=== PATIENT | female | born 1940 | race Caucasian/White ===

== ENCOUNTER 2019-07-27 13:00 | Outpatient (RCR) | payer MEDICARE, SELFPAY ==
--- NOTE | 2019-07-27 14:24 | PTOPEVAL ---
Addendum entered by CORNELIUS LUBIN 07/27/19 15:55: An evaluation of Cesia's Left knee was done 07/17/2019. All testing was negative except for increased L knee pain and difficulty with walking due to the increase in left knee pain. Balance testing was not able to be done on 07/17/2019 due to the increased left knee pain. This evaluation was done today. I did not print out the knee evaluation on 07/17/2019 and am not able to do so at this time due to computer program issue of only able to print out 1 eval - which is the below evaluation. Original Note: BALANCE PHYSICAL THERAPY EVALUATION and UPDATED PLAN OF CARE Thank you for referring Cesia to [facility]. Please review, sign, date and return this plan of care DANIS. She will be seen 1-2x/wk x 4 wks. I agree with and certify that the following plan of care is medically necessary. Referring Physician Date Admitting Provider: Attending Provider: Gagan Begum, Referring Provider: *PT Outpatient Evaluation Start: 07/17/19 13:48 Freq: Status: Active Protocol: Document 07/27/19 13:00 JESSIE (Rec: 07/27/19 14:21 JESSIE [id number]) Therapy Assessment Status Assessment Status Assessment Status Evaluation Outpatient Past Medical History Neurological History Hx Neurological Disorders No Significant History Cardiovascular History Hx Hypertension Yes Respiratory History Hx Other Respiratory Disorders Yes: aspirated pill - 2 yrs ago,followed by [facility] Gastrointestinal History Hx Gastrointestinal Disorders No Significant History Genitourinary History Hx Genitourinary Disorders No Significant History Musculoskeletal History Hx Joint Replacement Yes: 8-10 years ago TKA,B TSA ~6 yrs Endocrine History Hx Endocrine Disorders No Significant History HEENT History Hx Ear Surgery Yes: L cochlear implant 2018 Evaluation Information Problem Diagnosis loss of balance Onset after knees were replaced Subjective Information She feels like she is just Query Text:As Reported By Patient/ weaving when she walks. When Family she goes up/down stairs without a banister - needs to slightly hold onto someone for some stability. L knee pain is going away. No dizziness getting up in the morning, but with sit to stand - needs to stay still for a little - then can start walking. 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
--- NOTE | 2019-08-24 15:30 | PCPTNOTE ---
PHYSICAL THERAPY DISCHARGE NOTE Admitting Provider: Attending Provider: Gagan Begum, Patient:Cesia Bernadr Date of :1940 Cesia has not returned for any further treatments since 07/27/2019, therefore she will be discharged from physical therapy at this time. She was initially seen for her knee evaluation and then a balance evaluation was done the following week. She was provided with a HEP. She did not return for any follow up treatments. Thank you for referring Cesia to [facility]. Please review, sign, date and return this discharge summary DANIS. I have been updated about Cesia's current status and I agree with discharge from the above service at this time. Referring Physician Date
== END 2019-09-30 14:55 | disposition home or self-care (01) ==
LOC: ANHHIPT 13:00
PROVIDERS: PCP Internal Medicine; Visit Provider Internal Medicine
DX: R26.9 Unspecified abnormalities of gait and mobility (principal)
CPT/HCPCS: 97162

== ENCOUNTER 2024-09-29 08:55 | Outpatient (CLI) | payer MEDICARE, SELFPAY ==
--- NOTE | 2024-09-29 09:15 | ECHO_ITS ---
Patient Info Name: Cesia Das Age: 83 years : 1940 Gender: Female Ht: 64 in Wt: 270 lbs BSA: 2.42 m2 HR: 99 bpm BP: 157 / 80 mmHg Exam Date: 09/29/2024 9:21 AM Exam Location: Echo Lab Patient Status: Outpatient Admit Date: 09/29/2024 Staff Ordering Physician: Elizabeth Davis PA-C Blood Bank Laboratory Technologist: Aundrea Bernard RDCS Attending Provider: Elizabeth Davis PA-C Referring Physician: Ryan CHIN; Exam Type: CA echo dop color flow w con Study Info Indications R06.00 - Dyspnea, unspecified Complete two-dimensional, color flow and Doppler transthoracic echocardiogram is performed with contrast to opacify the left ventricle and to improve the deliniation of the left ventricle endocardial borders. Contrast/Agitated Saline Contrast/Ag. Saline: Definity Amount: 3.00 ml IV Access Condition: patent with no signs of infiltration New IV Access: Left Site Condition: IV removed Summary 1. Definity contrast administered improved wall motion interpretation. 2. Left ventricular chamber dimension is normal. 3. Left ventricular systolic function is normal, estimated at 60-65%. 4. There is mild concentric increased left ventricular wall thickness. 5. The left ventricular diastolic function is indeterminate as tissue doppler E/e' was not performed.. 6. Atrial flutter. 7. Left atrial chamber dimension is mildly enlarged. 8. Right atrial chamber dimension is mildly enlarged. 9. There is mild aortic valve sclerosis. 10. There is trace aortic valve regurgitation. 11. The mitral valve has mildly calcified annulus. 12. There is trace mitral valve regurgitation. 13. Mild pulmonary hypertension, estimated pulmonary arterial systolic pressure is 40 mmHg. Left Ventricle Definity contrast administered improved wall motion interpretation. The left ventricular diastolic function is indeterminate as tissue doppler E/e' was not performed.. Atrial flutter. Left ventricular chamber dimension is normal. Left ventricular systolic function is normal, estimated at 60-65%. There is mild concentric increased left ventricular wall thickness. Right Ventricle Right ventricular chamber dimension is normal. Right ventricular systolic function is normal. Left Atria Left atrial chamber dimension is mildly enlarged. Right Atria Right atrial chamber dimension is mildly enlarged. Aortic Valve The aortic valve is trileaflet. There is mild aortic valve sclerosis. There is no aortic valve stenosis. There is trace aortic valve regurgitation. Pulmonic Valve There is no pulmonic regurgitation. Mitral Valve The mitral valve has mildly calcified annulus. There is no mitral valve stenosis. There is trace mitral valve regurgitation. Tricuspid Valve There is no tricuspid valve regurgitation. Mild pulmonary hypertension, estimated pulmonary arterial systolic pressure is 40 mmHg. Pericardium/Pleural There is no pericardial effusion. Inferior Vena Cava Normal inferior vena cava with >50% collapse upon inspiration consistent with normal right atrial pressure, 5 mmHg. Aorta The aortic root size at the sinus of Valsalva is normal. Left Ventricular Outflow Tract Name Value Normal LVOT 2D LVOT Diameter 2.07 cm LVOT Doppler LVOT Peak Gradient 4 mmHg LVOT Mean Gradient 2 mmHg LVOT VTI 18.58 cm LVOT VTI/AV VTI Ratio 0.93 LVOT Stroke Volume 62.62 ml LVOT CO 14.79 l/min LVOT CI 6.10 L/min/m2 Tricuspid Valve Name Value Normal TV Regurgitation Doppler TR Peak Velocity 295.61 cm/s TR Peak Gradient 35 mmHg Estimated PAP/RSVP RA Pressure 5 mmHg <=5 PA Systolic Pressure 40 mmHg <36 RV Systolic Pressure 40 mmHg <36 Aorta Name Value Normal Ascending Aorta Ao Root Diameter (MM) 4.05 cm Ao Root Diam Index (MM) 1.67 cm/m2 Aortic Valve Name Value Normal AV Doppler AV Peak Velocity 116.48 cm/s AV Peak Gradient 5 mmHg AV Mean Gradient 4 mmHg AV VTI 19.96 cm AV Area (Cont Eq VTI) 3.14 cm2 >=3.00 AV Area (Cont Eq Facundo) 2.90 cm2 AV Regurgitation 2D LVOT Area 3.37 cm2 Ventricles Name Value Normal LV Dimensions 2D/MM IVS Diastolic Thickness (2D) 1.19 cm 0.60-1.00 LVID Diastole (2D) 3.38 cm 3.80-5.20 LVIW Diastolic Thickness (2D) 1.12 cm 0.60-0.90 LVID Systole (2D) 2.48 cm 2.20-3.50 LVOT Diameter 2.07 cm LV Mass (2D Cubed) 121.77 g 67.00-162.00 LV Mass Index (2D Cubed) 0.01 g/cm2 0.00-0.01 Relative Wall Thickness (2D) 0.66 LV Fractional Shortening/Ejection Fraction 2D/MM LV Fractional Shortening (2D) 27 % 27-45 LV EF (2D Teicholz) 53 % 54-74 LV Diastolic Volume (4C MOD) 107.25 ml LV EF (4C MOD) 55 % LV Diastolic Volume (2C MOD) 42.58 ml LV EF (2C MOD) 73 % LV Diastolic Volume (BP MOD) 61.90 ml 46.00-106.00 LV Diastolic Volume Index (BP MOD) 0.03 l/m2 0.03-0.06 LV Systolic Volume (BP MOD) 26.37 ml 14.00-42.00 LV Systolic Volume Index (BP MOD) 0.01 l/m2 0.01-0.02 LV EF (BP MOD) 57 % 54-74 LV Diastolic Length (4C) 7.52 cm LV Systolic Length (4C) 6.48 cm LV Stroke Volume (4C MOD) 59.56 ml Atria Name Value Normal LA Dimensions LA Dimension (MM) 3.37 cm 2.70-3.80 LA Volume (4C A-L) 87.38 ml LA Volume (BP A-L) 80.76 ml RA Dimensions RA Area (4C) 22.83 cm2 <=18.00 Report Signatures
--- OUTSIDE RECORDS SUMMARY | 2024-09-29 09:22 | XMS_ITS | Encounter Summary ---
Author Organization [facility] Address [facility] [place] [address] Care Team Providers Care Manager Aerospace Name Role Phone Gagan Begum MD Primary Care Provider [phone] Luís Richmond MD Primary Care Provider [phone] Elizabeth Davis Primary Care Provider [phone] Encounter Details Date Type Department Care Team (Late st Contact Info) Description 10/02/[address] [facility] Conversion [address] [place], [place] [address] , Generic Conversion, Social History Tobacco Use Types Packs/Day Years Used Date Smoking Tobacco: Never Assessed Comments Unknown Sex and Gender Information Value Date Recorded Sex Assigned at Female 09/04/2024 3:44 PM CDT Legal Sex Female 8:29 PM CDT Gender Identity Not on file Sexual Orientation Not on file documented as of this encounter Plan of Treatment Upcoming Encounters Date Type Department Care Team (Late st Contact Info) Description 09/30/2024 7:15 AM CDT Home Care Visit [facility] [address] [place] [address] [place] [address] Lobito Macario, GUT CLEANER 10/06/2024 8:00 AM CDT Home Care Visit [facility] [address] [place] [address] [place] [address] Lobito Macario, GUT CLEANER 10/14/2024 2:30 PM CDT Appointment [address] [place] [address] [place] [address] Leanna Dominguez, PT [address] [place] [address] documented as of this encounter Visit Diagnoses Not on filedocumented in this encounter Additional Health Concerns Infection Onset Date Last Indicated Resolved Time COVID-19 Rule Out 12/04/2019 12/04/2019 12/05/2019 7:59 PM CDT COVID-19 Rule Out 09/06/2020 09/10/2020 09/11/2020 12:20 PM CDT COVID-19 Rule Out 09/04/2024 09/04/2024 09/04/2024 3:02 PM CDT Respiratory Rule-Out 09/04/2024 09/04/2024 025 3:09 PM CDT Respiratory Rule-Out 09/04/2024 09/04/2024 025 12:49 PM CDT documented as of this encounter Care Teams Manager Aerospace Relationship Specialty Start Date End Date Gagan Begum MD [address] [place] [phone] PCP - General INTERNAL MEDICINE 09/02/19 05/13/22 Luís Richmond MD [address] [place] [id number] PCP - General FAMILY PRACTICE 05/14/22 09/03/24 Elizabeth Davis PA [address] [place] [address] PCP - General PHYSICIAN CASH ROOM CLERK 09/04/24 documented as of this encounter
--- OUTSIDE RECORDS SUMMARY | 2024-09-29 09:22 | XMS_ITS | Encounter Summary ---
Author Organization [facility] Address [facility] [place] [address] Care Team Providers Care Substation Maintenance Technician Name Role Phone Gagan Begum MD Primary Care Provider [phone] Luís Richmond MD Primary Care Provider [phone] Elizabeth Davis Primary Care Provider [phone] Encounter Details Date Type Department Care Team (Late st Contact Info) Description 12/02/2019 Prep for Procedure [facility] [address] [place] [address] Sunny Knowles MD [address] [place] [address] Social History Tobacco Use Types Packs/Day Years Used Date Smoking Tobacco: Never Smokeless Tobacco: Never Alcohol Use Standard Drinks/Week Comments Not Asked 0 (1 standard drink = 0.6 oz pur e alcohol) Comments No Sex and Gender Information Value Date Recorded Sex Assigned at Female 09/04/2024 3:44 PM CDT Legal Sex Female 8:29 PM CDT Gender Identity Not on file Sexual Orientation Not on file COVID-19 Exposure Response Date Recorded In the last month, have you been in contact with someone who was confirmed or suspected to have Coronavirus / COVID-19? No / Unsure 12/04/2019 2:18 PM CDT documented as of this encounter Plan of Treatment Upcoming Encounters Date Type Department Care Team (Late st Contact Info) Description 09/30/2024 7:15 AM CDT Home Care Visit [facility] [address] [place] [address] [place] [address] Lobito Macario, HOCKEY PLAYER 10/06/2024 8:00 AM CDT Home Care Visit [address] [place] [address] [place] [address] Lobito Macario, HOCKEY PLAYER 10/14/2024 2:30 PM CDT Appointment [facility] [address] [place] [address] [place] [address] Leanna Dominguez, PT [address] [place], [place] [address] documented as of this encounter Results * PRE-SURGICAL/PRE-PROCEDURE CORONAVIRUS (COVID 19) (12/04/2019 2:28 PM CDT) CORONAVIRUS SARS COV 2 PCR (RESP) NOT DETECTED NOT DETECTED 12/05/2019 7:59 PM CDT [facility] Comment: A Not Detected (negative) test result for this test means that SARS- CoV-2 RNA was not present in the specimen above the limit of detection. A negative result does not rule out the possibility of COVID-19 and should not be used as the sole basis for treatment or patient management decisions. If COVID-19 is still suspected, based on exposure history together with other clinical findings, re-testing should be considered in consultation with public health authorities. Laboratory test results should always be considered in the context of clinical observations and epidemiological data in making a final diagnosis and patient management decisions. Please review the Fact Sheets and FDA authorized labeling available for health care providers and patients using the following websites: [email or web address]/home/Covid-19/HCP/NAAT/fact-sheet2 [email or web address]://www.[facility]/home/Covid-19/Patients/NAAT/ fact-sheet2 This test has been authorized by the FDA under an Emergency Use Authorization (EUA) for use by authorized laboratories. Due to the current public health emergency, [facility] is receiving a high volume of samples from a wide variety of swabs and media for COVID-19 testing. In order to serve patients during this public health crisis, samples from appropriate clinical sources are being tested. Negative test results derived from specimens received in non-commercially manufactured viral collection and transport media, or in media and sample collection kits not yet authorized by FDA for COVID-19 testing should be cautiously evaluated and the patient potentially subjected to extra precautions such as additional clinical monitoring, including collection of an additional specimen. Methodology: Nucleic Acid Amplification Test (NAAT) includes PCR or TMA Additional information about COVID-19 can be found at the [facility] website: [email or web address].[email or web address]. Test performed at [facility] [address] [place] [address] Director: SUZIE LOGAN DO,MPH NASOPHARYNGEAL SWAB / Unknown 12/04/2019 2:28 PM CDT us Sunny Knowles MD MICROBIOLOGY - GENERAL ORDERA BLES Final Result [facility] [id number] [place] [address] documented in this encounter Visit Diagnoses Diagnosis Pre-op testing- Primary Preoperative examination, unspecified documented in this encounter Additional Health Concerns Infection Onset Date Last Indicated Resolved Time COVID-19 Rule Out 12/04/2019 12/04/2019 12/05/2019 7:59 PM CDT COVID-19 Rule Out 09/06/2020 09/10/2020 09/11/2020 12:20 PM CDT COVID-19 Rule Out 09/04/2024 09/04/2024 09/04/2024 3:02 PM CDT Respiratory Rule-Out 09/04/2024 09/04/2024 025 3:09 PM CDT Respiratory Rule-Out 09/04/2024 09/04/2024 025 12:49 PM CDT documented as of this encounter Care Teams Substation Maintenance Technician Relationship Specialty Start Date End Date Gagan Begum MD [address] [place] [id number] PCP - General INTERNAL MEDICINE 09/02/19 05/13/22 Luís Richmond MD [address] [place] [address] PCP - General FAMILY PRACTICE 05/14/22 09/03/24 Elizabeth Davis PA [address] [place] [id number] PCP - General PHYSICIAN INSTRUCTIONAL MANAGER 09/04/24 documented as of this encounter
--- OUTSIDE RECORDS SUMMARY | 2024-09-29 09:22 | XMS_ITS | Clinical Summary ---
Author Organization [facility] Address [address] [place] [address] Care Team Providers Care System Programmer Name Role Phone Elizabeth Davis Primary Care Provider [phone] Lavelle Mao MD Unavailable [phone] Allergies No known active allergies Medications lisinopril-hydr oCHLOROthiazide (PRINZIDE,ZESTO RETIC) 10-12.5 mg per tablet take 1 tablet by oral route every day 0 0 5 Active Additional Information Patient taking differently: oral Nightly, Indications: hypertension, Informant: Self, Reported on 02/26/2023 oxybutynin (DITROPAN) 5 mg tablet 5 mg. 0 0 5 Active Additional Information Patient taking differently:5 mgoral Nightly, Indications: Urinary Urgency, Informant: Self, Reported on 02/26/2023 traZODone (DESYREL) 50 mg tabletIndicatio ns:sleep Take 1 tablet (50 mg total) by mouth nightly 7 Active HYDROcodone-arthur taminophen (NORCO) 5-325 mg per tabletIndicatio ns:Pain Take 1 tablet by mouth every 4 (four) hours as needed for pain 20 tablet 9 Active Additional Information Patient not taking.Reported on 02/26/2023 multivitamin capsule Take 1 capsule by mouth daily Active psyllium, aspartame, SF (psyllium) 3.4 gram packet Take 1 packet by mouth daily Active Active Problems Problem Noted Date Diagnosed Date Full incontinence of feces 02/26/2023 Sensory hearing loss, bilateral 03/03/2019 Overview (03/03/2019): Added automatically from request for surgery [id number] Sensorineural hearing loss, asymmetrical 019 Hypertension 09/29/2014 Overview (09/27/2016): HBP Hematochezia 01/08/2012 Encounters Date Type Department Care Team Description 09/16/2024 3:00 PM CDT Procedure visit [facility] Otolaryngology [address] [facility] [address] [place] [address] [place] [address] Ayleen Nur Au.D. Sensorineural hearing loss, bilateral (Primary Dx); Encounter for adjustment and management of cochlear device from Last 3 Months Immunizations Immunization Administration Dates Next Due Influenza, Quadrivalent, Split, Intramuscular Influenza, Trivalent, High D ose, Split, Preservative Free, Intramuscular 05/27/2018 Pneumococcal Conjugate PCV 13 04/02/2019 Pneumococcal Polysaccharide PPV23 03/06/2018 Surgical History Surgery Date Site/Laterality Comments HERNIA REPAIR Hernia repair REPLACEMENT TOTAL KNEE Right TOTAL KNEE ARTHROPLASTY Left TOTAL SHOULDER ARTHROPLASTY Bilateral CHOLECYSTECTOMY 06/24/2007 - 06/23/2008 Medical History Medical History Date Comments Hypertension Menopause ovarian failure HL (hearing loss) Medication management Per patien t Morphine doesn't work Family History Medical History Relation Name Comments Sudden Cardiac Father Colon cancer Mother Cancer, colon; Other Other 1 No family histo ry of Cancer, breast; Other Other 2 No family histo ry of Cancer, cervical; Other Other 3 No family histo ry of Cancer, ovarian; Anesthesia problems Neg Hx Relation Name Status Comments Father Mother Other 1 Other 2 Other 3 Social History Tobacco Use Types Packs/Day Years Used Date Smoking Tobacco: Never Smokeless Tobacco: Never Tobacco Cessation:Counseling Given: Not Answered Alcohol Use Standard Drinks/Week Comments Yes 0 (1 standard drink = 0.6 oz pur e alcohol) 3 drinks a month Comments No Sex and Gender Information Value Date Recorded Sex Assigned at Not on file Legal Sex Female 4:31 PM AUTOMOTIVE AIRCONDITIONING MECHANIC Gender Identity Not on file Sexual Orientation Not on file Obstetrics History Para Term AB IAB SAB Ectopic Multiple Livin g Live Births 3 3 Date Outcome GA Total Labor Labor/2nd/3rd Weight Sex Type Anes PTL Katelin A1 A5 Name Clin Para Para Para Last Filed Vital Signs Vital Sign Reading Time Taken Comments Blood Pressure 90/62 02/26/2023 2:27 PM CDT Pulse 83 02/26/2023 2:27 PM CDT Temperature 36 C (96.8 F) 04/08/2019 3:57 PM CDT Respiratory Rate 16 04/08/2019 4:10 PM CDT Oxygen Saturation 93% 02/26/2023 2:27 PM CDT Inhaled Oxygen Concentration - - Weight 112.5 kg (248 lb) 02/26/2023 2:27 PM CDT Height 157.5 cm (5' 2 ) 02/26/2023 2:27 PM CDT Body Mass Index 45.36 02/26/2023 2:27 PM CDT Plan of Treatment Health Maintenance Due Date Last Done Comments Depression Screening 1940 Fall Risk Assessment 1940 Osteoporosis Screening-Bone Density Scan 1940 DTaP/Tdap/Td Vaccine (1 - Tdap) 11/29/1950 Hepatitis B Screening 11/29/1957 Zoster Vaccine (1 of 2) 11/29/1989 Well Visit 65+ 04/29/2018 04/29/2017 Covid-19 Vaccine ( season) 02/23/202405/2021, 08/05/2020 Influenza Vaccine (#1) 2024 05/27/2018, 2016 Pneumococcal vaccine 65+ Completed 04/02/2019, 02/22 Medical Devices Implanted Type Area Car Dumper Device Identifier Shelf Expiration Date Model / Serial / Lot Cochlear [employer] [id number] Implant Cochlear Cochlear Nucleus Profile Plus Slim Modiolar Electrode [id number] - [id number] - [id number] Implanted:Qty : 1 on 04/08/2019 by Igor Cha MD at [facility] Medicine Other - see comments Left: Cochlea Cochlear [employer] 03/04/2021 [id number] / [id number] / [id number] Description:Cochlear Nucleus [id number] Cochlear Implant with Contour Procedures Procedure Name Priority Date/Time Associated Diagnosis Comments [facility] RESULTS 09/16/2024 2:15 PM CDT from Last 3 Months Results * [facility] Results (09/16/2024 2:15 PM CDT) Provider Scanning AUDIOLOGY SERVICES ORDERABLES Final Result from Last 3 Months Insurance UHC MEDICARE ADVANTAGE A[employer] MEDICARE GOLD Care Teams System Programmer Relationship Specialty Start Date End Date Elizabeth Davis PA [address] [place] [address] PCP - General Physician Life Science Research Assistant 02/26/23 Lavelle Mao MD [phone] [place] [address] Surgeon Colon and Rectal Surgery 02/26/23
--- OUTSIDE RECORDS SUMMARY | 2024-09-29 09:22 | XMS_ITS | Referral Summary ---
Author Organization [facility] Address [address] [place] [address] Care Team Providers Care Shale Processing Technician Name Role Phone Elizabeth Davis Primary Care Provider [phone] Lavelle Mao MD Unavailable [phone] Encounters Date Type Department Care Team Description 09/16/2024 3:00 PM CDT Procedure visit [facility] Ot[facility] [address] [facility] [address] [place] [address] [place] [address] Ayleen Nur Au.D. Sensorineural hearing loss, bilateral (Primary Dx); Encounter for adjustment and management of cochlear device from Last 3 Months Allergies No known active allergies Medications lisinopril-hydr [...] (03/03/2019): Added automatically from request for surgery [id number] Sensorineural hearing loss, asymmetrical 019 Hypertension 09/29/2014 Overview (09/27/2016): HBP Hematochezia 01/08/2012 Immunizations Immunization Administration Dates Next Due Influenza, Quadrivalent, Split, Intramuscular Influenza, Trivalent, High D ose, Split, Preservative Free, Intramuscular 05/27/2018 Pneumococcal Conjugate PCV 13 04/02/2019 Pneumococcal Polysaccharide PPV23 03/06/2018 Social History Tobacco Use Types Packs/Day Years Used Date Smoking Tobacco: Never Smokeless Tobacco: Never Tobacco Cessation:Counseling Given: Not Answered Alcohol Use Standard Drinks/Week Comments Yes 0 (1 standard drink = 0.6 oz pur e alcohol) 3 drinks a month Comments No Sex and Gender Information Value Date Recorded Sex Assigned at Not on file Legal Sex Female 4:31 PM LEARNING AND DEVELOPMENT SPECIALIST Gender Identity Not on file Sexual Orientation Not on file Last Filed Vital Signs Vital Sign Reading [...] 02/26/2023 2:27 PM CDT Plan of Treatment Not on file Medical Devices Implanted Type Area Film And Video Graphics Designer Device Identifier Shelf Expiration Date Model / Serial / Lot Cochlear [employer] [id number] Implant Cochlear Cochlear Nucleus Profile Plus Slim Modiolar Electrode [id number] - [id number] - [id number] Implanted:Qty : 1 on 04/08/2019 by Igor Cha MD at [facility] Other - see comments Left: Cochlea [employer]chle[employer] 03/04/2021 [id number] / [id number] / [id number] Description:Cochlear Nucleus [id number] Cochlear Implant with Contour Procedures Procedure Name Priority Date/Time Associated Diagnosis Comments AUDBASE RESULTS 09/16/2024 2:15 PM CDT from Last 3 Months Results * AudBase Results (09/16/2024 2:15 PM CDT) Provider Scanning AUDIOLOGY SERVICES ORDERABLES Final Result from Last 3 Months Insurance [facility] MEDICARE ADVANTAGE AET[employer] MEDICARE GOLD Care Teams Shale Processing Technician Relationship Specialty Start Date End Date Elizabeth Davis PA [address] [place] [id number] PCP - General Physician Wedding Decorator 02/26/23 Lavelle Mao MD [phone] [place] [address] Surgeon Colon and Rectal Surgery 02/26/23
--- OUTSIDE RECORDS SUMMARY | 2024-09-29 09:23 | XMS_ITS | Encounter Summary ---
Author Organization [facility] Address [facility] [place] [address] Care Team Providers Care Operation Manager Name Role Phone Gagan Begum MD Primary Care Provider [phone] Luís Richmond MD Primary Care Provider [phone] Elizabeth Davis Primary Care Provider [phone] Encounter Details Date Type Department Care Team (Late st Contact Info) Description 09/05/[address] [facility] [address] [place] [id number] Juanito Bautista MD [address] [place], [place] [id number] Social History Tobacco Use Types Packs/Day Years Used Date Smoking Tobacco: Never Smokeless Tobacco: Never Alcohol Use Standard Drinks/Week Comments Yes 0 (1 standard drink = 0.6 oz pur e alcohol) social PHQ-2 Answer Date Recorded PHQ-2 Score - If the patient scores above 3, please move on to questions 3-9 0 08/31/2020 Comments No Sex and Gender Information Value Date Recorded Sex Assigned at Female 09/04/2024 3:44 PM CDT Legal Sex Female 8:29 PM CDT Gender Identity Not on file Sexual Orientation Not on file COVID-19 Exposure Response Date Recorded In the last month, have you been in contact with someone who was confirmed or suspected to have Coronavirus / COVID-19? No / Unsure 09/06/2020 12:40 PM CDT documented as of this encounter Plan of Treatment Upcoming Encounters Date Type Department Care Team (Late st Contact Info) Description 09/30/2024 7:15 AM CDT Home Care Visit [address] [place] [address] [place] [address] Lobito Macario, NON CLINICAL ADVISOR 10/06/2024 8:00 AM CDT Home Care Visit [address] [place] [address] [place] [address] Lobito Macario, NON CLINICAL ADVISOR 10/14/2024 2:30 PM CDT Appointment [address] [place], [place] [id number] Leanna Dominguez, PT [address] [place], [place] [id number] documented as of this encounter Results * ECG 12-Lead (09/06/2020 12:49 PM CDT) 09/06/2020 12:4 9 PM CDT Narrative [facility] RAD - 09/06/2020 1:49 PM CDT [facility] Test Date: 2020-09-06 Pat Name: CESIA RICARDO Department: Room: Gender: Female Parish Visitor: : 1940 Requested By: JUANITO BAUTISTA Order Number: [id number] Reading MD: Lambert Reagan Measurements Intervals Chandler Rate: 67 P: 47 [place]: 185 QRS: -23 QRSD: 96 T: 56 QT: 331 QTc: 351 Interpretive Statements SINUS RHYTHM WITH MARKED SINUS ARRHYTHMIA BORDERLINE LEFT AXIS DEVIATION LOW QRS VOLTAGE IN PRECORDIAL LEADS Compared to ECG 12/17/2016 11:18:37 Low QRS voltage now present Myocardial infarct finding no longer present Procedure Note Lambert Reagan MD - 09/06/2020 [facility] Test Date: 2020-09-06 Pat Name: CESIA SILVA Department: Room: Gender: Female Parish Visitor: : 1940 Requested By: JUANITO BAUTISTA Order Number: [id number] Reading MD: Lambert Reagan Measurements Intervals Chandler Rate: 67 P: 47 [place]: 185 QRS: -23 QRSD: 96 T: 56 QT: 331 QTc: 351 Interpretive Statements SINUS RHYTHM WITH MARKED SINUS ARRHYTHMIA BORDERLINE LEFT AXIS DEVIATION LOW QRS VOLTAGE IN PRECORDIAL LEADS Compared to ECG 12/17/2016 11:18:37 Low QRS voltage now present Myocardial infarct finding no longer present us Juanito Bautista MD ECG ORDERABLES Final Result [facility] documented in this encounter Visit Diagnoses Diagnosis Preop testing- Primary Preoperative examination, unspecified Preop testing Preoperative examination, unspecified documented in this encounter Additional Health Concerns Infection Onset Date Last Indicated Resolved Time COVID-19 Rule Out 09/06/2020 09/10/2020 09/11/2020 12:20 PM CDT COVID-19 Rule Out 09/04/2024 09/04/2024 09/04/2024 3:02 PM CDT Respiratory Rule-Out 09/04/2024 09/04/2024 025 3:09 PM CDT Respiratory Rule-Out 09/04/2024 09/04/2024 025 12:49 PM CDT documented as of this encounter Care Teams Operation Manager Relationship Specialty Start Date End Date Gagan Begum MD [address] [place] [id number] PCP - General INTERNAL MEDICINE 09/02/19 05/13/22 Luís Richmond MD [address] [place] [id number] PCP - General FAMILY PRACTICE 05/14/22 09/03/24 Elizabeth Davis PA [address] [place] [phone] PCP - General PHYSICIAN ASSURANCE SENIOR MANAGER 09/04/24 documented as of this encounter
--- OUTSIDE RECORDS SUMMARY | 2024-09-29 09:23 | XMS_ITS | Clinical Summary ---
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 Indications: bladder spasms Active OXYGENIndicati ons:supplement oxygen 2 L/min by Nasal route nightly. Indications: supplement oxygen Active hydroCHLOROthi azide (MICROZIDE) 12.5 MG tabletIndicati ons:diuretics Take 1 tablet (12.5 mg total) by mouth daily. Indications: diuretics 5 Active lisinopril (PRINIVIL) 10 MG tabletIndicati ons:htn Take 1 tablet (10 mg total) by mouth daily. Indications: htn 5 Active psyllium 0.52 g capsuleIndicat ions:fiber Take 5 capsules (2,600 mg total) by mouth 5 (five) times daily. Indications: fiber Active loratadine (CLARITIN) 10 MG tabletIndicati ons:allergies Take 1 tablet by mouth daily. Indications: allergies Active multivitamin (THERA) tabletIndicati ons:mvi Take 1 tablet by mouth daily. Indications: mvi Active vitamin B-1 (THIAMINE) 50 MG tabletIndicati ons:vitamins Take 1 tablet by mouth daily. Indications: vitamins Active Vitamin D, Cholecalcifero l, 50 MCG (1999) CapIndications :supplement Take 1 tablet by mouth daily. Indications: supplement Active Multiple Vitamins-[place] als (MULTIVITAMIN & MINERAL OR)Indications :supplement Take 1 tablet by mouth daily. Indications: supplement Active Biotin 1000 MCG TabIndications :supplement Take 1 tablet by mouth daily. Indications: supplement Active Cyanocobalamin (VITAMIN B 12 OR)Indications :supplement Take 1 tablet by mouth daily. Indications: supplement Active trazodone 50 MG tablet Take 1 tablet (50 mg total) by mouth nightly at bedtime. 09/06/19 Discontinu ed(Error) lisinopril-hyd rochlorothiazi de 10-12.5 MG tablet Take 1 tablet by mouth nightly. 09/06/19 Discontinu ed(Error) HYDROcodone-ac etaminophen 5-325 MG tabletIndicati ons:Acute Pain < 7 Day Supply Take 1-2 tablets by mouth every 6 (six) hours as needed for Pain. Indications: Acute Pain < 7 Day Supply For Moderate Pain 20 tablet 1 09/06/19 Discontinu ed(Error) vitamin D3 (CHOLECALCIFER OL) 10 mcg tablet Take 1 tablet (10 mcg total) by mouth daily. 09/09/19 Discontinu ed(Stop Taking at Discharge) loratadine (CLARITIN) 10 MG tabletIndicati ons:allergies Take 10 mg by mouth daily. Indications: allergies 5 09/09/19 Discontinu ed(Stop Taking at Discharge) Active Problems Problem Noted Date Diagnosed Date Hypoxia 09/04/2024 Encounters Date Type Department Care Team Description 09/24/2024 12:30 PM CDT Home Care Visit [facility] Home Care [address] [place] [address] Lobito Macario PTA CUTTER OPERATOR HOME VISIT 09/22/2024 12:45 PM CDT Home Care Visit [facility] Care [address] [place] [address] [place] [address] Lobito Macario PTA CUTTER OPERATOR HOME VISIT 09/17/2024 12:45 PM CDT Home Care Visit [facility] Care [address] [place] [address] Lobito Macario, CUTTER OPERATOR CUTTER OPERATOR HOME VISIT 09/16/2024 10:15 AM CDT Home Care Visit [facility] Home Care [address] [address] Yadira Weston LPN SN HOME VISIT 09/16/2024 8:00 AM CDT Home Care Visit [address] [address] Maci Dacosta LPN HH/HSPC ORIENTATION VISIT 09/14/2024 12:00 PM CDT Home Care Visit [facility] Care [address] [address] Leanna Dominguez, PT PT INITIAL EVALUATION 09/14/2024 Home Care Visit [address] [address] Debra Jones, RN CASE COMMUNICATION 09/10/2024 Hospital Follow-up Call [facility] Care Management [address] [place] [address] Marsha Pressley LPN Follow Up Call ([facility] 09/04-09/08/24) 09/09/2024 12:00 PM CDT Home Care Visit [address] [address] Crystal Moraes, RN SN OASIS START OF CARE 09/09/2024 Plan of Care Documentation [address] [id number] 09/04/2024 2:08 PM CDT - 09/08/2024 1:45 PM CDT Hospital Encounter [facility] [id number] [place] [id number] Tesfaye Issa MD Verma, Seema, MD Suresh, MD Federico Seay Darcy L, MOVER HELPER Genesis Abraham, ALANNAH Decreased Oxygen Level With Symptoms Discharge Disposition: Home with Home Health Care 09/04/2024 12:30 PM CDT Home Care Visit [facility] Home Care [address] [place] [address] [place] [address] Crystal Moraes RN SN NON ADMIT SOC 09/04/2024 Travel 09/01/2024 Scan [facility] Care [address] [place] [address] [place] [address] Scanned, Doc Hospital from Last 3 Months Immunizations Name Administration Dates Next Due Influenza Adult (Generic) 05/27/2018,03/24/2017 MODERNA COVID-19 (12+) MRNA, LNP-S, PF, 100 MCG/ 0.5 ML DOSE 09/02/2020,08/05/2020 Pneumococcal (Pneumovax 23) 03/06/2018 Pneumococcal (Prevnar 13) 04/02/2019 Family History Medical History Relation Comments Heart Father Cancer Mother Diabetes Sister Relation Status Comments Father Maternal Grandfather Maternal Grandmother Mother Paternal Grandfather Paternal Grandmother Sister Social History Tobacco Use Types Packs/Day Years Used Date Smoking Tobacco: Never Smokeless Tobacco: Never Tobacco Cessation:Counseling Given: No Alcohol Use Standard Drinks/Week Comments Yes 0 (1 standard drink = 0.6 oz pur e alcohol) social OASIS D0700: Social Isolation Answer Da te Recorded Frequency of experiencing loneliness or isolatio n Never 09/09/2024 OASIS A1250: Transportation Answer Date Recorded Lack of Transportation (Medical) Yes 09/09/2024 Lack of Transportation (Non-Medical) No 09/09/2024 Patient Unable or Declines to Respond No 09/09/2024 OASIS B1300: Health Literacy Answer Pedro Luis e Recorded Frequency of needing help to read materials from doctor or pharmacy Never 09/09/2024 B1300 Health Literacy Answer Date Recor ded How often do you need to hav e someone help you when you read instructions, pamphlets, or other written material from your doctor or pharmacy? Never 09/04/2024 [facility] Utilities Answer Date Recorded In the past 12 months has th e electric, gas, oil, or water company threatened to shut off services in your home? No 09/04/2024 Humiliation, Afraid, Rape, and Kick questionnair e Answer Date Recorded Within the last year, have y ou been afraid of your partner or ex-partner? No 09/04/2024 Within the last year, have y ou been humiliated or emotionally abused in other ways by your partner or ex-partner? No Within the last year, have y ou been kicked, hit, slapped, or otherwise physically hurt by your partner or ex-partner? No 09/04/2024 Within the last year, have y ou been raped or forced to have any kind of sexual activity by your partner or ex-partner? No 09/04/2024 Social Connection and Isolat ion Panel [NHANES] Answer Date Recorded In a typical week, how many times do you talk on the phone with family, friends, or neighbors? More than three times a week 09/04/2024 How often do you get togethe r with friends or relatives? Three times a week 09/04/2024 How often do you attend [facility] or jew services? Never 09/04/2024 Do you belong to any clubs o r organizations such as baptism groups, unions, fraternal or athletic groups, or school groups? No 09/04/2024 How often do you attend meet ings of the clubs or organizations you belong to? Never 09/04/2024 Marital Status Not on file 09/04/2024 AUDIT-C Answer Date Recorded Q1: How often do you have a drink containing alc ohol? Monthly or less 09/04/2024 Q2: How many drinks containi ng alcohol do you have on a typical day when you are drinking? 1 or 2 09/04/2024 Q3: How often do you have si x or more drinks on one occasion? Never 09/04/2024 Overall Financial Resource Strain (CARDIA) Answe r Date Recorded How hard is it for you to pa y for the very basics like food, housing, medical care, and heating? Not hard at all 09/04/2024 PHQ-2 Answer Date Recorded Patient Health Questionnaire-2 Score 4 09/04/2024 [facility] - Occupational Stress Questionnaire Answer Date Recorded Do you feel stress - tense, restless, nervous, or anxious, or unable to sleep at night because your mind is troubled all the time - these days? To some extent 09/04/2024 Exercise Vital Sign Answer Date Recorde d On average, how many days pe r week do you engage in moderate to strenuous exercise (like a brisk walk)? 0 days 09/04/2024 On average, how many minutes do you engage in exercise at this level? 0 min 09/04/2024 Hunger Vital Sign Answer Date Recorded Within the past 12 months, y ou worried that your food would run out before you got the money to buy more. Never true 09/05/19 25 Within the past 12 months, t he food you bought just didn't last and you didn't have money to get more. Never true 09/04/2024 PRAPARE - Transportation Answer Date Re corded In the past 12 months, has l ack of transportation kept you from medical appointments or from getting medications? No 08/22 In the past 12 months, has l ack of transportation kept you from meetings, work, or from getting things needed for daily living? No 09/04/2024 Housing Stability Vital Sign Answer Pedro Luis e Recorded In the last 12 months, was t here a time when you were not able to pay the mortgage or rent on time? Yes 09/04/2024 In the past 12 months, how m any times have you moved where you were living? 0 09/04/2024 At any time in the past 12 m [facility], were you homeless or living in a custodial (including now)? No 09/04/2024 Comments No Sex and Gender Information Value Date Recorded Sex Assigned at Female 09/04/2024 3:44 PM CDT Legal Sex Female 8:29 PM CDT Gender Identity Not on file Sexual Orientation Not on file Last Filed Vital Signs Vital Sign Reading Time Taken Comments Blood Pressure 118/76 09/24/2024 12:58 PM CDT Pulse 76 09/24/2024 12:58 PM CDT Temperature 36.5 C (97.7 F) 09/24/2024 12:58 PM CDT Respiratory Rate 18 09/24/2024 12:5 8 PM CDT Oxygen Saturation 98% 09/24/2024 12: 58 PM CDT Inhaled Oxygen Concentration - - Weight 135.6 kg (298 lb 15.1 oz) 09/08/2024 5:00 AM CDT Height 162.6 cm (5' 4 ) 09/04/2024 2:14 PM CDT Body Mass Index 51.31 09/04/2024 2:14 PM CDT Plan of Treatment Upcoming Encounters Date Type Department Care Team (Late st Contact Info) Description 09/30/2024 7:15 AM CDT Home Care Visit [facility] Home Care [address] [place] [address] [place] [address] Lobito Macario, CUTTER OPERATOR 10/06/2024 8:00 AM CDT Home Care Visit [facility] Care [address] [place] [address] Lobito Macario, CUTTER OPERATOR 10/14/2024 2:30 PM CDT Appointment [facility] Care [address] [place], [place] [id number] Leanna Dominguez, PT [address] [place], [place] [id number] Health Maintenance Due Date Last Done Comments DTaP, Tdap and Td Vaccines ( 1 - Tdap) 11/29/1958 Zoster Vaccines (1 of 2) 11/29/1989 Annual Medicare Wellness Visit 11/29/2004 Dexa Scan (General) 11/29/2004 RSV Immunization or 60+ Years (1 - 1-dose 75+ series) 11/29/2014 COVID-19 Vaccine ( - 2023-2 5 season) 2024 09/02/2020, 08/05/2020 Pneumococcal Vaccine: 65+ Years Completed 04/02/2019, 03/06/2018 Meningococcal B Vaccine Aged Out No l onger eligible based on patient's age to complete this topic Meningococcal Vaccine Aged Out No elbert amber eligible based on patient's age to complete this topic RSV Immunizations Under 20 Months Aged Out No longer eligible b ased on patient's age to complete this topic Medical Devices Implanted Type Area Cutter Apprentice Hand Device Identifier Shelf Expiration Date Model / Serial / Lot Iol Edwin [id number] - [id number] Implanted:Qty: 1 on 09/07/2019 by Sunny Knowles MD at [facility] Lens Right: Eye EDWIN - SURGICAL DIV 07/24/2023 [id number] / [id number] / Edwin Acrysof Iq Iol Implanted:Qty: 1 on 12/07/2019 by Sunny Knowles MD at [facility] Left: Eye 08/22/2023 / [id number] / [id number] Explanted Type Area Cutter Apprentice Hand Device Identifier Shelf Expiration Date Model / Serial / Lot Bilateral Knee Replacement Bilateral Shoulder Replacement Procedures Procedure Name Priority Date/Time Associated Diagnosis Comments HOME O2 EVAL Routine 09/07/2024 11:23 AM CDT MAGNESIUM Routine 09/07/2024 5:30 AM CDT BASIC METABOLIC PANEL Routine 09/07/2024 5:30 AM CDT CBC W/DIFF AUTOMATED Routine 09/07/2024 5:30 AM CDT PROCALCITONIN (PCT) Routine 09/06/2024 6 :35 AM CDT COMPREHENSIVE METABOLIC PANEL Routine 09/06/2024 6:35 AM CDT CBC W/DIFF AUTOMATED Routine 09/06/2024 6:35 AM CDT MAGNESIUM Routine 09/06/2024 6:35 AM CDT PROCALCITONIN (PCT) Routine 09/05/2024 6 :55 AM CDT MAGNESIUM Routine 09/05/2024 6:55 AM CDT COMPREHENSIVE METABOLIC PANEL Routine 09/05/2024 6:55 AM CDT CBC W/DIFF AUTOMATED Routine 09/05/2024 6:55 AM CDT CULTURE, BACTERIA, BLOOD STAT 09/05/2024 6:54 AM CDT RESPIRATORY PCR PANEL 2 Routine 09/04/2024 9:44 PM CDT CULTURE, BACTERIA, BLOOD STAT 09/04/2024 6:55 PM CDT CRITICAL CARE Routine 09/04/2024 6:51 PM CDT CTA CHEST PE PROTOCOL STAT 09/04/2024 5:08 PM CDT URINALYSIS, AUTO, COMPLETE STAT 09/04/2024 3:20 PM CDT INFLUENZA A & B STAT 09/04/2024 2:35 PM CDT CORONAVIRUS (COVID 19) STAT 2:35 PM CDT TSH W/REFLEX STAT 09/04/2024 2:35 PM CDT PRO-BRAIN NATRIURETIC PEPTIDE STAT 09/04/2024 2:35 PM CDT LACTIC ACID W REFLEX (SEPSIS) STAT 09/04/2024 2:35 PM CDT D-DIMER, QUANTITATIVE STAT 09/04/2024 2:35 PM CDT TROPONIN, QUANT STAT 09/04/2024 2:35 PM CDT COMPREHENSIVE METABOLIC PANEL STAT 09/04/2024 2:35 PM CDT CBC W/DIFF AUTOMATED STAT 09/04/2024 2:35 PM CDT ECG 12-LEAD Routine 09/04/2024 2:30 PM CDT XR CHEST PORTABLE STAT 09/04/2024 2:2 9 PM CDT from Last 3 Months Results * (ABNORMAL) BASIC METABOLIC PANEL (09/07/2024 5:30 AM CDT) GLUCOSE 128(H) 70 - 99 MG/DL 09/07/2024 6:30 AM T [facility] BUN 17 7 - 18 MG/DL 09/07/2024 6:30 AM [facility] CREATININE S/P/B 1.29(H) 0.55 - 1.02 MG/DL 09/07/2024 6:30 AM [facility] SODIUM S/P/B 137 136 - 145 MMOL/L 09/07/2024 6:30 AM [facility] POTASSIUM S/P/B 4.3 3.5 - 5.1 MMOL/L 09/07/2024 6:30 AM [facility] CHLORIDE S/P/B 104 100 - 108 MMOL/L 09/07/2024 6:30 AM [facility] CO2 27.5 21 - 32 MMOL/L 09/07/2024 6:30 AM [facility] CALCIUM S/P/B 8.4(L) 8.5 - 10.1 MG/DL 09/07/2024 6:30 AM [facility] ANION GAP 5.5 5 - 15 MMOL/L 09/07/2024 6:30 AM [facility] BUN CREATININE RATIO 13.2 6 - 26 09/07/2024 6:30 AM [facility] GFR ESTIMATE 41(L) >90 ML/MIN/1.7 3 M2 09/07/2024 6:30 AM [facility] Comment: NOTE: eGFR is not calculated for patients <18 years of age. This is an estimated GFR calculation using the new CKD EPI creatinine equation without race and so does not require a correction factor for race. This estimated GFR should not be used for calculating drug doses. 09/07/2024 5:30 AM CDT Genesis Abraham PA-C LABORATORY Final Result [facility] [address] [place] [address], * (ABNORMAL) CBC W/DIFF AUTOMATED (09/07/2024 5:30 AM CDT) Only the most recent of4 resultswithin the time period is included. WBC 7.73 4.4 - 11.0 x10'3/uL 09/07/2024 6:18 AM CDT [facility] RBC 4.13(L) 4.50 - 5.10 x10'6/uL 09/07/2024 6:18 AM CDT [facility] HGB 12.0(L) 12.3 - 15.3 G/DL 09/07/2024 6:18 AM CDT [facility] HCT 38.7 35.9 - 44.6 % 09/07/2024 6:18 AM CDT [facility] MCV 93.7 80.0 - 96.0 FL 09/07/2024 6:18 AM CDT [facility] MCH 29.1 25.3 - 30.9 PG 09/07/2024 6:18 AM CDT [facility] MCHC 31.0 31.0 - 34.1 G/DL 09/07/2024 6:18 AM CDT [facility] RDW 14.8 12.4 - 15.1 % 09/07/2024 6:18 AM CDT [facility] PLT 259 151 - 353 x10'3/uL 09/07/2024 6:18 AM CDT [facility] MPV 9.7 9.6 - 12.0 FL 09/07/2024 6:18 AM CDT [facility] RBC MORPHOLOGY NORMAL 09/07/2024 6:18 AM CDT [facility] PLT MORPH. NORMAL 09/07/2024 6:18 AM CDT [facility] WBC MORPHOLOGY NORMAL 09/07/2024 6:18 AM CDT [facility] LYMPHOCYTES % 20.2 15.8 - 45.0 % 09/07/2024 6:18 AM CDT [facility] NEUTROPHILS % 65.7 42.1 - 71.9 % 09/07/2024 6:18 AM CDT [facility] MONOCYTES % 10.2 5.7 - 12.5 % 09/07/2024 6:18 AM CDT [facility] EOSINOPHILS 2.7 0.0 - 5.6 % 09/07/2024 6:18 AM CDT [facility] BASOPHILS 0.8 0.0 - 1.3 % 09/07/2024 6:18 AM CDT [facility] ABS. NEUTROPHILS 5.08 1.40 - 6.00 x10'3/uL 09/07/2024 6:18 AM CDT [facility] IMMATURE GRANS % 0.4 0.0 - 0.5 % 09/07/2024 6:18 AM CDT [facility] ABS. LYMPHOCYTES 1.56 0.80 - 4.70 x10'3/uL 09/07/2024 6:18 AM CDT [facility] 09/07/2024 5:30 AM CDT us Genesis Abraham PA-C LABORATORY Final Result [facility] [address] [place] [address], * MAGNESIUM (09/07/2024 5:30 AM CDT) Only the most recent of3 resultswithin the time period is included. MAGNESIUM 2.0 1.8 - 2.4 MG/DL 09/07/2024 6:30 AM CDT [facility] 09/07/2024 5:30 AM CDT Genesis Abraham PA-C LABORATORY Final Result [facility] [address] [place] [address], * PROCALCITONIN (PCT) (09/06/2024 6:35 AM CDT) Only the most recent of2 resultswithin the time period is included. Procalcitonin <0.05 0.00 - 0.25 NG/ML 09/06/2024 8:09 AM CDT [facility] Comment: PROCALCITONIN INTERPRETATION GUIDELINES LOWER RESPIRATORY TRACT INFECTIONS (LRTI): USE OF PCT IN INPATIENT OR EMERGENCY SITUATION INITIATION OF ANTIBIOTICS PCT VALUE INTERPRETATION <0.10 NG/ML ANTIBIOTIC THERAPY STRONGLY DISCOURAGED. 0.10-0.25 NG/ML ANTIBIOTIC THERAPY DISCOURAGED. 0.26-0.50 NG/ML ANTIBIOTIC THERAPY ENCOURAGED. >0.50 NG/ML ANTIBIOTIC THERAPY STRONGLY ENCOURAGED. DISCONTINUE ANTIBIOTICS PCT LESS THAN OR EQUAL TO 0.25 NG/ML OR DELTA PCT >80 PERCENT DELTA PCT= PCT(PEAK)-PCT(CURRENT)/PCT(PEAK)X100% STUDIES HAVE EVALUATED PCT PROTOCOLS IN THESE PATIENTS AND FOUND THAT FOR PATIENTS WHO ARE CLINICALLY STABLE AND ARE TREATED AT THE ED OR ARE HOSPITALIZED, THE INITIATION OF ANTIBIOTIC THERAPY SHOULD BE BASED ON CLINICAL GROUNDS AND A PCT VALUE OF GREATER THAN OR EQUAL TO 0.26 NG/ML. IF PCT REMAINS LOWER, ANTIBIOTICS CAN BE WITHHELD AND PATIENTS CAN BE REASSESSED CLINICALLY WITHOUT SAFETY CONCERNS. IF PATIENTS ARE CLINICALLY STABLE, AN ALTERNATIVE DIAGNOSIS SHOULD BE CONSIDERED. IF PATIENTS ARE UNSTABLE, THEN ANTIBIOTICS MAY BE CONSIDERED. IF PATIENTS DO NOT IMPROVE IN THE SHORT FOLLOW UP PERIOD OF 6 TO 12 HOURS, CLINICAL RE-EVALUATION AND RE-MEASUREMENT OF PCT IS RECOMMENDED. 09/06/2024 6:35 AM CDT us Dede Caballero NP LABORATORY Final Result [facility] [address] [place] [address], [place] [phone] * (ABNORMAL) COMPREHENSIVE METABOLIC PANEL (09/06/2024 6:35 AM CDT) Only the most recent of3 resultswithin the time period is included. [facility] GLUCOSE 135(H) 70 - 99 MG/DL 09/06/2024 7:09 AM CDT [facility] BUN 17 7 - 18 MG/DL 09/06/2024 7:09 AM CDT [facility] CREATININE S/P/B 1.14(H) 0.55 - 1.02 MG/DL 09/06/2024 7:09 AM T [facility] SODIUM S/P/B 137 136 - 145 MMOL/L 09/06/2024 7:09 AM T [facility] POTASSIUM S/P/B 4.7 3.5 - 5.1 MMOL/L 09/06/2024 7:09 AM CDT [facility] CHLORIDE S/P/B 104 100 - 108 MMOL/L 09/06/2024 7:09 AM T [facility] CO2 26.8 21 - 32 MMOL/L 09/06/2024 7:09 AM T [facility] CALCIUM S/P/B 8.2(L) 8.5 - 10.1 MG/DL 09/06/2024 7:09 AM T [facility] BILIRUBIN TOTAL S/P/B 0.7 0.2 - 1.2 MG/DL 09/06/2024 7:09 AM T [facility] TOTAL PROTEIN S/P/B 5.4(L) 6.4 - 8.2 G/DL 09/06/2024 7:09 AM T [facility] ALBUMIN S/P/B 2.6(L) 3.4 - 5.0 G/DL 09/06/2024 7:09 AM T [facility] AST 17 15 - 37 U/L 09/06/2024 7:09 AM T [facility] ALT 19 14 - 55 U/L 09/06/2024 7:09 AM T [facility] ALKALINE PHOSPHATASE S/P/B 63 50 - 136 U/L 09/06/2024 7:09 AM T [facility] ANION GAP 6.2 5 - 15 MMOL/L 09/06/2024 7:09 AM T [facility] BUN CREATININE RATIO 14.9 6 - 26 09/06/2024 7:09 AM [facility] A/G RATIO 0.9(L) 1.0 - 2.0 RATIO 09/06/2024 7:09 AM [facility] GFR ESTIMATE 47(L) >90 ML/MIN/1.7 3 M2 09/06/2024 7:09 AM T [facility] Comment: NOTE: eGFR is not calculated for patients <18 years of age. This is an estimated GFR calculation using the new CKD EPI creatinine equation without race and so does not require a correction factor for race. This estimated GFR should not be used for calculating drug doses. 09/06/2024 6:35 AM CDT Dede Caballero NP LABORATORY Final Result [facility] [address] [place] [address], [place] [phone] * CULTURE, BACTERIA, BLOOD (09/05/2024 6:54 AM CDT) Only the most recent of2 resultswithin the time period is included. [facility] SPEC DESCRIPTION BLOOD 09/04/2024 6:48 PM CDT [facility] SPECIAL REQUESTS NO SPECIAL REQUEST 09/04/2024 6:48 PM CDT [facility] CULTURE RESULT NO GROWTH 5 DAYS 09/10/2024 11:56 AM CDT [facility] BLOOD SPECIMEN OBTAINED FOR BLOOD CULTURE / Unknown 09/05/2024 6:54 AM CDT 09/05/2024 6:55 AM CDT Tesfaye Issa MD MICROBIOLOGY - GENERAL ORDERABLE S Final Result Performing Organization Address City/State/[facility] Co de Phone Number [facility] [address] [place] [address], [place] [phone] [facility] [address] [place] [address], [place] [phone] * RESPIRATORY PCR PANEL 2 (09/04/2024 9:44 PM CDT) [facility] ADENOVIRUS PCR (RESP) NOT DETECTED NOT DETECTED 09/05/2024 12:49 PM CDT [facility] CORONAVIRUS 229E PCR (RESP) NOT DETECTED NOT DETECTED 09/05/2024 12:49 PM CDT [facility] CORONAVIRUS HKU1 PCR (RESP) NOT DETECTED NOT DETECTED 09/05/2024 12:49 PM CDT [facility] CORONAVIRUS NL63 PCR (RESP) NOT DETECTED NOT DETECTED 09/05/2024 12:49 PM CDT [facility] CORONAVIRUS OC43 PCR (RESP) NOT DETECTED NOT DETECTED 09/05/2024 12:49 PM CDT [facility] METAPNEUMOVIRUS PCR (RESP) NOT DETECTED NOT DETECTED 09/05/2024 12:49 PM CDT [facility] RHINOVIRUS/ENTEROV IRUS PCR (RESP) NOT DETECTED NOT DETECTED 09/05/2024 12:49 PM CDT [facility] INFLUENZA A PCR (RESP) NOT DETECTED NOT DETECTED 09/05/2024 12:49 PM CDT [facility] INFLUENZA B PCR (RESP) NOT DETECTED NOT DETECTED 09/05/2024 12:49 PM CDT [facility] PARAINFLUENZA 1 PCR (RESP) NOT DETECTED NOT DETECTED 09/05/2024 12:49 PM CDT [facility] PARAINFLUENZA 2 PCR (RESP) NOT DETECTED NOT DETECTED 09/05/2024 12:49 PM CDT [facility] PARAINFLUENZA 3 PCR (RESP) NOT DETECTED NOT DETECTED 09/05/2024 12:49 PM CDT [facility] PARAINFLUENZA 4 PCR (RESP) NOT DETECTED NOT DETECTED 09/05/2024 12:49 PM CDT [facility] RSV PCR (RESP) NOT DETECTED NOT DETECTED 09/05/2024 12:49 PM CDT [facility] B PARAPERTUSIS PCR (RESP) NOT DETECTED NOT DETECTED 09/05/2024 12:49 PM CDT [facility] BORDETELLA PERTUSSIS PCR (RESP) NOT DETECTED NOT DETECTED 09/05/2024 12:49 PM CDT [facility] CHLAMYDOPHILA PNEUMONIAE PCR (RESP) NOT DETECTED NOT DETECTED 09/05/2024 12:49 PM CDT [facility] MYCOPLASMA PNEUMONIAE PCR (RESP) NOT DETECTED NOT DETECTED 09/05/2024 12:49 PM CDT [facility] CORONAVIRUS SARS COV 2 PCR (RESP) NOT DETECTED NOT DETECTED 09/05/2024 12:49 PM CDT [facility] NASOPHARYNGEAL SWAB / Unknown 09/04/2024 9:44 PM CDT us Mayuri Arias MD MICROBIOLOGY - GENERAL ORDERABLE S Final Result [facility] [address] [place] [address], [place] [phone] * Critical Care (09/04/2024 6:51 PM CDT) Tesfaye Whitfield MD - 09/04/2024 6:51 PM CDT Tesfaye Issa MD 09/04/2024 7:54 PM Critical Care Performed by: Tesfaye Issa MD Authorized by: Mayuri Arias MD Critical care provider statement: Critical care time (minutes): 35 Critical care time was exclusive of: Separately billable procedures and treating other patients and teaching time Critical care was necessary to treat or prevent imminent or life-threatening deterioration of the following conditions: Respiratory failure Critical care was time spent personally by me on the following activities: Development of treatment plan with patient or surrogate, evaluation of patient's response to treatment, examination of patient, obtaining history from patient or surrogate, ordering and performing treatments and interventions, ordering and review of laboratory studies, re-evaluation of patient's condition, ordering and review of radiographic studies, pulse oximetry and review of old charts I assumed direction of critical care for this patient from another provider in my specialty: no Care discussed with: admitting provider us Mayuri Arias MD PROCEDURE/MINOR SURGICAL ORDERAB LES Final Result * CTA CHEST PE PROTOCOL (09/04/2024 5:08 PM CDT) Anatomical Region Laterality Modality Chest Computed Tomogra phy 09/04/2024 5:32 PM CDT Impressions 09/04/2024 5:38 PM CDT IMPRESSION: 1. No discrete intraluminal filling defect is seen to suggest acute central, lobar, or segmental pulmonary from about disease. 2. Prominence of the main pulmonary artery suggesting elevated pulmonary arterial pressures. 3. Mild mosaic attenuation in the lower lobes and lingula that is nonspecific but could reflect small airway or small vessel disease. 4. Right thyroid nodule measuring up to 2.5 cm. Further characterization with thyroid ultrasound is recommended if this has not been performed previously. 5. Mild diffuse hepatic steatosis. 6. Coronary artery calcifications and other findings as above. Referred By: Interpreted By: Sergio Khan DO, 09/04/2024 5:32 PM Narrative 09/04/2024 5:[address] [facility] [address] [place] [address] EXAMINATION: CTA CHEST PE PROTOCOL EXAM DATE: 09/04/2024 4:43 PM CLINICAL HISTORY: Elevated d-dimer, low oxygen saturation, and weakness. COMPARISON: Chest radiograph 09/04/2024. TECHNIQUE: Axial CT angiography of the chest was performed following intravenous administration of 50 mL of Isovue 370. Coronal and sagittal reformatted images were obtained and reviewed. Coronal maximum intensity projection sequences (MIPS) sequences were obtained and reviewed. A radiation dose lowering technique was used for this procedure, which may include, but is not limited to, dose reduction technique, automated exposure control, the use of iterative reconstruction, ALARA (As Low As Reasonably Achievable) techniques, and Image Gently techniques. FINDINGS: PULMONARY ARTERIAL TREE: There is adequate opacification of the central, lobar, and segmental pulmonary arterial tree; however patient respiratory motion artifact degrades evaluation of the segmental and subsegmental pulmonary arterial tree. No discrete intraluminal filling defect is seen to suggest acute central, lobar, or segmental pulmonary thromboembolic disease. MEDIASTINUM: The heart is normal in size without pericardial effusion. There are coronary artery calcifications. There are atherosclerotic calcifications of the thoracic aorta without aneurysm formation. There is prominence of the main pulmonary artery measuring approximately 38 mm in diameter, suggesting elevated pulmonary arterial pressures. There is asymmetric enlargement of the right thyroid lobe with a nodule measuring approximately 2.5 cm; however this is suboptimally evaluated due to artifact from the patient's bilateral shoulder orthopedic hardware. No mediastinal, hilar, internal mammary chain, axillary, or supraclavicular adenopathy is seen. PLEURAL SPACES: There is no pleural effusion or pneumothorax. LUNGS: Patient respiratory motion artifact degrades evaluation of the lung parenchyma. There is mild dependent atelectasis. There is mild mosaic attenuation in the lower lobes and lingula that is nonspecific but could reflect small airway versus small vessel disease. ABDOMEN: There is mild diffuse hepatic steatosis. The gallbladder is surgically absent. There are foci of hypoattenuation in both kidneys most suggestive of renal cysts but suboptimally evaluated on this examination. There are atherosclerotic calcifications of the visualized abdominal aorta. MUSCULOSKELETAL: Degenerative arthritis affects the visualized lower cervical spine. Severe multilevel degenerative disc disease affects the thoracic spine and visualized lumbar spine. Multilevel facet joint osteoarthritis affects the mid to lower thoracic spine and visualized lumbar spine. 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 Osteoarthritis affects the left hand and wrist; however evaluation is suboptimal due to nonconventional imaging positioning on this examination. Procedure Note Sergio Khan, DO - 09/04/2024 [facility] [address] [place] [address] EXAMINATION: CTA CHEST PE PROTOCOL EXAM DATE: 09/04/2024 4:43 PM CLINICAL HISTORY: Elevated d-dimer, low oxygen saturation, and weakness. COMPARISON: Chest radiograph 09/04/2024. TECHNIQUE: Axial CT angiography of the chest was performed followingintravenous administration of 50 mL of Isovue 370. Coronal and sagittalreformatted images were obtained and reviewed. Coronal maximum intensityprojection sequences (MIPS) sequences were obtained and reviewed. Aradiation dose lowering technique was used for this procedure, which mayinclude, but is not limited to, dose reduction technique, automatedexposure control, the use of iterative reconstruction, ALARA (As Low AsReasonably Achievable) techniques, and Image Gently techniques. FINDINGS: PULMONARY ARTERIAL TREE: There is adequate opacification of the central, lobar, and segmentalpulmonary arterial tree; however patient respiratory motion artifactdegrades evaluation of the segmental and subsegmental pulmonary arterialtree. No discrete intraluminal filling defect is seen to suggest acutecentral, lobar, or segmental pulmonary thromboembolic disease. MEDIASTINUM: The heart is normal in size without pericardial effusion. There arecoronary artery calcifications. There are atherosclerotic calcificationsof the thoracic aorta without aneurysm formation. There is prominence ofthe main pulmonary artery measuring approximately 38 mm in diameter,suggesting elevated pulmonary arterial pressures. There is asymmetricenlargement of the right thyroid lobe with a nodule measuringapproximately 2.5 cm; however this is suboptimally evaluated due toartifact from the patient's bilateral shoulder orthopedic hardware. Nomediastinal, hilar, internal mammary chain, axillary, or supraclavicularadenopathy is seen. PLEURAL SPACES: There is no pleural effusion or pneumothorax. LUNGS: Patient respiratory motion artifact degrades evaluation of the lungparenchyma. There is mild dependent atelectasis. There is mild mosaicattenuation in the lower lobes and lingula that is nonspecific but couldreflect small airway versus small vessel disease. ABDOMEN: There is mild diffuse hepatic steatosis. The gallbladder is surgicallyabsent. There are foci of hypoattenuation in both kidneys most suggestiveof renal cysts but suboptimally evaluated on this examination. There areatherosclerotic calcifications of the visualized abdominal aorta. MUSCULOSKELETAL: Degenerative arthritis affects the visualized lower cervical spine.Severe multilevel degenerative disc disease affects the thoracic spine andvisualized lumbar spine. Multilevel facet joint osteoarthritis affectsthe mid to lower thoracic spine and visualized lumbar spine. Orthopediccomponents of bilateral total shoulder arthroplasties are incompletelyvisualized situated in gross anatomic alignment. Osteoarthritis affectsthe left hand and wrist; however evaluation is suboptimal due tononconventional imaging positioning on this examination. IMPRESSION: 1. No discrete intraluminal filling defect is seen to suggest acutecentral, lobar, or segmental pulmonary from about disease. 2. Prominence of the main pulmonary artery suggesting elevated pulmonaryarterial pressures. 3. Mild mosaic attenuation in the lower lobes and lingula that isnonspecific but could reflect small airway or small vessel disease. 4. Right thyroid nodule measuring up to 2.5 cm. Further characterizationwith thyroid ultrasound is recommended if this has not been performedpreviously. 5. Mild diffuse hepatic steatosis. 6. Coronary artery calcifications and other findings as above. Referred By: Interpreted By: Sergio Khan DO, 09/04/2024 5:32 PM Tesfaye Issa MD CT Final Result * (ABNORMAL) URINALYSIS, AUTO, COMPLETE (09/04/2024 3:20 PM CDT) COLOR (U) YELLOW 09/04/2024 3:54 PM CDT [facility] TRANSPARENCY CLEAR 09/04/2024 3:54 PM CDT [facility] SPECIFIC GRAVITY (U) 1.010 1.000 - 1.030 09/04/2024 3:54 PM CDT [facility] U PH 5.5 5.0 - 9.0 09/04/2024 3:54 PM CDT [facility] LEUKOCYTES (U) NEGATIVE NEGATIVE 09/04/2024 3:54 PM CDT [facility] NITRITES NEGATIVE NEGATIVE 09/04/2024 3:54 PM CDT [facility] PROTEIN RANDOM (U) NEGATIVE NEGATIVE 09/04/2024 3:54 PM CDT [facility] GLUCOSE (U) NEGATIVE NEGATIVE 09/04/2024 3:54 PM CDT [facility] KETONES MG/DL (U) NEGATIVE NEGATIVE 09/04/2024 3:54 PM CDT [facility] BILIRUBIN (U) NEGATIVE NEGATIVE 09/04/2024 3:54 PM CDT [facility] BLOOD (U) TRACE(A) NEGATIVE 09/04/2024 3:54 PM CDT [facility] WBC/HPF NONE SEEN 0 - 5 /HPF 09/04/2024 3:54 PM CDT [facility] RBC/HPF NONE SEEN 0 - 5 /HPF 09/04/2024 3:54 PM CDT [facility] EPI/HPF NONE SEEN /HPF 09/04/2024 3:54 PM CDT [facility] URINE SPECIMEN OBTAINED BY CLEAN CATCH PROCEDURE / Unknown 09/04/2024 3:20 PM CDT us Tesfaye Issa MD URINE ORDERABLES Final Result [facility] [address] [place] [address], [place] [phone] * LACTIC ACID W REFLEX (SEPSIS) (09/04/2024 2:35 PM CDT) LACTIC ACID VENOUS 1.9 0.4 - 2.0 MMOL/L 09/04/2024 3:09 PM CDT [facility] 09/04/2024 2:35 PM CDT us Tesfaye Issa MD LABORATORY Final Result Performing Organization Address [facility]/ZIP Co de Phone Number [facility] [address] [place] [address], * CORONAVIRUS (COVID-19) MOLECULAR (09/04/2024 2:35 PM CDT) Pathologist [facility] CORONAVIRUS SARS COV 2 RNA NEGATIVE NEGATIVE 09/04/2024 3:02 PM CDT [facility] Comment: NEGATIVE RESULTS DO NOT RULE OUT COVID 19 AND SHOULD NOT BE USED THE SOLE BASIS FOR TREATMENT OR PATIENT MANAGEMENT DECISIONS, INCLUDING INFECTION CONTROL DECISIONS. NEGATIVE RESULTS SHOULD BE CONSIDERED IN THE CONTEXT OF A PATIENT'S RECENT EXPOSURES, HISTORY AND THE PRESENCE OF CLINICAL SIGNS AND SYMPTOMS CONSISTENT WITH COVID 19. THE ID NOW COVID-19 2.0 TEST HAS BEEN AUTHORIZED BY THE FDA UNDER EAU FOR USE BY AUTHORIZED LABORATORIES. PERFORMED BY NUCLEIC ACID AMPLIFICATION FOR MOLECULAR QUALITATIVE DETECTION OF SARS-COV-2. SPECIMEN TYPE NASAL 09/04/2024 2:40 PM CDT [facility] NASOPHARYNGEAL SWAB / Unknown 09/04/2024 2:35 PM CDT us Tesfaye Issa MD MICROBIOLOGY - GENERAL ORDERABLE S Final Result Performing Organization Address City/[facility]/ZIP Co de Phone Number [facility] [address] [place] [address], [place] [phone] * TSH W/REFLEX (09/04/2024 2:35 PM CDT) TSH 0.821 0.358 - 3.74 uIU/ML 09/04/2024 3:12 PM CDT [facility] Comment: HIGH DOSES OF BIOTIN MAY INTERFERE WITH THIS TEST RESULT. CORRELATION TO CLINICAL HISTORY AND PRESENTATION RECOMMENDED. FREE T4 NOT INDICATED 09/04/2024 2:35 PM CDT us Tesfaye Issa MD LABORATORY Final Result [facility] [address] [place] [address], [place] [phone] * PRO-BRAIN NATRIURETIC PEPTIDE (09/04/2024 2:35 PM CDT) PRO-B TYPE NATRIURETIC PEPTIDE 280 <450 PG/ML 09/04/2024 3:12 PM CDT [facility] Comment: CUT POINTS ESTABLISHED BY [employer] ON NT PROBNP (ICON) STUDY (2006). AGE INDEPENDENT: <300 PG/ML HAS A 99% NEGATIVE PREDICTIVE VALUE FOR EXCLUDING ACUTE CHF <50 YEARS: >450 PG/ML IS CONSISTENT WITH ACUTE CHF 50-75 YEARS: >900 PG/ML IS CONSISTENT WITH ACUTE CHF >75 YEARS: >1800 PG/ML IS CONSISTENT WITH ACUTE CHF IN PATIENTS WITH RENAL INSUFFICIENCY (GFR <60), >1200 PG/ML YIELDS A DIAGNOSTIC SENSITIVITY AND SPECIFICITY OF 89% AND 72% FOR ACUTE CHF. 09/04/2024 2:35 PM CDT us Tesfaye Issa MD LABORATORY Final Result [facility] [address] [place] [address], [place] [phone] * INFLUENZA A & B (09/04/2024 2:35 PM CDT) SPECIMEN TYPE NASOPHARYNX 09/04/2024 2:48 PM CDT [facility] INFLUENZA A NEGATIVE NEGATIVE 09/04/2024 3:08 PM CDT [facility] INFLUENZA B NEGATIVE NEGATIVE 09/04/2024 3:08 PM CDT [facility] NASAL STRUCTURE / Unknown 09/04/2024 2:35 PM CDT Tesfaye Issa MD MICROBIOLOGY - GENERAL ORDERABLE S Final Result Performing Organization Address [facility] Co de Phone Number [facility] [address] [place] [address], [place] [phone] * (ABNORMAL) D-DIMER, QUANTITATIVE (09/04/2024 2:35 PM CDT) [facility] D-DIMER 1,026(H) 0 - 500 ng{FEU}/mL 09/04/2024 3:01 PM CDT [facility] Comment: D-Dimer values less than or equal to 500 ng/mL FEU have a negative predictive value of >95% for exclusion of deep vein thrombosis and pulmonary embolism. In patients over 50 (who tend to have higher normal baseline D-Dimer values), recent studies suggest age-adjusted D-Dimer cutoff values (calculated as: age [years] x 10 ng/mL) result in equivalent outcomes and no additional false negative findings. 09/04/2024 2:35 PM CDT us Tesfaye Issa MD LABORATORY Final Result Performing Organization Address [facility] Co de Phone Number [facility] [address] [place] [address], [place] [phone] * TROPONIN, QUANT (09/04/2024 2:35 PM CDT) [facility] TROPONIN I HIGH SENSITIVITY 23 0 - 50 ng/L 09/04/2024 3:06 PM CDT [facility] Comment: HIGH DOSES OF BIOTIN, TROPONIN-SPECIFIC AUTOANTIBODIES, AND ANTIBODY THERAPY CONTAINING HAMA MAY INTERFERE WITH THIS TEST RESULT. CORRELATION TO CLINICAL HISTORY AND PRESENTATION RECOMMENDED. 09/04/2024 2:35 PM CDT Tesfaye Issa MD LABORATORY Final Result [facility] [address] [place] [address], * ECG 12 lead (09/04/2024 2:30 PM CDT) 09/04/2024 2:[address] 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1940 Requested By: TESFAYE ISSA Order Number: [id number] Reading MD: Yuriy Rollins Measurements Intervals Halma Rate: 83 P: -42 AK: 160 QRS: -36 QRSD: 103 T: 30 QT: 349 QTc: 411 Interpretive Statements SINUS RHYTHM WITH OCCASIONAL SUPRAVENTRICULAR PREMATURE COMPLEXES LEFT AXIS DEVIATION [QRS AXIS < -30] LOW QRS VOLTAGE IN PRECORDIAL LEADS [QRS DEFLECTION < 1.0 mV IN CHEST LEADS] Poor R Wave Progression Procedure Note Yuriy Rollins MD - 09/05/2024 [facility] Test Date: 2024-09-04 Pat Name: CESIA NANCY Department: 85 Room: 118 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: Female 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1940 Requested By: TESFAYE ISSA Order Number: [id number] Reading : Yuriy Rollins Measurements Intervals Halma Rate: 83 P: -42 AK: 160 QRS: -36 QRSD: 103 T: 30 QT: 349 QTc: 411 Interpretive Statements SINUS RHYTHM WITH OCCASIONAL SUPRAVENTRICULAR PREMATURE COMPLEXES LEFT AXIS DEVIATION [QRS AXIS < -30] LOW QRS VOLTAGE IN PRECORDIAL LEADS [QRS DEFLECTION < 1.0 mV IN CHESTLEADS] Poor R Wave Progression us Tesfaye Issa MD ECG ORDERABLES Final Result [facility] ([facility] * XR CHEST PORTABLE (09/04/2024 2:29 PM CDT) Anatomical Region Laterality Modality Chest Radiographic Sofia ging 09/04/2024 2:37 PM CDT Impressions 09/04/2024 2:40 PM CDT IMPRESSION: Abnormal right lung findings. Referred By: Interpreted By: Aric Thompson MD, 09/04/2024 2:37 PM Narrative 09/04/2024 2:[address] [facility] [address] [place] [address] EXAM: XR CHEST PORTABLE DATE: 09/04/2024 1429 hours No comparison INDICATION: Increased shortness of breath TECHNIQUE: One view FINDINGS: Normal heart and pulmonary vessel size. The left lung is clear. Elevated right hemidiaphragm. Mild ill-defined densities around the right hilum and right lung base could be atelectasis or infection. Bilateral shoulder arthroplasties. Procedure Note Aric Thompson MD - 09/04/2024 [facility] [address] [place] [address] EXAM: XR CHEST PORTABLE DATE: 09/04/2024 1429 hours No comparison INDICATION: Increased shortness of breath TECHNIQUE: One view FINDINGS: Normal heart and pulmonary vessel size. The left lung is clear.Elevated right hemidiaphragm. Mild ill-defined densities around theright hilum and right lung base could be atelectasis or infection.Bilateral shoulder arthroplasties. IMPRESSION: Abnormal right lung findings. 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 Advance Directives and Living Will 11/16/2010 12:00 AM 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 Advance Directives and Living Will 11/16/2010 12:00 AM 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 Advance Directives and Living Will 08/03/2009 12:00 AM 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 Advance Directives and Living Will 08/03/2009 12:00 AM 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
[2024-09-29] MEDS: PERFLUTREN LIPID MICROSPHERES 1.5 ML VIAL DILUTED TO 10 ML TOTAL VOLUME IV PUSH (09:45)
--- NOTE | 2024-09-29 11:01 | IVDEFINITY ---
Prior to administration of IV Definity the patient was educated on the risks and benefits of the imaging enhancing agent including potential adverse side effects. The patient verbalized understanding. Allergies were verified. No exclusion criteria were identified and at least one of the following inclusion criteria were met: 1) physician request, 2) patient technically difficult to image (per the [place] [employer] of Echocardiography guidelines of two or more segments not discernable within the apical view), or 3) questionable left ventricular function. ?
--- NOTE | 2024-09-29 16:22 | WPDSIXMINUTE ---
Six Minute Walk Procedure Procedure Performed Pulmonary Stress Test (6 min walk) Six Minute Walk Six Minute Walk: This is a 6 minute walk test. The test was performed and interpreted in accordance with the 2014 ERS/ATS task force guidelines. of note, the testing was stopped after 3 minutes due to fluctuating heart rate from the low 100s up to 150s. Findings: The patient's resting room air oxygen saturation measured by pulse oximetry was 94%, the heart rate was 98 bpm, and the modified Tatiana dyspnea score was 0. Patient ambulated for 61 meters and oxygen saturation remained 92 to 94%. At the end of the study the heart rate was 151 bpm and the modified Tatiana dyspnea score was not obtained. After rest for 1 minute saturations 93% and heart rate 88 bpm. On this walk test that lasted 3 minutes, the patient did not qualify for supplemental oxygen at rest or with ambulation. There are no prior studies for comparison.
--- NOTE | 2024-09-29 16:25 | WPDPFTINT ---
PFT Procedure Performed PFT Procedure Performed Spirometry with Pre/Post Bronchodilator Plethysmography (Lung Vol) Diffusing Cap (DLCO) Flow Vol Loop PFT Interpretation This is a pulmonary function test with pre and post-bronchodilator spirometry, plethysmography and diffusing capacity. The test was performed and results interpreted in accordance with the 2019 and 2005 ATS/ERS Task Force guidelines respectively using the Global Lung Function Initiative-2012 reference equations. Patient demonstrated good effort and cooperation. Reproducibility criteria were met. The quality of the pre bronchodilator spirometry maneuver was Grade B and post bronchodilator spirometry maneuver was Grade B. Findings: Spirometry: The contour the inspiratory and expiratory flow tracing are normal. The pre bronchodilator FVC is 2.46 L, 101% predicted. The pre bronchodilator FEV1 is 1.83 L, 99% predicted. The pre bronchodilator FEV1: FVC ratio 74%. The post bronchodilator FVC is 2.30 L, representing a 7% decrease. The post bronchodilator FEV1 is 1.78 L, representing a 3% decrease. The post bronchodilator FEV1: FVC ratio 77%. Plethysmography: The total lung capacity is 4.62 L, 91% predicted. The functional residual capacity is 2.58 L, 88% predicted. The residual volume is 1.71 L, 69% predicted. Diffusing capacity: The diffusing capacity unadjusted for hemoglobin and carboxyhemoglobin is 13.6, 72% predicted. The diffusing capacity adjusted for alveolar volume is 4.11, 101% predicted. Impression: The spirometry is normal without evidence of an obstructive abnormality. There is no significant improvement after inhaling a single dose of albuterol. The lung volumes are normal. The diffusing capacity is normal. There are no prior studies for comparison
== END 2024-09-29 08:56 | disposition home or self-care (01) ==
PROVIDERS: PCP Physician Assistant Medical; Visit Provider Physician Assistant Medical
DX: R06.00 Dyspnea, unspecified (principal); R06.89 Other abnormalities of breathing; R09.02 Hypoxemia; I08.3 Combined rheumatic disorders of mitral, aortic and tricuspid valves
CPT/HCPCS: 94060; 94618; 94726; 94729; C8929; Q9957

== ENCOUNTER 2024-10-26 15:21 | Outpatient (CLI) | payer MEDICARE, SELFPAY ==
--- NOTE | ~2024-10-26 | US_ITS ---
Thyroid ultrasound. Clinical History: Nontoxic nodule Findings: Real-time sonography of the thyroid gland was performed. The right lobe measures 6.1 x 3.0 x 2.8 cm. The left lobe measures 5.3 x 2.2 x 1.3 cm. The isthmus is 10 mm in AP diameter. There is a 3.2 x 2.8 x 2.6 cm heterogeneous solid nodule at the right midpole. Impression: 3.2 cm heterogeneous solid right thyroid nodule. FNA recommended to establish a histologic diagnosis. . Reviewed, dictated and finalized at location . Impression: 3.2 cm heterogeneous solid right thyroid nodule. FNA recommended to establish a histologic diagnosis..
== END 2024-10-26 15:22 | disposition home or self-care (01) ==
LOC: MICIMG 15:22
PROVIDERS: PCP Physician Assistant Medical; Visit Provider Physician Assistant Medical
DX: E04.1 Nontoxic single thyroid nodule (principal)
CPT/HCPCS: 76536

== ENCOUNTER 2024-11-12 14:50 | Outpatient (RCR) | payer MEDICARE, SELFPAY ==
[2024-11-12 14:50] VITALS: BMI 51.6
== END 2025-02-08 10:22 | disposition home or self-care (01) ==
LOC: ANHDMC 14:50
PROVIDERS: PCP Physician Assistant Medical; Visit Provider Internal Medicine
DX: R73.03 Prediabetes (principal); I12.9 Hypertensive chronic kidney disease with stage 1 through stage 4 chronic kidney disease, or unspecified chronic kidney disease; N18.32 Chronic kidney disease, stage 3b; K52.9 Noninfective gastroenteritis and colitis, unspecified; Z71.3 Dietary counseling and surveillance
CPT/HCPCS: 97802

== ENCOUNTER 2024-12-08 12:13 | Outpatient (CLI) | payer MEDICARE, SELFPAY ==
--- NOTE | ~2024-12-08 | US_ITS ---
EXAMINATION: US FNA w image guidance DATE: 12/08/2024 13:16 INDICATION: Nontoxic single thyroid nodule TECHNIQUE: A time-out was performed to verify the patient's name, date of , and procedure to be performed . The procedure and its benefits and risks were discussed with the patient. Risks specifically discus sed included bleeding and infection. The patient understood the risks and agreed to proceed. The neck was prepped and draped in the usual sterile manner. 2 mL 1% lidocaine was used for local anesthesia . 6 passes were made with a 25G needle into the lesion. Appropriate needle location was documented with continuous sonographic guidance. A sterile bandage was applied. There were no immediate compli cations. FINDINGS: Grayscale ultrasound images demonstrate biopsy needles advanced into a 2.8 cm predominantly solid rig ht thyroid nodule. IMPRESSION: 1. Successful ultrasound-guided fine needle aspiration of a 2.8 cm solid right thyroid nodule of con cern.. Reviewed, dictated and finalized at location A. IMPRESSION: 1. Successful ultrasound-guided fine needle aspiration of a 2.8 cm solid right thyroid nodule of concern..
--- OUTSIDE RECORDS SUMMARY | 2024-12-08 12:50 | XMS_ITS | Clinical Summary ---
Author Organization [facility] Address [address] [place] [address] Care Team Providers Care Theater Projectionist Name Role Phone Elizabeth Davis Primary Care Provider [phone] Allergies No known active allergies Medications oxybutynin [...] 5 (five) times daily. Indications: fiber Active multivitamin (THERA) tabletIndicati ons:mvi Take 1 tablet by mouth daily. Indications: mvi Active vitamin B-1 (THIAMINE) 50 MG tabletIndicati ons:vitamins Take 1 tablet by mouth daily. Indications: vitamins Active Vitamin D, Cholecalcifero l, 50 MCG (1999 UT) CapIndications :supplement Take 1 tablet by mouth daily. Indications: supplement 5 Active Multiple Vitamins-Twiggs als (MULTIVITAMIN & MINERAL OR)Indications :supplement Take 1 tablet by mouth daily. Indications: supplement Active Biotin 1000 MCG TabIndications :supplement Take 1 tablet by mouth daily. Indications: supplement Active Cyanocobalamin (VITAMIN B 12 OR)Indications :supplement Take 1 tablet by mouth daily. Indications: supplement Active furosemide (LASIX) 20 MG tabletIndicati ons:Diuretic Therapy Take 20 mg by mouth daily. take 1-2 tablets once daily in the morning. Indications: Treatment with Diuretic Therapy Active cetirizine (ZYRTEC) 10 MG tablet Take 1 tablet (10 mg total) by mouth daily. Active ELIQUIS 5 MG tablet Take 1 tablet (5 mg total) by mouth 2 (two) times daily. Active metoprolol succinate ER (TOPROL-XL) 25 MG 24 hr tablet Take 1 tablet (25 mg total) by mouth daily. Active spironolactone (ALDACTONE) 25 MG tablet Take 0.5 tablets (12.5 mg total) by mouth daily. 45 tablet 1 Active loratadine (CLARITIN) 10 MG tabletIndicati ons:allergies Take 1 tablet by mouth daily. Indications: allergies 11/24/19 Discontinu ed(Alterna te therapy) Active Problems Problem Noted Date Diagnosed Date Hypoxia 09/04/2024 Encounters Date Type Department Care Team Description 11/24/2024 Travel 11/23/2024 12:00 PM CDT Office Visit [facility] [address] [place] [address] Mirza Grajeda MD Consult; Palpitations 11/20/2024 Results Follow-Up [facility], [facility] [address] [place] [address] Genesis Hernandez RN CLINIC - [address] [facility] - Today 11/19/2024 Abstract [facility], [facility] [address] [place] [address] Mary Jo Finley MA 11/04/2024 1:00 PM CDT Home Care Visit [address] [address] Leanna Dominguez, PT PT OASIS DISCHARGE 11/02/2024 12:30 PM CDT Home Care Visit [address] [address] Libia Rider, OT OT DISCIPLINE DISCHARGE 10/28/2024 9:00 AM CDT Home Care Visit [address] [address] Lobito Macario, CORRECTIONS IDENTIFICATION TECHNICIAN CORRECTIONS IDENTIFICATION TECHNICIAN HOME VISIT 10/26/2024 10:30 AM CDT Home Care Visit [address] [address] Anastasia Rose, DEPUTY [employer]INA HOME VISIT 10/21/2024 11:45 AM CDT Home Care Visit [address] [address] Lobito Macario, CORRECTIONS IDENTIFICATION TECHNICIAN CORRECTIONS IDENTIFICATION TECHNICIAN HOME VISIT 10/19/2024 10:00 AM CDT Home Care Visit [address] [address] Anastasia Rose, ALEXIS MEDINA HOME VISIT 10/15/2024 11:00 AM CDT Home Care Visit [address] [address] Libia Rider, JIA OT REASSESSMENT 10/14/2024 1:45 PM CDT Home Care Visit [address] [address] Leanna Dominguez, PT PT REASSESSMENT 10/14/2024 1:00 PM CDT Telephone [facility], [address] [address] Elizabeth Davis PA Holter Monitor 10/07/2024 12:30 PM CDT Home Care Visit [address] [address] Melissa Gunn, ALEXIS MEDINA HOME VISIT 10/06/2024 8:00 AM CDT Home Care Visit [address] [address] Lobito Macario, CORRECTIONS IDENTIFICATION TECHNICIAN CORRECTIONS IDENTIFICATION TECHNICIAN HOME VISIT 10/05/2024 2:45 PM CDT Home Care Visit [address] [address] Melissa Gunn, ALEXIS MEDINA HOME VISIT 10/02/2024 12:30 PM CDT Home Care Visit [address] [address] Melinda Felix, OT OT INITIAL EVALUATION 10/02/2024 Telephone [facility], [address] [address] Yuriy Rollins MD Appointment Request; Schedule Test 10/02/2024 Orders Only [facility], [place] [address] [place] [address] Elizabeth Davis PA 09/30/2024 7:30 AM CDT Home Care Visit [address] [address] Lobito Macario, CORRECTIONS IDENTIFICATION TECHNICIAN CORRECTIONS IDENTIFICATION TECHNICIAN HOME VISIT 09/30/2024 Home Care Visit [address] [address] Leanna Dominguez, PT CASE COMMUNICATION 09/29/2024 Telephone [facility] [address] [place], [place] [phone] Maggie Kramer, RN Follow Up Call 09/24/2024 12:30 PM CDT Home Care Visit [address] [phone] Lobito Macario, CORRECTIONS IDENTIFICATION TECHNICIAN CORRECTIONS IDENTIFICATION TECHNICIAN HOME VISIT 09/23/2024 10:00 AM CDT Home Care Visit [address] [address] Crystal Moraes, RN SN DISCIPLINE DISCHARGE 09/22/2024 12:45 PM CDT Home Care Visit [address] [address] Lobito Macario, CORRECTIONS IDENTIFICATION TECHNICIAN CORRECTIONS IDENTIFICATION TECHNICIAN HOME VISIT 09/17/2024 12:45 PM CDT Home Care Visit [facility] Home [address] [address] Lobito Macario, CORRECTIONS IDENTIFICATION TECHNICIAN CORRECTIONS IDENTIFICATION TECHNICIAN HOME VISIT 09/16/2024 10:15 AM CDT Home Care Visit [address] [address] Yadira Weston LPN SN HOME VISIT 09/16/2024 8:00 AM CDT Home Care Visit [address] [address] Maci Dacosta LPN HH/HSPC ORIENTATION VISIT 09/14/2024 12:00 PM CDT Home Care Visit [address] [phone] Leanna Dominguez, PT PT INITIAL EVALUATION 09/14/2024 Home Care Visit [address] [phone] Debra Jones, RN CASE COMMUNICATION 09/10/2024 Hospital Follow-up Call [facility] Management [address] [place], [place] [phone] Marsha Pressley LPN Follow Up Call ([facility] 09/04-09/08/24) 09/09/2024 12:00 PM CDT Home Care Visit [address] [phone] Crystal Moraes, RN SN OASIS START OF CARE 09/09/2024 Plan of Care Documentation [facility] Home Care [address] [place] [address] [place] [address] 09/04/2024 2:08 PM CDT - 09/08/2024 1:45 PM CDT Hospital Encounter [facility] Med[facility]Surg [address] [place] [address] Tesfaye Issa MD Verma, Seema, MD Suresh, MD Federico Seay Darcy L, CHURCH MUSICIAN Genesis Abraham PA-C Decreased Oxygen Level With Symptoms Discharge Disposition: Home with Home Health Care from Last 3 Months Immunizations Immunization Administration Dates Next Due Influenza Adult (Generic) 05/27/2018,03/24/2017 MODERNA COVID-19 (12+) MRNA, LNP-S, PF, 100 MCG/ 0.5 ML DOSE 09/02/2020,08/05/2020 Pneumococcal (Pneumovax 23) 03/06/2018 Pneumococcal (Prevnar 13) 04/02/2019 Family History Medical History Relation Comments Heart Attack Father Cancer Mother Diabetes Sister Relation Status Comments Brother 1 Alive Brother 2 Alive Father Maternal Grandfather Maternal Grandmother Mother Paternal Grandfather Paternal Grandmother Sister Social History Tobacco Use Types Packs/Day Years Used Date Smoking Tobacco: Never Smokeless Tobacco: Never Tobacco Cessation:Counseling Given: No Alcohol Use Standard Drinks/Week Comments Yes 0 (1 standard drink = 0.6 oz pur e alcohol) RARE OASIS D0700: Social Isolation Answer Da te Recorded Frequency of experiencing loneliness or isolatio n Never 11/04/2024 OASIS A1250: Transportation Answer Date Recorded Lack of Transportation (Medical) No 11/04/2024 Lack of Transportation (Non-Medical) No 11/04/2024 Patient Unable or Declines to Respond No 11/04/2024 OASIS B1300: Health Literacy Answer Pedro Luis e Recorded Frequency of needing help to read materials from doctor or pharmacy Never 11/04/2024 B1300 Health Literacy Answer Date Recor ded How often do you need to hav e someone help you when you read instructions, pamphlets, or other written material from your doctor or pharmacy? Never 09/04/2024 [facility] Utilities Answer Date Recorded In the past 12 months has e electric, gas, oil, or water company [...] week 09/04/2024 How often do you attend chur ch or druze services? Never 09/04/2024 Do you belong to any clubs o r organizations such as pentecostalism groups, unions, fraternal or athletic groups, or [...] Recorded Patient Health Questionnaire-2 Score 4 09/04/2024 [place] [facility] Occupat ional Health - Occupational Stress [...] any time in the past 12 m [facility], were you homeless or living in a nursing home (including now)? No 09/04/2024 Comments No Sex and Gender Information Value Date Recorded Sex Assigned at Female 09/04/2024 3:44 PM CDT Legal Sex Female 8:29 PM CDT Gender Identity Not on file Sexual Orientation Not on file Last Filed Vital Signs Vital Sign Reading Time Taken Comments Blood Pressure 136/86 11/23/2024 12:06 PM CDT Pulse 94 11/23/2024 12:06 PM CDT Temperature 36.6 C (97.9 F) 11/04/2024 1:13 PM CDT Respiratory Rate 18 11/04/2024 1:13 PM CDT Oxygen Saturation 95% 11/23/2024 12:06 PM CDT Inhaled Oxygen Concentration - - Weight 131.1 kg (289 lb) 11/23/2024 12:06 PM CDT Height 165.1 cm (5' 5) 11/23/2024 12:06 PM CDT Body Mass Index 48.09 11/23/2024 12:06 PM CDT Plan of Treatment Upcoming Encounters Date Type Department Care Team (Late st Contact Info) Description 12/18/2024 10:00 AM CDT Appointment [facility] Compressed Air Pile [place] [address] Mirza Grajeda MD Three [facility]. [facility] [address] [place], [place] [address] 01/14/2025 11:15 AM CDT [facility] [address] [place] [phone] Reta Waters FNP 3 [facility] [address] [place], [place] [phone] Health Maintenance Due Date Last Done Comments DTaP, Tdap and Td Vaccines ( 1 - Tdap) 11/29/1958 Zoster Vaccines (1 of 2) 11/29/1989 Annual Medicare Wellness Visit 11/29/2004 Dexa Scan (General) 11/29/2004 RSV Immunization or 60+ Years (1 - 1-dose 75+ series) 11/29/2014 COVID-19 Vaccine (3 - 2023-2 5 season) 2024 09/02/2020, 08/05/2020 Pneumococcal Vaccine: 50+ Years Completed 04/02/2019, 03/06/2018 Meningococcal B Vaccine Aged Out No l onger eligible based on patient's age to complete this topic Meningococcal Vaccine Aged Out No elbert amber eligible based on patient's age to complete this topic RSV Immunizations Under 20 Months Aged Out No longer eligible b ased on patient's age to complete this topic Medical Devices Implanted Type Area Search Advertising Strategist Device Identifier Shelf Expiration Date Model / Serial / Lot Iol Edwin [id number] - [id number] Implanted:Qty: 1 on 09/07/2019 by Sunny Knowles MD at [facility] Lens Right: Eye EDWIN - SURGICAL DIV 07/24/2023 [id number] / [id number] / Edwin Acrysof Iq Iol Implanted:Qty: 1 on 12/07/2019 by Sunny Knowles MD at [facility] Left: Eye 08/22/2023 / [id number] / [id number] Explanted Type Area Search Advertising Strategist Device Identifier Shelf Expiration Date Model / Serial / Lot 2009+2018 Bilateral Knee Replacement 2011+2012 Bilateral Shoulder Replacement Procedures Procedure Name Priority Date/Time Associated Diagnosis Comments MOBILE CONTINUOUS TELEMETRY Routine 11/05/2024 2:40 PM CDT Palpitations Dyspnea HOME O2 EVAL Routine 09/07/2024 11:23 AM CDT MAGNESIUM Routine 09/07/2024 5:30 AM CDT BASIC METABOLIC PANEL Routine 09/07/2024 5:30 AM CDT CBC W/DIFF AUTOMATED Routine 09/07/2024 5:30 AM CDT from Last 3 Months Results * CLINIC - [address] MCT - Today (11/05/2024 2:40 PM CDT) [facility] - 11/05/2024 2:40 PM CDT [address] [place], [place] [address] UNDERWRITING INTERNSHIP REPORT PATIENT NAME: Cesia Das : 1940 PCP: MARYAM COY INTERPRETING HR BUSINESS PARTNER: Seymour Cevallos MD INDICATION: Palpitations Baseline Rhythm * The baseline rhythm was Atrial Fibrillation/Flutter CVR with heart rates ranged between 65 and 150 beats per minute, with average rate of 83 beats per minute. A-V Conduction * No Second Degree AV Block Type II. * No Third Degree AV Block. * No Pauses. Supraventricular Arrhythmia * There were 33,986 Supraventricular Ectopic beats with a burden of 2%. * No Supraventricular Tachycardia. Ventricular Arrhythmia * There were 15,920 Ventricular Ectopic beats with a burden of 1%. * No Ventricular Tachycardia. Atrial Fibrillation * Atrial Fibrillation - the longest episode was 5h 17m 24.0s on 10/19 20:12, the fastest episode was 131 BPM on 10/26 14:57, and the slowest episode was 78 BPM on 10/30 01:42. Patient Triggered Events * 1 patient triggered events, 1 had symptoms specified. SUMMARY: 100% AF burden. Rate controlled 85%. Rare tachycardia. No symptoms. us Elizabeth FRANCISCO CV VASCULAR ORDERABLES Final Result [facility] * (ABNORMAL) BASIC METABOLIC PANEL (09/07/2024 5:30 AM CDT) GLUCOSE 128(H) 70 - 99 MG/DL 09/07/2024 6:30 AM CDT [facility] BUN 17 7 - 18 MG/DL 09/07/2024 6:30 AM CDT [facility] CREATININE S/P/B 1.29(H) 0.55 - 1.02 MG/DL 09/07/2024 6:30 AM CDT [facility] SODIUM S/P/B 137 136 - 145 MMOL/L 09/07/2024 6:30 AM T [facility] POTASSIUM S/P/B 4.3 3.5 - 5.1 MMOL/L 09/07/2024 6:30 AM CDT [facility] CHLORIDE S/P/B 104 100 - 108 MMOL/L 09/07/2024 6:30 AM CDT [facility] CO2 27.5 21 - 32 MMOL/L 09/07/2024 6:30 AM CDT [facility] CALCIUM S/P/B 8.4(L) 8.5 - 10.1 MG/DL 09/07/2024 6:30 AM CDT [facility] ANION GAP 5.5 5 - 15 MMOL/L 09/07/2024 6:30 AM CDT [facility] BUN CREATININE RATIO 13.2 6 - 26 09/07/2024 6:30 AM CDT [facility] GFR ESTIMATE 41(L) >90 ML/MIN/1.7 3 M2 09/07/2024 6:30 AM T [facility] Comment: NOTE: eGFR is not calculated for patients <18 years of age. This is an estimated GFR calculation using the new CKD EPI creatinine equation without race and so does not require a correction factor for race. This estimated GFR should not be used for calculating drug doses. 09/07/2024 5:30 AM CDT Genesis Abraham PA-C LABORATORY Final Result [facility] [address] [place] [address], * (ABNORMAL) CBC W/DIFF AUTOMATED (09/07/2024 5:30 AM CDT) WBC 7.73 4.4 - 11.0 x10'3/uL 09/07/2024 6:18 AM T [facility] RBC 4.13(L) 4.50 - 5.10 x10'6/uL 09/07/2024 6:18 AM T [facility] HGB 12.0(L) 12.3 - 15.3 G/DL 09/07/2024 6:18 AM T [facility] HCT 38.7 35.9 - 44.6 % 09/07/2024 6:18 AM CDT [facility] MCV 93.7 80.0 - 96.0 FL 09/07/2024 6:18 AM CDT [facility] MCH 29.1 25.3 - 30.9 PG 09/07/2024 6:18 AM CDT [facility] MCHC 31.0 31.0 - 34.1 G/DL 09/07/2024 6:18 AM CDT [facility] RDW 14.8 12.4 - 15.1 % 09/07/2024 6:18 AM CDT [facility] PLT 259 151 - 353 x10'3/uL 09/07/2024 6:18 AM T [facility] MPV 9.7 9.6 - 12.0 FL 09/07/2024 6:18 AM T [facility] RBC MORPHOLOGY NORMAL 09/07/2024 6:18 AM T [facility] PLT MORPH. NORMAL 09/07/2024 6:18 AM T [facility] WBC MORPHOLOGY NORMAL 09/07/2024 6:18 AM T [facility] LYMPHOCYTES % 20.2 15.8 - 45.0 % 09/07/2024 6:18 AM T [facility] NEUTROPHILS % 65.7 42.1 - 71.9 % 09/07/2024 6:18 AM T [facility] MONOCYTES % 10.2 5.7 - 12.5 % 09/07/2024 6:18 AM T [facility] EOSINOPHILS 2.7 0.0 - 5.6 % 09/07/2024 6:18 AM T [facility] BASOPHILS 0.8 0.0 - 1.3 % 09/07/2024 6:18 AM CDT [facility] ABS. NEUTROPHILS 5.08 1.40 - 6.00 x10'3/uL 09/07/2024 6:18 AM CDT [facility] IMMATURE GRANS % 0.4 0.0 - 0.5 % 09/07/2024 6:18 AM CDT [facility] ABS. 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 Advance Directives and Living Will 09/13/2020 10:38 AM POA Advance Directives and Living Will 09/08/2019 11:59 AM 11/16/2010 POA FOR HEALTHCARE Advance Directives and Living Will 04/16/2013 12:00 AM POWER OF COMPOSITION TILE LAYER FO 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 Advance Directives and Living Will 04/16/2013 12:00 AM POWER OF COMPOSITION TILE LAYER FO 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 Advance Directives and Living Will 11/16/2010 12:00 AM POWER OF COMPOSITION TILE LAYER FO 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 Advance Directives and Living Will 11/16/2010 12:00 AM POWER OF COMPOSITION TILE LAYER FO 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 Advance Directives and Living Will 08/03/2009 12:00 AM POWER OF COMPOSITION TILE LAYER FO 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 Advance Directives and Living Will 08/03/2009 12:00 AM POWER OF COMPOSITION TILE LAYER FO 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 Advance Directives and Living Will 01/03/2009 12:00 AM POWER OF COMPOSITION TILE LAYER FO 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 Advance Directives and Living Will 01/03/2009 12:00 AM POWER OF COMPOSITION TILE LAYER FO 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 * Full Code (Latest Code Status on File) Date Activated Date Inactivated Comments 10/19/2024 1:23 PM * Full Code Date Activated Date Inactivated Comments 09/05/2024 9:51 AM 09/08/2024 3:48 PM Care Teams Theater Projectionist Relationship Specialty Start Date End Date Elizabeth Davis PA [address] [place] [id number] PCP - General PHYSICIAN MOLECULAR BIOLOGY SCIENTIST 09/04/24
--- OUTSIDE RECORDS SUMMARY | 2024-12-08 12:50 | XMS_ITS | Encounter Summary ---
Author Organization [facility] Address [facility] [place] [address] Care Team Providers Care Supervisor Electronics Inspection Name Role Phone Gagan Begum MD Primary Care Provider [phone] Luís Richmond MD Primary Care Provider [phone] Elizabeth Davis Primary Care Provider [phone] Encounter Details Date Type Department Care Team (Late st Contact Info) Description 09/05/2020 Prep for Procedure [facility] [address] [place] [address] Juanito Bautista MD [address] [place] [address] Social History Tobacco Use Types Packs/Day Years [...] Info) Description 12/18/2024 10:00 AM CDT Appointment [facility] [address] [place] [address] Mirza Grajeda MD [address] [place], [place] [address] 01/14/2025 11:15 AM CDT [facility] [address] [place] [phone] Reta Waters FNP [facility] [address] [place], [place] [phone] documented as of this encounter Results * ECG 12-Lead (09/06/2020 12:49 PM CDT) 09/06/2020 12:4 9 PM CDT Narrative 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 documented in this encounter Visit Diagnoses Diagnosis Preop testing- Primary Preoperative examination, unspecified Preop testing Preoperative examination, unspecified documented in this encounter Additional Health Concerns Infection Onset Date Last Indicated Resolved Time COVID-19 Rule Out 09/06/2020 09/10/2020 09/11/2020 12:20 PM CDT COVID-19 Rule Out 09/04/2024 09/04/2024 09/04/2024 3:02 PM CDT Respiratory Rule Out 09/04/2024 09/04/2024 025 3:09 PM CDT Respiratory Rule Out 09/04/2024 09/04/2024 025 12:49 PM CDT documented as of this encounter Care Teams Supervisor Electronics Inspection Relationship Specialty Start Date End Date Gagan Begum MD [address] [place] [address] PCP - General INTERNAL MEDICINE 09/02/19 05/13/22 Luís Richmond MD [address] [place] [address] PCP - General FAMILY PRACTICE 05/14/22 09/03/24 Elizabeth Davis PA [facility] [place] [address] PCP - General PHYSICIAN GEOMAGNETICIAN 09/04/24 documented as of this encounter
--- OUTSIDE RECORDS SUMMARY | 2024-12-08 12:50 | XMS_ITS | Referral Summary ---
Author Organization [facility] Address [address] [place] [address] Care Team Providers Care High School Music Director Name Role Phone Elizabeth Davis Primary Care Provider [phone] Lavelle Mao MD Unavailable [phone] Encounters Date Type Department Care Team Description 09/16/2024 3:00 PM CDT Procedure visit [facility] Otolaryngology [address] [facility] Medicine 11th [place] [address] [place] [address] Ayleen Nur Au.D. 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 Gender Identity Not on file Sexual Orientation [...] 2:27 PM CDT Height 157.5 cm (5' 2) 02/26/2023 2:27 PM CDT Body Mass Index 45.36 02/26/2023 2:27 PM CDT Plan of Treatment Not on file Medical Devices Implanted Type Area Apartment Rental Clerk Device Identifier Shelf Expiration Date Model / Serial / Lot Cochlear Americas [id number] Implant Cochlear Cochlear Nucleus Profile Plus Slim Modiolar Electrode [id number] - [id number] - [id number] Implanted:Qty : 1 on 04/08/2019 by Igor Cha MD at [facility] Other - see comments Left: Cochlea Cochlear [employer] 03/04/2021 [id number] / [id number] / [id number] Description:Cochlear Nucleus [id number] Cochlear Implant with Contour Procedures Procedure Name Priority Date/Time Associated Diagnosis Comments AUDBASE RESULTS 09/16/2024 2:15 PM CDT from Last 3 Months Results * AudBase Results (09/16/2024 2:15 PM CDT) Provider Scanning AUDIOLOGY SERVICES ORDERABLES Final Result from Last 3 Months Insurance [facility] MEDICARE ADVANTAGE AETNA MEDICARE GOLD Care Teams High School Music Director Relationship Specialty Start Date End Date Elizabeth Davis PA [address] [place] [id number] PCP - General Physician General Office Clerk 02/26/23 Lavelle Mao MD [phone] [place] [address] Surgeon Colon and Rectal Surgery 02/26/23
--- OUTSIDE RECORDS SUMMARY | 2024-12-08 12:50 | XMS_ITS | Encounter Summary ---
Author Organization [facility] Address [facility] [place] [address] Care Team Providers Care Fish Roe Processor Name Role Phone Elizabeth Davis Primary Care Provider Encounter Details Date Type Department Care Team (Late st Contact Info) Description 11/19/2024 Abstract [facility], [address] [address] Mary Jo Finley MA Social History Tobacco Use Types Packs/Day Years [...] from your doctor or pharmacy? Never 09/04/2024 C Utilities Answer Date Recorded In the past [...] week 09/04/2024 How often do you attend [facility] or sikh services? Never 09/04/2024 Do you belong to any clubs o r organizations such as yazidism groups, unions, fraternal or athletic groups, or [...] Recorded Patient Health Questionnaire-2 Score 4 09/04/2024 [facility] - Occupational [...] any time in the past 12 m [facility], were you homeless or living in a retirement (including now)? No 09/04/2024 Comments No Sex and Gender Information Value Date Recorded Sex Assigned at Female 09/04/2024 3:44 PM CDT Legal Sex Female 8:29 PM CDT Gender Identity Not on file Sexual Orientation Not on file documented as of this encounter Functional Status * Are you deaf or do you have serious difficulty hearing Answer Date of Assessment Author Status Yes 09/04/2024 10:35 PM CDT Kassidy Greenwood RN Active * Are you blind or do you have serious difficulty seeing, even when wearing glasses? Answer Date of Assessment Author Status Yes 09/04/2024 10:35 PM CDT Kassidy Greenwood RN Active * Do you have serious difficulty walking or climbing stairs? Answer Date of Assessment Author Status Yes 09/04/2024 10:35 PM CDT Kassidy Greenwood RN Active * Do you have difficulty dressing or bathing? Answer Date of Assessment Author Status Yes 09/04/2024 10:35 PM CDT Kassidy Greenwood RN Active * Because of a physical, mental, or emotional condition, do you have difficulty doing errands alone such as visiting a doctor's office or shopping? Answer Date of Assessment Author Status Yes 09/04/2024 10:35 PM CDT Kassidy Greenwood RN Active documented as of this encounter Mental Status * Because of a physical, mental, or emotional condition, do you have serious difficulty concentrating, remembering, or making decisions? Answer Entry Date Author Status No 09/04/2024 10:35 PM CDT Kassidy Greenwood RN Active documented in this encounter Plan of Treatment Upcoming Encounters Date Type Department Care Team (Late st Contact Info) Description 12/18/2024 10:00 AM CDT Appointment [facility] [place] [address] Mirza Grajeda MD [facility] [address] [place] [address] 01/14/2025 11:15 AM CDT Office Visit [facility] [address] [id number] Reta Waters FNP 3 [facility] [address] [place] [address] documented as of this encounter Procedures Procedure Name Priority Date/Time Associated Diagnosis Comments HEMOGLOBIN, GLYCOSYLATED Routine 08/03/2024 COMPREHENSIVE METABOLIC PANEL Routine 08/03/2024 LIPID PANEL Routine 08/03/2024 CBC, MANUAL DIFF Routine 08/03/2024 THYROID STIM HORMONE TSH Routine 08/03/2024 VITAMIN D, 25 OH Routine 08/03/2024 documented in this encounter Results * VITAMIN D, 25 OH (08/03/2024) Pathologist [facility] VITAMIN D 25 HYDROXY S/P/B 40 08/03/2024 us Default History Genericprovider LABORATORY Final Result * (ABNORMAL) COMPREHENSIVE METABOLIC PANEL (08/03/2024) Pathologist [facility] SODIUM S/P/B 137 GLUCOSE 123 mg/dL AST 12 BUN 26 CREATININE S/P/B 1.30(A) 0.5 - 1.0 CALCIUM S/P/B 8.7 POTASSIUM S/P/B 5.0 CHLORIDE S/P/B 100 ALT 11 GFR ESTIMATE 41 us Default History Genericprovider LABORATORY Final Result * LIPID PANEL (08/03/2024) Pathologist [facility] CHOLESTEROL 155 TRIGLYCERIDES 146 HDL 50 LDL (CALCULATED) 80 NON HDL CHOLESTEROL 105 Default History Genericprovider LABORATORY Final Result * CBC, MANUAL DIFF (08/03/2024) Pathologist [facility] WBC 9.3 HGB 13.7 HCT 43.2 PLT 330 us Default History Genericprovider LABORATORY Final Result * HEMOGLOBIN, GLYCOSYLATED (08/03/2024) Pathologist [facility] HGB A1C 6.4 % us Default History Genericprovider LABORATORY Final Result * THYROID STIM HORMONE TSH (08/03/2024) Pathologist [facility] TSH 1.58 Default History Genericprovider LABORATORY Final Result documented in this encounter Visit Diagnoses Not on filedocumented in this encounter Care Teams Fish Roe Processor Relationship Specialty Start Date End Date Elizabeth Davis PA [address] [place] [id number] PCP - General PHYSICIAN CHIP PERSON 09/04/24 documented as of this encounter
--- OUTSIDE RECORDS SUMMARY | 2024-12-08 12:50 | XMS_ITS | Clinical Summary ---
Author Organization [facility] Address [address] [place] [address] Care Team Providers Care Registered Dental Assistant Rda Name Role Phone Elizabeth Davis Primary Care Provider [phone] Lavelle Mao MD Unavailable [phone] Allergies No known active allergies Medications lisinopril-hydr [...] (03/03/2019): Added automatically from request for surgery [id number] Sensorineural hearing loss, asymmetrical 019 Hypertension 09/29/2014 Overview (09/27/2016): HBP Hematochezia 01/08/2012 Encounters Date Type Department Care Team Description 09/16/2024 3:00 PM CDT Procedure visit [facility] Otolaryngology [address] [facility] 11th [place] [address] Ayleen Nur Au.D. Sensorineural hearing loss, bilateral [...] on file Legal Sex Female 4:31 PM CLINIC MANAGER Gender Identity Not on file Sexual Orientation [...] Vaccine ( season) 02/23/202405/2021, 08/05/2020 Influenza Vaccine (Season Ended) 2025 05/27/20 18, 03/24/2017 Pneumococcal vaccine 65+ Completed 04/02/2019, 02/22 Medical Devices Implanted Type Area Road Mixer Operator Device Identifier Shelf Expiration Date Model / Serial / Lot Cochlear Americas [id number] Implant Cochlear Cochlear Nucleus Profile Plus Slim Modiolar Electrode [id number] - [id number] - [id number] Implanted:Qty : 1 on 04/08/2019 by Igor Cha MD at [facility] Medicine Other - see comments Left: Cochlea Cochlear [employer] 03/04/2021 [id number] / [id number] / [id number] Description:Cochlear Nucleus [id number] Cochlear Implant with Contour Procedures Procedure Name Priority Date/Time Associated Diagnosis Comments AUDBASE RESULTS 09/16/2024 2:15 PM CDT from Last 3 Months Results * AudBase Results (09/16/2024 2:15 PM CDT) Provider Scanning AUDIOLOGY SERVICES ORDERABLES Final Result from Last 3 Months Insurance UHC MEDICARE ADVANTAGE AETNA MEDICARE GOLD Care Teams Registered Dental Assistant Rda Relationship Specialty Start Date End Date Elizabeth Davis PA [address] [place] [address] PCP - General Physician Animal Anatomist 02/26/23 Lavelle Mao MD [phone] [place] [address] Surgeon Colon and Rectal Surgery 02/26/23
--- OUTSIDE RECORDS SUMMARY | 2024-12-08 12:50 | XMS_ITS | Encounter Summary ---
Author Organization [facility] Address [facility] [place] [address] Care Team Providers Care Informatics Educator Name Role Phone Gagan Begum MD Primary Care Provider [phone] Luís Richmond MD Primary Care Provider [phone] Elizabeth Davis Primary Care Provider [phone] Encounter Details Date Type Department Care Team (Late st Contact Info) Description 12/02/2019 Prep for Procedure [facility] [address] [place] [address] Sunny Knowles MD [address] [place] [address] Social History Tobacco Use Types [...] Info) Description 12/18/2024 10:00 AM CDT Appointment [employer] Spreader Helper [address] [facility] [address] Mirza Grajeda MD [facility]. [address] [place] [address] 01/14/2025 11:15 AM CDT Office Visit [facility] [address] [place] [phone] Reta Waters FNP 3 [facility] [address] [place] [address] documented as of this encounter Results * PRE-SURGICAL/PRE-PROCEDURE CORONAVIRUS (COVID 19) (12/04/2019 2:28 PM CDT) CORONAVIRUS SARS COV 2 PCR (RESP) NOT DETECTED NOT DETECTED 12/05/2019 7:59 PM CDT [facility] Comment: A Not Detected (negative) test result [...] providers and patients using the following websites: https://www.TalkPlus.[employer]/home/Covid-19/HCP/NAAT/fact-sheet2 https://www.TalkPlus.[employer]/home/Covid-19/Patients/NAAT/ fact-sheet2 This test has been authorized by the FDA under an Emergency Use Authorization (EUA) for use by authorized laboratories. Due to the current public health emergency, [facility] is receiving a high volume of samples [...] about COVID-19 can be found at the [facility] website: www.[employer]/Covid19. Test performed at [facility] [address] [place] [address] Director: SUZIE LOGAN DO,MPH NASOPHARYNGEAL SWAB / Unknown 12/04/2019 2:28 PM CDT us Sunny Knowles MD MICROBIOLOGY - GENERAL ORDERA [facility] Final Result [facility] [id number] [place] [id number] documented in this encounter Visit Diagnoses Diagnosis [...] documented as of this encounter Care Teams Informatics Educator Relationship Specialty Start Date End Date Gagan Begum MD [address] [place] [id number] PCP - General INTERNAL MEDICINE 09/02/19 05/13/22 Luís Richmond MD [address] [place] [id number] PCP - General FAMILY PRACTICE 05/14/22 09/03/24 Elizabeth Davis PA [address] [place] [id number] PCP - General PHYSICIAN TOOTH GRINDER 09/04/24 documented as of this encounter
--- NOTE | 2024-12-08 13:19 | CY_PTH ---
PATIENT: Cesia Das LOC: [facility]G U#:[id number] AGE/SX: 84/F ROOM: RE12/08/[address]: Elizabeth Davis PA-C : 1940 BED: DIS: 12/08/2024 SPEC #: [id number] RECD: 12/08/24 13:23 STATUS: SANTIAGO REQ #: [id number] LIBBY: 12/08/24 13:[address]: Elizabeth Davis I. DEPT: [facility] Cytology RECD BY: Hannah Martines Tissues: A - FNA Thyroid Procedures: Hematoxylin and Eosin Stain Cell Block Fine Needle Aspiration Evaluation Fine Needle Aspiration Pathologist
== END 2024-12-08 12:14 | disposition home or self-care (01) ==
PROVIDERS: PCP Physician Assistant Medical; Visit Provider Physician Assistant Medical
DX: E04.1 Nontoxic single thyroid nodule (principal)
CPT/HCPCS: 10005; 88172; 88173; 88305

== ENCOUNTER 2025-01-05 09:08 | Emergency (ER) | payer MEDICARE, SELFPAY ==
[2025-01-05] VITALS (9 sets, daily range): BP systolic 102–148; BP diastolic 60–97; PULSE 62–90; RESP 16–20; TEMP 36.5–36.6; O2SAT 92–97
--- NOTE | ~2025-01-05 | XR_ITS ---
XR wrist LT min 3V Ordering provider: Jessi Gaona PA-C History: . fall, pain, swelling . Comparison: None. FINDINGS: BONES: Fracture in the distal metaphysis of the left radius is noted with extension to the joint spac e and minimal posterior displacement. Minimal posterior subluxation seen of the radiocarpal joint. JOINT SPACES: Narrowing of the radiocarpal joint and first carpometacarpal joint. SOFT TISSUES: Ossification seen posterior to the wrist joint which may indicate early myositis ossifi cans. Follow-up and clinical correlation advised. IMPRESSION: Fracture distal metaphysis of the left radius with minimal posterior displacement in the radiocarpal joint. Reviewed, dictated and finalized at location A. IMPRESSION: Fracture distal metaphysis of the left radius with minimal posterior displaceme nt in the radiocarpal joint.
--- NOTE | ~2025-01-05 | XR_ITS ---
XR hip RT 2V w AP pelvis Ordering provider: Jessi Gaona PA-C History: . fall, pain . Comparison: None. FINDINGS: BONES: No acute fracture or dislocation. HIP JOINT SPACES: Right hip moderate to severe osteoarthritic changes. PUBIC SYMPHYSIS: Pubic symphysitis. SOFT TISSUES: Normal. IMPRESSION: No acute osseous abnormality pelvis and right hip. Severe right hip osteoarthritic changes. Reviewed, dictated and finalized at location A.
--- NOTE | ~2025-01-05 | XR_ITS ---
XR femur RT min 2V Ordering provider: Jessi Gaona PA-C History: . fall, pain . Comparison: None. FINDINGS: BONES: No acute fracture or dislocation. JOINT SPACES: Total knee arthroplasty. Moderate to severe osteoarthritic changes of the right hip. SOFT TISSUES: Normal. IMPRESSION: No acute osseous abnormality of the right femur. Total knee arthroplasty. Reviewed, dictated and finalized at location A.
--- NOTE | 2025-01-05 09:32 | ED.GENADULT ---
HPI - General Adult General Chief complaint: Extremity Injury, Upper Stated complaint: GLF Time Seen by Provider: 01/05/25 09:11 Source: patient and old records reviewed Mode of arrival: EMS Limitations: no limitations History of Present Illness HPI narrative: Patient is an 84 y/o female, with PMH of AFIB on Eliquis, CHF, HTN, who presents to the ED via EMS with report of a fall. Patient is a resident of [facility]. Patient ambulates with a walker. Reports she lost her balance and fell this morning. She fell backwards, attempted to catch herself with her left wrist. Did not hit her head or lose consciousness. Denies dizziness, syncope. She complains of pain to her left wrist, right hip/thigh. Denies any neck or back pain, headache, dizziness, numbness. Related Data Home Medications ?Medication ?Instructions ?Recorded ?Confirmed ?Last Taken ?Type Oxygen 4 LPM via NC q.h.s. .Route 12/09/24 12/09/24 Unknown History spironolactone 25 mg tablet 12.5 mg PO DAILY 12/10/24 12/10/24 Unknown History Allergies Allergy/AdvReac Type Severity Reaction Status Date / Time No Known Allergies Allergy Unverified 12/10/24 08:13 Review of Systems Review of Systems: All systems reviewed & are unremarkable except as noted in HPI. All systems reviewed & are unremarkable except as noted in HPI and below PMFSH Past Medical History Medical History (HFpEF) heart failure with preserved ejection fraction Atrial fibrillation/flutter Chronic kidney disease Thyroid nodule Fecal incontinence Thyroid nodule greater than or equal to 1 cm in diameter incidentally noted on imaging study 2.5 cm right lobe, noted on CTA chest August 2024 Nocturnal hypoxia Hypoxia on nocturnal O2 2 LPM Lower extremity weakness Ambulates with cane Insomnia Screening for breast cancer Hearing loss Pre-diabetes Depressive disorder Vitamin D deficiency Hypertension Surgical History Surgical History Hx of cholecystectomy H/O shoulder surgery H/O knee surgery Family History Family History Father Heart disease Mother Cancer Social History Social History Smoking status: Never smoker Alcohol intake: current Substance use: never Living arrangements: alone Occupation/Education: retired Spiritual care concerns: No Agree to blood products: Yes Exam Narrative: GENERAL: Elderly, morbidly obese with BMI of 47.9, non-toxic, in no acute distress. HEAD: Normocephalic, atraumatic. RESPIRATORY: Airway patent, respirations nonlabored. Clear to auscultation bilaterally, no rales, rhonchi, wheezing. CARDIOVASCULAR: Regular rate and rhythm. Radial and pedal pulses intact and easily palpable. MUSCULOSKELETAL: Moves all extremities. Mild swelling throughout left dorsal wrist with diffuse tenderness throughout distal radius region. Sensation intact throughout fingers. Capillary refill intact. Mild tenderness throughout right lateral hip/proximal thigh. Sensation intact throughout right lower extremity. No C/T/L midline spinal tenderness. SKIN: Warm, dry, normal color. NEURO: A&O X3. Speech clear. Steady gait. No ataxic movements. PSYCHIATRIC: Appropriate mood and affect. Normal interaction. Course Vital Signs Vital signs: Vital Signs Pulse Rate 80 01/05/25 09:14 Respiratory Rate 16 01/05/25 09:14 Blood Pressure 135/97 H 01/05/25 09:14 Pulse Oximetry 93 01/05/25 09:14 Temperature 97.8 F 01/05/25 11:48 Pulse Rate 62 01/05/25 13:45 Respiratory Rate 16 01/05/25 13:45 Blood Pressure 105/60 01/05/25 13:45 Pulse Oximetry 94 01/05/25 13:45 Oxygen Delivery Room Air 01/05/25 09:15 Medical Decision Making [facility] Narrative Medical decision making narrative: Patient presented to ED status post ground level mechanical fall at half-way, pain to left wrist and right hip/thigh. Denies any head injury or LOC. Is adamant that she did not hit her head. No prodromal symptoms, evidence of syncope. Vital signs are stable. Patient neurologically intact. Exam concerning for possible left wrist fracture. Swelling and focal tenderness. X-ray of left wrist with distal radius fracture. Minimal angulation. X-ray of right hip/femur negative, no obvious pelvic fracture. Discussed imaging findings with patient. Is neurovascularly intact. No evidence of compartment syndrome. Patient placed in short arm volar splint. Advised she will need follow-up with orthopedics for further evaluation of fracture. Patient typically ambulates with a walker. I did discuss case with care coordination, who confirmed with [facility] that patient can return to [facility] as long as she is able to transfer on her own. Can otherwise be wheeled with assistance by staff to and from meals, to the bathroom. We tested this in the ED and patient was able to successfully transfer on her own with out assistance. Will be discharged back to [facility]. Patient does feel comfortable going back to the facility. Family in agreement with plan. Given return precautions. Pain medication sent to pharmacy. Patient given Ortho information. Discharged in stable condition. Medical Records Medical records reviewed: Yes I reviewed the external patient's medical records. Vital Signs Vital Signs: Vital Signs Pulse Rate 80 01/05/25 09:14 Respiratory Rate 16 01/05/25 09:14 Blood Pressure 135/97 H 01/05/25 09:14 Pulse Oximetry 93 01/05/25 09:14 Temperature 97.8 F 01/05/25 11:48 Pulse Rate 62 01/05/25 13:45 Respiratory Rate 16 01/05/25 13:45 Blood Pressure 105/60 01/05/25 13:45 Pulse Oximetry 94 01/05/25 13:45 Oxygen Delivery Room Air 01/05/25 09:15 Imaging Data Attestation: I personally reviewed and interpreted this imaging study as follows: Radiologist's impression: ITS Impressions Femur X-Ray 01/05/25 10:32 IMPRESSION: No acute osseous abnormality of the right femur. Total knee arthroplasty. Hip/Pelvis X-Ray 01/05/25 10:35 IMPRESSION: No acute osseous abnormality pelvis and right hip. Severe right hip osteoarthritic changes. Wrist X-Ray 01/05/25 10:39 IMPRESSION: Fracture distal metaphysis of the left radius with minimal posterior displacement in the radiocarpal joint. Discharge Plan Discharge Clinical Impression: Fall from ground level Fracture of distal end of radius Qualifiers: Encounter type: initial encounter Fracture type: closed Fracture morphology: Colles' Laterality: left Qualified Code(s): S52.532A - Colles' fracture of left radius, initial encounter for closed fracture Strain of right hip and thigh Qualifiers: Encounter type: initial encounter Qualified Code(s): S76.011A - Strain of muscle, fascia and tendon of right hip, initial encounter Patient Disposition: NH Senior Living/Asst Living Condition: Stable Instructions: Antibiotic Form, Wrist Fracture in Adults (ED), Splint Care (ED) Additional Instructions: You will need to follow-up with orthopedics for further evaluation of your wrist fracture. Call office to make appointment. Wear splint until seen by orthopedics. Continue Tylenol as needed for pain. Tramadol as needed for more severe pain. Recommend elevation of left arm whenever possible, frequent icing to left wrist. Return to the ED if you experience worsening or severe pain, recurrent fall or injury, numbness, or any other symptoms of concern. Patient Language: Croatian Prescriptions: New tramadol 50 mg tablet 50 mg PO Q6H PRN (Reason: pain) Qty: 15 0RF No Action psyllium husk [Fiber (psyllium husk)] 0.4 gram capsule 2 g PO .5xd Qty: 750 5RF loratadine [Claritin] 10 mg tablet 10 mg PO DAILY Qty: 90 3RF cholecalciferol (vitamin D3) 50 mcg (2,000 unit) capsule 50 mcg PO DAILY Qty: 90 3RF Oxygen 4 LPM via NC q.h.s. .Route Patient Comments: increased 12/03/24 Rx Instructions: Oxygen 4 liters/minute via nasal cannula q.h.s. spironolactone 25 mg tablet 12.5 mg PO DAILY Patient Comments: Started November 2024 Rx Instructions: [place]ON furosemide 40 mg tablet 40 mg PO QAM Qty: 1 0RF Rx Instructions: Changed from 20 mg tablets to 40 mg tablets 12/10/2024 (patient was taking 220 mg tablets daily) trazodone 50 mg tablet 50 mg PO QHS PRN (Reason: insomnia) Qty: 90 0RF mupirocin [Centany] 2 % ointment 1 applic topical BID Qty: 15 0RF lisinopril 10 mg tablet 10 mg PO DAILY Qty: 90 0RF dicyclomine 10 mg capsule 10 mg PO BID PRN (Reason: abdominal pain) Qty: 180 0RF Eliquis 5 mg tablet 5 mg PO BID Qty: 60 0RF metoprolol succinate 25 mg tablet extended release 24 hr 25 mg PO DAILY Qty: 30 0RF oxybutynin chloride 5 mg tablet 5 mg PO DAILY Qty: 90 0RF guaifenesin 600 mg tablet extended release 12hr 600 mg PO Q12H PRN (Reason: congestion) Qty: 60 5RF Follow-up/Referrals: Elizabeth Davis PA-C [Primary Care Provider] - Rony Schaeffer MD [Physician] - (ORTHOPEDICS) Time of Disposition: 13:12
--- OUTSIDE RECORDS SUMMARY | 2025-01-05 09:55 | XMS_ITS | Clinical Summary ---
Author Organization [facility] Address [address] [place] [address] Care Team Providers Care Security Operations Center Analyst Name Role Phone Elizabeth Davis Primary Care Provider [phone] Lavelle Mao MD Unavailable [phone] Allergies No known active allergies Medications lisinopril-hydr [...] (03/03/2019): Added automatically from request for surgery [id number] Sensorineural hearing loss, asymmetrical 019 Hypertension 09/29/2014 [...] on file Legal Sex Female 4:31 PM NIB ADJUSTER Gender Identity Not on file Sexual Orientation [...] Well Visit 65+ 04/29/2018 04/29/2017 Covid-19 Vaccine (3 - season) 02/23/202405/2021, 08/05/2020 Influenza Vaccine (#1) 2025 05/27/2018, 2016 Pneumococcal vaccine 65+ Completed 04/02/2019, 02/22 Medical Devices Implanted Type Area Family Practice Nurse Practitioner Device Identifier Shelf Expiration Date Model / Serial / Lot Cochlear [employer] [id number] Implant Cochlear Cochlear Nucleus Profile Plus Slim Modiolar Electrode Ci632 - [id number] - [id number] Implanted:Qty : 1 on 04/08/2019 by Igor Cha MD at [facility] Other - see comments Left: Cochlea Cochlear [employer] 03/04/2021 [id number] / [id number] / [id number] Description:Cochlear Nucleus CI612 Cochlear Implant with [place] [address] [address] UHC MEDICARE ADVANTAGE AET[employer] MEDICARE GOLD Care Teams Security Operations Center Analyst Relationship Specialty Start Date End Date Elizabeth Davis PA [facility] [place] [address] PCP - General Physician Warehouse Shipping Receiving Clerk 02/26/23 Lavelle Mao MD [phone] [place] [address] Surgeon Colon and Rectal Surgery 02/26/23
--- OUTSIDE RECORDS SUMMARY | 2025-01-05 09:55 | XMS_ITS | Referral Summary ---
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 Other - see comments Left: Cochlea [employer]chle[employer] 03/04/2021 [id number] / [id number] / [id number] Description:Cochlear Nucleus CI612 Cochlear Implant with Contour Insurance UHC MEDICARE ADVANTAGE [facility] Address: [address] [address] [place] [address] AETNA MEDICARE GOLD [facility] Address: [address] [place] [address] Care Teams Jackscrew Man Relationship Specialty Start Date End Date Elizabeth Davis PA [address] [place] [address] PCP - General Physician Inspector Weights And Measures 02/26/23 Lavelle Mao MD [phone] [place] [address] Surgeon Colon and Rectal Surgery 02/26/23
[2025-01-05] MEDS: traMADol HCL (*CRX) 25 MG TABLET PO ×2 (10:28→13:15)
[2025-01-05] MEDS: ACETAMINOPHEN 500 MG TABLET 1000 MG PO (10:28)
--- NOTE | 2025-01-05 12:16 | PC.NURSE ---
patient to bathroom via wheelchair with little assistance getting out of bed. patient able to stand and turn to toilet and back to wheelchair. Anders BARNES aware.
--- NOTE | 2025-01-05 13:36 | PC.NURSE ---
Report given to MOLLY Bradford at [facility]. All questions answered at this time. Pt. to take ER WC with them. Approval through [facility] with care coordination and Tania. Daughter to transport pt. back to [facility].
== END 2025-01-05 13:47 ==
PROVIDERS: Emergency Provider Physician Assistant; PCP Physician Assistant Medical
DX: S59.292A Other physeal fracture of lower end of radius, left arm, initial encounter for closed fracture (principal); S76.011A Strain of muscle, fascia and tendon of right hip, initial encounter; S76.911A Strain of unspecified muscles, fascia and tendons at thigh level, right thigh, initial encounter; I48.91 Unspecified atrial fibrillation; I50.30 Unspecified diastolic (congestive) heart failure; I13.0 Hypertensive heart and chronic kidney disease with heart failure and stage 1 through stage 4 chronic kidney disease, or unspecified chronic kidney disease; N18.9 Chronic kidney disease, unspecified; E55.9 Vitamin D deficiency, unspecified; R73.03 Prediabetes; F32.A Depression, unspecified; Z96.651 Presence of right artificial knee joint; Z90.49 Acquired absence of other specified parts of digestive tract; Z79.01 Long term (current) use of anticoagulants; W18.39XA Other fall on same level, initial encounter; Z79.899 Other long term (current) drug therapy
CPT/HCPCS: 29125; 73110; 73502; 73552; 99284; A9270

== ENCOUNTER 2025-02-01 09:46 | Emergency (ER) | payer MEDICARE, SELFPAY ==
--- NOTE | ~2025-02-01 | XR_ITS ---
XR wrist RT min 3V 02/01/2025 11:54 Indication: Right wrist pain Procedure: 4 views right wrist Comparison: No prior studies for comparison. 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 Osteopenia. No acute fractures identified. No focal soft tissue abnormal ity. No foreign bodies. Impression: 1: No acute fracture. Reviewed, dictated and finalized at location A. Impression: 1: No acute fracture.
[2025-02-01 09:53] VITALS: BP 110/60; PULSE 94; RESP 18; TEMP 36.9; O2SAT 92
--- OUTSIDE RECORDS SUMMARY | 2025-02-01 09:55 | XMS_ITS | Clinical Summary ---
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 Gender Identity Not on file Sexual Orientation [...] 04/02/2019, 02/22 Medical Devices Implanted Type Area Bulk Plant Operator Device Identifier Shelf Expiration Date Model / Serial / Lot Cochlear [employer] [id number] Implant Cochlear Cochlear Nucleus Profile Plus Slim Modiolar Electrode Ci632 - [id number] - [id number] Implanted:Qty : 1 on 04/08/2019 by Igor Cha MD at [facility] Other - see comments Left: Cochlea [employer]chlear [employer] 03/04/2021 [id number] / [id number] / [id number] Description:Cochlear Nucleus CI612 Cochlear Implant [place] [address] [address] UHC MEDICARE ADVANTAGE AETNA MEDICARE GOLD Care Teams Networks Software Consultant Relationship Specialty Start Date End Date Elizabeth Davis PA [facility] [place] [address] PCP - General Physician Nickel Plater 02/26/23 Lavelle Mao MD [phone] [place] [address] Surgeon Colon and Rectal Surgery 02/26/23
--- OUTSIDE RECORDS SUMMARY | 2025-02-01 12:22 | XMS_ITS | Encounter Summary ---
Author Organization [facility] Address [facility] [place] [address] Care Team Providers Care Space Scheduler Name Role Phone Elizabeth Davis Primary Care Provider [phone] Encounter Details Date Type Department Care Team (Late st Contact Info) Description 11/19/2024 Abstract [facility], [address] [address] Mary Jo Finley MA Social History Tobacco [...] week 09/04/2024 How often do you attend caro center or restorationism services? Never 09/04/2024 Do you belong to any clubs o r organizations such as jainism groups, unions, fraternal or athletic groups, or [...] Recorded Patient Health Questionnaire-2 Score 4 09/04/2024 [facility] - Occupational Stress [...] any time in the past 12 m [facility], were you homeless or living in a [...] Care Team (Late st Contact Info) Description 03/26/2025 11:00 AM CDT Office Visit [facility], [facility] [address] [place] [address] Sunny Bailey MD [facility]. [facility] [address] [place] [address] 04/19/2025 9:15 AM CDT Office Visit [facility] [id number] [place] [phone] Mirza Grajeda MD [facility]. [facility] [address] [place] [address] documented as of this encounter Procedures Procedure Name Priority Date/Time Associated Diagnosis Comments HEMOGLOBIN, GLYCOSYLATED Routine 12/10/2024 COMPREHENSIVE METABOLIC PANEL Routine 12/10/2024 THYROXINE, FREE (FT4) Routine 12/10/2024 THYROID STIM HORMONE TSH Routine 12/10/2024 MAGNESIUM Routine 12/10/2024 HEMOGLOBIN, GLYCOSYLATED Routine 08/03/2024 COMPREHENSIVE METABOLIC PANEL Routine 08/03/2024 LIPID PANEL Routine 08/03/2024 CBC, MANUAL DIFF Routine 08/03/2024 THYROID STIM HORMONE TSH Routine 08/03/2024 VITAMIN D, 25 OH Routine 08/03/2024 documented in this encounter Results * (ABNORMAL) COMPREHENSIVE METABOLIC PANEL (12/10/2024) SODIUM S/P/B 139 GLUCOSE 114 mg/dL BUN 36 CREATININE S/P/B 1.43(A) 0.5 - 1.0 CALCIUM S/P/B 9.0 POTASSIUM S/P/B 5.0 CHLORIDE S/P/B 100- GFR ESTIMATE 36 us Default History Genericprovider LABORATORY Final Result * THYROXINE, FREE (FT4) (12/10/2024) FREE T4 2.9 us Default History Genericprovider LABORATORY Final Result * HEMOGLOBIN, GLYCOSYLATED (12/10/2024) HGB A1C 6.7 % us Default History Genericprovider LABORATORY Final Result * THYROID STIM HORMONE TSH (12/10/2024) TSH 0.48 us Default History Genericprovider LABORATORY Final Result * MAGNESIUM (12/10/2024) MAGNESIUM 2.0 us Default History Genericprovider LABORATORY Final Result * VITAMIN D, 25 OH (08/03/2024) VITAMIN D 25 HYDROXY S/P/B 40 08/03/2024 [...] LDL (CALCULATED) 80 NON HDL CHOLESTEROL 105 us Default History Genericprovider LABORATORY Final Result * CBC, MANUAL DIFF (08/03/2024) Pathologist [facility] WBC 9.3 HGB 13.7 HCT 43.2 PLT 330 us Default History Genericprovider LABORATORY Final Result * HEMOGLOBIN, GLYCOSYLATED (08/03/2024) Pathologist [facility] HGB A1C 6.4 % us Default History Genericprovider LABORATORY Final Result * THYROID STIM HORMONE TSH (08/03/2024) Pathologist [facility] TSH 1.58 us Default History Genericprovider LABORATORY Final Result documented in this encounter Visit Diagnoses Not on filedocumented in this encounter Care Teams Space Scheduler Relationship Specialty Start Date End Date Elizabeth Davis PA [address] [place] [address] PCP - General PHYSICIAN SEAT COVER CUTTER 09/04/24 documented as of this encounter
--- OUTSIDE RECORDS SUMMARY | 2025-02-01 12:22 | XMS_ITS | Encounter Summary ---
Author Organization [facility] Address [facility] [place] [address] Care Team Providers Care Lead Instructor/Flight Attendant Name Role Phone Gagan Begum MD Primary Care Provider [phone] Luís Richmond MD Primary Care Provider [phone] Elizabeth Davis Primary Care Provider [phone] Encounter Details Date Type Department Care Team (Late st Contact Info) Description 09/05/2020 Prep for Procedure [facility] [address] [place] [address] Juanito Bautista MD [address] [place] [address] Social History Tobacco Use Types [...] Description 03/26/2025 11:00 AM CDT Office Visit [facility] [address] [place] [address] Sunny [facility] [address] [place], [place] [id number] 04/19/2025 9:15 AM CDT Office Visit [facility] [address] [place] [phone] Mirza Grajeda MD Three [facility]. 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: : 1940 Requested By: JUANITO BAUITSTA Order Number: [id number] Reading MD: Lambert Reagan Measurements Intervals Sparkman Rate: 67 P: 47 ID: [id number] QRS: -23 QRSD: 96 T: 56 QT: 331 QTc: 351 Interpretive Statements SINUS RHYTHM WITH MARKED SINUS ARRHYTHMIA BORDERLINE LEFT AXIS DEVIATION LOW QRS VOLTAGE IN PRECORDIAL LEADS Compared to ECG 12/17/2016 11:18:37 Low QRS voltage now present Myocardial infarct finding no longer present us Juanito Bautista MD ECG ORDERABLES Final Result Performing Organization Address City/State/[facility] Co de Phone Number [facility] documented in this encounter Visit Diagnoses Diagnosis [...] documented as of this encounter Care Teams Lead Instructor/Flight Attendant Relationship Specialty Start Date End Date Gagan Begum MD [address] [place] [address] PCP - General INTERNAL MEDICINE 09/02/19 05/13/22 Luís Richmond MD [address] [place] [address] PCP - General FAMILY PRACTICE 05/14/22 09/03/24 Elizabeth Davis PA [facility] [place] [address] PCP - General PHYSICIAN PROPERTY SPECIALIST 09/04/24 documented as of this encounter
--- OUTSIDE RECORDS SUMMARY | 2025-02-01 12:22 | XMS_ITS | Clinical Summary ---
Author Organization [facility] Address [address] [place] [address] Care Team Providers Care Senior Capital Markets Specialist Name Role Phone Elizabeth Davis Primary Care Provider [phone] Allergies No known active allergies Medications oxybutynin 5 MG tabletIndicati ons:bladder spasms Take 1 tablet (5 mg total) by mouth nightly. Indications: bladder spasms Active OXYGENIndicati ons:supplement oxygen 2 L/min by Nasal route nightly. Indications: supplement oxygen Active hydroCHLOROthi azide (MICROZIDE) 12.5 MG tabletIndicati ons:diuretics Take 1 tablet (12.5 mg total) by mouth daily. Indications: diuretics 5 Active lisinopril (PRINIVIL) 10 MG tabletIndicati ons:htn Take 1 tablet (10 mg total) by mouth daily. Indications: htn 5 Active multivitamin (THERA) tabletIndicati ons:mvi Take 1 tablet by mouth daily. Indications: mvi Active vitamin B-1 (THIAMINE) 50 MG tabletIndicati ons:vitamins Take 1 tablet (50 mg total) by mouth daily. Indications: vitamins Active Vitamin D, Cholecalcifero l, 50 MCG (1999 UT) CapIndications :supplement Take 1 tablet by mouth daily. Indications: supplement 5 Active Multiple Vitamins-Plate Maker Zinc als (MULTIVITAMIN & MINERAL OR)Indications :supplement Take 1 tablet by mouth daily. Indications: supplement 5 Active Biotin 1000 MCG TabIndications :supplement Take 1 tablet by mouth daily. Indications: supplement Active Cyanocobalamin (VITAMIN B 12 OR)Indications :supplement Take 1 tablet by mouth daily. Indications: supplement Active furosemide (LASIX) 20 MG tabletIndicati ons:Diuretic Therapy Take 1 tablet (20 mg total) by mouth daily. Indications: Treatment with Diuretic Therapy take 1-2 tablets once daily in the morning. Active ELIQUIS 5 MG tablet Take 1 tablet (5 mg total) by mouth 2 (two) times daily. Active metoprolol succinate ER (TOPROL-XL) 25 MG 24 hr tablet Take 1 tablet (25 mg total) by mouth daily. Active spironolactone (ALDACTONE) 25 MG tablet Take 0.5 tablets (12.5 mg total) by mouth daily. 45 tablet 1 Active dicyclomine (BENTYL) 10 MG capsule Take 1 capsule (10 mg total) by mouth 2 (two) times daily as needed. Active MUCUS RELIEF 600 MG 12 hr tablet Take 1 tablet (600 mg total) by mouth 2 (two) times daily as needed. Active loratadine (CLARITIN) 10 MG tablet Take 1 tablet (10 mg total) by mouth daily. Active Probiotic Product (ABA English) Cap Take 1 capsule by mouth daily. Active Psyllium (REGULOID OR) Take 5 capsules by mouth 5 (five) times daily. Active psyllium 0.52 g capsuleIndicat ions:fiber Take 5 capsules (2,600 mg total) by mouth 5 (five) times daily. Indications: fiber 01/15/20 Discontinu ed(Alterna te therapy) cetirizine (ZYRTEC) 10 MG tablet Take 1 tablet (10 mg total) by mouth daily. 01/15/20 Discontinu ed(Alterna te therapy) Active Problems Problem Noted Date Diagnosed Date Hypoxia 09/04/2024 Encounters Date Type Department Care Team Description 01/14/2025 11:15 AM CDT Office Visit [facility] [address] [place] [address] Reta Waters, AIRCRAFT INSTRUMENT REPAIRER Atrial Fibrillation (S/p cardioversion/) 01/14/2025 Orders Only [facility] [address] [address] Quinn Thompson MD 01/14/2025 Travel 01/14/2025 Orders Only [facility] [address] [phone] Quinn Thompson MD 12/18/2024 10:04 AM CDT Anesthesia Event [facility] Gravity Prospecting [place] [address] Niraj Amador MD 12/18/2024 7:39 AM CDT - 12/18/2024 11:45 AM CDT Hospital Encounter [facility] [place] [address] Quinn Thompson MD Siddiqui, Ata U., MD Discharge Disposition: Home or Self Care (Routine Discharge) 12/18/2024 7:38 AM CDT Hospital Encounter [facility] [place] [address] Quinn Thompson MD Discharge Disposition: Home or Self Care (Routine Discharge) 12/18/2024 Results Follow-Up [facility] [address] [phone] Haylee Martin RN CBC, AUTO, NO DIFF, PROTHROMBIN TIME, VENOUS, BASIC METABOLIC PANEL, XA CARDIOVERSION DCC 12/18/2024 Travel 11/24/2024 Travel 11/23/2024 12:00 PM CDT Office Visit [facility] [address] [phone] Quinn Thompson MD Consult; Palpitations 11/20/2024 Results Follow-Up [facility], [address] [place] [address] Genesis Hernandez, [facility] - [address] [facility] 11/19/2024 [facility] [address] [place] [address] Mary Jo Finley, EDGARDO 11/04/2024 1:00 PM CDT Home Care Visit [facility] Home Care [address] [place] [address] [place] [address] Leanna Dominguez, PT PT OASIS DISCHARGE 11/02/2024 12:30 PM CDT Home Care Visit [facility] Care [address] [place] [address] [place] [address] Libia Rider, OT OT DISCIPLINE DISCHARGE from Last 3 Months Immunizations Immunization Administration [...] from your doctor or pharmacy? Never 09/04/2024 [facility] Utilities Answer Date Recorded In the past [...] 09/04/2024 How often do you attend chur or alevism services? Never 09/04/2024 Do you belong to any clubs o r organizations such as christianity groups, unions, fraternal or athletic groups, or [...] Recorded Patient Health Questionnaire-2 Score 4 09/04/2024 [facility] of Occupat ional Health - Occupational Stress [...] any time in the past 12 m [facility], were you homeless or living in a long-term (including now)? No 09/04/2024 Comments No Sex and Gender Information Value Date Recorded Sex Assigned at Female 09/04/2024 3:44 PM CDT Legal Sex Female 8:29 PM CDT Gender Identity Not on file Sexual Orientation Not on file Last Filed Vital Signs Vital Sign Reading Time Taken Comments Blood Pressure 110/60 01/14/2025 11:24 AM CDT Pulse 97 01/14/2025 11:24 AM CDT Temperature 36.1 C (97 F) 12/18/2024 8:55 AM CDT Respiratory Rate 27 12/18/2024 11:30 AM CDT Oxygen Saturation 92% 12/18/2024 11:30 AM CDT Inhaled Oxygen Concentration - - Weight 127 kg (280 lb) 01/14/2025 11:24 AM CDT Height 162.6 cm (5' 4) 01/14/2025 11:24 AM CDT Body Mass Index 48.06 01/14/2025 11:24 AM CDT Plan of Treatment Upcoming Encounters Date Type Department Care Team (Late st Contact Info) Description 03/26/2025 11:00 AM CDT [facility], [facility] [address] [place] [address] Sunny Bailey MD [facility]. [address] [place], [place] [address] 04/19/2025 9:15 AM CDT Office Visit [facility] [address] [place] [address] Quinn Thompson MD [facility]. [facility] [address] [place] [address] Health Maintenance Due Date Last Done Comments DTaP, Tdap and Td Vaccines ( 1 - Tdap) 11/29/1958 Zoster Vaccines (1 of 2) 11/29/1989 Annual Medicare Wellness Visit 11/29/2004 RSV Immunization or 60+ Years (1 - 1-dose 75+ series) 11/29/2014 COVID-19 Vaccine (2023-2 5 season) 2024 09/02/2020, 08/05/2020 Pneumococcal Vaccine: [...] this topic Medical Devices Implanted Type Area Fabrication Inspector Device Identifier Shelf Expiration Date Model / Serial / Lot Iol Edwin [id number] - [id number] Implanted:Qty: 1 on 09/07/2019 by Sunny Knowles MD at [facility] Lens Right: Eye EDWIN - SURGICAL DIV 07/24/2023 [id number] / [id number] / Edwin Acrysof Iq Iol Implanted:Qty: 1 on 12/07/2019 by Sunny Knowles MD at [facility] Left: Eye 08/22/2023 / [id number] / [id number] Explanted Type Area Fabrication Inspector Device Identifier Shelf Expiration Date Model / Serial / Lot 2009+2018 Bilateral Knee Replacement 2011+2012 Bilateral Shoulder Replacement Procedures Procedure Name Priority Date/Time Associated Diagnosis Comments ELECTROCARDIOGRAM (NON MIDMARK ACQUIRED) Routine 01/14/2025 11:38 AM CDT Atrial fibrillation status post cardioversion (CMS/HCC HHS/HCC) XA CARDIOVERSION DCC Routine 12/18/2024 10:30 AM CDT Persistent atrial fibrillation (CMS/HCC HHS/HCC) PROTHROMBIN TIME, VENOUS STAT 025 7:45 AM CDT Persistent atrial fibrillation (CMS/HCC HHS/HCC) CBC, AUTO, NO DIFF STAT 12/18/2024 7: 45 AM CDT Persistent atrial fibrillation (CMS/HCC HHS/HCC) BASIC METABOLIC PANEL STAT 12/18/2024 7:45 AM CDT Persistent atrial fibrillation (CMS/HCC HHS/HCC) COMPREHENSIVE METABOLIC PANEL Routine 12/10/2024 THYROXINE, FREE (FT4) Routine 12/10/2024 HEMOGLOBIN, GLYCOSYLATED Routine 12/10/2024 THYROID STIM HORMONE TSH Routine 12/10/2024 MAGNESIUM Routine 12/10/2024 MOBILE CONTINUOUS TELEMETRY Routine 11/05/2024 2:40 PM CDT Palpitations Dyspnea from Last 3 Months Results * ELECTROCARDIOGRAM (01/14/2025 11:38 AM CDT) 01/14/2025 11:3 8 AM CDT Narrative [facility] - 01/18/2025 10:08 AM CDT [facility] Test Date: 2025-01-14 Pat Name: CESIA DAS Department: [facility] Room: Gender: Female 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 : 1940 Requested By: QUINN THOMPSON Order Number: [id number] Reading : Quinn Thompson Measurements Intervals [place] Rate: 97 P: 0 CT: 0 QRS: -54 QRSD: 97 T: 19 QT: 335 QTc: 426 Interpretive Statements ATRIAL FIBRILLATION PATTERN CONSISTENT WITH PULMONARY DISEASE INFERIOR MYOCARDIAL INFARCTION, PROBABLY OLD COMPARED TO PREVIOUS TRACING Now in Afib Procedure Note Quinn Thompson MD - 01/18/2025 [facility] Test Date: 2025-01-14 Pat Name: CESIA DAS Department: 107 Room: Gender: Female 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 : 1940 Requested By: QUINN THOMPSON Order Number: [id number] Reading : Quinn Thompson Measurements Intervals [place] Rate: 97 P: 0 CT: 0 QRS: -54 QRSD: 97 T: 19 QT: 335 QTc: 426 Interpretive Statements ATRIAL FIBRILLATION PATTERN CONSISTENT WITH PULMONARY DISEASE INFERIOR MYOCARDIAL INFARCTION, PROBABLY OLD COMPARED TO PREVIOUS TRACING Now in Afib us Quinn Thompson MD PROCEDURES-ORDERABLE NO LISA RGE Final Result [facility] * XA CARDIOVERSION DCC (12/18/2024 10:30 AM CDT) Anatomical Region Laterality Modality Cardiac Gravity Prospecting Observer Helper Narrative 12/21/2024 9:32 AM CDT CARDIAC CATHETERIZATION/EP LAB [phone] CARDIOVERSION REPORT Patient Name: Cesia Das Date of : 1940 Medical Record: #[id number] Account: #[id number] Physician: Quinn Thompson MD Date: 12/18/2024 Procedure: #[id number] DIAGNOSIS: Atrial Fibrillation OPERATIVE NOTE: Under general anesthesia, in the presence of Dr. Quinn Thompson, the patient underwent synchronized cardioversion at 300 joules, biphasic, with successful cardioversion to normal sinus rhythm. Patient tolerated the procedure well. Estimated Blood Loss: None Complications: None Specimens Removed: None CONCLUSION: Successful cardioversion with 300 joules into normal sinus rhythm. Quinn Thompson MD PG/vs Interpreted: 12/18/24 Transcribed: 12/21/24 Quinn Thompson MD ARBORIST Final Resul t * (ABNORMAL) PROTHROMBIN TIME, VENOUS (12/18/2024 7:45 AM CDT) PROTIME 14.3(H) 10.2 - 12.9 SEC 12/18/2024 7:59 AM CDT [facility] INR 1.3 12/18/2024 7:59 AM CDT [facility] Comment: Recommended INR Therapeutic Goals: 2.0-3.0 Routine Therapy 2.5-3.5 Mechanical Prosthetic Valves (High Risk) 12/18/2024 7:45 AM CDT Quinn Thompson MD LABORATORY Final Resul t [facility] [address] [place] [address], [place] [phone] * (ABNORMAL) BASIC METABOLIC PANEL (12/18/2024 7:45 AM CDT) [facility] GLUCOSE 119(H) 70 - 99 MG/DL 12/18/2024 8:07 AM T [facility] BUN 30(H) 7 - 18 MG/DL 12/18/2024 8:07 AM T [facility] CREATININE S/P/B 1.36(H) 0.55 - 1.02 MG/DL 12/18/2024 8:07 AM T [facility] SODIUM S/P/B 136 136 - 145 MMOL/L 12/18/2024 8:07 AM T [facility] POTASSIUM S/P/B 4.7 3.5 - 5.1 MMOL/L 12/18/2024 8:07 AM T [facility] CHLORIDE S/P/B 105 97 - 115 MMOL/L 12/18/2024 8:07 AM T [facility] CO2 27.2 21 - 32 MMOL/L 12/18/2024 8:07 AM T [facility] CALCIUM S/P/B 8.9 8.5 - 10.1 MG/DL 12/18/2024 8:07 AM T [facility] ANION GAP 3.8 2 - 10 MMOL/L 12/18/2024 8:07 AM T [facility] BUN CREATININE RATIO 22.1 6 - 26 12/18/2024 8:07 AM T [facility] GFR ESTIMATE 38(L) >90 ML/MIN/1.7 3 M2 12/18/2024 8:07 AM T [facility] Comment: NOTE: eGFR is not calculated for patients <18 years of age or gender unknown. This is an estimated GFR calculation using the new CKD EPI creatinine equation without race and so does not require a correction factor for race. This estimated GFR should not be used for calculating drug doses. 12/18/2024 7:45 AM CDT Quinn Thompson MD LABORATORY Final Resul t [facility] [address] [place] [address], [place] [phone] * (ABNORMAL) CBC, AUTO, NO DIFF (12/18/2024 7:45 AM CDT) WBC 9.01 4.5 - 11.0 x10'3/uL 12/18/2024 7:55 AM CDT [facility] RBC 4.35 4.20 - 5.40 x10'6/uL 12/18/2024 7:55 AM CDT [facility] HGB 12.7 12.0 - 16.0 G/DL 12/18/2024 7:55 AM CDT [facility] HCT 40.6 38.0 - 48.0 % 12/18/2024 7:55 AM CDT [facility] MCV 93.3 81.0 - 99.0 FL 12/18/2024 7:55 AM CDT [facility] MCH 29.2 27.0 - 31.0 PG 12/18/2024 7:55 AM CDT [facility] MCHC 31.3(L) 32.0 - 36.0 G/DL 12/18/2024 7:55 AM CDT [facility] RDW 14.6(H) 11.5 - 14.5 % 12/18/2024 7:55 AM CDT [facility] PLT 306 130 - 400 x10'3/uL 12/18/2024 7:55 AM CDT [facility] MPV 9.6 9.3 - 12.2 FL 12/18/2024 7:55 AM CDT [facility] 12/18/2024 7:45 AM CDT Quinn Thompson MD LABORATORY Final Resul t [facility] [address] [place] [address], * HEMOGLOBIN, GLYCOSYLATED (12/10/2024) HGB A1C 6.7 % Default History Genericprovider LABORATORY Final Result * (ABNORMAL) COMPREHENSIVE METABOLIC PANEL (12/10/2024) SODIUM S/P/B 139 GLUCOSE 114 mg/dL BUN 36 CREATININE S/P/B 1.43(A) 0.5 - 1.0 CALCIUM S/P/B 9.0 POTASSIUM S/P/B 5.0 CHLORIDE S/P/B 100- GFR ESTIMATE 36 Default History Genericprovider LABORATORY Final Result * THYROXINE, FREE (FT4) (12/10/2024) FREE T4 2.9 Default History Genericprovider LABORATORY Final Result * THYROID STIM HORMONE TSH (12/10/2024) TSH 0.48 Default History Genericprovider LABORATORY Final Result * MAGNESIUM (12/10/2024) MAGNESIUM 2.0 Default History Genericprovider LABORATORY Final Result * CLINIC - 17680 MCT - Today (11/05/2024 2:40 PM CDT) [facility] - 11/05/2024 2:40 PM CDT [place], [place] [address] TARGET DEVELOPER REPORT PATIENT NAME: Cesia Das : 1940 PCP: MARYAM COY INTERPRETING CLINICAL NUTRITION MANAGER: Seymour Cevallos MD INDICATION: Palpitations Baseline Rhythm [...] Elizabeth FRANCISCO CV VASCULAR ORDERABLES Final Result Performing Organization Address City/State/[facility] Co de Phone Number [facility] from Last 3 Months Insurance AET[employer] Advance Directives Documents on File Type Date Recorded Patient Senior Managing Director Expl anation Advance Directives and Living Will 09/13/2020 10:38 AM POA Advance Directives and Living Will 09/08/2019 11:59 AM 11/16/2010 POA FOR HEALTHCARE Advance Directives and Living Will 04/16/2013 12:00 AM POWER OF ELECTRIC POWER LINE REPAIRER FO 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 Advance Directives and Living Will 04/16/2013 12:00 AM POWER OF ELECTRIC POWER LINE REPAIRER FO 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 Advance Directives and Living Will 11/16/2010 12:00 AM POWER OF ELECTRIC POWER LINE REPAIRER FO 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 Advance Directives and Living Will 11/16/2010 12:00 AM POWER OF ELECTRIC POWER LINE REPAIRER FO 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 Advance Directives and Living Will 08/03/2009 12:00 AM POWER OF ELECTRIC POWER LINE REPAIRER FO 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 Advance Directives and Living Will 08/03/2009 12:00 AM POWER OF ELECTRIC POWER LINE REPAIRER FO 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 Advance Directives and Living Will 01/03/2009 12:00 AM POWER OF ELECTRIC POWER LINE REPAIRER FO 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 Advance Directives and Living Will 01/03/2009 12:00 AM POWER OF ELECTRIC POWER LINE REPAIRER FO 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 * Full Code (Latest Code Status on File) Date Activated Date Inactivated Comments 10/19/2024 1:23 PM 12/18/2024 7:39 AM * Full Code Date Activated Date Inactivated Comments 09/05/2024 9:51 AM 09/08/2024 3:48 PM Care Teams Senior Capital Markets Specialist Relationship Specialty Start Date End Date Elizabeth Davis PA [address] [place] [id number] PCP - General PHYSICIAN PROPERTY FIELD INSPECTOR 09/04/24
--- OUTSIDE RECORDS SUMMARY | 2025-02-01 12:22 | XMS_ITS | Encounter Summary ---
Author Organization [facility] Address [facility] [place] [address] Care Team Providers Care Floor Surfacer Name Role Phone Gagan Begum MD Primary Care Provider [phone] Luís Richmond MD Primary Care Provider [phone] Elizabeth Davis Primary Care Provider [phone] Encounter Details Date Type Department Care Team (Late st Contact Info) Description 10/02/[address] [facility] Con[facility] [address] [place], [place] [address] , Generic Conversion, Social History Tobacco Use [...] Description 03/26/2025 11:00 AM CDT Office Visit [facility] [address] [place], [place] [phone] Sunny Bailey MD [facility]. [facility] [address] [place] [address] 04/19/2025 9:15 AM CDT Office Visit [facility] [address] [place] [address] Mirza Grajeda MD [address] [address] documented as of this encounter Visit Diagnoses [...] documented as of this encounter Care Teams Floor Surfacer Relationship Specialty Start Date End Date Gagan Begum MD [address] [place] [address] PCP - General INTERNAL MEDICINE 09/02/19 05/13/22 Luís Richmond MD [address] [place] [address] PCP - General FAMILY PRACTICE 05/14/22 09/03/24 Elizabeth Davis PA [address] [place] [address] PCP - General PHYSICIAN BENEFIT AUTHORIZER 09/04/24 documented as of this encounter
--- OUTSIDE RECORDS SUMMARY | 2025-02-01 12:22 | XMS_ITS | Encounter Summary ---
Author Organization [facility] Address [facility] [place] [address] Care Team Providers Care Sider Name Role Phone Elizabeth Davis Primary Care Provider [phone] Encounter Details Date Type Department Care Team (Latest Contact Info) Description 12/18/2024 Results [facility] [place] [phone] Haylee Martin RN CBC, AUTO, NO DIFF, PROTHROMBIN TIME, VENOUS, BASIC METABOLIC PANEL, XA CARDIOVERSION DCC Social History Tobacco Use Types Packs/Day Years [...] th e electric, gas, oil, or water [employer] threatened to shut off services in your [...] often do you attend chur ch or jain services? Never 09/04/2024 Do you belong to any clubs o r organizations such as islam groups, unions, fraternal or athletic groups, or [...] Recorded Patient Health Questionnaire-2 Score 4 09/04/2024 [facility] of Occupat ional Health - Occupational Stress [...] any time in the past 12 m [facility], were you homeless or living in a half-way (including now)? No 09/04/2024 Comments No Sex [...] PM CDT Kassidy Greenwood RN Active * Calculated C-SSRS Risk Score (Lifetime/Recent) Answer Date of Assessment Author Status No Risk Indicated 12/18/2024 9:14 AM CDT María Ma RN Active * [place] Suicide Severity Rating Scale (Screener/Recent Self-Report) Question Answer Date of Assessment Author Status 1. Wish to be (Past 1 Month) No 12/18/2024 9:14 AM CDT María Ma RN Active 2. Non-Specific Active Suicidal Thoughts (Past 1 Month) No 12/18/2024 9:14 AM CDT María Ma RN Active 6. Suicidal Behavior (Lifetime) No 12/18/2024 9:14 AM CDT María Ma RN Active documented as of this encounter [...] Description 03/26/2025 11:00 AM CDT [facility] [address] [place] [address] Sunny Bailey MD [facility]. [facility] [address] [place] [address] 04/19/2025 9:15 AM CDT Office Visit [facility] [id number] [place] [address] Mirza Grajeda MD [address] [address] documented as of this encounter Visit Diagnoses Not on filedocumented in this encounter Care Teams Sider Relationship Specialty Start Date End Date Elizabeth Davis PA [facility] [place] [address] PCP - General PHYSICIAN E COMMERCE RETAILER 09/04/24 documented as of this encounter
--- OUTSIDE RECORDS SUMMARY | 2025-02-01 12:22 | XMS_ITS | Clinical Summary ---
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 Gender Identity Not on file Sexual Orientation [...] 04/02/2019, 02/22 Medical Devices Implanted Type Area Meteorological Equipment Repairer Device Identifier Shelf Expiration Date Model / Serial / Lot Cochlear Americas [id number] Implant Cochlear Cochlear Nucleus Profile Plus Slim Modiolar Electrode [id number] - [id number] - [id number] Implanted:Qty : 1 on 04/08/2019 by Igor Cha MD at [facility] Other - see comments Left: Cochlea Cochlear [employer] 03/04/2021 [id number] / [id number] / [id number] Description:Cochlear Nucleus [id number] Cochlear Implant [place] [address] UHC MEDICARE ADVANTAGE AETNA MEDICARE GOLD Care Teams Wine And Spirits Clerk Relationship Specialty Start Date End Date Elizabeth Davis PA [facility] [place] [address] PCP - General Physician Assistant Unit Forester 02/26/23 Lavelle Mao MD [address] [facility] [phone] [place] [address] Surgeon Colon and Rectal Surgery 02/26/23
--- OUTSIDE RECORDS SUMMARY | 2025-02-01 12:22 | XMS_ITS | Encounter Summary ---
Author Organization [facility] Address [facility] [place] [address] Care Team Providers Care Energy Derivatives Trader Name Role Phone Gagan Begum MD Primary Care Provider Luís Richmond MD Primary Care Provider [phone] Elizabeth Davis Primary Care Provider [phone] Encounter Details Date Type Department Care Team (Late st Contact Info) Description 12/02/2019 Prep for Procedure [facility] [address] [place] [address] Sunny Knowles MD [address] [place] [address] Social History Tobacco Use Types [...] Description 03/26/2025 11:00 AM CDT Office Visit [facility], [address] [place] [address] Sunny Bailey MD Three [facility]. [address] [place] [address] 04/19/2025 9:15 AM CDT [facility] [address] [place] [id number] Mirza Grajeda MD Three [facility]. [address] [place] [address] documented as of this encounter Results * PRE-SURGICAL/PRE-PROCEDURE CORONAVIRUS (COVID 19) (12/04/2019 2:28 PM CDT) CORONAVIRUS SARS COV 2 PCR (RESP) NOT DETECTED NOT DETECTED 12/05/2019 7:59 PM CDT [facility] Comment: A Not Detected (negative) test result [...] providers and patients using the following websites: https://www.[employer]/home/Covid-19/HCP/NAAT/fact-sheet2 https://www.[employer]/home/Covid-19/Patients/NAAT/ fact-sheet2 This test has been authorized by the FDA under an Emergency Use Authorization (EUA) for use by authorized laboratories. Due to the current public health emergency, [employer] [facility] [facility] is receiving a high volume of samples [...] about COVID-19 can be found at the [employer] website: www.[employer]/Covid19. Test performed at [facility] [address] [place] [address] Director: SUZIE LOGAN DO,MPH NASOPHARYNGEAL SWAB / Unknown 12/04/2019 2:28 PM CDT us Sunny Knowles MD MICROBIOLOGY - GENERAL ORDERA [facility] Final Result [facility] [id number] [place] [id number] documented in this encounter Visit Diagnoses [...] documented as of this encounter Care Teams Energy Derivatives Trader Relationship Specialty Start Date End Date Gagan Begum MD [address] [place] [id number] PCP - General INTERNAL MEDICINE 09/02/19 05/13/22 Luís Richmond MD [address] [place] [address] PCP - General FAMILY PRACTICE 05/14/22 09/03/24 Elizabeth Davis PA [address] [place] [address] PCP - General PHYSICIAN YOKER 09/04/24 documented as of this encounter
--- NOTE | 2025-02-01 12:57 | ED_ITS ---
HPI - Extremity Injury (Upper) General Chief Complaint: Extremity Injury, Upper Stated Complaint: RUE pain, no inury Time Seen by Provider: 02/01/25 11:53 History of Present Illness HPI narrative: Patient is an 84-year-old female who presents to the ER with right forearm pain. She reports she fell approximately 1 month ago and fractured her left wrist. Patient reports yesterday around 8:00 p.m. she started experiencing right forearm pain. She denies any injury to the area, but endorses increased pain when she tries to twist her arm to left or right. Patient endorses full range of motion in her wrist, hand, and elbow. She denies any recent fevers, joint swelling, or increased redness to the area. His daughter endorses patient has a history of atrial fibrillation, congestive heart failure, urinary incontinence. Related Data Home Medications ?Medication ?Instructions ?Recorded ?Confirmed ?Last Taken ?Type Oxygen 4 LPM via NC q.h.s. .Route 12/09/24 01/20/25 Unknown History spironolactone 25 mg tablet 12.5 mg PO DAILY 12/10/24 01/20/25 Unknown History Allergies Allergy/AdvReac Type Severity Reaction Status Date / Time No Known Allergies Allergy Verified 01/20/25 11:29 Review of Systems Review of Systems: All systems reviewed & are unremarkable except as noted in HPI and below PMFSH Past Medical History Medical History (HFpEF) heart failure with preserved ejection fraction Atrial fibrillation/flutter Chronic kidney disease Thyroid nodule Fecal incontinence Thyroid nodule greater than or equal to 1 cm in diameter incidentally noted on imaging study 2.5 cm right lobe, noted on CTA chest August 2024 Nocturnal hypoxia Hypoxia on nocturnal O2 2 LPM Lower extremity weakness Ambulates with cane Insomnia Screening for breast cancer Hearing loss Pre-diabetes Depressive disorder Vitamin D deficiency Hypertension Surgical History Surgical History Hx of cholecystectomy H/O shoulder surgery H/O knee surgery Family History Family History Father Heart disease Mother Cancer Social History Social History Smoking status: Never smoker Alcohol intake: current Substance use: never Living arrangements: alone Occupation/Education: retired Spiritual care concerns: No Agree to blood products: Yes Exam Narrative: GENERAL: Well appearing, obese, non-toxic, in no acute distress. HEAD: Normocephalic, atraumatic. NECK: Supple. No adenopathy, no masses. RESPIRATORY: Airway patent, respirations nonlabored. Clear to auscultation bilaterally, no rales, rhonchi, wheezing. CARDIOVASCULAR: Regular rate and rhythm without murmurs, rubs, or gallops. Peripheral pulses 2+ and equal bilaterally. ABDOMINAL: Soft, nontender, nondistended, no hepatosplenomegaly. Normoactive BS. MUSCULOSKELETAL: Moves all extremities. Strength/ROM intact without gross deformities. Increased right forearm pain with twisting. SKIN: Warm, dry, normal color. No rashes. NEURO: A&O X3. Speech clear. Cranial nerves II-XII intact. PSYCHIATRIC: Appropriate mood and affect. Normal interaction. Course Vital Signs Vital signs: Vital Signs Temperature 36.9 C 02/01/25 09:53 Pulse Rate 94 02/01/25 09:53 Respiratory Rate 18 02/01/25 09:53 Blood Pressure 110/60 02/01/25 09:53 Pulse Oximetry 92 02/01/25 09:53 Oxygen Delivery Room Air 02/01/25 09:53 Temperature 36.9 C 02/01/25 09:53 Pulse Rate 94 02/01/25 09:53 Respiratory Rate 18 02/01/25 09:53 Blood Pressure 110/60 02/01/25 09:53 Pulse Oximetry 92 02/01/25 09:53 Oxygen Delivery Room Air 02/01/25 09:53 MDM - Extremity Injury (Upper) MDM Narrative Medical decision making narrative: Patient is an 84-year-old female who presents to the ER with right forearm pain. She reports she fell approximately 1 month ago and fractured her left wrist. Patient reports yesterday around 8:00 p.m. she started experiencing right forearm pain. She denies any injury to the area, but endorses increased pain when she tries to twist her arm to left or right. Patient endorses full range of motion in her wrist, hand, and elbow. She denies any recent fevers, joint swelling, or increased redness to the area. His daughter endorses patient has a history of atrial fibrillation, congestive heart failure, urinary incontinence. Labs Ordered: None necessary Imaging Ordered: Right wrist/forearm x-ray Medications Ordered: [place] p.o. 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 Osteopenia. No acute fractures identified. No focal soft tissue abnormality. No foreign bodies. Diagnosis: R forearm muscle strain Patient Education/Shared MDM: Results of imaging shared with patient. She endorses improvement of symptoms following medication administration. Patient strongly advised to follow-up with their PCP as soon as possible. She will not be discharged home with any new prescriptions besides lidocaine patches. Strict return precautions provided. Patient verbalized understanding and is in agreement with plan. Vital signs stable at time of discharge. All questions answered. Differential Diagnosis Differential diagnosis: Likely sprain and strain of wrist, fracture of wrist and other (Muscle strain) Imaging Data Attestation: I personally reviewed and interpreted this imaging study as follows: Radiologist's impression: Impressions Wrist X-Ray 02/01/25 12:00 Impression: 1: No acute fracture. Discharge Plan Discharge Clinical Impression: Muscle strain of right forearm, Pain in right forearm Patient Disposition: Home Condition: Stable Instructions: Antibiotic Form, Musculoskeletal Pain (ED) Additional Instructions: Please return to the ER with any worsening symptoms. Follow-up with primary care provider as soon as possible. Take all medications as prescribed, including regularly scheduled medications. You may take Tylenol and lidocaine patches as needed for pain control. Feel free to keep the Kal wrap on your forearm if it helps decrease your pain. Patient Language: Wolof Prescriptions: No Action psyllium husk [Fiber (psyllium husk)] 0.4 gram capsule 2 g PO .5xd Qty: 750 5RF loratadine [Claritin] 10 mg tablet 10 mg PO DAILY Qty: 90 3RF cholecalciferol (vitamin D3) 50 mcg (2,000 unit) capsule 50 mcg PO DAILY Qty: 90 3RF Oxygen 4 LPM via NC q.h.s. .Route Patient Comments: increased 12/03/24 Rx Instructions: Oxygen 4 liters/minute via nasal cannula q.h.s. spironolactone 25 mg tablet 12.5 mg PO DAILY Patient Comments: Started November 2024 Rx Instructions: THOMPSON furosemide 40 mg tablet 40 mg PO QAM Qty: 1 0RF Rx Instructions: Changed from 20 mg tablets to 40 mg tablets 12/10/2024 (patient was taking 220 mg tablets daily) tramadol 50 mg tablet 50 mg PO Q6H PRN (Reason: pain) Qty: 15 0RF trazodone 50 mg tablet 50 mg PO QHS PRN (Reason: insomnia) Qty: 90 0RF mupirocin [Centany] 2 % ointment 1 applic topical BID Qty: 15 0RF lisinopril 10 mg tablet 10 mg PO DAILY Qty: 90 0RF dicyclomine 10 mg capsule 10 mg PO BID PRN (Reason: abdominal pain) Qty: 180 0RF Eliquis 5 mg tablet 5 mg PO BID Qty: 60 0RF metoprolol succinate 25 mg tablet extended release 24 hr 25 mg PO DAILY Qty: 30 0RF oxybutynin chloride 5 mg tablet 5 mg PO DAILY Qty: 90 0RF guaifenesin 600 mg tablet extended release 12hr 600 mg PO Q12H PRN (Reason: congestion) Qty: 60 5RF Follow-up/Referrals: Elizabeth Davis I., PABrett [Primary Care Provider] - Time of Disposition: 14:12
[2025-02-01] MEDS: HYDROcodone/acetaminophen (*CRX) 5-325 MG TABLET 1 TAB PO (13:02)
[2025-02-01] MEDS: LIDOCAINE 5% PATCH 1 PATCH TRANSDERM (14:36)
== END 2025-02-01 14:46 | disposition home or self-care (01) ==
PROVIDERS: Emergency Provider Registered Nurse; PCP Physician Assistant Medical
DX: S56.911A Strain of unspecified muscles, fascia and tendons at forearm level, right arm, initial encounter (principal); I48.91 Unspecified atrial fibrillation; I50.30 Unspecified diastolic (congestive) heart failure; I13.0 Hypertensive heart and chronic kidney disease with heart failure and stage 1 through stage 4 chronic kidney disease, or unspecified chronic kidney disease; N18.9 Chronic kidney disease, unspecified; R09.02 Hypoxemia; R32 Unspecified urinary incontinence; R73.03 Prediabetes; E55.9 Vitamin D deficiency, unspecified; F32.A Depression, unspecified; Z99.81 Dependence on supplemental oxygen; Z79.01 Long term (current) use of anticoagulants; Z79.899 Other long term (current) drug therapy; Z90.49 Acquired absence of other specified parts of digestive tract; X58.XXXA Exposure to other specified factors, initial encounter
CPT/HCPCS: 73110; 99283; A9270

== ENCOUNTER 2025-04-23 13:22 | Outpatient (CLI) | payer MEDICARE, SELFPAY ==
--- OUTSIDE RECORDS SUMMARY | 2025-04-23 13:27 | XMS_ITS | Clinical Summary ---
Author Organization [facility] Address [address] [place] [address] Care Team Providers Care Feed House Supervisor Name Role Phone Elizabeth Davis Primary Care Provider [phone] Allergies No known active allergies Medications oxybutynin 5 MG tabletIndicatio ns:bladder spasms Take 1 tablet (5 mg total) by mouth nightly. Indications: bladder spasms Active OXYGENIndicatio ns:supplement oxygen 2 L/min by Nasal route nightly. Indications: supplement oxygen Active lisinopril (PRINIVIL) 10 MG tabletIndicatio ns:htn Take 1 tablet (10 mg total) by mouth daily. Indications: htn 5 Active multivitamin (THERA) tabletIndicatio ns:mvi Take 1 tablet by mouth daily. Indications: mvi Active Vitamin D, Cholecalciferol , 50 MCG (1999 UT) CapIndications: supplement Take 1 tablet by mouth daily. Indications: supplement 5 Active Cyanocobalamin (VITAMIN B 12 OR)Indications: supplement Take 1 tablet by mouth daily. Indications: supplement 5 Active ELIQUIS 5 MG tablet Take 1 tablet (5 mg total) by mouth 2 (two) times daily. 5 Active metoprolol succinate ER (TOPROL-XL) 25 MG 24 hr tablet Take 1 tablet (25 mg total) by mouth daily. 5 Active spironolactone (ALDACTONE) 25 MG tablet Take 0.5 tablets (12.5 mg total) by mouth daily. 45 tablet 1 5 Active dicyclomine (BENTYL) 10 MG capsule Take 1 capsule (10 mg total) by mouth 2 (two) times daily as needed. Active MUCUS RELIEF 600 MG 12 hr tablet Take 1 tablet (600 mg total) by mouth 2 (two) times daily as needed. 5 Active loratadine (CLARITIN) 10 MG tablet Take 1 tablet (10 mg total) by mouth daily. Active Probiotic Product ([employer]) Cap Take 1 capsule by mouth daily. Active Psyllium (REGULOID OR) Take 5 capsules by mouth 5 (five) times daily. Active doxycycline monohydrate 100 MG capsule Take 1 capsule (100 mg total) by mouth 2 (two) times daily. Active furosemide (LASIX) 40 MG tablet Take 1 tablet (40 mg total) by mouth daily. Active ketoconazole (NIZORAL) 2 % cream Apply topically daily. Active traZODone (DESYREL) 50 MG tablet Take 1 tablet (50 mg total) by mouth nightly as needed for Sleep. Active hydroCHLOROthia zide (MICROZIDE) 12.5 MG tabletIndicatio ns:diuretics Take 1 tablet (12.5 mg total) by mouth daily. Indications: diuretics 5 04/19/20 25 Discontin ued(Alter lindy therapy) vitamin B-1 (THIAMINE) 50 MG tabletIndicatio ns:vitamins Take 1 tablet (50 mg total) by mouth daily. Indications: vitamins 04/19/20 25 Discontin ued(Thera py completed ) Multiple Vitamins-Minera ls (MULTIVITAMIN & MINERAL OR)Indications: supplement Take 1 tablet by mouth daily. Indications: supplement 5 04/19/20 25 Discontin ued(Dupli harleen Med) Biotin 1000 MCG TabIndications: supplement Take 1 tablet by mouth daily. Indications: supplement 5 04/19/20 25 Discontin ued(Thera py completed ) furosemide (LASIX) 20 MG tabletIndicatio ns:Diuretic Therapy Take 1 tablet (20 mg total) by mouth daily. Indications: Treatment with Diuretic Therapy take 1-2 tablets once daily in the morning. 04/19/20 25 Discontin ued(Dose adjustmen t) Active Problems Problem Noted Date Diagnosed Date Hypoxia 09/04/2024 Hypertension 09/29/2014 Overview (03/17/2025): HBP Encounters Date Type Department Care Team Description 04/19/2025 9:15 AM CDT Office Visit [facility] [address] [place] [address] Mirza Grajeda MD Atrial Fibrillation; Edema; Hypertension 04/19/2025 Travel 04/15/2025 Hospital Orders Only [employer] [place] [address] Sunny Bailey MD 04/07/2025 Telephone [facility], [address] [address] Sunny Bailey MD Schedule Procedure 04/02/2025 3:00 PM CDT [facility], [address] [address] Sunny Bailey MD Atrial Fibrillation (Consult ) 04/02/2025 Travel from Last 3 Months Immunizations Immunization Administration [...] 11/04/2024 OASIS B1300: Health Literacy Answer Pedro Ulis e Recorded Frequency of needing help to read materials from doctor or pharmacy Never 11/04/2024 B1300 Health Literacy Answer Date Recor ded How often do you need to hav e someone help you when you read instructions, pamphlets, or other written material from your doctor or pharmacy? Never 09/04/2024 [facility] Utilities Answer Date Recorded In the past 12 months has [facility] [employer] gas, oil, or water [employer] threatened to shut off services in your [...] or ex-partner? No 09/04/2024 Social Connection and Isolation Panel Answer Date Recorded In a typical week, how many times do you talk on the phone with family, friends, or neighbors? More than three times a week 09/04/2024 How often do you get togethe r with friends or relatives? Three times a week 09/04/2024 How often do you attend chur ch or zoroastrianism services? Never 09/04/2024 Do you belong to any clubs o r organizations such as bahai groups, unions, fraternal or athletic groups, or [...] Recorded Patient Health Questionnaire-2 Score 4 09/04/2024 [facility] - Occupational [...] were you homeless or living in a correction (including now)? No 09/04/2024 Comments No Sex and Gender Information Value Date Recorded Sex Assigned at Female 09/04/2024 3:44 PM CDT Legal Sex Female 8:29 PM CDT Gender Identity Not on file Sexual Orientation Not on file Last Filed Vital Signs Vital Sign Reading Time Taken Comments Blood Pressure 110/74 04/19/2025 9:09 AM CDT Pulse 100 04/19/2025 9:09 AM CDT Temperature 36.1 C (97 F) 12/18/2024 8:55 AM CDT Respiratory Rate 27 12/18/2024 11:30 AM CDT Oxygen Saturation 93% 04/19/2025 9:09 AM CDT Inhaled Oxygen Concentration - - Weight 130.6 kg (288 lb) 04/19/2025 9:09 AM CDT Height 162.6 cm (5' 4) 04/19/2025 9:09 AM CDT Body Mass Index 49.44 04/19/2025 9:09 AM CDT Plan of Treatment Upcoming Encounters Date Type Department Care Team (Late st Contact Info) Description 05/04/2025 1:00 PM SLACK LINE YARDER Appointment [facility] Computer [place] [address] Sunny Bailey MD Three [facility]. [address] [address] 10/11/2025 9:30 AM CDT [facility] [address] [place] [id number] Reta Waters FNP [address] [address] Health Maintenance Due Date Last Done Comments DTaP, Tdap and Td Vaccines ( 1 - Tdap) 11/29/1958 Zoster Vaccines (1 of 2) 11/29/1989 Annual Medicare Wellness Visit 11/29/2004 RSV Immunization or 60+ Years (1 - 1-dose 75+ series) 11/29/2014 COVID-19 Vaccine (2024-2 6 season) 2025 05/31/2021, 09/02/2020, 08/05/2020 Influenza Adult (#1) 2025 07/13/2024, 05/27/2018, 03/24/2017 Pneumococcal Vaccine: 50+ Years Completed 04/02/2019, 03/06/2018 Hepatitis A Vaccines Aged Out No long er eligible based on patient's age to complete this topic Meningococcal B Vaccine Aged Out No l onger eligible based on patient's age to complete this topic Meningococcal Vaccine Aged Out No elbert amber eligible based on patient's age to complete this topic RSV Immunizations Under 20 Months Aged Out No longer eligible b ased on patient's age to complete this topic Medical Devices Implanted Type Area Inbound Customer Service Agent Device Identifier Shelf Expiration Date Model / Serial / Lot Iol Edwin [id number] - [id number] Implanted:Qty: 1 on 09/07/2019 by Sunny Knowles MD at [facility] Lens Right: Eye [employer]WIN - [employer] 07/24/2023 [id number] / [id number] / Edwin Acrysof Iq Iol Implanted:Qty: 1 on 12/07/2019 by Sunny Knowles MD at [facility] Left: Eye 08/22/2023 / [id number] / [id number] Explanted Type Area Inbound Customer Service Agent Device Identifier Shelf Expiration Date Model / Serial / Lot Bilateral Knee Replacement 2011+2012 Bilateral Shoulder Replacement Insurance [employer] MEDICARE Advance Directives Documents on File Type Date Recorded Patient Quality Engineer Medical Device Expl anation Advance Directives and Living Will 09/13/2020 10:38 AM POA Advance Directives and Living Will 09/08/2019 11:59 AM 11/16/2010 POA FOR HEALTHCARE Advance Directives and Living Will 04/16/2013 12:00 AM POWER OF HAND TUFTER FO 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 Advance Directives and Living Will 04/16/2013 12:00 AM POWER OF HAND TUFTER FO 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 Advance Directives and Living Will 11/16/2010 12:00 AM POWER OF HAND TUFTER FO 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 Advance Directives and Living Will 11/16/2010 12:00 AM POWER OF HAND TUFTER FO 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 Advance Directives and Living Will 08/03/2009 12:00 AM POWER OF HAND TUFTER FO 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 Advance Directives and Living Will 08/03/2009 12:00 AM POWER OF HAND TUFTER FO 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 Advance Directives and Living Will 01/03/2009 12:00 AM POWER OF HAND TUFTER FO 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 Advance Directives and Living Will 01/03/2009 12:00 AM POWER OF HAND TUFTER FO 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 * Full Code (Latest Code Status on File) Date Activated Date Inactivated Comments 10/19/2024 1:23 PM 12/18/2024 7:39 AM * Full Code Date Activated Date Inactivated Comments 09/05/2024 9:51 AM 09/08/2024 3:48 PM Care Teams Feed House Supervisor Relationship Specialty Start Date End Date Elizabeth Davis PA [address] [place] [address] PCP - General PHYSICIAN METERS SUPERINTENDENT 09/04/24
--- OUTSIDE RECORDS SUMMARY | 2025-04-23 13:27 | XMS_ITS | Encounter Summary ---
Author Organization [facility] Address [facility] [place] [address] Care Team Providers Care Woodyard Crane Operator Name Role Phone Elizabeth Davis Primary Care Provider [phone] Encounter Details Date Type Department Care Team (Late st Contact Info) Description 11/19/2024 Abstract [facility], [address] [address] Mary Jo Finley MA Social History Tobacco [...] week 09/04/2024 How often do you attend [facility] or tenriism services? Never 09/04/2024 Do you belong to any clubs o r organizations such as methodist groups, unions, fraternal or athletic groups, or [...] Recorded Patient Health Questionnaire-2 Score 4 09/04/2024 [facility] - Occupational Stress Questionnaire Answer [...] any time in the past 12 m [facility], were you homeless or living in a fci (including now)? No 09/04/2024 Comments No Sex [...] Assessment Author Status Yes 09/04/2024 10:35 PM MIT Kassidy Greenwood RN Active * Because of a physical, mental, or emotional condition, do you have difficulty doing errands alone such as visiting a doctor's office or shopping? Answer Date of Assessment Author Status Yes 09/04/2024 10:35 PM MIT Kassidy Greenwood RN Active documented as of this encounter Mental Status * Because of a physical, mental, or emotional condition, do you have serious difficulty concentrating, remembering, or making decisions? Answer Entry Date Author Status No 09/04/2024 10:35 PM MIT Kassidy Greenwood RN Active documented in this encounter Plan of Treatment Upcoming Encounters Date Type Department Care Team (Late st Contact Info) Description 05/04/2025 1:00 PM MAGICIAN HELPER Appointment [facility] [place] [address] Sunny Bailey MD Three [facility]. [address] [address] 10/11/2025 9:30 AM CDT Office Visit [facility] [id number] [place] [id number] Reta Waters FNP [address] [address] documented as of this encounter Procedures Procedure [...] * (ABNORMAL) COMPREHENSIVE METABOLIC PANEL (08/03/2024) Pathologist [facility] SODIUM S/P/B 137 GLUCOSE 123 mg/dL AST 12 BUN 26 CREATININE S/P/B 1.30(A) 0.5 - 1.0 CALCIUM S/P/B 8.7 POTASSIUM S/P/B 5.0 CHLORIDE S/P/B 100 ALT 11 GFR ESTIMATE 41 us Default History Genericprovider LABORATORY Final Result * LIPID PANEL (08/03/2024) Pathologist [facility] CHOLESTEROL 155 TRIGLYCERIDES 146 HDL 50 LDL (CALCULATED) 80 NON HDL CHOLESTEROL 105 us Default History Genericprovider LABORATORY Final Result * CBC, MANUAL DIFF (08/03/2024) [facility] WBC 9.3 HGB 13.7 HCT 43.2 PLT 330 us Default History Genericprovider LABORATORY Final Result * HEMOGLOBIN, GLYCOSYLATED (08/03/2024) Pathologist [facility] HGB A1C 6.4 % us Default History Genericprovider LABORATORY Final Result * THYROID STIM HORMONE TSH (08/03/2024) Pathologist [facility] TSH 1.58 us Default History Genericprovider LABORATORY Final Result documented in this encounter Visit Diagnoses Not on filedocumented in this encounter Care Teams Woodyard Crane Operator Relationship Specialty Start Date End Date Elizabeth Davis PA [address] [place] [id number] PCP - General PHYSICIAN DECATING MACHINE OPERATOR 09/04/24 documented as of this encounter
--- OUTSIDE RECORDS SUMMARY | 2025-04-23 13:27 | XMS_ITS | Encounter Summary ---
Author Organization [facility] Address [facility] [place] [address] Care Team Providers Care Ham Facer Name Role Phone Gagan Begum MD Primary Care Provider [phone] Luís Richmond MD Primary Care Provider [phone] Elizabeth Davis Primary Care Provider [phone] Encounter Details Date Type Department Care Team (Late st Contact Info) Description 10/02/[address] Conversion [address] [place] [address] , Generic Conversion, Social History Tobacco Use [...] st Contact Info) Description 05/04/2025 1:00 PM NIGHT SUPERVISOR Appointment [employer] [address] [place], [place] [id number] Sunny Bailey MD Three [facility]. [address] [place] [address] 10/11/2025 9:30 AM CDT Office Visit [place] [facility] [address] [place] [address] Reta Waters, APPRENTICE COSMETOLOGIST 3 [facility] [address] [place] [address] documented as of this encounter Visit Diagnoses [...] documented as of this encounter Care Teams Ham Facer Relationship Specialty Start Date End Date Gagan Begum MD [address] [place] [address] PCP - General INTERNAL MEDICINE 09/02/19 05/13/22 Luís Richmond MD [address] [place] [address] PCP - General FAMILY PRACTICE 05/14/22 09/03/24 Elizabeth Davis PA [address] [place] [address] PCP - General PHYSICIAN SENIOR WEB ANALYST 09/04/24 documented as of this encounter
--- OUTSIDE RECORDS SUMMARY | 2025-04-23 13:27 | XMS_ITS | Encounter Summary ---
Author Organization [facility] Address [facility] [place] [address] Care Team Providers Care Billing Auditor Name Role Phone Gagan Begum MD Primary Care Provider [phone] Luís Richmond MD Primary Care Provider [phone] Elizabeth Davis Primary Care Provider [phone] Encounter Details Date Type Department Care Team (Late st Contact Info) Description 12/02/2019 Prep for Procedure [facility] [address] [place] [address] Sunny Knowles MD [address] [place] [address] Social History Tobacco Use Types [...] st Contact Info) Description 05/04/2025 1:00 PM ENVIRONMENTAL PROTECTION FORESTER Appointment [facility] [employer] [facility] [place] [address] Sunny Bailey MD Three [facility]. [address] [place] [address] 10/11/2025 9:30 AM CDT Office Visit [place] [facility] [address] [place] [address] Reta Waters FNP 3 [facility] [address] [place] [address] documented as of this encounter Results * PRE-SURGICAL/PRE-PROCEDURE CORONAVIRUS (COVID 19) (12/04/2019 2:28 PM CDT) CORONAVIRUS SARS COV 2 PCR (RESP) NOT DETECTED NOT DETECTED 12/05/2019 7:59 PM CDT [facility] Comment: A Not Detected (negative) test result [...] providers and patients using the following websites: https://www.[employer].com/home/Covid-19/HCP/NAAT/fact-sheet2 https://www.[employer].C[employer]/home/Covid-19/Patients/NAAT/ fact-sheet2 This test has been authorized by the FDA under an Emergency Use Authorization (EUA) for use by authorized laboratories. Due to the current public health emergency, [facility] is receiving a high volume of samples [...] about COVID-19 can be found at the [facility] website: www.[employer]/Covid19. Test performed at [facility] [place] [address] [place] [address] Director: SUZIE LOGAN DO,MPH NASOPHARYNGEAL SWAB / Unknown 12/04/2019 2:28 PM CDT us Sunny Knowles MD MICROBIOLOGY - [facility]AL [facility] Final Result [facility] [id number] [place] [address] documented in this encounter [...] documented as of this encounter Care Teams Billing Auditor Relationship Specialty Start Date End Date Gagan Begum MD [address] [place] [address] PCP - General INTERNAL MEDICINE 09/02/19 05/13/22 Luís Richmond MD [address] [place] [address] PCP - General FAMILY PRACTICE 05/14/22 09/03/24 Elizabeth Davis PA [address] [place] [address] PCP - General PHYSICIAN ENVIRONMENTAL HEALTH MANAGER 09/04/24 documented as of this encounter
--- OUTSIDE RECORDS SUMMARY | 2025-04-23 13:27 | XMS_ITS | Encounter Summary ---
Author Organization [facility] Address [facility] [place] [address] Care Team Providers Care Saw Filer Name Role Phone Gagan Begum MD Primary Care Provider [phone] Luís Richmond MD Primary Care Provider [phone] Elizabeth Davis Primary Care Provider [phone] Encounter Details Date Type Department Care Team (Late st Contact Info) Description 09/05/2020 Prep for Procedure [facility] Day Services [address] [place] [address] Juanito Bautista MD [address] [place] [address] Social History Tobacco Use Types [...] st Contact Info) Description 05/04/2025 1:00 PM CAREER CENTER DIRECTOR Appointment [facility] [employer] [address] [place] [address] [address] Sunny Bailey MD [address] [id number] 10/11/2025 9:30 AM CDT [facility] [place] [facility] [address] [place] [address] Reta Waters FNP [address] [id number] documented as of this encounter Results * ECG 12-Lead (09/06/2020 12:49 PM CDT) 09/06/2020 12:4 9 PM CDT Narrative [facility] ([facility]) RAD - 09/06/2020 1:49 PM CDT [facility] Test Date: 2020-09-06 Pat Name: CESIA RICARDO Department: Room: Gender: Female Stave Inspector: : 1940 Requested By: JUANITO BAUTISTA Order Number: [id number] Reading MD: Lambert Reagan Measurements Intervals Barnhart Rate: 67 P: 47 WI: 185 QRS: -23 QRSD: 96 T: 56 QT: 331 QTc: 351 Interpretive Statements SINUS RHYTHM WITH MARKED SINUS ARRHYTHMIA BORDERLINE LEFT AXIS DEVIATION LOW QRS VOLTAGE IN PRECORDIAL LEADS Compared to ECG 12/17/2016 11:18:37 Low QRS voltage now present Myocardial infarct finding no longer present Procedure Note Lambert Reagan MD - 09/06/2020 [facility] Test Date: 2020-09-06 Pat Name: CESIA SILVA Department: Room: Gender: Female Stave Inspector: : 1940 Requested By: JUANITO BAUTISTA Order Number: [id number] Reading MD: Lambert Reagan Measurements Intervals Barnhart Rate: 67 P: 47 WI: 185 QRS: -23 QRSD: 96 T: 56 QT: 331 QTc: 351 Interpretive Statements SINUS RHYTHM WITH MARKED SINUS ARRHYTHMIA BORDERLINE LEFT AXIS DEVIATION LOW QRS VOLTAGE IN PRECORDIAL LEADS Compared to ECG 12/17/2016 11:18:37 Low QRS voltage now present Myocardial infarct finding no longer present us Juanito Bautista MD ECG ORDERABLES Final Result Performing Organization Address City/State/[facility] Co de Phone Number [facility]) [facility] documented in this encounter Visit [...] documented as of this encounter Care Teams Saw Filer Relationship Specialty Start Date End Date Gagan Begum MD [address] [place] [address] PCP - General INTERNAL MEDICINE 09/02/19 05/13/22 Luís Richmond MD [address] [place] [address] PCP - General FAMILY PRACTICE 05/14/22 09/03/24 Elizabeth Davis PA [address] [place] [address] PCP - General PHYSICIAN NET SOFTWARE ARCHITECT 09/04/24 documented as of this encounter
--- OUTSIDE RECORDS SUMMARY | 2025-04-23 13:27 | XMS_ITS | Clinical Summary ---
Author Organization [facility] Address [address] [place] [address] Care Team Providers Care Drip Molder Name Role Phone Elizabeth Davis Primary Care Provider [phone] Lavelle Mao MD Unavailable [phone] Allergies No known active allergies Medications lisinopril-hydr [...] (03/03/2019): Added automatically from request for surgery [id number] Sensorineural hearing loss, asymmetrical 019 Hypertension 09/29/2014 [...] on file Legal Sex Female 4:31 PM SAFETY INVESTIGATOR Gender Identity Not on file Sexual Orientation [...] 04/29/2018 04/29/2017 Covid-19 Vaccine (3 - season) 02/22/202505/2021, 08/05/2020 Influenza Vaccine (#1) 2025 05/27/2018, 2016 Pneumococcal vaccine 65+ Completed 04/02/2019, 02/22 Medical Devices Implanted Type Area Recovery Analyst Device Identifier Shelf Expiration Date Model / Serial / Lot Cochlear [employer] [id number] Implant Cochlear Cochlear Nucleus Profile Plus Slim Modiolar Electrode [id number] - [id number] - [id number] Implanted:Qty : 1 on 04/08/2019 by Igor Cha MD at [facility] Other - see comments Left: Cochlea Cochle[employer] 03/04/2021 [id number] / [id number] / [id number] Description:Cochlear Nucleus [id number] Cochlear Implant [place] [address] UHC MEDICARE ADVANTAGE AETNA MEDICARE GOLD Care Teams Drip Molder Relationship Specialty Start Date End Date Elizabeth Davis PA [facility] [place] [address] PCP - General Physician Accountant Systems 02/26/23 Lavelle Mao MD [phone] [place] [address] Surgeon Colon and Rectal Surgery 02/26/23
--- OUTSIDE RECORDS SUMMARY | 2025-04-23 13:27 | XMS_ITS | Encounter Summary ---
Author Organization [facility] Address [facility] [place] [address] Care Team Providers Care Industrial Maintenance Technician Name Role Phone Elizabeth Davis Primary Care Provider [phone] Encounter Details Date Type Department Care Team (Late st Contact Info) Description 04/15/2025 Hospital Orders Only [facility] [place] [address] Sunny Bailey MD Three [facility]. [facility] [address] [place] [address] Social History Tobacco Use Types Packs/Day Years [...] from your doctor or pharmacy? Never 09/04/2024 [facility] Utilities Answer Date Recorded In [...] often do you attend chur ch or shinto services? Never 09/04/2024 Do you belong to any clubs o r organizations such as muslim groups, unions, fraternal or athletic groups, or [...] Recorded Patient Health Questionnaire-2 Score 4 09/04/2024 [facility] of Occupat ional Health - Occupational Stress [...] any time in the past 12 m [facility], were you homeless or living [...] st Contact Info) Description 05/04/2025 1:00 PM FREIGHT BRAKE OPERATOR Appointment [facility] [place] [address] Sunny Bailey MD Three [facility]. [address] [address] 10/11/2025 9:30 AM CDT Office Visit [facility] [address] [place] [address] Reta Waters FNP [address] [address] documented as of this encounter Visit Diagnoses Diagnosis Atrial fibrillation (CMS/HCC [facility]/HCC)- Primary Atrial fibrillation documented in this encounter Care Teams Industrial Maintenance Technician Relationship Specialty Start Date End Date Elizabeth Davis PA [address] [place] [address] PCP - General PHYSICIAN CONTROL OPERATOR FLOW COAT 09/04/24 documented as of this encounter
[2025-04-23 14:05] LABS: Hematocrit 37.0 % (37.0-47.0); Hemoglobin 11.3 g/dL (12.0-15.0); Immature Granulocyte Percent A 0.7 % (0-0.5); Lymphocytes Absolute Auto 1.60 K/mm3 (0.9-3.2); Mean Corpuscular HGB Conc 30.5 g/dl (32-36); Mean Corpuscular Hemoglobin 28.6 pg (26-34); Mean Corpuscular Volume 93.7 fl (80-100); Nucleated Red Blood Cells Absolute Auto 0.000 K/mm3 (0.0-0.012); Nucleated Red Blood Cells Perc 0.0 % (0.0-0.2); Platelet Count Result 316 k/mm3 (150-375); Red Blood Count 3.95 M/mm3 (4.2-5.4); White Blood Count 9.5 K/mm3 (4.5-10.0)
[2025-04-23 14:11] LABS: Anion Gap 7 mmol/L (4-12); Blood Urea Nitrogen 35 mg/dL (7-17); Calcium 8.5 mg/dL (8.4-10.2); Carbon Dioxide 27 mmol/L (22-30); Chloride 101 mmol/L (98-107); Estimated Glomerular Filt Rate 37; Glucose 137 mg/dL (65-110); Potassium 4.5 mmol/L (3.4-5.0); Sodium 135 mmol/L (137-145)
[2025-04-23 14:16] LABS: INR 1.3; Prothrombin Time 15.8 Seconds (11.1-14.7)
[2025-04-23 14:19] LABS: Hemoglobin A1C 6.1 % (<5.7)
[2025-04-23 14:36] LABS: Add Urine Microscopic? NO; Appearance Urine Clear (Clear); Glucose Urine UA Negative (Negative); Leukocyte Esterase Ur Negative LEU/UL (Negative); Nitrate Urine Negative (Negative); Specific Grav Ur 1.008 (1.001-1.035)
[2025-04-23 14:47] LABS: Thyroid Stimulating Hormone 1.130 uIU/mL (0.465-4.680)
[2025-04-23 14:48] LABS: Free T4 Free Thyroxine 1.28 ng/dL (0.78-2.19)
== END 2025-04-23 13:23 | disposition home or self-care (01) ==
PROVIDERS: PCP Physician Assistant Medical; Visit Provider Physician Assistant Medical
DX: E11.9 Type 2 diabetes mellitus without complications (principal); R53.1 Weakness; R00.2 Palpitations; I48.91 Unspecified atrial fibrillation; I48.92 Unspecified atrial flutter; E04.1 Nontoxic single thyroid nodule; E55.9 Vitamin D deficiency, unspecified; E53.8 Deficiency of other specified B group vitamins; Z00.00 Encounter for general adult medical examination without abnormal findings; I48.19 Other persistent atrial fibrillation; I12.9 Hypertensive chronic kidney disease with stage 1 through stage 4 chronic kidney disease, or unspecified chronic kidney disease; N18.32 Chronic kidney disease, stage 3b
CPT/HCPCS: 36415; 80048; 81003; 83036; 84439; 84443; 85025; 85610; 87081

== ENCOUNTER 2025-05-18 08:06 | Outpatient (CLI) | payer MEDICARE, SELFPAY ==
--- NOTE | ~2025-05-18 | XR_ITS ---
EXAMINATION: XR chest 2V, 05/18/2025 8:15 ENTRY LEVEL SOFTWARE ENGINEER HISTORY: URI, Cough R/O Pneumonia COMPARISON: No comparisons available. Technique: 2 views obtained. Findings: Mild pulmonary venous congestion. Small basilar infiltrates. No pneumothorax. Moderate cardiomegaly. Mediastinal and hilar contours are within normal limits. Bony thorax no acute abnormality. Impression: Early bilateral pneumonia Reviewed, dictated and finalized at location P. Y LEVEL SOFTWARE ENGINEER Impression: Early bilateral pneumonia
--- OUTSIDE RECORDS SUMMARY | 2025-05-18 08:13 | XMS_ITS | Encounter Summary ---
Author Organization [facility] Address On license of [facility] [place] [address] Care Team Providers Care Budget Clerk Name Role Phone Davis, Elizabeth MARYAM Primary Care Provider [phone] Encounter Details Date Type Department Care Team (Late st Contact Info) Description 04/28/2025 Pre-Procedure Call [facility]' Pre-Admission Testing [address] [place], [place] [address] Sunny Bailey MD Three [facility]. [facility] [address] [place], [place] [phone] Anesthesia Record Procedure Summary Procedure Name Responsible Anesthesiologist Anesthesia Start Time Anesthesia Stop Time XA LEFT ATRIAL APPENDAGE CLOSURE Мария Phipps MD 05/04/25 1338 05/04/25 1515 Events Date Time Event Comment 05/04/2025 1338 An Start Patient ID and consent checked and patient reassessed. 1338 An Start Data 1338 Face Mask Applied 1340 1346 An Induction The patient was reevaluated immediately before moderate or deep sedation use and before anesthesia induction. 1351 Anesthesia Ready 1353 Preoxygenation 1355 An LMA 1355 Quick Note Pt not ventilat ing after propofol bolus. LMA placed to improve oxygenation. But although seated well, pt was not getting the volumes needed without a leak. Decision to tube was made with Dr. Gracia at bedside. ETT placed without difficulty. 1406 An Intubation 1439 Quick Note 308 ACT 1512 An Emergence 1512 An Extubation 1514 an stop data 1515 Post Anesthetic Care Handoff I completed my handoff to the receiving nurse during which we: 1. Identified the patient 2. Identified the responsible provider 3. Reviewed the pertinent medical history 4. Discussed the surgical course 5. Reviewed intra-op anesthesia management and issues during anesthesia 6. Set expectations for post-procedure period 7. Allowed opportunity for questions and acknowledgement of understanding. 1515 An Stop Meds * Agents No agents on file. * Blood No blood administrations on file. Lines, Drains, and Airways Type Details Placement Removal Peripheral IV Placement Date: 04/24 07/18; Placement Time: 1251; Placed Outside of This Facility?: No; Size: 18 G; Orientation: Left; Location: Antecubital; Site Prep: Chlorhexidine; Local Anesthetic: None; Inserted By: Whitney Shay R.N.; Insertion attempts: 1; Patient Tolerance: Tolerated well; Removal Date: 05/05/25; Removal Time: 1109; Removal Reason: Patient Discharged 05/04/25 1251 by Jessica Rod RN 05/05/25 1109 by Ale Ribera RN Supraglottic Airway Placement Date: 04/24 07/18; Placement Time: 1405; Mask Ventilate: Prior to intubation; Airway Device: LMA; LMA Size: 4; Placed Outside of This Facility?: No; Placed By: ASHA; Style: i-gel; Insertion Attempts:1; Breath Sounds:Clear bilaterally, Equal bilaterally; Breath Sound:Clear Bilaterally; Placement Verified By: Capnography, Auscultation, Chest Rise; Extubation Assessment: Suctioned, Deep; Removal Date: 05/04/25; Removal Time: 1512; Removal Person: EMPLOYEE DEVELOPMENT SPECIALIST; Removal Reason: Other (not getting enough volumes, switching to tube) 05/04/25 1405 by Alia Patten CRNA 05/04/25 1512 by Alia Patten CRNA ETT Placement Date: 04/24 07/18; Placement Time: 1406; Mask Ventilate: Prior to intubation; Size (mm) : 7.5; Endotracheal: Oral; Blade Type: MAC 3; Placement Method: Direct Laryngoscopy (blade type in comment); View Grade: 1; Viewable Anatomy: Epiglottis, Arytenoid, Vocal cords; Insertion Attempts: 1; Placement Verified By: Capnography, Auscultation, Chest Rise; Placed By: ASHA; Extubation Assessment: Suctioned, Tolerated well, Patient spontaneously breathing, Able to follow simple commands, Strong hand grasp; Removal Date: 05/04/25; Removal Time: 1511; Removal Person: EMPLOYEE DEVELOPMENT SPECIALIST; Removal Reason: End of Case 05/04/25 1406 by Alia Patten CRNA 05/04/25 1512 by Alia Patten CRNA Venous Sheath 05/04/25; 1429; Maxi mum Sterile Technique used, Hand hygiene, Chlorhexidine skin prep; Injectable; 12; Right; Femoral; 1; Fluoroscopy, X-ray, Blood Return; Tolerated well; Intact 05/04/25 1429 by Jaxon Don RN 05/04/25 1457 by Jaxon Don RN Venous Sheath 05/04/25; 1430; Maxi mum Sterile Technique used, Hand hygiene, Chlorhexidine skin prep; Injectable; 9; Left; Femoral; 1; Fluoroscopy, X-ray, Blood Return; Tolerated well; Intact 05/04/25 1430 by Jaxon Don RN 05/04/25 1458 by Jaxon Don RN documented in this encounter Social History Tobacco Use Types Packs/Day Years [...] from your doctor or pharmacy? Never 09/04/2024 [facility] Utilities Answer Date Recorded In the past 12 months has [facility] [employer], gas, oil, or water [employer] threatened to shut off services in your [...] week 09/04/2024 How often do you attend [facility] or alevism services? Never 09/04/2024 Do you belong to any clubs o r organizations such as worship groups, unions, fraternal or athletic groups, or [...] Recorded Patient Health Questionnaire-2 Score 4 09/04/2024 [facility] of Occupat ional Health - Occupational Stress [...] any time in the past 12 m [facility], were you homeless or living in a custodial (including now)? No 09/04/2024 Comments No Sex and Gender Information Value Date Recorded Sex Assigned at Female 09/04/2024 3:44 PM CDT Legal Sex Female 8:29 PM CDT Gender Identity Not on file Sexual Orientation Not on file documented as of this encounter Last Filed Vital Signs Vital Sign Reading Time Taken Comments Blood Pressure - - Pulse - - Temperature - - Respiratory Rate - - Oxygen Saturation - - Inhaled Oxygen Concentration - - Weight 129.3 kg (285 lb) 04/28/2025 11:07 AM AIR BOX TESTER Height 162.6 cm (5' 4) 04/28/2025 11:07 AM AIR BOX TESTER Body Mass Index 48.92 04/28/2025 11:07 AM AIR BOX TESTER documented in this encounter Functional Status * Are you deaf or do you have serious difficulty hearing Answer Date of Assessment Author Status Yes 09/04/2024 10:35 PM Kassidy Wick RN Active * Are you blind or do you have serious difficulty seeing, even when wearing glasses? Answer Date of Assessment Author Status Yes 09/04/2024 10:35 PM Kassidy Wick RN Active * Do you have serious difficulty walking or climbing stairs? Answer Date of Assessment Author Status Yes 09/04/2024 10:35 PM Kassidy Wick RN Active * Do you have difficulty dressing or bathing? Answer Date of Assessment Author Status Yes 09/04/2024 10:35 PM Kassidy Wick RN Active * Because of a physical, mental, or emotional condition, do you have difficulty doing errands alone such as visiting a doctor's office or shopping? Answer Date of Assessment Author Status Yes 09/04/2024 10:35 PM Kassidy Wick RN Active documented as of this encounter Mental Status * Because of a physical, mental, or emotional condition, do you have serious difficulty concentrating, remembering, or making decisions? Answer Entry Date Author Status No 09/04/2024 10:35 PM Kassidy Wick RN Active documented in this encounter Progress Notes * Zenaida Chaparro RN - 04/28/2025 11:03 AM CST Images from the original note were not included. Can you climb 2 flights of stairs without CP or extreme SOB? Uses a walker and has SOB with exertion. Denies CP Are you physically able to do the same things today that you could 6 months ago? Same, but may takea little longer What is your average blood pressure? Any recent heart testing? (EKG, stress test, Echo?) 2024 Do you see a pharmacy buyer? Who is it? Nicci Ever had trouble having an IV started prior to a procedure? No Arrival of 11. Daughter will drive the patient home and [facility] will round on her that night. NPO after midnight discussed with the patient. The nurse provides all medications to the patient and she asked me to call her to discuss what to take and what to hold. I called [facility] to get fax number and discuss pre-surgery information. I left a message for Suzette. Faxed pre-surgical information to agustin at [phone] The following information faxed to Suzette at [facility] per patient's request. They can only do open transport weekly on Tuesdays so they cannot get her here prior to the Watchman for Type and Screen . BOX TESTER BOX TESTER documented in this encounter OR Notes * OR PreOp - AIRAM Adler - 04/28/2025 12:40 PM CST Chart reviewed and medical hx updated. Per phone interview, patient states she has but denies any CP. Ambulates with a walker. Denies recent changes in activity tolerance in past 6 months. Patient sees pharmacy buyer Dr. Grajeda and previous cardiac testing copied. Preop orders in per surgeon. High risk GRACE MCT (09/2024) - 14 days- 100% AF, mostly rate controlled Rayshawn echo (2024) - EF normal, trace MR, mild pulmonary HTN DCCV (12/18/24) EKG 01/14/25 ATRIAL FIBRILLATION PATTERN CONSISTENT WITH PULMONARY DISEASE INFERIOR MYOCARDIAL INFARCTION, PROBABLY OLD COMPARED TO PREVIOUS TRACING Now in Afib Rate 97 EKG 09/04/24 SINUS RHYTHM WITH OCCASIONAL SUPRAVENTRICULAR PREMATURE COMPLEXES LEFT AXIS DEVIATION [QRS AXIS < -30] LOW QRS VOLTAGE IN PRECORDIAL LEADS [QRS DEFLECTION < 1.0 mV IN CHEST LEADS] Poor R Wave Progression Rate 83 BOX TESTER documented in this encounter Plan of Treatment Upcoming Encounters Date Type Department Care Team (Late st Contact Info) Description 06/07/2025 2:45 PM AIR BOX TESTER [facility] [place] [facility] [address] [place] [address] Reta Waters FNP 3 [facility] [address] [place] [address] 06/11/2025 2:00 PM AIR BOX TESTER Appointment [facility] [address] [facility] [place] [address] Sunny Bailey MD Three [facility]. [address] [place] [address] 11/11/2025 11:15 AM CDT Office Visit [facility] THREE [facility] [address] [place] [address] Nohelia Perez PA 3 [facility] [address] [place] [address] documented as of this encounter Visit Diagnoses Not on filedocumented in this encounter Care Teams Budget Clerk Relationship Specialty Start Date End Date Elizabeth Davis PA [address] [place] [address] PCP - General PHYSICIAN SOCIAL WORKER MASTERS 09/04/24 documented as of this encounter
--- OUTSIDE RECORDS SUMMARY | 2025-05-18 08:13 | XMS_ITS | Encounter Summary ---
Author Organization [facility] Address [facility] [place] [address] Care Team Providers Care Fbi Field Agent Name Role Phone Elizabeth Davis Primary Care Provider [phone] Encounter Details Date Type Department Care Team (Late st Contact Info) Description 05/04/2025 Results Follow-Up [facility], [place] [address] Haylee Martin RN BASIC METABOLIC PANEL, CBC W/DIFF, PROTIME/INR, VENOUS Social History Tobacco Use Types Packs/Day Years [...] from your doctor or pharmacy? Never 09/04/2024 [facility] Utilities Answer Date Recorded In the past 12 months has th e electric, gas, oil, or water Experiment threatened to shut off services in your [...] How often do you attend chur or yazidism services? Never 09/04/2024 Do you belong to any clubs o r organizations such as advent groups, unions, fraternal or athletic groups, or [...] Recorded Patient Health Questionnaire-2 Score 4 09/04/2024 [facility] of Occupat ional Health - Occupational [...] any time in the past 12 m [facility], were you homeless or living in a snf (including now)? No 09/04/2024 Humiliation, Afraid, Rape, and Kick questionnair e Answer Date Recorded Within the last year, have y ou been afraid of your partner or ex-partner? No 05/04/2025 Within the last year, have y ou been humiliated or emotionally abused in other ways by your partner or ex-partner? No Within the last year, have y ou been kicked, hit, slapped, or otherwise physically hurt by your partner or ex-partner? No 05/04/2025 Within the last year, have y ou been raped or forced to have any kind of sexual activity by your partner or ex-partner? No 05/04/2025 Overall Financial Resource Strain (CARDIA) Answe r Date Recorded How hard is it for you to pa y for the very basics like food, housing, medical care, and heating? Not hard at all 05/04/2025 Hunger Vital Sign Answer Date Recorded Within the past 12 months, y ou worried that your food would run out before you got the money to buy more. Never true 05/04/20 25 Within the past 12 months, t he food you bought just didn't last and you didn't have money to get more. Never true 05/04/2025 PRAPARE - Transportation Answer Date Re corded In the past 12 months, has l ack of transportation kept you from medical appointments or from getting medications? No 04/24 In the past 12 months, has l ack of transportation kept you from meetings, work, or from getting things needed for daily living? No 05/04/2025 Housing Stability Vital Sign Answer Pedro Luis e Recorded In the last 12 months, was t here a time when you were not able to pay the mortgage or rent on time? No 05/04/2025 In the past 12 months, how m any times have you moved where you were living? 2 05/04/2025 At any time in the past 12 m [facility], were you homeless or living in a snf (including now)? No 05/04/2025 [facility] Utilities Answer Date Recorded In the past 12 months has th e electric, gas, oil, or water company threatened to shut off services in your home? No 05/04/2025 Comments No Sex and Gender Information Value Date Recorded Sex Assigned at Female 09/04/2024 3:44 PM CDT Legal Sex Female 8:29 PM CDT Gender Identity Not on file Sexual Orientation Not on file documented as of this encounter Functional Status * Question Answer Date of Assessment Author Status Do you have serious difficulty walking or climbing stairs? Yes 05/04/2025 8:06 PM Sivan Mendoza, RN Ac tive * Question Answer Date of Assessment Author Status Do you have difficulty dressing or bathing? Yes 05/04/2025 8:06 PM Sivan Mendoza R N Active Because of a physical, mental, or emotional condition, do you have difficulty doing errands alone such as visiting a doctor's office or shopping? No 05/04/2025 8:06 PM Sivan Mendoza RN Act romeo * Are you deaf or do you have serious difficulty hearing Answer Date of Assessment Author Status Yes 09/04/2024 10:35 PM MIT Kassidy Greenwood RN Active * Are you blind or do you have serious difficulty seeing, even when wearing glasses? Answer Date of Assessment Author Status Yes 09/04/2024 10:35 PM CDT Kassidy Greenwood RN Active * Do you have serious difficulty walking or climbing stairs? Answer Date of Assessment Author Status Yes 09/04/2024 10:35 PM MIT Kassidy Greenwood RN Active * Do you [...] PM CDT Kassidy Greenwood RN Active * Question Answer Date of Assessment Author Status Are you deaf or do you have serious difficulty hearing Yes 05/04/2025 8:06 PM Sivan Mendoza RN Act romeo Are you blind or do you have serious difficulty seeing, even when wearing glasses? No 05/04/2025 8:06 PM Sivan Mendoza RN Act romeo * Calculated C-SSRS Risk Score (Lifetime/Recent) Answer Date of Assessment Author Status No Risk Indicated 05/04/2025 8:08 PM Yuniel Mendoza RN Active * Carroll Suicide Severity Rating Scale (Screener/Recent Self-Report) Question Answer Date of Assessment Author Status 1. Wish to be (Past 1 Month) No 05/04/2025 8:08 PM Sivna Mendoza RN Act romeo 2. Non-Specific Active Suicidal Thoughts (Past 1 Month) No 05/04/2025 8:08 PM Sivan Mendoza RN Act romeo 6. Suicidal Behavior (Lifetime) No 05/04/2025 8:08 PM Sivan Mendoza RN Act romeo documented as of this encounter Mental Status * Question Answer Entry Date Author Status Because of a physical, mental, or emotional condition, do you have serious difficulty concentrating, remembering, or making decisions? No 05/04/2025 8:06 PM TOOL ANALYST Sivan Case R N Active * Because of a physical, mental, or emotional condition, do you have serious difficulty concentrating, remembering, or making decisions? Answer Entry Date Author Status No 09/04/2024 10:35 PM CDT Kassidy Greenwood RN Active documented in this encounter Plan of Treatment Upcoming Encounters Date Type Department Care Team (Late st Contact Info) Description 06/07/2025 2:45 PM TOOL ANALYST Office Visit [facility] [address] [place] [address] Reta Waters FNP 3 [facility] [address] [place], [place] [address] 06/11/2025 2:00 PM TOOL ANALYST Appointment [facility] [address] [facility] [address] Sunny Bailey MD Three [facility]. [facility] [address] [place] [address] 11/11/2025 11:15 AM CDT Office Visit [place] [place] [facility] [address] [facility] [place] [address] Nohelia Perez PA 3 [facility] [address] [place], [place] [address] documented as of this encounter Visit Diagnoses Not on filedocumented in this encounter Care Teams Fbi Field Agent Relationship Specialty Start Date End Date Elizabeth Davis PA [address] [place] [phone] PCP - General PHYSICIAN MOTOR DRIVER 09/04/24 documented as of this encounter
--- OUTSIDE RECORDS SUMMARY | 2025-05-18 08:13 | XMS_ITS | Encounter Summary ---
Author Organization [facility] Address [facility] [place] [address] Care Team Providers Care Licensed Bondsman Name Role Phone Gagan Begum MD Primary Care Provider [phone] Luís Richmond MD Primary Care Provider [phone] Elizabeth Davis Primary Care Provider [phone] Encounter Details Date Type Department Care Team (Late st Contact Info) Description 12/02/2019 Prep for Procedure [facility] [address] [place] [address] Sunny Knowles MD [address] [place] [address] Social History Tobacco Use Types [...] st Contact Info) Description 06/07/2025 2:45 PM ASSOCIATE ACCOUNT MANAGER Office Visit [place] [facility] [address] [place] [address] Reta Waters FNP 3 [facility] [address] [place] [address] 06/11/2025 2:00 PM ASSOCIATE ACCOUNT MANAGER Appointment [facility] [place] [address] Sunny Bailey MD Three [facility]. [address] [place], [place] [address] 11/11/2025 11:15 AM CDT Office Visit [facility] THREE [facility], [address] [place], [place] [address] Nohelia Perez PA 3 [facility] [address] [place], [place] [address] documented as of this encounter Results * PRE-SURGICAL/PRE-PROCEDURE CORONAVIRUS (COVID 19) (12/04/2019 2:28 PM CDT) CORONAVIRUS SARS COV 2 PCR (RESP) NOT DETECTED NOT DETECTED 12/05/2019 7:59 PM CDT [facility] Comment: A Not Detected (negative) test result [...] providers and patients using the following websites: https://www.[employer]/home/Covid-19/HCP/NAAT/fact-sheet2 https://www.[employer]/home/Covid-19/Patients/NAAT/ fact-sheet2 This test has been authorized by the FDA under an Emergency Use Authorization (EUA) for use by authorized laboratories. Due to the current public health emergency, [facility] is receiving a high volume of samples [...] about COVID-19 can be found at the [facility] website: www.[facility]/Covid19. Test performed at [facility] [place] [address] [place] [address] Director: SUZIE LOGAN DO,MPH NASOPHARYNGEAL SWAB / Unknown 12/04/2019 2:28 PM CDT Sunny Knowles MD MICROBIOLOGY - GENERAL ORDERA [facility] Final Result [facility] [id number] [place] [id number] [place] [address] documented in this encounter Visit Diagnoses Diagnosis [...] documented as of this encounter Care Teams Licensed Bondsman Relationship Specialty Start Date End Date Gagan Begum MD [address] [place] [phone] PCP - General INTERNAL MEDICINE 09/02/19 05/13/22 Luís Richmond MD [address] [place] [address] PCP - General FAMILY PRACTICE 05/14/22 09/03/24 Elizabeth Davis PA [address] [place] [address] PCP - General PHYSICIAN COOKY PACKER 09/04/24 documented as of this encounter
--- OUTSIDE RECORDS SUMMARY | 2025-05-18 08:13 | XMS_ITS | Encounter Summary ---
Author Organization [facility] Address [facility] [place] [address] Care Team Providers Care Fuel Technician Name Role Phone Elizabeth Davis Primary Care Provider [phone] Encounter Details Date Type Department Care Team (Late st Contact Info) Description 11/19/2024 [facility] [facility], [address] [address] Mary Jo Finley MA Social History Tobacco [...] week 09/04/2024 How often do you attend [facility] or uatsdin services? Never 09/04/2024 Do you belong to any clubs o r organizations such as taoist groups, unions, fraternal or athletic groups, or [...] Recorded Patient Health Questionnaire-2 Score 4 09/04/2024 [facility] - Occupational Stress Questionnaire [...] time in the past 12 m [facility], were you homeless or living in a fpc (including now)? No 09/04/2024 Comments No Sex [...] st Contact Info) Description 06/07/2025 2:45 PM PALLIATIVE CARE NURSE Office Visit [place] [facility] [address] [place] [address] Reta Waters FNP 3 [facility] [address] [place] [address] 06/11/2025 2:00 PM PALLIATIVE CARE NURSE Appointment [facility] [place] [address] Sunny Bailey MD Three [facility]. [facility] [address] [place] [address] 11/11/2025 11:15 AM CDT Office Visit [place] [facility] THREE [facility], [address] [place], [place] [address] Nohelia Perez PA 3 [facility] [address] [place] [address] documented as of this encounter Procedures Procedure Name Priority Date/Time Associated Diagnosis Comments MRSA SCREENING Routine 04/23/2025 PROTIME (OUTSIDE LAB) Routine 04/23/2025 HEMOGLOBIN, GLYCOSYLATED Routine 04/23/2025 COMPREHENSIVE METABOLIC PANEL Routine 04/23/2025 CBC, MANUAL DIFF Routine 04/23/2025 THYROXINE, FREE (FT4) Routine 04/23/2025 THYROID STIM HORMONE TSH Routine 04/23/2025 HEMOGLOBIN, GLYCOSYLATED Routine 12/10/2024 COMPREHENSIVE METABOLIC PANEL Routine 12/10/2024 THYROXINE, FREE (FT4) Routine 12/10/2024 THYROID STIM HORMONE TSH Routine 12/10/2024 MAGNESIUM Routine 12/10/2024 HEMOGLOBIN, GLYCOSYLATED Routine 08/03/2024 COMPREHENSIVE METABOLIC PANEL Routine 08/03/2024 LIPID PANEL Routine 08/03/2024 CBC, MANUAL DIFF Routine 08/03/2024 THYROID STIM HORMONE TSH Routine 08/03/2024 VITAMIN D, 25 OH Routine 08/03/2024 documented in this encounter Results * (ABNORMAL) COMPREHENSIVE METABOLIC PANEL (04/23/2025) SODIUM S/P/B 135 GLUCOSE 137 mg/dL BUN 35 CREATININE S/P/B 1.35(A) 0.5 - 1.0 CALCIUM S/P/B 8.5 POTASSIUM S/P/B 4.5 CHLORIDE S/P/B 101 GFR ESTIMATE 37 Default History Genericprovider LABORATORY Final Result * THYROXINE, FREE (FT4) (04/23/2025) Pathologist [facility] FREE T4 1.28 Default History Genericprovider LABORATORY Final Result * HEMOGLOBIN, GLYCOSYLATED (04/23/2025) [facility] HGB A1C 6.1 % Default History Genericprovider LABORATORY Final Result * THYROID STIM HORMONE TSH (04/23/2025) [facility] TSH 1.130 Result [facility] Default History Genericprovider LABORATORY Final Result * MRSA SCREENING (04/23/2025) [facility] MRSA SCREEN Negative NASAL STRUCTURE / Unknown 04/23/2025 Result [facility] - G ENERAL ORDERABLES Final Result * PROTIME (OUTSIDE LAB) (04/23/2025) [facility] PROTIME 15.8 INR 1.3 04/23/2025 Result [facility] Genericprovider LAB-OUTSIDE/ABST RACTED Final Result * CBC, MANUAL DIFF (04/23/2025) [facility] WBC 9.5 HGB 11.3 HCT 37 PLT 316 Result [facility] Genericprovider LABORATORY Edited Result - Final * (ABNORMAL) COMPREHENSIVE METABOLIC PANEL (12/10/2024) [facility] SODIUM S/P/B 139 GLUCOSE 114 mg/dL BUN 36 CREATININE S/P/B 1.43(A) 0.5 - 1.0 CALCIUM S/P/B 9.0 POTASSIUM S/P/B 5.0 CHLORIDE S/P/B 100- GFR ESTIMATE 36 Result [facility] Default History Genericprovider LABORATORY Final Result * THYROXINE, FREE (FT4) (12/10/2024) Pathologist [facility] FREE T4 2.9 [facility] Final Result * HEMOGLOBIN, GLYCOSYLATED (12/10/2024) [facility] HGB A1C 6.7 % Result [facility] Default History Genericprovider LABORATORY Final Result * THYROID STIM HORMONE TSH (12/10/2024) [facility] TSH 0.48 [facility] Final Result * MAGNESIUM (12/10/2024) [facility] MAGNESIUM 2.0 [facility] Final Result * VITAMIN D, 25 OH (08/03/2024) [facility] VITAMIN D 25 HYDROXY S/P/B 40 08/03/2024 [facility] Final Result * (ABNORMAL) COMPREHENSIVE METABOLIC PANEL (08/03/2024) [facility] SODIUM S/P/B 137 GLUCOSE 123 mg/dL AST 12 BUN 26 CREATININE S/P/B 1.30(A) 0.5 - 1.0 CALCIUM S/P/B 8.7 POTASSIUM S/P/B 5.0 CHLORIDE S/P/B 100 ALT 11 GFR ESTIMATE 41 Result [facility] Final Result * LIPID PANEL (08/03/2024) [facility] CHOLESTEROL 155 TRIGLYCERIDES 146 HDL 50 LDL (CALCULATED) 80 NON HDL CHOLESTEROL 105 Result [facility] Final Result * CBC, MANUAL DIFF (08/03/2024) [facility] WBC 9.3 HGB 13.7 HCT 43.2 PLT 330 Result [facility] Final Result * HEMOGLOBIN, GLYCOSYLATED (08/03/2024) HGB A1C 6.4 % us Default History Genericprovider LABORATORY Final Result * THYROID STIM HORMONE TSH (08/03/2024) TSH 1.58 us Default History Genericprovider LABORATORY Final Result documented in this encounter Visit Diagnoses Not on filedocumented in this encounter Care Teams Fuel Technician Relationship Specialty Start Date End Date Elizabeth Davis PA [address] [place] [address] PCP - General PHYSICIAN BICYCLE ASSEMBLER 09/04/24 documented as of this encounter
--- OUTSIDE RECORDS SUMMARY | 2025-05-18 08:13 | XMS_ITS | Encounter Summary ---
Author Organization [facility] Address [facility] [place] [address] Care Team Providers Care Air Traffic Controller Name Role Phone Elizabeth Davis Primary Care Provider [phone] Encounter Details Date Type Department Care Team (Late st Contact Info) Description 04/15/2025 Hospital Orders Only [facility] [place] [address] Sunny Bailey MD Three [facility]. [facility] [address] [place] [address] Social History Tobacco Use Types Packs/Day Years [...] from your doctor or pharmacy? Never 09/04/2024 [facility] Utilities Answer Date Recorded In the [...] often do you attend chur ch or rastafarian services? Never 09/04/2024 Do you belong to any clubs o r organizations such as druze groups, unions, fraternal or athletic groups, or [...] Recorded Patient Health Questionnaire-2 Score 4 09/04/2024 [facility] [place] of Occupat ional Health - Occupational Stress [...] any time in the past 12 m [facility], were you homeless or living in a senior living (including now)? No 09/04/2024 Comments No Sex [...] st Contact Info) Description 06/07/2025 2:45 PM CAREER ORIENTATION TEACHER Office Visit [place] [facility] [address] [place] [address] Reta Waters FNP 3 [facility] [address] [place] [address] 06/11/2025 2:00 PM CAREER ORIENTATION TEACHER Appointment [facility] [place] [address] Sunny Bailey MD Three [facility]. [address] [place] [address] 11/11/2025 11:15 AM CDT Office Visit [place] [facility] THREE [facility], [address] [place], [place] [address] Nohelia Perez PA 3 [facility] [address] [place] [address] documented as of this encounter Visit Diagnoses Diagnosis Atrial fibrillation (CMS/HCC HHS/HCC)- Primary Atrial fibrillation documented in this encounter Care Teams Air Traffic Controller Relationship Specialty Start Date End Date Elizabeth Davis PA [address] [place] [phone] PCP - General PHYSICIAN CHAIRMAN & CO FOUNDER 09/04/24 documented as of this encounter
--- OUTSIDE RECORDS SUMMARY | 2025-05-18 08:13 | XMS_ITS | Encounter Summary ---
Author Organization [facility] Address [facility] [place] [address] Care Team Providers Care Paper Rewinder Operator Name Role Phone Gagan Begum MD Primary Care Provider [phone] Luís Richmond MD Primary Care Provider [phone] Elizabeth Davis Primary Care Provider [phone] Encounter Details Date Type Department Care Team (Late st Contact Info) Description 09/05/2020 Prep for Procedure [facility] Day [facility] [address] [place] [address] Juanito Bautista MD [address] [place] [address] Social History Tobacco Use Types [...] st Contact Info) Description 06/07/2025 2:45 PM TANKER SERVICEMAN Office Visit [place] [facility] [address] [place] [address] Reta Waters FNP 3 [facility] [address] [place], [place] [address] 06/11/2025 2:00 PM TANKER SERVICEMAN Appointment [place] [place] [address] [facility] [address] [address] [place], [place] [address] Sunny Bailey MD Three [facility] [address] [place], [place] [address] 11/11/2025 11:15 AM CDT Office Visit [facility] [address], [address] [place], [place] [phone] Nohelia Perez PA 3 [facility] [address] [place], [place] [address] documented as of this encounter Results * ECG 12-Lead (09/06/2020 12:49 PM CDT) 09/06/2020 12:4 9 PM CDT Narrative [facility] RAD - 09/06/2020 1:49 PM CDT [facility] Test Date: 2020-09-06 Pat Name: CESIA SILVA Department: Room: Gender: Female Caustic Preparer: : 1940 Requested By: JUANITO BAUTISTA Order Number: [id number] Javi MD: Lambert Reagan Measurements Intervals Page Rate: 67 P: 47 MA: 185 QRS: -23 QRSD: 96 T: 56 QT: 331 QTc: 351 Interpretive Statements SINUS RHYTHM WITH MARKED SINUS ARRHYTHMIA BORDERLINE LEFT AXIS DEVIATION LOW QRS VOLTAGE IN PRECORDIAL LEADS Compared to ECG 12/17/2016 11:18:37 Low QRS voltage now present Myocardial infarct finding no longer present Procedure Note Lambert Reagan MD - 09/06/2020 [facility] Test Date: 2020-09-06 Pat Name: CESIA SILVA Department: Room: Gender: Female Caustic Preparer: : 1940 Requested By: JUANITO BAUTISTA Order Number: [id number] Reading MD: Lambert Reagan Measurements Intervals Page Rate: 67 P: 47 MA: 185 QRS: -23 QRSD: 96 T: 56 QT: 331 QTc: 351 Interpretive Statements SINUS RHYTHM WITH MARKED SINUS ARRHYTHMIA BORDERLINE LEFT AXIS DEVIATION LOW QRS VOLTAGE IN PRECORDIAL LEADS Compared to ECG 12/17/2016 11:18:37 Low QRS voltage now present Myocardial infarct finding no longer present us Juanito Bautista MD ECG ORDERABLES Final Result Performing Organization Address City/State/[facility] Co de Phone Number [facility] documented in this encounter Visit [...] documented as of this encounter Care Teams Paper Rewinder Operator Relationship Specialty Start Date End Date Gagan Begum MD [address] [place] [address] PCP - General INTERNAL MEDICINE 09/02/19 05/13/22 Luís Richmond MD [address] [place] [address] PCP - General FAMILY PRACTICE 05/14/22 09/03/24 Elizabeth Davis PA [address] [place] [address] PCP - General PHYSICIAN RUBBER BLOCK LAYER 09/04/24 documented as of this encounter
--- OUTSIDE RECORDS SUMMARY | 2025-05-18 08:13 | XMS_ITS | Clinical Summary ---
Author Organization [facility] / [facility] Address [address] [place] [address] Care Team Providers Care Certified Alcohol And Drug Counselor Name Role Phone Davis, Elizabeth FRANCISCO Primary Care Provider [phone] Allergies No known active allergies Medications oxybutynin 5 MG tabletIndicati ons:bladder spasms Take 1 tablet (5 mg total) by mouth nightly. Indications: bladder spasms Active OXYGENIndicati ons:supplement oxygen 5 L/min by Nasal route nightly. Indications: supplement oxygen Active lisinopril (PRINIVIL) 10 MG tabletIndicati ons:htn Take 1 tablet (10 mg total) by mouth daily. Indications: htn 07/29/19 25 Active multivitamin (THERA) tabletIndicati ons:mvi Take 1 tablet by mouth daily. Indications: mvi Active Vitamin D, Cholecalcifero l, 50 MCG (1999) CapIndications :supplement Take 1 tablet by mouth daily. Indications: supplement 09/05/19 25 Active Cyanocobalamin (VITAMIN B 12 OR)Indications :supplement Take 1 tablet by mouth daily. Indications: supplement 09/05/19 25 Active metoprolol succinate ER (TOPROL-XL) 25 MG 24 hr tablet Take 1 tablet (25 mg total) by mouth daily. 11/12/19 25 Active spironolactone (ALDACTONE) 25 MG tablet Take 0.5 tablets (12.5 mg total) by mouth daily. 45 tablet 1 11/24/19 25 Active dicyclomine (BENTYL) 10 MG capsule Take 1 capsule (10 mg total) by mouth 2 (two) times daily as needed. 12/17/19 Active MUCUS RELIEF 600 MG 12 hr tablet Take 1 tablet (600 mg total) by mouth 2 (two) times daily as needed. 12/29/19 Active loratadine (CLARITIN) 10 MG tablet Take 1 tablet (10 mg total) by mouth daily. 01/06/20 Active Probiotic Product (OCP [employer]ive) Cap Take 1 capsule by mouth daily. 01/06/20 Active Psyllium (REGULOID OR) Take 5 capsules by mouth 5 (five) times daily. Active doxycycline monohydrate 100 MG capsule Take 1 capsule (100 mg total) by mouth 2 (two) times daily. 04/16/20 Active furosemide (LASIX) 40 MG tablet Take 1 tablet (40 mg total) by mouth daily. 04/05/20 Active ketoconazole (NIZORAL) 2 % cream Apply topically daily. 04/16/20 Active traZODone (DESYREL) 50 MG tablet Take 1 tablet (50 mg total) by mouth nightly as needed for Sleep. Active ELIQUIS 5 MG tablet Take 1 tablet (5 mg total) by mouth 2 (two) times daily. 60 tablet 3 05/05/20 Active hydroCHLOROthi azide (MICROZIDE) 12.5 MG tabletIndicati ons:diuretics Take 1 tablet (12.5 mg total) by mouth daily. Indications: diuretics 07/22/19 Discontinued(Al ternate therapy) vitamin B-1 (THIAMINE) 50 MG tabletIndicati ons:vitamins Take 1 tablet (50 mg total) by mouth daily. Indications: vitamins Discontinued( erapy completed) Multiple Vitamins-[place] als (MULTIVITAMIN & MINERAL OR)Indications :supplement Take 1 tablet by mouth daily. Indications: supplement 09/05/19 Discontinued(Du plicate Med) Biotin 1000 MCG TabIndications :supplement Take 1 tablet by mouth daily. Indications: supplement 09/05/19 Discontinued( erapy completed) furosemide (LASIX) 20 MG tabletIndicati ons:Diuretic Therapy Take 1 tablet (20 mg total) by mouth daily. Indications: Treatment with Diuretic Therapy take 1-2 tablets once daily in the morning. 10/17/1927/2 025 Discontinued(Do se adjustment) ELIQUIS 5 MG tablet Take 1 tablet (5 mg total) by mouth 2 (two) times daily. 11/12/19 025 Discontinued ELIQUIS 5 MG tablet Take 0.5 tablets (2.5 mg total) by mouth 2 (two) times daily. 30 tablet 3 05/05/20 25 025 Discontinued aspirin EC (ECOTRIN) 81 MG tablet Take 1 tablet (81 mg total) by mouth daily for 30 days. 30 tablet 05/05/20 025 Discontinued(St op Taking at Discharge) Active Problems Problem Noted Date Diagnosed Date Atrial fibrillation 05/04/2025 Hypoxia 09/04/2024 Hypertension 09/29/2014 Overview (03/17/2025): HBP Encounters Date Type Department Care Team Description 05/12/2025 Telephone [facility], [address] [address] Nohelia Perez PA Medication 05/10/2025 Telephone [facility], [address] [address] Terri Mcgregor MD Schedule Test 05/07/2025 Hospital Follow-up Call [facility] [place] [address] Marsha Pressley LPN Follow Up Call (JULIAN 05/04-05/05/25) 05/04/2025 1:38 PM CLIENT SERVICE CONSULTANT Anesthesia Event [facility] [place] [address] Мария Christian MD Jackson, Debbie Sung, TRACK AND FIELD COACH 05/04/2025 10:20 AM CLIENT SERVICE CONSULTANT - 05/05/2025 11:58 AM CLIENT SERVICE CONSULTANT Hospital Encounter [facility] [place] [address] Terri Mcgregor MD Portera Mankins, Sally B, MD Quinn, Danielle S, CRNA Discharge Disposition: Home or Self Care (Routine Discharge) 05/04/2025 10:18 AM CLIENT SERVICE CONSULTANT - 05/04/2025 10:19 AM CLIENT SERVICE CONSULTANT Hospital Encounter [facility] [place] [address] Terri Mcgregor MD Discharge Disposition: Home or Self Care (Routine Discharge) 05/04/2025 Results Follow-Up [facility], [address] [address] Haylee Martin RN BASIC METABOLIC PANEL, CBC W/DIFF, PROTIME/INR, VENOUS 05/04/2025 Orders [place] [address] Terri Mcgregor MD 05/04/2025 Travel 04/28/2025 Travel 04/28/2025 Pre-Procedure Call [facility] [place] [address] Terri Mcgregor MD 04/26/2025 Telephone [facility] [address] [address] Terri Mcgregor MD Information 04/19/2025 9:15 AM CDT [facility] [address] [place] [phone] Mirza Grajeda MD Atrial Fibrillation; Edema; Hypertension 04/19/2025 Travel 04/15/2025 Hospital Orders [facility] [place] [address] Terri Mcgregor MD 04/07/2025 Telephone [facility] THREE [address] [address] Terri Mcgregor MD Schedule Procedure 04/02/2025 3:00 PM CDT Office Visit [facility], [facility] [address] [place] [address] Terri Mcgregor MD Atrial Fibrillation (Consult ) 04/02/2025 Travel [...] from your doctor or pharmacy? Never 09/04/2024 [facility] Utilities Answer Date Recorded In the past 12 months has th e [employer], gas, oil, or water [employer] threatened to shut off services in your [...] week 09/04/2024 How often do you attend [facility] or mormonism services? Never 09/04/2024 Do you belong to any clubs o r organizations such as anglican groups, unions, fraternal or athletic groups, or [...] Recorded Patient Health Questionnaire-2 Score 4 09/04/2024 [facility] of Occupat ional Health - Occupational Stress [...] any time in the past 12 m [facility], were you homeless or living in a fci (including now)? No 09/04/2024 Humiliation, Afraid, Rape, [...] any time in the past 12 m [facility], were you homeless or living in a fci (including now)? No 05/04/2025 [facility] Utilities Answer Date Recorded In the past [...] Sign Reading Time Taken Comments Blood Pressure 99/63 05/05/2025 10:46 AM CLIENT SERVICE CONSULTANT Pulse 83 05/05/2025 11:10 AM CLIENT SERVICE CONSULTANT Temperature 35.7 C (96.3 F) 05/05/2025 7:46 AM CLIENT SERVICE CONSULTANT Respiratory Rate 19 05/05/2025 11:1 0 AM CLIENT SERVICE CONSULTANT Oxygen Saturation 90% 05/05/2025 11: 40 AM CLIENT SERVICE CONSULTANT Inhaled Oxygen Concentration - - Weight 129.1 kg (284 lb 9.8 oz) 025 12:12 PM CLIENT SERVICE CONSULTANT Height 162.6 cm (5' 4) 05/04/2025 12:1 2 PM CLIENT SERVICE CONSULTANT Body Mass Index 48.85 05/04/2025 12:12 PM CLIENT SERVICE CONSULTANT Plan of Treatment Upcoming Encounters Date Type Department Care Team (Late st Contact Info) Description 06/07/2025 2:45 PM CLIENT SERVICE CONSULTANT Office Visit [facility] [address] [place] [address] Reta Waters FNP [address] [facility] [address] [place], [place] [address] 06/11/2025 2:00 PM CLIENT SERVICE CONSULTANT [facility]ointment [facility] [address] [place], [place] [id number] Terri Mcgregor MD Three [facility]. [address] [place], [place] [id number] 11/11/2025 11:15 AM CDT Office Visit [facility] [address], [address] [place], [place] [address] Nohelia Perez PA 3 [facility] [address] [place], [place] [address] Health Maintenance Due Date Last Done Comments [...] on patient's age to complete this topic Interventions Community Resource Recommendations Community Resource Services Recommended Domains Addressed Status Status Reason/Outcome Date/Time [facility] Mental Health Services Depression, Stress Recommended 05/05/2025 9:56 AM CLIENT SERVICE CONSULTANT from Last 12 Months Medical Devices Implanted Type Area Commissioned Police Officer Device Identifier Shelf Expiration Date Model / Serial / Lot Roselyn Closure Device-2024 Implanted:Qty : 1 on 05/04/2025 by Terri Mcgregor MD Closure Device GoHome DEE 08/03/2027 / / [id number] Iol Edwin [id number] - [id number] Implanted:Qty : 1 on 09/07/2019 by Terri Knowles MD at [facility] Lens Right: Eye EDWIN - SURGICAL DIV 07/24/2023 SN60WF / [id number] / Edwin Acrysof Iq Iol Implanted:Qty : 1 on 12/07/2019 by Terri Knowles MD at [facility] Left: Eye 08/22/2023 / [id number] / SN60WF.23 5 Explanted Type Area Commissioned Police Officer Device Identifier Shelf Expiration Date Model / Serial / Lot 2009+2018 Bilateral Knee Replacement 2011+2012 Bilateral Shoulder Replacement Procedures Procedure Name Priority Date/Time Associated Diagnosis Comments USE ECHO 2D FU LTD Today 05/04/2025 5: 21 PM CLIENT SERVICE CONSULTANT ECG 12-LEAD Routine 05/04/2025 4:58 PM CLIENT SERVICE CONSULTANT XR CHEST PORTABLE Routine 05/04/2025 3:3 6 PM CLIENT SERVICE CONSULTANT POCT ACTIVATED CLOTTING TIME - ISTAT DOCKED DEVICE Routine 05/04/2025 2:38 PM CLIENT SERVICE CONSULTANT ECG 12-LEAD STAT 05/04/2025 12:39 PM CLIENT SERVICE CONSULTANT Atrial fibrillation (CMS/HCC HHS/HCC) HC AB SCREEN STAT 05/04/2025 10:23 AM CLIENT SERVICE CONSULTANT Other persistent atrial fibrillation (CMS/HCC HHS/HCC) PROTHROMBIN TIME, VENOUS Routine 05/04/2025 10:23 AM CLIENT SERVICE CONSULTANT Other persistent atrial fibrillation (CMS/HCC HHS/HCC) HC CBC AUTO W/AUTO DIFF Routine 05/04/2025 10:23 AM CLIENT SERVICE CONSULTANT Other persistent atrial fibrillation (CMS/HCC HHS/HCC) BASIC METABOLIC PANEL Routine 05/04/2025 10:23 AM CLIENT SERVICE CONSULTANT Other persistent atrial fibrillation (CMS/HCC HHS/HCC) MRSA PCR Routine 05/04/2025 10:22 AM CLIENT SERVICE CONSULTANT Other persistent atrial fibrillation (CMS/HCC HHS/HCC) MRSA SCREENING Routine 04/23/2025 COMPREHENSIVE METABOLIC PANEL Routine 04/23/2025 THYROXINE, FREE (FT4) Routine 04/23/2025 HEMOGLOBIN, GLYCOSYLATED Routine 04/23/2025 THYROID STIM HORMONE TSH Routine 04/23/2025 PROTIME (OUTSIDE LAB) Routine 04/23/2025 CBC, MANUAL DIFF Routine 04/23/2025 from Last 3 Months Results * USE ECHO 2D [facility] (05/04/2025 5:21 PM CLIENT SERVICE CONSULTANT) Anatomical Region Laterality Modality Cardiac Echocardiogram 05/04/2025 6:09 PM CLIENT SERVICE CONSULTANT Narrative 05/05/2025 2:13 PM CLIENT SERVICE CONSULTANT Echocardiography Report Pat.Name: CESIA DAS Pat.ID: [id number] St.Date: 05/04/2025 Refer.: [id number], Lynn ornelas ewdprov ewdprov Exam Time: 6:09:00 PM Study Type:ECHO WITH CARDIAC DOPPLER COMP Height: 66 in Weight: 274 lb BSA: 2.29 m2 Age: 6 1940,84Y Sex: F BP: 115/77 HR: 102 bpm Sonogrphr: Mishel Quezada RDCS, [facility] Pat. Stat.:Outpatient Room: ODS 23 Reason for Study:Post LAAO Procedures: 2D, M-mode, Portable, The study quality is technically adequate. Limited Race: W ++++++++++++++++++++++++++++++++++++ SUMMARY: ++++++++++++++++++++++++++++++++++++ No evidence of pericardial effusion. NARAYAN: No evidence of pericardial effusion. <Electronic Signature> 05/05/2025 02:13 PM Yuriy Rollins M.D. Procedure Note Yuriy Rollins MD - 05/05/2025 Echocardiography Report Pat.Name: CESIA DAS Vicenta Pat.ID: [id number] .Date: 05/04/2025 Refer.: [id number], [facility] ewdprov ewdprov Exam Time: 6:09:00 PM Study Type:ECHO WITH CARDIAC DOPPLER COMP Height: 66 in Weight: 274 lb BSA: 2.29 m2 Age: 6 1940,84Y Sex: F BP: 115/77 HR: 102 bpm Sonogrphr: Mishel Quezada RDCS, [facility] Pat. Stat.:Outpatient Room: ODS 23 Reason for Study:Post LAAO Procedures: 2D, M-mode, Portable, The study quality is technically adequate. Limited Race: W ++++++++++++++++++++++++++++++++++++ SUMMARY: ++++++++++++++++++++++++++++++++++++ No evidence of pericardial effusion. NARAYAN: No evidence of pericardial effusion. <Electronic Signature> 05/05/2025 02:13 PM Yuriy Rollins M.D. us Terri Mcgregor MD ECHO Final Resul t * ECG 12 lead (05/04/2025 4:58 PM CLIENT SERVICE CONSULTANT) Only the most recent of2 resultswithin the time period is included. ECG QT 378 [facility] RAD ECG QTC [facility] (JULIAN) RAD 05/04/2025 4:58 PM CLIENT SERVICE CONSULTANT [facility]ative [facility] - 05/04/2025 9:57 PM CLIENT SERVICE CONSULTANT [facility] [address] Test Date: 2025-05-04 Pat Name: CESIA FOWLERN Department: 40 Room: C02 Gender: Female Agate Setter: : 1940 Requested By: TERRI MCGREGOR Order Number: [id number] Reading : Terri Mcgregor Measurements Intervals [place] Rate: 81 P: 0 UT: 0 QRS: -14 QRSD: 90 T: 19 QT: 378 QTc: 441 Interpretive Statements ATRIAL FIBRILLATION LOW QRS VOLTAGE IN EXTREMITY LEADS [QRS DEFLECTION < 0.5 mV IN LIMB LEADS] ABNORMAL RHYTHM ECG Compared to ECG 05/04/2025 12:39:20 Low QRS voltage now present Myocardial infarct finding no longer present NT SERVICE CONSULTANT Procedure Note Terri Mcgregor MD - 05/04/[address] [facility] [address] Test Date: 2025-05-04 Pat Name: CESIA DAS Department: 40 Room: C02 Gender: Female Agate Setter: : 1940 Requested By: TERRI MCGREGOR Order Number: [id number] Reading DYLLAN Mcgregor Measurements Intervals [place] Rate: 81 P: 0 UT: 0 QRS: -14 QRSD: 90 T: 19 QT: 378 QTc: 441 Interpretive Statements ATRIAL FIBRILLATION LOW QRS VOLTAGE IN EXTREMITY LEADS [QRS DEFLECTION < 0.5 mV IN LIMBLEADS] ABNORMAL RHYTHM ECG Compared to ECG 05/04/2025 12:39:20 Low QRS voltage now present Myocardial infarct finding no longer present NT SERVICE CONSULTANT us Terri Mcgregor MD ECG ORDERABLES Final Resul t [facility] (JULIAN) RAD * XR CHEST PORTABLE (05/04/2025 3:36 PM CLIENT SERVICE CONSULTANT) Anatomical Region Laterality Modality Chest Radiographic Sofia ging 05/04/2025 3:43 PM CLIENT SERVICE CONSULTANT Impressions 05/04/2025 3:44 PM CLIENT SERVICE CONSULTANT IMPRESSION: Left atrial appendage occlusion device. Stable cardiomegaly. No acute findings. Referred By: TERRI MCGREGOR Interpreted By: Santhosh Irvin MD, 05/04/2025 3:43 PM Narrative 05/04/2025 3:44 PM CLIENT SERVICE CONSULTANT [place] [address] XR CHEST PORTABLE INDICATION: Post left atrial appendage closure device implant procedure TECHNIQUE: Portable AP view of the chest COMPARISON: Prior chest radiograph 09/04/2024 FINDINGS: Similar cardiomegaly. Left atrial appendage occlusion device. No pulmonary vascular congestion. Similar bandlike scarring or atelectasis at the right lung base. No acute pulmonary consolidation. No pleural effusion or pneumothorax is identified. Postsurgical changes of bilateral shoulder replacements. Procedure Note Santhosh Irvin MD - 05/04/[address] [address] XR CHEST PORTABLE INDICATION: Post left atrial appendage closure device implant procedure TECHNIQUE: Portable AP view of the chest COMPARISON: Prior chest radiograph 09/04/2024 FINDINGS: Similar cardiomegaly. Left atrial appendage occlusion device. Nopulmonary vascular congestion. Similar bandlike scarring or atelectasisat the right lung base. No acute pulmonary consolidation. No pleuraleffusion or pneumothorax is identified. Postsurgical changes of bilateralshoulder replacements. IMPRESSION: Left atrial appendage occlusion device. Stable cardiomegaly. No acutefindings. Referred By: TERRI MCGREGOR Interpreted By: Santhosh Irvin MD, 05/04/2025 3:43 PM Terri Mcgregor MD GENERAL IMAGING Final Resul t * (ABNORMAL) POCT ACTIVATED CLOTTING TIME - ISTAT DOCKED DEVICE (05/04/2025 2:38 PM CLIENT SERVICE CONSULTANT) ACTIVATED CLOTTING TIME (ACT) 308(H) 74 - 125 SEC 05/04/2025 4:51 PM CLIENT SERVICE CONSULTANT [facility] SPARK PLUG TESTER CODE [phone] 05/04/2025 4:51 PM CLIENT SERVICE CONSULTANT [facility] 05/04/2025 2:38 PM CLIENT SERVICE CONSULTANT Terri Mcgregor MD POCT ORDERABLES - DEVICE Fi nal Result [facility] [address] [place] [address], [place] [phone] * (ABNORMAL) PROTIME/INR, VENOUS (05/04/2025 10:23 AM CLIENT SERVICE CONSULTANT) PROTIME 13.0(H) 10.2 - 12.9 SEC 05/04/2025 11:21 AM CLIENT SERVICE CONSULTANT [facility] INR 1.1 05/04/2025 11:21 AM CLIENT SERVICE CONSULTANT [facility] Comment: Recommended INR Therapeutic Goals: 2.0-3.0 Routine Therapy 2.5-3.5 Mechanical Prosthetic Valves (High Risk) 05/04/2025 10:2 3 AM CLIENT SERVICE CONSULTANT us Terri Mcgregor MD LABORATORY Final Resul t [facility] [address] [place] [address], * (ABNORMAL) CBC W/DIFF (05/04/2025 10:23 AM CLIENT SERVICE CONSULTANT) WBC 9.53 4.5 - 11.0 x10'3/uL 05/04/2025 11:[address] [facility] RBC 4.19(L) 4.20 - 5.40 x10'6/uL 05/04/2025 11:[address] [facility] HGB 11.8(L) 12.0 - 16.0 G/DL 05/04/2025 11:[address] [facility] HCT 38.6 38.0 - 48.0 % 05/04/2025 11:[address] [facility] MCV 92.1 81.0 - 99.0 FL 05/04/2025 11:[address] [facility] MCH 28.2 27.0 - 31.0 PG 05/04/2025 11:[address] [facility] MCHC 30.6(L) 32.0 - 36.0 G/DL 05/04/2025 11:[address] [facility] RDW 14.8(H) 11.5 - 14.5 % 05/04/2025 11:[address] [facility] PLT 334 130 - 400 x10'3/uL 05/04/2025 11:[address] [facility] MPV 9.9 9.3 - 12.2 FL 05/04/2025 11:[address] [facility] DIFFERENTIAL TYPE AUTOMATED DIFFERENTIAL 05/04/2025 11:02 AM CLIENT SERVICE CONSULTANT [facility] NEUTROPHILS % 73.8 % 05/04/2025 11:02 AM CLIENT SERVICE CONSULTANT [facility] LYMPHOCYTES % 16.5 % 05/04/2025 11:02 AM CLIENT SERVICE CONSULTANT [facility] MONOCYTES % 7.7 % 05/04/2025 11:02 AM CLIENT SERVICE CONSULTANT [facility] EOSINOPHILS 1.0 % 05/04/2025 11:02 AM CLIENT SERVICE CONSULTANT [facility] BASOPHILS 0.7 % 05/04/2025 11:02 AM CLIENT SERVICE CONSULTANT [facility] IMMATURE GRANS % 0.3 % 05/04/20 11:02 AM CLIENT SERVICE CONSULTANT [facility] ABS. NEUTROPHILS 7.03 1.80 - 7.70 x10'3/uL 05/04/2025 11:02 AM CLIENT SERVICE CONSULTANT [facility] ABS. LYMPHOCYTES 1.57 1.00 - 4.80 x10'3/uL 05/04/2025 11:02 AM CLIENT SERVICE CONSULTANT [facility] ABS. MONOCYTES 0.73 0.24 - 0.86 x10'3/uL 05/04/2025 11:02 AM CLIENT SERVICE CONSULTANT [facility] ABS. EOSINOPHILS 0.10 0.04 - 0.36 x10'3/uL 05/04/2025 11:02 AM CLIENT SERVICE CONSULTANT [facility] ABS. BASOPHILS 0.07 0.01 - 0.08 x10'3/uL 05/04/2025 11:02 AM CLIENT SERVICE CONSULTANT [facility] ABS. IMMATURE GRANULOCYTES 0.03 0.00 - 0.49 x10'3/uL 05/04/2025 11:[address] [facility] 05/04/2025 10:2 3 AM CLIENT SERVICE CONSULTANT us Terri Mcgregor MD LABORATORY Final Resul t [facility] [address] [place] [address], [place] [phone] * (ABNORMAL) BASIC METABOLIC PANEL (05/04/2025 10:23 AM [facility]) [facility] GLUCOSE 112(H) 70 - 99 MG/DL 05/04/2025 11:[address] [facility] BUN 32(H) 7 - 18 MG/DL 05/04/2025 11:[address] [facility] CREATININE S/P/B 1.25(H) 0.55 - 1.02 MG/DL 05/04/2025 11:[address] [facility] SODIUM S/P/B 139 136 - 145 MMOL/L 05/04/2025 11:[address] [facility] POTASSIUM S/P/B 5.4(H) 3.5 - 5.1 MMOL/L 05/04/2025 11:[address] [facility] CHLORIDE S/P/B 104 97 - 115 MMOL/L 05/04/2025 11:[address] [facility] CO2 31.2 21 - 32 MMOL/L 05/04/2025 11:[address] [facility] CALCIUM S/P/B 8.9 8.5 - 10.1 MG/DL 05/04/2025 11:[address] [facility] ANION GAP 3.8 2 - 10 MMOL/L 05/04/2025 11:[address] [facility] BUN CREATININE RATIO 25.6 6 - 26 05/04/2025 11:[address] [facility] GFR ESTIMATE 42(L) >90 ML/MIN/1.7 3 M2 05/04/2025 11:[address] [facility] Comment: NOTE: eGFR is not calculated for patients <18 years of age or gender unknown. This is an estimated GFR calculation using the new CKD EPI creatinine equation without race and so does not require a correction factor for race. This estimated GFR should not be used for calculating drug doses. 05/04/2025 10:2 3 AM CLIENT SERVICE CONSULTANT us Terri Mcgregor MD LABORATORY Final Resul t Performing Organization Address City/[facility] [address]/ZIP Co de Phone Number [facility] [address] [place] [id number], * TYPE & SCREEN (05/04/2025 10:23 AM CLIENT SERVICE CONSULTANT) ABO/RH AB POSITIVE 05/04/2025 11:46 AM CLIENT SERVICE CONSULTANT [facility] ANTIBODY SCREEN NEGATIVE 05/04/2025 11:46 AM CLIENT SERVICE CONSULTANT [facility] SAMPLE EXPIRATION 05/07/2025,2 359 05/04/2025 11:46 AM CLIENT SERVICE CONSULTANT [facility] 05/04/2025 10:2 3 AM CLIENT SERVICE CONSULTANT us Terri Mcgregor MD BLOOD BANK TEST ORDERABLES Final Result Performing Organization Address [facility] [address]/[facility] Co de Phone Number [facility] [address] [place] [address], * MRSA PCR (05/04/2025 10:22 AM CLIENT SERVICE CONSULTANT) MRSA BY PCR NASAL NOT DETECTED NOT DETECTED 05/04/2025 12:18 PM CLIENT SERVICE CONSULTANT [facility] SWAB NASOPHARYNGEAL STRUCTURE / Unknown 05/04/2025 10:22 AM CLIENT SERVICE CONSULTANT us Terri Mcgregor MD MICROBIOLOGY - GENERAL ORDE [facility] Final Result Performing Organization Address City/[facility] [address]/ZIP Co de Phone Number [facility] [address] [place] [address], [place] [phone] * MRSA SCREENING (04/23/2025) [facility] MRSA SCREEN Negative NASAL STRUCTURE / Unknown 04/23/2025 Default History Genericprovider MICROBIOLOGY - G ENERAL ORDERABLES Final Result * PROTIME (OUTSIDE LAB) (04/23/2025) [facility] PROTIME 15.8 INR 1.3 04/23/2025 Result [facility] Genericprovider LAB-OUTSIDE/ABST RACTED Final Result * HEMOGLOBIN, GLYCOSYLATED (04/23/2025) [facility] HGB A1C 6.1 % Result [facility] Default History Genericprovider LABORATORY Final Result * (ABNORMAL) COMPREHENSIVE METABOLIC PANEL (04/23/2025) [facility] SODIUM S/P/B 135 GLUCOSE 137 mg/dL BUN 35 CREATININE S/P/B 1.35(A) 0.5 - 1.0 CALCIUM S/P/B 8.5 POTASSIUM S/P/B 4.5 CHLORIDE S/P/B 101 GFR ESTIMATE 37 Result [facility] Default History Genericprovider LABORATORY Final Result * CBC, MANUAL DIFF (04/23/2025) [facility] WBC 9.5 HGB 11.3 HCT 37 PLT 316 Result [facility] Default History Genericprovider LABORATORY Edited Result - Final * THYROXINE, FREE (FT4) (04/23/2025) [facility] FREE T4 1.28 Result [facility] Default History Genericprovider LABORATORY Final Result * THYROID STIM HORMONE TSH (04/23/2025) [facility] TSH 1.130 Default History Genericprovider LABORATORY Final Result from Last 3 Months Insurance AET[employer] MEDICARE Advance Directives Documents on File Type Date Recorded Patient Supervisor Front Expl anation Advance Directives and Living Will 09/13/2020 10:38 AM POA Advance Directives and Living Will 09/08/2019 11:59 AM 11/16/2010 POA FOR HEALTHCARE Advance Directives and Living Will 04/16/2013 12:00 AM 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 Advance Directives and Living Will 04/16/2013 12:00 AM 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 Advance Directives and Living Will 11/16/2010 12:00 AM 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 Advance Directives and Living Will 11/16/2010 12:00 AM 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 Advance Directives and Living Will 08/03/2009 12:00 AM 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 Advance Directives and Living Will 08/03/2009 12:00 AM 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 Advance Directives and Living Will 01/03/2009 12:00 AM 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 Advance Directives and Living Will 01/03/2009 12:00 AM 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
--- OUTSIDE RECORDS SUMMARY | 2025-05-18 08:13 | XMS_ITS | Encounter Summary ---
Author Organization [facility] Address [facility] [place] [address] Care Team Providers Care Boiler Maker Name Role Phone Gagan Begum MD Primary Care Provider [phone] Luís Richmond MD Primary Care Provider [phone] Elizabeth Davis Primary Care Provider [phone] Encounter Details Date Type Department Care Team (Late st Contact Info) Description 10/02/[address] [facility] [address] [place], [place] [id number] , Generic Conversion, Social History Tobacco Use [...] st Contact Info) Description 06/07/2025 2:45 PM BAGGAGE SMASHER [facility] [address] [place] [id number] Reta Waters, AIRAM [id number] [place] [address] 06/11/2025 2:00 PM BAGGAGE SMASHER [facility]ointment [facility] [address] [place] [address] Sunny Bailey MD [facility] [place] [address] 11/11/2025 11:15 AM CDT Office Visit [facility] [address] [facility] [address] [place] [address] Nohelia Perez PA [address] [place] [address] documented as of this encounter Visit Diagnoses [...] documented as of this encounter Care Teams Boiler Maker Relationship Specialty Start Date End Date Gagan Begum MD [address] [place] [address] PCP - General INTERNAL MEDICINE 09/02/19 05/13/22 Luís Richmond MD [address] [place] [id number] PCP - General FAMILY PRACTICE 05/14/22 09/03/24 Elizabeth Davis PA [address] [place] [id number] PCP - General PHYSICIAN LIFTER/DRIVER 09/04/24 documented as of this encounter
--- OUTSIDE RECORDS SUMMARY | 2025-05-18 08:13 | XMS_ITS | Clinical Summary ---
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 Gender Identity Not on file Sexual Orientation [...] 04/02/2019, 02/22 Medical Devices Implanted Type Area Commercial Photographer Device Identifier Shelf Expiration Date Model / Serial / Lot Cochlear [employer] [id number] Implant Cochlear Cochlear Nucleus Profile Plus Slim Modiolar Electrode [id number] - [id number] - [id number] Implanted:Qty : 1 on 04/08/2019 by Igor Cha MD at [facility] Other - see comments Left: Cochlea [employer]chle[employer] 03/04/2021 [id number] / [id number] / [id number] Description:Cochlear Nucleus [id number] Cochlear Implant with [place] [address] [place] [address] UHC MEDICARE ADVANTAGE AETNA MEDICARE GOLD Care Teams Summer Analyst Relationship Specialty Start Date End Date Elizabeth Davis PA [facility] [place] [address] PCP - General Physician Sewer System Supervisor 02/26/23 Lavelle Mao MD [phone] [place] [address] Surgeon Colon and Rectal Surgery 02/26/23
== END 2025-05-18 08:07 | disposition home or self-care (01) ==
LOC: ANHIMG 08:10
PROVIDERS: PCP Physician Assistant Medical; Visit Provider Physician Assistant Medical
DX: R05.9 Cough, unspecified (principal); J06.9 Acute upper respiratory infection, unspecified
CPT/HCPCS: 71046

== ENCOUNTER 2025-06-01 10:06 | Outpatient (CLI) | payer MEDICARE, SELFPAY ==
--- NOTE | ~2025-06-01 | XR_ITS ---
EXAMINATION: XR chest 2V, 06/01/2025 10:25 HEALTHCARE MANAGER HISTORY: J18.9 - Pneumonia, unspecified organism COMPARISON: No comparisons available. Technique: 2 views obtained. Findings: Mild pulmonary venous congestion. Small right basilar infiltrate and effusion. No pneumothorax. Mild cardiomegaly. Mediastinal and hilar contours are within normal limits. Bony thorax no acute abnormality. Impression: CHF. Superimposed probable right lower lobe pneumonia. Reviewed, dictated and finalized at location P. THCARE MANAGER Impression: CHF. Superimposed probable right lower lobe pneumonia.
== END 2025-06-01 10:07 | disposition home or self-care (01) ==
LOC: ANHIMG 10:08
PROVIDERS: PCP Physician Assistant Medical; Visit Provider Physician Assistant Medical
DX: J18.9 Pneumonia, unspecified organism (principal); I50.9 Heart failure, unspecified
CPT/HCPCS: 71046

== ENCOUNTER 2025-06-01 12:50 | Inpatient (IN) | payer MEDICARE, MEDICAID, SELFPAY ==
[2025-06-01] VITALS (12 sets, daily range): BP systolic 104–135; BP diastolic 52–85; PULSE 91–104; RESP 15–23; TEMP 36.6–36.8; O2SAT 90–95; BMI 50.8
--- NOTE | ~2025-06-01 | XR_ITS ---
Examination: XR chest 2V Clinical History: pneumonia? Comparison: Earlier same day Technique: PA and Lateral Findings: Cardiomegaly. Mild bibasilar opacities. No acute bony abnormality. IMPRESSION: 1. Mild bibasilar atelectasis and/or residual airspace disease from 2 weeks prior. Reviewed, dictated and finalized at location R. EQUIN DECORATOR IMPRESSION: 1. Mild bibasilar atelectasis and/or residual airspace disease from 2 weeks pr ior.
--- NOTE | ~2025-06-01 | CT_ITS ---
EXAMINATION:CT diagnostic chest wo con DATE: 06/04/2025 13:26 INDICATION: Cough TECHNIQUE: Computed tomography (CT) of the chest was performed without intravenous contrast. The dose-length product (DLP) was 815.18 mGy-cm. COMPARISON: Chest x-ray from June 01 FINDINGS: Mild subsegmental atelectatic changes in the right lung base with air bronchograms and trace right-sided pleural effusion. Small infiltrate and/or aspiration could have a similar appearance. Mid and upper lung cali are clear. Central large airways are patent. Heart size slightly enlarged. Ascending thoracic aorta measures 4.1 cm Main pulmonary artery measures 3.8 cm. Distal aortic arch and descending aorta normal size. No significant pericardial effusion or bulky lymphadenopathy. Diffuse degenerative changes in the bones. Para no acute process seen in the visualized portions of the upper abdomen or extrathoracic soft tissues. Cholecystectomy clips. The thyroid is enlarged with portions of the inferior margin extending down behind the sternum. IMPRESSION: 1. Right basilar subsegmental atelectatic changes with mild consolidative appearance which could represent small area of aspiration or pneumonia. 2. Other chronic appearing findings as above including mild aneurysmal dilatation of the ascending thoracic aorta and prominence main pulmonary artery which may represent pulmonary arterial hypertension. 3. Enlarged thyroid. Correlate with follow-up routine thyroid ultrasound. Reviewed, dictated and finalized at location A. ETO SPECIALIST IMPRESSION: 1. Right basilar subsegmental atelectatic changes with mild consolidative appea jesse which could represent small area of aspiration or pneumonia. 2. Other chronic appearing findings as above including mild aneurysmal dilatati on of the ascending thoracic aorta and prominence main pulmonary artery which m ay represent pulmonary arterial hypertension. 3. Enlarged thyroid. Correlate with follow-up routine thyroid ultrasound.
--- NOTE | ~2025-06-01 | XR_ITS ---
EXAM/PROCEDURE: XR barium swallow modified HISTORY: possible aspiration PNA COMPARISON: None available. TECHNIQUE: Modified barium swallow Fluoroscopy time: 0.9 minutes DAP: 1.198 Shafer per square centimeter IMPRESSION: No aspiration observed. See speech therapist's note for complete evaluation. Reviewed, dictated and finalized at location A. ER WOOD FLOUR
--- NOTE | ~2025-06-01 | XR_ITS ---
EXAMINATION: XR chest 1V, 06/08/2025 9:30 FILM ARCHIVIST HISTORY: shortness of breath COMPARISON: No comparisons available. Technique: Single view. Findings: Moderate pulmonary venous congestion. Small basilar infiltrates. No pneumothorax. Moderate cardiomegaly. Mediastinal and hilar contours are within normal limits. Bony thorax no acute abnormality. Impression: CHF Reviewed, dictated and finalized at location P. ARCHIVIST Impression: CHF
--- NOTE | 2025-06-01 14:39 | ED.URI ---
HPI - URI/Sore Throat General Chief Complaint: Upper Respiratory Infection <Jessi Gaona PA-C - Last Filed: 06/01/25 14:57> Stated Complaint: I have pneumonia <Jessi Gaona PA-C - Last Filed: 06/01/25 14:57> Time Seen by Provider: 06/01/25 14:39 <ALANNAH Herrera Last Filed: 06/01/25 14:57> Focused HPI: Patient is an 84 y/o female who presents to the ED with c/o cough. Patient reports she has had a cough for the past 1 month. Reports production of sputum. Reports SOB. Reports some swelling in lower extremities, but states this is chronic. Denies fevers, CP. States she had an outpatient CXR performed today and was told by her PCP that she had PNA and to come to the ED for further evaluation. Reports hx of AFIB, on eliquis, s/p watchman placement 2 weeks ago. GENERAL: Elderly, morbidly obese with BMI of 49.2, and in no acute distress. HEAD: Normocephalic, atraumatic. CHEST: No respiratory distress. Diffuse rhonchi and exp wheezing in all lung cali. No tachypnea HEART: Regular rate and rhythm.?Trace peripheral edema NEURO: ?Alert and oriented x3. HO-CHUNK Patient screened in triage and initial orders placed.? ?Additional care and disposition to be based upon?diagnostic testing and treatment. <Jessi Gaona PA-C - Last Filed: 06/01/25 14:57> Source: patient <Jessi Gaona PA-C - Last Filed: 06/01/25 14:57> Mode of arrival: ambulatory <ALANNAH Herrera Last Filed: 06/01/25 14:57> Limitations: no limitations <ALANNAH Herrera Last Filed: 06/01/25 14:57> History of Present Illness HPI Narrative: agree with HPI <Jessica Garcia MD - Last Filed: 06/01/25 18:32> Related Data Home Medications: Home Medications ?Medication ?Instructions ?Recorded ?Confirmed ?Last Taken ?Type Oxygen 4 LPM via NC q.h.s. .Route 12/09/24 04/16/25 Unknown History spironolactone 25 mg tablet 12.5 mg PO DAILY 12/10/24 04/16/25 Unknown History Lactobacillus rhamnosus-Bifidobac. cap PO 04/08/25 04/16/25 Unknown History animalis 3 billion cell capsule (911 Pets) <Jessi Gaona PA-C - Last Filed: 06/01/25 14:57> Allergies/Adverse Reactions: Allergies Allergy/AdvReac Type Severity Reaction Status Date / Time No Known Allergies Allergy Verified 06/01/25 13:10 <Jessi Gaona PA-C - Last Filed: 06/01/25 14:57> Review of Systems Review of Systems: All systems reviewed & are unremarkable except as noted in HPI and below <Jessica Garcia MD - Last Filed: 06/01/25 18:32> [facility] Past Medical History Medical History: Medical History (Updated 06/01/25 @ 18:32 by Jessica Garcia MD) Rosacea (HFpEF) heart failure with preserved ejection fraction Atrial fibrillation/flutter Chronic kidney disease Thyroid nodule Fecal incontinence Thyroid nodule greater than or equal to 1 cm in diameter incidentally noted on imaging study 2.5 cm right lobe, noted on CTA chest August 2024 Nocturnal hypoxia Hypoxia on nocturnal O2 2 LPM Lower extremity weakness Ambulates with cane Insomnia Screening for breast cancer Hearing loss Pre-diabetes Depressive disorder Vitamin D deficiency Hypertension <Jessi Gaona PA-C - Last Filed: 06/01/25 14:57> Surgical History Surgical History: Surgical History Hx of cholecystectomy H/O shoulder surgery H/O knee surgery <Jessi Gaona PA-C - Last Filed: 06/01/25 14:57> Family History Family History: Family History Father Heart disease Mother Cancer <Jessi Gaona PA-C - Last Filed: 06/01/25 14:57> Social History Social History: Social History (Reviewed 02/01/25 @ 13:03 by FARZANA Negron Smoking status: Never smoker Alcohol intake: current Substance use: never Living arrangements: alone Occupation/Education: retired Spiritual care concerns: No Agree to blood products: Yes <Jessi Gaona PA-C - Last Filed: 06/01/25 14:57> Exam Narrative: EXAMINATION OF ORGAN SYSTEMS/BODY AREAS: Constitutional: Vital signs per nursing GENERAL:[No acute distress, non-toxic appearing.] HEAD: Normal with no signs of head trauma. EYES: EOMI, conjunctiva normal ENT: Hearing grossly intact LUNGS: Coughing, wheezing all lung cali HEART: [Regular rate and rhythm] ABD: [Soft], [nontender to palpation] EXT: Normal range of motion SKIN: [No rashes or lesions.] NEURO: [Alert. No gross focal sensory or strength deficits.] PSYCH: Normal affect <Jessica Garcia MD - Last Filed: 06/01/25 18:32> Course Vital Signs Vital signs: Vital Signs Temperature 98.3 F 06/01/25 13:07 Pulse Rate 95 06/01/25 13:07 Respiratory Rate 20 06/01/25 13:07 Blood Pressure 104/52 L 06/01/25 13:07 Pulse Oximetry 90 06/01/25 13:07 Oxygen Delivery Room Air 06/01/25 13:07 Temperature 98.3 F 06/01/25 13:07 Pulse Rate 91 06/01/25 16:13 Respiratory Rate 23 H 06/01/25 16:13 Blood Pressure 121/66 06/01/25 16:13 Pulse Oximetry 94 06/01/25 16:35 Oxygen Delivery Nasal Cannula 06/01/25 16:35 Oxygen Flow Rate 2 06/01/25 16:35 <Jessi Gaona PA-C - Last Filed: 06/01/25 14:57> Vital Signs Temperature 98.3 F 06/01/25 13:07 Pulse Rate 95 06/01/25 13:07 Respiratory Rate 20 06/01/25 13:07 Blood Pressure 104/52 L 06/01/25 13:07 Pulse Oximetry 90 06/01/25 13:07 Oxygen Delivery Room Air 06/01/25 13:07 Temperature 98.3 F 06/01/25 13:07 Pulse Rate 91 06/01/25 16:13 Respiratory Rate 23 H 06/01/25 16:13 Blood Pressure 121/66 06/01/25 16:13 Pulse Oximetry 94 06/01/25 16:35 Oxygen Delivery Nasal Cannula 06/01/25 16:35 Oxygen Flow Rate 2 06/01/25 16:35 <Jessica Garcia MD - Last Filed: 06/01/25 18:32> MDM MDM Narrative Medical decision making narrative: MSE by FADIA in triage <Jessi Gaona PA-C - Last Filed: 06/01/25 14:57> MSE by FADIA in triage 84F with worsening cough; having some wheezing and coughing here, consistent with likely bronchitis, I will start her on antibiotics, given her chest x-ray is showing bilateral pneumonia, breathing treatments, steroids. Patient has been hypoxic here, requiring oxygen. At this point I do feel she will need to be admitted. She is agreeable to plan. Discussed with hospitalist for admission. <Jessica Garcia MD - Last Filed: 06/01/25 18:32> Differential Diagnosis Differential Diagnosis: Pneumonia, bronchitis, CHF exacerbation, etc. <Jessica Garcia MD - Last Filed: 06/01/25 18:32> Lab Data Result diagrams: 06/01/25 16:05 06/01/25 16:05 <Jessi Gaona PA-C - Last Filed: 06/01/25 14:57> Labs: Lab Results 06/01/25 06/01/25 Range/Units 16:05 17:03 WBC 9.2 (4.5-10.0) K/mm3 RBC 3.63 L (4.2-5.4) M/mm3 Hgb 10.1 L (12.0-15.0) g/dL Hct 33.7 L (37.0-47.0) % MCV 92.8 (80-100) fl MCH 27.8 (26-34) pg MCHC 30.0 L (32-36) g/dl RDW 14.7 H (11.5-14.5) % Plt Count 317 (150-375) k/mm3 MPV 9.2 (7.4-10.4) fl Immature Gran % (Auto) 0.4 (0-0.5) % Neut % (Auto) 67.6 (45.5-73.1) % Lymph % (Auto) 19.3 (18.3-44.2) % [place] % (Auto) 8.8 H (2.6-8.5) % Eos % (Auto) 3.0 (0-4.4) % Baso % (Auto) 0.9 (0.2-1.2) % Lymph # (Auto) 1.77 (0.9-3.2) K/mm3 [place] # (Auto) 0.8 H (0.1-0.6) K/mm3 Eos # (Auto) 0.3 (0-0.3) K/mm3 Baso # (Auto) 0.1 (0.0-0.1) K/mm3 Abs Immat Gran (auto) 0.04 H (0.00-0.031) K/mm3 Absolute Neuts (auto) 6.2 (1.3-6.7) K/mm3 Absolute Nucleated RBC 0.000 (0.0-0.012) K/mm3 Nucleated RBC % 0.0 (0.0-0.2) % PT 16.7 H (11.1-14.7) Seconds INR 1.4 APTT 28.7 (22.3-36.8) Seconds Sodium 135 L (137-145) mmol/L Potassium 4.7 (3.4-5.0) mmol/L Chloride 103 (98-107) mmol/L Carbon Dioxide 26 (22-30) mmol/L Anion Gap 6 (4-12) mmol/L BUN 32 H (7-17) mg/dL Creatinine 1.44 H (0.7-1.0) mg/dL Estim Creat Clear Calc 34 ml/min Estimated GFR 35 L (59 - ) Glucose 116 H (65-110) mg/dL Lactic Acid 1.4 (0.7-2.0) mmol/L Calcium 8.6 (8.4-10.2) mg/dL Magnesium 1.8 (1.6-2.3) mg/dL Total Bilirubin 0.6 (0.2-1.3) mg/dL AST 26 (14-36) U/L ALT 23 (6-35) U/L Alkaline Phosphatase 86 (38-126) U/L Troponin I 0.035 H* (0.000-0.034) ng/mL NT-Pro-B Natriuret Pep 2720 H (19.9-100) pg/mL Total Protein 6.5 (6.3-8.2) g/dL Albumin 3.4 L (3.5-5.1) g/dL Nasal MRSA (PCR) Not detected (NOT DETECTE) Influenza A (RT-PCR) Negative (Negative) Influenza B (RT-PCR) Negative (Negative) RSV (RT-PCR) Negative (Negative) SARS-CoV-2 RNA (RT-PCR) Negative (Negative) <Jessi Gaona PA-C - Last Filed: 06/01/25 14:57> Lab Results 06/01/25 06/01/25 Range/Units 16:05 17:03 WBC 9.2 (4.5-10.0) K/mm3 RBC 3.63 L (4.2-5.4) M/mm3 Hgb 10.1 L (12.0-15.0) g/dL Hct 33.7 L (37.0-47.0) % MCV 92.8 (80-100) fl MCH 27.8 (26-34) pg MCHC 30.0 L (32-36) g/dl RDW 14.7 H (11.5-14.5) % Plt Count 317 (150-375) k/mm3 MPV 9.2 (7.4-10.4) fl Immature Gran % (Auto) 0.4 (0-0.5) % Neut % (Auto) 67.6 (45.5-73.1) % Lymph % (Auto) 19.3 (18.3-44.2) % [place] % (Auto) 8.8 H (2.6-8.5) % Eos % (Auto) 3.0 (0-4.4) % Baso % (Auto) 0.9 (0.2-1.2) % Lymph # (Auto) 1.77 (0.9-3.2) K/mm3 [place] # (Auto) 0.8 H (0.1-0.6) K/mm3 Eos # (Auto) 0.3 (0-0.3) K/mm3 Baso # (Auto) 0.1 (0.0-0.1) K/mm3 Abs Immat Gran (auto) 0.04 H (0.00-0.031) K/mm3 Absolute Neuts (auto) 6.2 (1.3-6.7) K/mm3 Absolute Nucleated RBC 0.000 (0.0-0.012) K/mm3 Nucleated RBC % 0.0 (0.0-0.2) % PT 16.7 H (11.1-14.7) Seconds INR 1.4 APTT 28.7 (22.3-36.8) Seconds Sodium 135 L (137-145) mmol/L Potassium 4.7 (3.4-5.0) mmol/L Chloride 103 (98-107) mmol/L Carbon Dioxide 26 (22-30) mmol/L Anion Gap 6 (4-12) mmol/L BUN 32 H (7-17) mg/dL Creatinine 1.44 H (0.7-1.0) mg/dL Estim Creat Clear Calc 34 ml/min Estimated GFR 35 L (59 - ) Glucose 116 H (65-110) mg/dL Lactic Acid 1.4 (0.7-2.0) mmol/L Calcium 8.6 (8.4-10.2) mg/dL Magnesium 1.8 (1.6-2.3) mg/dL Total Bilirubin 0.6 (0.2-1.3) mg/dL AST 26 (14-36) U/L ALT 23 (6-35) U/L Alkaline Phosphatase 86 (38-126) U/L Troponin I 0.035 H* (0.000-0.034) ng/mL NT-Pro-B Natriuret Pep 2720 H (19.9-100) pg/mL Total Protein 6.5 (6.3-8.2) g/dL Albumin 3.4 L (3.5-5.1) g/dL Nasal MRSA (PCR) Not detected (NOT DETECTE) Influenza A (RT-PCR) Negative (Negative) Influenza B (RT-PCR) Negative (Negative) RSV (RT-PCR) Negative (Negative) SARS-CoV-2 RNA (RT-PCR) Negative (Negative) <Jessica Garcia MD - Last Filed: 06/01/25 18:32> Imaging Data Radiologist's impression: ITS Impressions Chest X-Ray 06/01/25 13:57 IMPRESSION: 1. Mild bibasilar atelectasis and/or residual airspace disease from 2 weeks prior. <Jessi Gaona PA-C - Last Filed: 06/01/25 14:57> ITS Impressions Chest X-Ray 06/01/25 13:57 IMPRESSION: 1. Mild bibasilar atelectasis and/or residual airspace disease from 2 weeks prior. <Jessica Garcia MD - Last Filed: 06/01/25 18:32> Critical Care Time Critical Care Time Critical Care Time: Yes <Jessica Garcia MD - Last Filed: 06/01/25 18:32> Indication: acute hypoxic respiratory failure <Jessica Garcia MD - Last Filed: 06/01/25 18:32> Initial evaluation, discuss w/ involved parties, attempting to gather old records: 10 minutes <Jessica Garcia MD - Last Filed: 06/01/25 18:32> Documenting medical record: 5 minutes <Jessica Garcia MD - Last Filed: 06/01/25 18:32> Review of results (EKG's, labs, imaging): 5 minutes <Jessica Garcia MD - Last Filed: 06/01/25 18:32> Serial repeat bedside evaluation: 10 minutes <Jessica Garcia MD - Last Filed: 06/01/25 18:32> Discussing case with multiple memebers of the care team and consultants: 5 minutes <Jessica Garcia MD - Last Filed: 06/01/25 18:32> Total Critical Care Time: 35 <Jessica Garcia MD - Last Filed: 06/01/25 18:32> Discharge Plan Discharge Clinical Impression: Pneumonia, Acute hypoxic respiratory failure, Acute bronchitis <Jessi Gaona PA-C - Last Filed: 06/01/25 14:57> Patient Disposition: Still a Patient <Jessi Gaona PA-C - Last Filed: 06/01/25 14:57> Condition: Stable <Jessi Gaona PA-C - Last Filed: 06/01/25 14:57> Patient Language: Omani <Jessi Gaona PA-C - Last Filed: 06/01/25 14:57> Prescriptions: No Action psyllium husk [Fiber (psyllium husk)] 0.4 gram capsule 2 g PO .5xd Qty: 750 5RF loratadine [Claritin] 10 mg tablet 10 mg PO DAILY Qty: 90 3RF cholecalciferol (vitamin D3) 50 mcg (2,000 unit) capsule 50 mcg PO DAILY Qty: 90 3RF Oxygen 4 LPM via NC q.h.s. .Route Patient Comments: increased 12/03/24 Rx Instructions: Oxygen 4 liters/minute via nasal cannula q.h.s. spironolactone 25 mg tablet 12.5 mg PO DAILY Patient Comments: Started November 2024 Rx Instructions: THOMPSON 911 Pets 3 billion cell capsule PO ketoconazole 2 % cream 1 applic topical BID Qty: 60 1RF Rx Instructions: apply to the scaly skin of the face / eyebrows diclofenac sodium [Arthritis Pain (diclofenac)] 1 % gel 2 g topical QID Qty: 50 0RF Rx Instructions: apply to the right elbow and forearm tramadol 50 mg tablet 50 mg PO Q6H PRN (Reason: pain) Qty: 15 0RF acetaminophen 500 mg capsule 1,000 mg PO .q8 PRN (Reason: fever or pain) Qty: 30 0RF trazodone 50 mg tablet 50 mg PO QHS PRN (Reason: insomnia) Qty: 90 0RF mupirocin [Centany] 2 % ointment 1 applic topical BID Qty: 15 0RF lisinopril 10 mg tablet 10 mg PO DAILY Qty: 90 0RF dicyclomine 10 mg capsule 10 mg PO BID PRN (Reason: abdominal pain) Qty: 180 0RF Eliquis 5 mg tablet 5 mg PO BID Qty: 60 0RF metoprolol succinate 25 mg tablet extended release 24 hr 25 mg PO DAILY Qty: 30 0RF oxybutynin chloride 5 mg tablet 5 mg PO DAILY Qty: 90 0RF guaifenesin 600 mg tablet extended release 12hr 600 mg PO Q12H PRN (Reason: congestion) Qty: 60 5RF mecobalamin (vitamin B12) 500 mcg tablet,chewable 1,000 mcg PO DAILY Qty: 180 1RF multivit with min-folic acid [One-A-Day Women's 50 Plus] 0.4 mg tablet 1 tablet PO DAILY Qty: 90 1RF furosemide 40 mg tablet 40 mg PO QAM Qty: 90 1RF Rx Instructions: Changed from 20 mg tablets to 40 mg tablets 12/10/2024 (patient was taking 2 20 mg tablets daily) pantoprazole 40 mg tablet,delayed release (DR/EC) 40 mg PO QAM Qty: 90 1RF Rx Instructions: separate from other medication, 30 mins before eating breakfast cefdinir 300 mg capsule 300 mg PO BID Qty: 20 0RF azithromycin 250 mg tablet See Rx Instructions PO .COMPLEX Qty: 6 0RF Rx Instructions: For 250 mg dose pack: take 500 mg today (day 1), then 250 mg for 4 days (days 2-5) PO Tussin DM 5-50 mg/5 mL liquid 10 ml PO Q4H PRN (Reason: cough) Qty: 236 0RF <Jessi Gaona PA-C - Last Filed: 06/01/25 14:57> Follow-up/Referrals: Elizabeth Davis PA-C [Primary Care Provider, Family Practice] <Jessi Gaona PA-C - Last Filed: 06/01/25 14:57>
--- NOTE | 2025-06-01 14:43 | ECG_ITS ---
Test Date: 2025-06-01 15:54:57 Measurements Intervals [place] Rate: 87 P: 0 ID: 0 QRS: -12 QRSD: 89 T: 16 QT: 334 QTc: 402 Interpretive Statements ATRIAL FIBRILLATION LOW QRS VOLTAGE IN PRECORDIAL LEADS BASELINE ARTIFACT- I, II, III, AVR, AVL, AVF, V3 ABNORMAL ECG No previous ECG available for comparison Electronically Signed On 06-01-2025 16:07:34 EXERCISER by Adi Jeff D.O.
[2025-06-01 16:12] LABS: Hematocrit 33.7 % (37.0-47.0); Hemoglobin 10.1 g/dL (12.0-15.0); Immature Granulocyte Percent A 0.4 % (0-0.5); Lymphocytes Absolute Auto 1.77 K/mm3 (0.9-3.2); Mean Corpuscular HGB Conc 30.0 g/dl (32-36); Mean Corpuscular Hemoglobin 27.8 pg (26-34); Mean Corpuscular Volume 92.8 fl (80-100); Nucleated Red Blood Cells Absolute Auto 0.000 K/mm3 (0.0-0.012); Nucleated Red Blood Cells Perc 0.0 % (0.0-0.2); Platelet Count Result 317 k/mm3 (150-375); Red Blood Count 3.63 M/mm3 (4.2-5.4); White Blood Count 9.2 K/mm3 (4.5-10.0)
[2025-06-01 16:22] LABS: Alanine Aminotransferase 23 U/L (6-35); Albumin Level 3.4 g/dL (3.5-5.1); Alkaline Phosphatase 86 U/L (38-126); Anion Gap 6 mmol/L (4-12); Aspartate Amino Transferase 26 U/L (14-36); Bilirubin,Total 0.6 mg/dL (0.2-1.3); Blood Urea Nitrogen 32 mg/dL (7-17); Calcium 8.6 mg/dL (8.4-10.2); Carbon Dioxide 26 mmol/L (22-30); Chloride 103 mmol/L (98-107); Estimated CRCL calculation 34 ml/min; Estimated Glomerular Filt Rate 35; Glucose 116 mg/dL (65-110); Magnesium 1.8 mg/dL (1.6-2.3); Potassium 4.7 mmol/L (3.4-5.0); Sodium 135 mmol/L (137-145); Total Protein 6.5 g/dL (6.3-8.2)
[2025-06-01] MEDS: ALBUTEROL SULFATE NEB 2.5 MG/3 ML INH 10 MG INHALATION (16:25)
[2025-06-01] MEDS: IPRATROPIUM BR 0.02% INH SOLN 0.5 MG/2.5 ML VIAL 1 MG INHALATION (16:25)
[2025-06-01 16:26] LABS: INR 1.4; Prothrombin Time 16.7 Seconds (11.1-14.7)
[2025-06-01 16:27] LABS: Partial Thromboplastin Time 28.7 Seconds (22.3-36.8)
[2025-06-01 16:37] LABS: NT Pro B Type Natriuretic Pept 2720 pg/mL (19.9-100); Troponin I 0.035 ng/mL (0.000-0.034)
[2025-06-01] MEDS: PSYLLIUM POWDER PACKET 1 PACKET PO (17:06)
[2025-06-01] MEDS: CEFEPIME 2 GM in SODIUM CHLORIDE 0.9% IV 50 ML 100 ML IVPB (17:15)
[2025-06-01 17:48] LABS: Influenza A QL RT-PCR Negative (Negative); Influenza B QL RT-PCR Negative (Negative); RSV RNA, RT-PCR Negative (Negative); SARS-CoV-2 RNA PCR Negative (Negative)
[2025-06-01] MEDS: AZITHROMYCIN IV 500 MG in SODIUM CHLORIDE 0.9% IV 250 ML IVPB (17:48)
[2025-06-01 18:20] LABS: MRSA (PCR) NOT DETECTED (NOT DETECTE)
[2025-06-01] MEDS: VANCOMYCIN 2,000 MG/NS 500 ML 2,000 MG/500 ML BAG 250 MG IVPB (19:13)
--- NOTE | 2025-06-01 19:40 | WPCEDHO ---
ED Hand Off Checklist All vitals saved: Y IV Site documented: Y All med administrations documented: Y Triage Note Triage Note patient had CXR done this 06/01/25 16:10 morning after c/o cough for month , STAFFING BRANCH MANAGER called patient and had her come to ED. RN agrees with this assessment. Pt has persistent cough. Allergies No Known Allergies Allergy (Verified 06/01/25 13:10) Family History (Last Reviewed 02/01/25 @ 13:03 by Daiana Moon, MARY ANN) Father Heart disease Mother Cancer Active Medications including assessments/comments Acetaminophen (Acetaminophen 500 Mg Tablet) 1,000 mg PO Q6H BAILEE Last Admin: 06/01/25 19:35 Dose: Not Given Documented By: DARREL Non-Admin Reason: Patient Refuses Vancomycin HCl (Vancomycin 2,000 Mg/Ns 500 Ml) 2,000 mg in 500 mls @ 250 mls/hr IVPB ONCE ONE Stop: 06/01/25 20:59 Last Admin: 06/01/25 19:13 Dose: 250 mls/hr Documented By: CHRISTA Infusion/Titration Document 06/01/25 19:13 CHRISTA (Rec: 06/01/25 19:14 Christine [id number]) Intake IV Site Peripheral Access Left Antecubital Container Volume 500 Waste Amount 0 Dosing Infusion Rate 250 Increase/Decrease Started Elapsed Time Elapsed Time ( 0m minutes) Administered/Completed Medications Discontinued Medications Albuterol (Albuterol Sulfate Neb 2.5 Mg/3 Ml Inh) 10 mg INHALATION ONCE STA Stop: 06/01/25 16:15 Last Admin: 06/01/25 16:25 Dose: 10 mg Documented By: RAN Cefepime HCl 2 gm/ Sodium (Chloride) 50 mls @ 100 mls/hr IVPB ONCE ONE Stop: 06/01/25 17:24 Last Infusion: 06/01/25 17:47 Dose: Infused Documented By: Admin: 06/01/25 17:15 Dose: 100 mls/hr Documented By: JUSTO Azithromycin 500 mg/ Sodium (Chloride) 250 mls @ 250 mls/hr IVPB ONCE ONE Stop: 06/01/25 18:59 Last Infusion: 06/01/25 18:38 Dose: Infused Documented By: Admin: 06/01/25 17:48 Dose: 250 mls/hr Documented By: CHRISTA Ipratropium [place] (Ipratropium Br 0.02% Inh Soln 0.5 Mg/2.5 Ml Vial) 1 mg INHALATION ONCE ONE Stop: 06/01/25 16:15 Last Admin: 06/01/25 16:25 Dose: 1 mg Documented By: RAN Methylprednisolone Sodium Succinate (Methylprednisolone Sod Succ 125 Mg Vial) 80 mg IV PUSH ONCE STA Stop: 06/01/25 16:15 Last Admin: 06/01/25 16:19 Dose: 80 mg Documented By: JUSTO Psyllium Hydrophilic Mucilloid (Psyllium Powder Packet) 1 packet PO ONCE STA Stop: 06/01/25 16:22 Last Admin: 06/01/25 17:06 Dose: 1 packet Documented By: CHRISTA Tramadol HCl (Tramadol Hcl (*Crx) 50 Mg Tablet) 50 mg PO ONCE ONE Stop: 06/01/25 18:56 Last Admin: 06/01/25 19:38 Dose: Not Given Documented By: DARREL Non-Admin Reason: Patient Refuses Interventions/Assessments IV / Saline Lock, Insert Start: 06/01/25 13:07 Freq: Status: Active Protocol: Document 06/01/25 17:15 LEV (Rec: 06/01/25 17:16 LEV [id number]) IV Assessment Peripheral Access Left Antecubital IV Catheter Access Initiated IV Insertion Date 06/01/25 IV Insertion Time 17:16 Catheter Gauge 20 IV Insertion 1 Attempts Ultrasound Used for No Placement IV Site Assessment WNL IV Care and WNL Maintenance PA: Respiratory Assessment Start: 06/01/25 13:07 Freq: Status: Active Protocol: Document 06/01/25 16:10 BHARATO (Rec: 06/01/25 16:11 MCO [id number]) Respiratory Assessment Symptoms Congestion,Cough,Difficulty Clearing Secretions, Shortness of Breath at Rest Effort Normal Bilateral Throughout Phase Inspiratory & Expiratory Lung Sounds Wheezes Cough Description Chronic,Hacking,Productive Cough Frequency Continuous,Persistent Sputum Amount Moderate Sputum Consistency Thick Oxygen Delivery Oxygen Delivery Room Air Pulse Oximetry (90- 90 100 %) Last Vital Signs Temperature 98.3 F 06/01/25 13:07 Pulse Rate 100 06/01/25 19:17 Respiratory Rate 20 06/01/25 19:17 Pulse Oximetry 95 06/01/25 19:17 Blood Pressure 135/85 06/01/25 19:17 Blood Pressure Mean 100 06/01/25 19:17 Blood Pressure Position Sitting 06/01/25 16:13 Oxygen Delivery Nasal Cannula 06/01/25 16:35 Oxygen Flow Rate 2 06/01/25 16:35 Weight 130 kg 06/01/25 16:10 Last Result - Abnormals Only RBC 3.63 M/mm3 (4.2-5.4) L 06/01/25 16:05 Hgb 10.1 g/dL (12.0-15.0) L 06/01/25 16:05 Hct 33.7 % (37.0-47.0) L 06/01/25 16:05 MCHC 30.0 g/dl (32-36) L 06/01/25 16:05 RDW 14.7 % (11.5-14.5) H 06/01/25 16:05 [place] % (Auto) 8.8 % (2.6-8.5) H 06/01/25 16:05 [place] # (Auto) 0.8 K/mm3 (0.1-0.6) H 06/01/25 16:05 Abs Immat Gran (auto) 0.04 K/mm3 (0.00-0.031) H 06/01/25 16:05 PT 16.7 Seconds (11.1-14.7) H 06/01/25 16:05 Sodium 135 mmol/L (137-145) L 06/01/25 16:05 BUN 32 mg/dL (7-17) H 06/01/25 16:05 Creatinine 1.44 mg/dL (0.7-1.0) H 06/01/25 16:05 Estimated GFR 35 (59-) L 06/01/25 16:05 Glucose 116 mg/dL (65-110) H 06/01/25 16:05 Troponin I 0.035 ng/mL (0.000-0.034) H* 06/01/25 16:05 NT-Pro-B Natriuret Pep 2720 pg/mL (19.9-100) H 06/01/25 16:05 Albumin 3.4 g/dL (3.5-5.1) L 06/01/25 16:05 Most Recent Suicide Severity Rating Suicide Severity Rating NO RISK INDICATED 06/01/25 16:10
[2025-06-01 20:17] LABS: Troponin I 0.033 ng/mL (0.000-0.034)
[2025-06-01] MEDS: DICYCLOMINE HCL 10 MG CAPSULE PO (20:47)
[2025-06-01] MEDS: guaiFENesin 12 HR 600 MG TABCR PO (20:47)
[2025-06-01] MEDS: IPRATROPIUM 0.5 MG/ALBUTEROL SULFATE 2.5 MG (BASE) AMPUL.NEB 3 ML INHALATION (20:50)
[2025-06-01 22:25] LABS: Troponin I 0.034 ng/mL (0.000-0.034)
[2025-06-02] VITALS (21 sets, daily range): BP systolic 98–127; BP diastolic 49–86; PULSE 81–106; RESP 15–22; TEMP 36.5–37.2; O2SAT 91–98
--- NOTE | 2025-06-02 00:20 | ADMGEN ---
This patient, Cesia Das, was admitted to IMU Room 214-01 on 06/01/2025 at 2009. Patient/family oriented to hospital policies and general routines including ID bracelet, bed and alarms, visiting hours, pain management, procedures, bathroom and other care routines, personal items, smoking policy, room service/diet, and visiting hours. Information on how to activate the Rapid Response Team has been discussed. Patient/Family are encouraged to report perceived risks to care and to ask questions if they do not understand what they are told or what they should do.
[2025-06-02] MEDS: IPRATROPIUM 0.5 MG/ALBUTEROL SULFATE 2.5 MG (BASE) AMPUL.NEB 3 ML INHALATION ×4 (01:50→21:13)
[2025-06-02 04:52] LABS: Estimated CRCL calculation 36 ml/min; Estimated Glomerular Filt Rate 36
[2025-06-02] MEDS: CEFEPIME 2 GM in SODIUM CHLORIDE 0.9% IV 50 ML 100 ML IVPB ×2 (05:28→18:14)
--- NOTE | 2025-06-02 06:09 | PM.IMHP2 ---
H&P: HPI History of Present Illness Date/Time: 06/02/25 06:09 Chief Complaint: Cough for 1 month Narrative: 84-year-old female with a past medical history of chronic nocturnal hypoxia on 5 L O2 with sleep, chronic bronchitis, diastolic heart failure, atrial fibrillation status post Watchman procedure 05/04/2025, irritable bowel syndrome with diarrhea, GERD, urge urinary incontinence, chronic kidney disease stage 3 among other comorbidities who presented to the ER via EMS from [facility] due to persistent cough for 1 month. The patient was treated for bronchitis with green to brown sputum production demonstrated with 10 days of doxycycline 04/16/2025. Her symptoms improved after that visit. She then followed up for repeat symptoms 05/18/2025 and received antibiotics with cefdinir and azithromycin. She reported that initially her symptoms had improved but over the last couple weeks she has continued to have a intractable cough. She reports that the cough is just miserable despite taking often isn't She denies any known history of asthma or chronic bronchitis but according to her primary care provider's documentation patient does have chronic bronchitis.. The patient states that her sputum production is usually clear but she will occasionally have some brown sputum production. She was having some blood streak a sputum a few weeks ago but this is resolved since she took the antibiotics. She denies any chest pain. She reports that she has become progressively weaker and has had absolutely no energy as time has progressed. She denies any increased lower extremity swelling and denies any chest pain. Nursing staff reports that the patient has not urinated all high an on bladder scan this morning patient's bladder had approximately 340 mL of urine. Patient states that she is not ready to use the restroom yet. She denies any recent dysuria or symptoms of incomplete bladder emptying. Review of Systems Review of Systems: 12 systems were reviewed with pertinent positives and negatives per HPI. Except as documented in the HPI, all other systems were reviewed and are negative. 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 [facility] Past Medical History Medical History (Updated 06/02/25 @ 08:54 by Tresa Trejo DO) Mild pulmonary hypertension Vitamin B12 deficiency Obstructive sleep apnea 5 L nasal cannula oxygen Rosacea (HFpEF) heart failure with preserved ejection fraction Atrial fibrillation/flutter Chronic kidney disease Thyroid nodule Fecal incontinence Thyroid nodule greater than or equal to 1 cm in diameter incidentally noted on imaging study 2.5 cm right lobe, noted on CTA chest August 2024 Nocturnal hypoxia Lower extremity weakness Ambulates with cane Insomnia Screening for breast cancer Hearing loss Pre-diabetes Depressive disorder Vitamin D deficiency Hypertension Surgical History Surgical History (Updated 06/02/25 @ 08:40 by Tresa Trejo DO) History of cochlear implant (2019) History of replacement of both shoulder joints History of total right knee replacement Hx of cholecystectomy Family History Family History Father Heart disease Diabetes mellitus Mother Cancer Diabetes mellitus Social History Social History (Updated 06/02/25 @ 08:42 by Tresa Trejo DO) Social History: The patient lives at [facility]. Code status: DNR/DNI Surrogate decision maker: Gucci Reynoso (son) Smoking status: Never smoker Second hand tobacco smoke exposure: No Alcohol intake: never Substance use: never Lack of Transportation: No Lack of Food: Never True Current Housing: I Have Housing Concerned About Future Housing: No Difficulty Paying Gas/Electric Bills: No Difficulty Paying for Meds: No Currently Unemployed: No Education: Decline to Answer Difficulty w/ Childcare or Family Care: No Living arrangements: alone Occupation/Education: retired Spiritual care concerns: No Agree to blood products: Yes Meds Home Medications and Allergies Home Medications ?Medication ?Instructions ?Recorded ?Confirmed ?Type trazodone 50 mg tablet 50 mg PO QHS PRN insomnia #90 tabs 07/07/24 06/01/25 Rx cholecalciferol (vitamin D3) 50 50 mcg PO DAILY #90 caps 10/14/24 06/01/25 Rx mcg (2,000 unit) capsule loratadine 10 mg tablet (Claritin) 10 mg PO DAILY #90 tabs 10/14/24 06/01/25 Rx apixaban 5 mg tablet (Eliquis) 5 mg PO BID #60 tabs 11/17/24 06/01/25 Rx dicyclomine 10 mg capsule 10 mg PO BID PRN abdominal pain 11/17/24 06/01/25 Rx #180 caps lisinopril 10 mg tablet 10 mg PO DAILY #90 tabs 11/17/24 06/01/25 Rx metoprolol succinate 25 mg 25 mg PO DAILY #30 tabs 11/17/24 06/01/25 Rx tablet,extended release 24 hr mupirocin 2 % topical ointment 1 applic topical BID #15 grams 11/17/24 06/01/25 Rx (Centany) oxybutynin chloride 5 mg tablet 5 mg PO DAILY #90 tabs 11/17/24 06/01/25 Rx spironolactone 25 mg tablet 12.5 mg PO DAILY 12/10/24 06/01/25 History guaifenesin 600 mg tablet, 600 mg PO Q12H PRN congestion #60 12/28/24 06/01/25 Rx extended release 12 hr tabs mecobalamin (vitamin B12) 500 mcg 1,000 mcg (2 x 500 mcg) PO DAILY 02/05/25 06/01/25 Rx chewable tablet #180 tabs multivitamin with minerals-folic 1 tablet PO DAILY #90 tabs 02/05/25 06/01/25 Rx acid 0.4 mg tablet (One-A-Day Women's 50 Plus) Lactobacillus rhamnosus-Bifidobac. 1 cap PO DAILY 04/08/25 06/01/25 History animalis 3 billion cell capsule ([employer]) diclofenac sodium 1 % topical gel 2 g topical QID #50 grams 04/16/25 06/01/25 Rx (Arthritis Pain (diclofenac)) ketoconazole 2 % topical cream 1 applic topical BID #60 grams 04/16/25 06/01/25 Rx pantoprazole 40 mg tablet,delayed 40 mg PO QAM #90 tabs 05/13/25 06/01/25 Rx release acetaminophen 500 mg capsule 1,000 mg PO .Q8 PRN fever or pain 06/01/25 06/01/25 History furosemide 40 mg tablet 40 mg PO QAM 06/01/25 06/01/25 History psyllium husk 0.4 gram capsule 0.4 g PO .5xd 06/01/25 06/01/25 History (Reguloid (psyllium husk)) Allergies Allergy/AdvReac Type Severity Reaction Status Date / Time No Known Allergies Allergy Verified 06/01/25 20:21 Vital Signs Vital Signs - 24 hr 06/01/25 13:07 06/01/25 16:10 06/01/25 16:13 Temperature 98.3 F Pulse Rate 95 91 Respiratory Rate 20 23 H Blood Pressure 104/52 L 121/66 Pulse Oximetry 90 90 95 Oxygen Delivery Room Air Room Air Oxygen Flow Rate 06/01/25 16:35 06/01/25 18:45 06/01/25 19:01 Temperature Pulse Rate 99 97 Respiratory Rate 15 18 Blood Pressure 107/78 113/75 Pulse Oximetry 94 90 90 Oxygen Delivery Nasal Cannula Oxygen Flow Rate 2 06/01/25 19:17 06/01/25 20:29 06/01/25 20:51 Temperature 97.8 F Pulse Rate 100 100 96 Respiratory Rate 20 20 20 Blood Pressure 135/85 128/81 Pulse Oximetry 95 92 Oxygen Delivery Oxygen Flow Rate 06/01/25 20:56 06/01/25 21:01 06/01/25 22:00 Temperature Pulse Rate 100 104 H Respiratory Rate 20 Blood Pressure Pulse Oximetry 94 Oxygen Delivery Nasal Cannula Oxygen Flow Rate 3 06/02/25 00:00 06/02/25 00:00 06/02/25 01:50 Temperature 98.0 F Pulse Rate 97 102 H 96 Respiratory Rate 22 H 20 Blood Pressure 99/60 L Pulse Oximetry 92 Oxygen Delivery Oxygen Flow Rate 06/02/25 02:00 06/02/25 02:02 06/02/25 04:00 Temperature Pulse Rate 101 H 92 96 Respiratory Rate 20 Blood Pressure Pulse Oximetry Oxygen Delivery Oxygen Flow Rate 06/02/25 04:07 Temperature 97.7 F Pulse Rate 94 Respiratory Rate 15 Blood Pressure 104/57 L Pulse Oximetry 92 Oxygen Delivery Oxygen Flow Rate Exam Narrative: Weight 134.2 kg BMI 50.8 Const: Other: Mildly ill-appearing, obese HENMT: Other: Mucous membranes are tacky, crowded posterior oropharynx head is normocephalic atraumatic Eyes: Other: Positive conjunctival pallor, no scleral icterus, pupils are equal and reactive, bilateral lens implants noted Neck: Other: No JVD, large neck circumference Resp: Other: Mild tachypnea, end-expiratory wheezing anterior lung cali, no accessory muscle use Cardio: Other: Irregularly irregular, 2+ bilateral radial pedal pulses, no JVD, no murmur GI: Other: Obese, soft, nontender, normoactive bowel sounds Skin: Other: Generalized pallor, non jaundice Neuro: Other: Alert oriented, speech is clear, no facial asymmetry, hard of hearing Extrem: Other: Trace edema bilateral lower extremities, generalized weakness all extremities Psych: Other: Mildly anxious, otherwise pleasant and cooperative Results Labs Labs: Laboratory Tests 06/01/25 16:05 06/02/25 04:31 06/01/25 06/01/25 06/01/25 16:05 17:03 19:49 WBC 9.2 RBC 3.63 L Hgb 10.1 L Hct 33.7 L MCV 92.8 MCH 27.8 MCHC 30.0 L RDW 14.7 H Plt Count 317 MPV 9.2 Immature Gran % (Auto) 0.4 Neut % (Auto) 67.6 Lymph % (Auto) 19.3 [place] % (Auto) 8.8 H Eos % (Auto) 3.0 Baso % (Auto) 0.9 Lymph # (Auto) 1.77 [place] # (Auto) 0.8 H Eos # (Auto) 0.3 Baso # (Auto) 0.1 Abs Immat Gran (auto) 0.04 H Absolute Neuts (auto) 6.2 Absolute Nucleated RBC 0.000 Nucleated RBC % 0.0 PT 16.7 H INR 1.4 APTT 28.7 Sodium 135 L Potassium 4.7 Chloride 103 Carbon Dioxide 26 Anion Gap 6 BUN 32 H Creatinine 1.44 H Estim Creat Clear Calc 34 Estimated GFR 35 L Glucose 116 H Lactic Acid 1.4 Calcium 8.6 Magnesium 1.8 Total Bilirubin 0.6 AST 26 ALT 23 Alkaline Phosphatase 86 Troponin I 0.035 H* 0.033 NT-Pro-B Natriuret Pep 2720 H Total Protein 6.5 Albumin 3.4 L Nasal MRSA (PCR) Not detected Influenza A (RT-PCR) Negative Influenza B (RT-PCR) Negative RSV (RT-PCR) Negative SARS-CoV-2 RNA (RT-PCR) Negative 06/01/25 06/02/25 21:55 04:31 WBC RBC Hgb Hct MCV MCH MCHC RDW Plt Count MPV Immature Gran % (Auto) Neut % (Auto) Lymph % (Auto) [place] % (Auto) Eos % (Auto) Baso % (Auto) Lymph # (Auto) [place] # (Auto) Eos # (Auto) Baso # (Auto) Abs Immat Gran (auto) Absolute Neuts (auto) Absolute Nucleated RBC Nucleated RBC % PT INR APTT Sodium Potassium Chloride Carbon Dioxide Anion Gap BUN Creatinine 1.40 H Estim Creat Clear Calc 36 Estimated GFR 36 L Glucose Lactic Acid Calcium Magnesium Total Bilirubin AST ALT Alkaline Phosphatase Troponin I 0.034 NT-Pro-B Natriuret Pep Total Protein Albumin Nasal MRSA (PCR) Influenza A (RT-PCR) Influenza B (RT-PCR) RSV (RT-PCR) SARS-CoV-2 RNA (RT-PCR) Impressions Chest X-Ray 06/01/25 13:57 IMPRESSION: 1. Mild bibasilar atelectasis and/or residual airspace disease from 2 weeks prior. Test Date: 2025-06-01 17:36:14 Measurements Intervals [place] Rate: 75 P: 12 OK: 226 QRS: -51 QRSD: 188 T: 87 QT: 474 QTc: 531 Interpretive Statements ATRIAL SENSE- ELECTRONIC VENTRICULAR PACEMAKER BASELINE ARTIFACT- I, II, III, AVR, AVL, AVF NO FURTHER INTERPRETATION IS POSSIBLE ATYPICAL ECG Compared to ECG 08/15/2024 23:33:39 HEAR RATE HAS DECREASED Quality VTE Prophylaxis VTE prophylaxis: pharmacologic ordered (Continue home Eliquis) Assessment and Plan Assessment and plan (1) Acute bronchitis: Qualifiers: Bronchitis organism: unspecified organism Qualified Code(s): J20.9 - Acute bronchitis, unspecified Code(s): J20.9 - Acute bronchitis, unspecified Status: Acute (2) Acute hypoxic respiratory failure: Code(s): J96.01 - Acute respiratory failure with hypoxia Status: Acute (3) CKD stage 3b, GFR 30-44 ml/min: Code(s): N18.32 - Chronic kidney disease, stage 3b Status: Acute (4) Chronic diarrhea: Code(s): K52.9 - Noninfective gastroenteritis and colitis, unspecified Status: Acute Plan Given the patient does not have a white count and x-ray appears similar to prior x-ray from 2 weeks ago x-ray findings could be simply due to delayed appearance of resolution of pneumonia. Given the patient's normal white count and the fact that she is wheezing I lean more towards the fact that the patient likely has an acute on chronic exacerbation of bronchitis. The patient coughing has improved since admission the hospital and being started on Solu-Medrol in the ER and subsequently transition to prednisone this a.m.. Although she does not report much improvement in symptoms of shortness of breath her with nebulizer treatments her cough has certainly improved with nebulizer treatments. Repeat I suspected recurrence of pneumonia is less likely although patient has been started on cefepime and azithromycin in the ER. Will discontinue vancomycin since the patient's MRSA swab was negative. Will send urine for Legionella and pneumococcal antigen. Viral PCR was negative for COVID flu and RSV. Will continue supplemental oxygen will wean oxygen during daytime hours as needed and continue oxygen at night per patient's home regimen the patient is adamant that she remain on the same bowel regimen that she is on at home but we do not have the Metamucil tablets that she takes at home. I subsequently ordered FiberCon and Metamucil powder. Will continue home dicyclomine. Patient does have chronic kidney disease stage 3 but creatinine is stable. Will repeat electrolyte panel in a.m.. Repeat electrolyte panel was performed and returned prior to me finishing documentation and demonstrated acute mild hyperkalemia. Will stop the patient's home spironolactone but continue home Lasix. Will also continue Eliquis. Patient has had a Watchman procedure but she is still in the time frame where she needs to continue Eliquis until follow-up with Cardiovascular surgery. A patient's initial troponin was minimally elevated and troponin profile is been completely flat no evidence of acute cardiac injury or ischemia. Will transfer patient to medical floor without telemetry. . Patient has been admitted as observation status. Hospitalist MIPS Advance Care Plan I have confirmed that the patient's Advanced Care Plan is present, code status is documented, or surrogate decision maker is listed in patient medical record.: Yes Medication Reconciliation I have utilized all available resources to obtain, update and review the patients current medications (includes all prescriptions, OTC, herbals, cannabis, and nutritional supplements).: Yes
[2025-06-02 06:37] LABS: Hematocrit 33.1 % (37.0-47.0); Hemoglobin 9.8 g/dL (12.0-15.0); Immature Granulocyte Percent A 0.7 % (0-0.5); Lymphocytes Absolute Auto 0.69 K/mm3 (0.9-3.2); Mean Corpuscular HGB Conc 29.6 g/dl (32-36); Mean Corpuscular Hemoglobin 27.8 pg (26-34); Mean Corpuscular Volume 93.8 fl (80-100); Nucleated Red Blood Cells Absolute Auto 0.000 K/mm3 (0.0-0.012); Nucleated Red Blood Cells Perc 0.0 % (0.0-0.2); Platelet Count Result 306 k/mm3 (150-375); Red Blood Count 3.53 M/mm3 (4.2-5.4); White Blood Count 8.4 K/mm3 (4.5-10.0)
--- NOTE | 2025-06-02 06:51 | PC.NURSE ---
Pt bladder scanned after voiding 50ml over night, bladder scan of 336ml in the bladder, provider bedside at the time of bladder scan and did not want any interventions at this time.
[2025-06-02 06:56] LABS: Anion Gap 6 mmol/L (4-12); Blood Urea Nitrogen 33 mg/dL (7-17); Calcium 8.7 mg/dL (8.4-10.2); Carbon Dioxide 25 mmol/L (22-30); Chloride 104 mmol/L (98-107); Estimated CRCL calculation 37 ml/min; Estimated Glomerular Filt Rate 37; Glucose 217 mg/dL (65-110); Magnesium 1.8 mg/dL (1.6-2.3); Potassium 5.6 mmol/L (3.4-5.0); Sodium 135 mmol/L (137-145)
[2025-06-02 07:01] LABS: Hypochromasia 1+; Schistocytes None Seen
[2025-06-02] MEDS: CHOLECALCIFEROL (VITAMIN D3) 25 MCG (1,000 UNITS) TABLET 50 MCG PO (08:58)
[2025-06-02] MEDS: PSYLLIUM POWDER PACKET 1 PACKET BY MOUTH (08:58)
[2025-06-02] MEDS: METOPROLOL SUCCINATE EXT REL 25 MG TABCR PO (08:59)
[2025-06-02] MEDS: THERAPEUTIC MULTIVITAMINS/MINERALS TAB (*BKC) 1 TABLET PO (09:00)
[2025-06-02] MEDS: guaiFENesin 12 HR 600 MG TABCR PO ×2 (09:00→21:45)
[2025-06-02] MEDS: LORATADINE 10 MG TABLET PO (09:00)
[2025-06-02] MEDS: CYANOCOBALAMIN 1,000 MCG TABLET 1000 MCG PO (09:00)
[2025-06-02] MEDS: FUROSEMIDE 40 MG TABLET PO (09:01)
[2025-06-02] MEDS: PANTOPRAZOLE 40 MG TABLET PO (09:01)
[2025-06-02] MEDS: APIXABAN 5 MG TABLET PO ×2 (09:01→21:45)
[2025-06-02] MEDS: DICLOFENAC SODIUM 1% 100 GM GEL (*BKC) 1 APPLIC TOPICAL (09:02)
--- NOTE | 2025-06-02 17:40 | PC.NURSE ---
Received from [facility] 214/ via bed.
--- NOTE | 2025-06-02 17:49 | PC.NURSE ---
Patient transferred to room 255 via bed. Alert and oriented. Personal belongings sent at bedside. Denies questions or concerns at this time. Remains on 2L/NC and purewick intact. No acute distress noted at this time. RN denies further questions regarding reports.
[2025-06-02] MEDS: AZITHROMYCIN IV 500 MG in SODIUM CHLORIDE 0.9% IV 250 ML IVPB (18:27)
--- NOTE | 2025-06-02 18:42 | P.PNIM_ITS ---
Assessment and Plan Assessment and Plan (1) Acute bronchitis: Qualifiers: Bronchitis organism: unspecified organism Qualified Code(s): J20.9 - Acute bronchitis, unspecified Code(s): J20.9 - Acute bronchitis, unspecified Status: Acute (2) Acute hypoxic respiratory failure: Code(s): J96.01 - Acute respiratory failure with hypoxia Status: Acute (3) CKD stage 3b, GFR 30-44 ml/min: Code(s): N18.32 - Chronic kidney disease, stage 3b Status: Acute (4) Chronic diarrhea: Code(s): K52.9 - Noninfective gastroenteritis and colitis, unspecified Status: Acute Plan patient presented with cough, and chest x-ray showing most likely has residual airspace disease from 2 weeks prior and patient was treated with cefdinir and Zithromax which did improve her symptoms, but the cough is persisting patient is being treated with Cefepime and Zithromax, will monitor and plan. will PT/OT evaluate the patient. Given the patient does not have a white count and x-ray appears similar to prior x-ray from 2 weeks ago x-ray findings could be simply due to delayed appearance of resolution of pneumonia. Given the patient's normal white count and the fact that she is wheezing I lean more towards the fact that the patient likely has an acute on chronic exacerbation of bronchitis. The patient coughing has improved since admission the hospital and being started on Solu-Medrol in the ER and subsequently transition to prednisone this a.m.. Although she does not report much improvement in symptoms of shortness of breath her with nebulizer treatments her cough has certainly improved with nebulizer treatments. Repeat I suspected recurrence of pneumonia is less likely although patient has been started on cefepime and azithromycin in the ER. Will discontinue vancomycin since the patient's MRSA swab was negative. Will send urine for Legionella and pneumococcal antigen. Viral PCR was negative for COVID flu and RSV. Will continue supplemental oxygen will wean oxygen during daytime hours as needed and continue oxygen at night per patient's home regimen the patient is adamant that she remain on the same bowel regimen that she is on at home but we do not have the Metamucil tablets that she takes at home. I subsequently ordered FiberCon and Metamucil powder. Will continue home dicyclomine. Patient does have chronic kidney disease stage 3 but creatinine is stable. Will repeat electrolyte panel in a.m.. Repeat electrolyte panel was performed and returned prior to me finishing documentation and demonstrated acute mild hyperkalemia. Will stop the patient's home spironolactone but continue home Lasix. Will also continue Eliquis. Patient has had a Watchman procedure but she is still in the time frame where she needs to continue Eliquis until follow-up with Cardiovascular surgery. A patient's initial troponin was minimally elevated and troponin profile is been completely flat no evidence of acute cardiac injury or ischemia. Will transfer patient to medical floor without telemetry. . Patient has been admitted as observation status. Subjective Date/time seen: 06/02/25 18:42 Interval history: Cough for 1 month H&P-Narrative: 84-year-old female with a past medical history of chronic nocturnal hypoxia on 5 L O2 with sleep, chronic bronchitis, diastolic heart failure, atrial fibrillation status post Watchman procedure 05/04/2025, irritable bowel syndrome with diarrhea, GERD, urge urinary incontinence, chronic kidney disease stage 3 among other comorbidities who presented to the ER via EMS from [facility] due to persistent cough for 1 month. The patient was treated for bronchitis with green to brown sputum production demonstrated with 10 days of doxycycline 04/16/2025. Her symptoms improved after that visit. She then followed up for repeat symptoms 05/18/2025 and received antibiotics with cefdinir and azithromycin. She reported that initially her symptoms had im proved but over the last couple weeks she has continued to have a intractable cough. She reports that the cough is just miserable despite taking often isn't She denies any known history of asthma or chronic bronchitis but according to her primary care provider's documentation patient does have chronic bronchitis.. The patient states that her sputum production is usually clear but she will occasionally have some brown sputum production. She was having some blood streak a sputum a few weeks ago but this is resolved since she took the antibiotics. She denies any chest pain. She reports that she has become progressively weaker and has had absolutely no energy as time has progressed. She denies any increased lower extremity swelling and denies any chest pain. Nursing staff reports that the patient has not urinated all high an on bladder scan this morning patient's bladder had approximately 340 mL of urine. Patient states that she is not ready to use the restroom yet. She denies any recent dysuria or symptoms of incomplete bladder emptying. patient presented with cough, and chest x-ray showing most likely has residual airspace disease from 2 weeks prior and patient was treated with cefdinir and Zithromax which did improve her symptoms, but the cough is persisting patient is being treated with Cefepime and Zithromax, will monitor and plan. will PT/OT evaluate the patient. Review of Systems Review of Systems: 12 systems were reviewed with pertinent positives and negatives per HPI. Except as documented in the HPI, all other systems were reviewed and are negative. 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 Exam Narrative: Morbidly obese Patient is comfortable, NAD HEENT: eyes are clear and none icteric LUNGS:CTA HEART: RR S1S2 ABD: BS+, Soft and nontender Lower extremities: no edema SKIN: nonjaundiced Neuro: grossly intact. Objective Data Vital Signs Vital Signs: Vital Signs - 24 hr 06/01/25 18:45 06/01/25 19:01 06/01/25 19:17 Temperature Pulse Rate 99 97 100 Respiratory Rate 15 18 20 Blood Pressure 107/78 113/75 135/85 Pulse Oximetry 90 90 95 Oxygen Delivery Oxygen Flow Rate 06/01/25 20:29 06/01/25 20:51 06/01/25 20:56 Temperature 36.6 C Pulse Rate 100 96 Respiratory Rate 20 20 Blood Pressure 128/81 Pulse Oximetry 92 94 Oxygen Delivery Nasal Cannula Oxygen Flow Rate 3 06/01/25 21:01 06/01/25 22:00 06/02/25 00:00 Temperature 36.7 C Pulse Rate 100 104 H 97 Respiratory Rate 20 22 H Blood Pressure 99/60 L Pulse Oximetry 92 Oxygen Delivery Oxygen Flow Rate 06/02/25 00:00 06/02/25 01:50 06/02/25 02:00 Temperature Pulse Rate 102 H 96 101 H Respiratory Rate 20 Blood Pressure Pulse Oximetry Oxygen Delivery Oxygen Flow Rate 06/02/25 02:02 06/02/25 04:00 06/02/25 04:07 Temperature 36.5 C Pulse Rate 92 96 94 Respiratory Rate 20 15 Blood Pressure 104/57 L Pulse Oximetry 92 Oxygen Delivery Oxygen Flow Rate 06/02/25 06:00 06/02/25 07:48 06/02/25 08:00 Temperature Pulse Rate 95 99 Respiratory Rate 22 H Blood Pressure Pulse Oximetry 91 93 Oxygen Delivery Nasal Cannula Nasal Cannula Oxygen Flow Rate 2 2 06/02/25 08:00 06/02/25 08:04 06/02/25 08:59 Temperature 37.2 C Pulse Rate 99 106 H 99 Respiratory Rate 22 H Blood Pressure 114/75 Pulse Oximetry 93 Oxygen Delivery Oxygen Flow Rate 06/02/25 10:00 06/02/25 12:00 06/02/25 13:37 Temperature Pulse Rate 88 92 81 Respiratory Rate 20 Blood Pressure Pulse Oximetry Oxygen Delivery Oxygen Flow Rate 06/02/25 13:44 06/02/25 15:36 06/02/25 17:40 Temperature 36.7 C 36.5 C Pulse Rate 95 92 98 Respiratory Rate 20 22 H 18 Blood Pressure 98/49 L 111/86 Pulse Oximetry 98 94 Oxygen Delivery Oxygen Flow Rate Intake/Output Intake/Output: Intake & Output 05/30/25 05/31/25 06/01/25 06/02/25 23:59 23:59 23:59 23:59 Intake Total 300 730 Output Total 450 Balance 300 280 Meds/Results Medications: Active Medications Generic Name Dose Route Start Last Admin Trade Name Freq PRN Reason Stop Dose Admin Acetaminophen 1,000 mg 06/01/25 19:00 06/02/25 18:23 Acetaminophen 500 Mg Tablet PO Not Given Q6H BAILEE Albuterol/Ipratropium 3 ml 06/01/25 20:00 06/02/25 13:37 Ipratropium 0.5 Mg/Albuterol Sulfate 2.5 Mg (Base) Ampul.Neb 3 Ml INHALATION 3 ml Q6HRT BAILEE Administration Albuterol/Ipratropium 3 ml 06/02/25 20:00 Ipratropium 0.5 Mg/Albuterol Sulfate 2.5 Mg (Base) Ampul.Neb 3 Ml INHALATION Q6HRT BAILEE Apixaban 5 mg 06/02/25 09:00 06/02/25 09:01 Apixaban 5 Mg Tablet PO 5 mg Q12HR BAILEE Administration Calcium Polycarbophil 1,250 mg 06/02/25 09:00 06/02/25 17:28 Calcium Polycarbophil 625 Mg Tablet PO 1,250 mg BID BAILEE Administration Cyanocobalamin 1,000 mcg 06/02/25 09:00 06/02/25 09:00 Cyanocobalamin 1,000 Mcg Tablet PO 1,000 mcg QAM BAILEE Administration Diclofenac Sodium 1 applic 06/02/25 09:00 06/02/25 17:25 Diclofenac Sodium 1% 100 Gm Gel (*Bkc) TOPICAL Not Given QID BAILEE Dicyclomine HCl 10 mg 06/02/25 06:12 Dicyclomine Hcl 10 Mg Capsule PO BID PRN abdominal pain Furosemide 40 mg 06/02/25 09:00 06/02/25 09:01 Furosemide 40 Mg Tablet PO 40 mg QAM BAILEE Administration Guaifenesin 600 mg 06/02/25 09:00 06/02/25 09:00 Guaifenesin 12 Hr 600 Mg Tabcr PO 600 mg Q12HR BAILEE Administration Cefepime HCl 2 gm/ Sodium 50 mls @ 100 mls/hr 06/02/25 06:00 06/02/25 18:14 Chloride IVPB 100 mls/hr Q12H BAILEE Administration Azithromycin 500 mg/ Sodium 250 mls @ 250 mls/hr 06/02/25 18:00 06/02/25 18:27 Chloride IVPB 06/05/25 18:59 250 mls/hr Q24H BAILEE Administration Lisinopril 10 mg 06/02/25 09:00 06/02/25 09:01 Lisinopril 10 Mg Tablet PO 10 mg DAILY BAILEE Administration Loratadine 10 mg 06/02/25 09:00 06/02/25 09:00 Loratadine 10 Mg Tablet PO 10 mg DAILY BAILEE Administration Metoprolol Succinate 25 mg 06/02/25 09:00 06/02/25 08:59 Metoprolol Succinate Ext Rel 25 Mg Tabcr PO 25 mg DAILY BAILEE Administration Multivitamins/Calcium 1 tablet 06/02/25 09:00 06/02/25 09:00 Therapeutic Multivitamins/Minerals Tab (*Bkc) PO 1 tablet DAILY BAILEE Administration Oxybutynin Chloride 5 mg 06/02/25 09:00 06/02/25 09:00 Oxybutynin Chloride 5 Mg Tablet PO 5 mg DAILY BAILEE Administration Pantoprazole Sodium 40 mg 06/02/25 09:00 06/02/25 09:01 Pantoprazole 40 Mg Tablet PO 40 mg QAM BAILEE Administration Prednisone 40 mg 06/02/25 08:00 06/02/25 09:00 Prednisone 20 Mg Tablet PO 06/06/25 08:01 40 mg DAILY@0800 BAILEE Administration Psyllium Hydrophilic Mucilloid 1 packet 06/02/25 09:00 06/02/25 08:58 Psyllium Powder Packet BY MOUTH 1 packet DAILY BAILEE Administration Trazodone HCl 50 mg 06/02/25 06:12 Trazodone Hcl 50 Mg Tablet PO QHS PRN Insomnia Vitamin D 50 mcg 06/02/25 09:00 06/02/25 08:58 Cholecalciferol (Vitamin D3) 25 Mcg (1,000 Units) Tablet PO 50 mcg DAILY BAILEE Administration Radiology Results: ITS Impressions Chest X-Ray 06/01/25 13:57 IMPRESSION: 1. Mild bibasilar atelectasis and/or residual airspace disease from 2 weeks prior. Labs Labs: Laboratory Results - last 24 hr 06/01/25 06/01/25 06/02/25 19:49 21:55 04:31 WBC 8.4 RBC 3.53 L Hgb 9.8 L Hct 33.1 L MCV 93.8 MCH 27.8 MCHC 29.6 L RDW 15.0 H Plt Count 306 MPV 9.7 Immature Gran % (Auto) 0.7 H Neut % (Auto) 89.7 H Lymph % (Auto) 8.3 L [place] % (Auto) 1.2 L Eos % (Auto) 0.0 Baso % (Auto) 0.1 L Lymph # (Auto) 0.69 L [place] # (Auto) 0.1 Eos # (Auto) 0.0 Baso # (Auto) 0.0 Abs Immat Gran (auto) 0.06 H Absolute Neuts (auto) 7.5 H Absolute Nucleated RBC 0.000 Band Neutrophils % Not Reportable Nucleated RBC % 0.0 Platelet Estimate Adequate Hypochromasia 1+ Schistocytes None seen Sodium 135 L Potassium 5.6 H Chloride 104 Carbon Dioxide 25 Anion Gap 6 BUN 33 H Creatinine 1.40 H Estim Creat Clear Calc Estimated GFR Glucose Calcium Magnesium Troponin I 0.033 0.034 Random Vancomycin 06/02/25 06/02/25 06/02/25 04:31 04:31 04:31 WBC RBC Hgb Hct MCV MCH MCHC RDW Plt Count MPV Immature Gran % (Auto) Neut % (Auto) Lymph % (Auto) [place] % (Auto) Eos % (Auto) Baso % (Auto) Lymph # (Auto) [place] # (Auto) Eos # (Auto) Baso # (Auto) Abs Immat Gran (auto) Absolute Neuts (auto) Absolute Nucleated RBC Band Neutrophils % Nucleated RBC % Platelet Estimate Hypochromasia Schistocytes Sodium Potassium Chloride Carbon Dioxide Anion Gap BUN Creatinine 1.37 H Estim Creat Clear Calc 36 37 Estimated GFR 36 L 37 L Glucose 217 H Calcium 8.7 Magnesium 1.8 Troponin I Random Vancomycin 06/02/25 11:51 WBC RBC Hgb Hct MCV MCH MCHC RDW Plt Count MPV Immature Gran % (Auto) Neut % (Auto) Lymph % (Auto) [place] % (Auto) Eos % (Auto) Baso % (Auto) Lymph # (Auto) [place] # (Auto) Eos # (Auto) Baso # (Auto) Abs Immat Gran (auto) Absolute Neuts (auto) Absolute Nucleated RBC Band Neutrophils % Nucleated RBC % Platelet Estimate Hypochromasia Schistocytes Sodium Potassium Chloride Carbon Dioxide Anion Gap BUN Creatinine Estim Creat Clear Calc Estimated GFR Glucose Calcium Magnesium Troponin I Random Vancomycin 9.7 L Quality VTE Prophylaxis VTE prophylaxis: pharmacologic ordered (Continue home Eliquis)
[2025-06-03] VITALS (13 sets, daily range): BP systolic 97–108; BP diastolic 54–57; PULSE 78–102; RESP 15–20; TEMP 36.6–36.8; O2SAT 93–97
[2025-06-03] MEDS: IPRATROPIUM 0.5 MG/ALBUTEROL SULFATE 2.5 MG (BASE) AMPUL.NEB 3 ML INHALATION ×4 (02:02→20:22)
[2025-06-03 05:27] LABS: Hematocrit 31.5 % (37.0-47.0); Hemoglobin 9.2 g/dL (12.0-15.0); Mean Corpuscular HGB Conc 29.2 g/dl (32-36); Mean Corpuscular Hemoglobin 27.3 pg (26-34); Mean Corpuscular Volume 93.5 fl (80-100); Platelet Count Result 297 k/mm3 (150-375); Red Blood Count 3.37 M/mm3 (4.2-5.4); White Blood Count 10.1 K/mm3 (4.5-10.0)
[2025-06-03 05:43] LABS: Anion Gap 3 mmol/L (4-12); Blood Urea Nitrogen 38 mg/dL (7-17); Calcium 8.6 mg/dL (8.4-10.2); Carbon Dioxide 29 mmol/L (22-30); Chloride 104 mmol/L (98-107); Estimated CRCL calculation 35 ml/min; Estimated Glomerular Filt Rate 35; Glucose 128 mg/dL (65-110); Potassium 4.8 mmol/L (3.4-5.0); Sodium 136 mmol/L (137-145)
[2025-06-03] MEDS: CEFEPIME 2 GM in SODIUM CHLORIDE 0.9% IV 50 ML 100 ML IVPB ×2 (05:50→17:34)
[2025-06-03] MEDS: guaiFENesin 12 HR 600 MG TABCR PO ×2 (08:27→20:34)
[2025-06-03] MEDS: THERAPEUTIC MULTIVITAMINS/MINERALS TAB (*BKC) 1 TABLET PO (08:27)
[2025-06-03] MEDS: CHOLECALCIFEROL (VITAMIN D3) 25 MCG (1,000 UNITS) TABLET 50 MCG PO (08:27)
[2025-06-03] MEDS: METOPROLOL SUCCINATE EXT REL 25 MG TABCR PO (08:27)
[2025-06-03] MEDS: PANTOPRAZOLE 40 MG TABLET PO (08:28)
[2025-06-03] MEDS: LORATADINE 10 MG TABLET PO (08:28)
[2025-06-03] MEDS: CYANOCOBALAMIN 1,000 MCG TABLET 1000 MCG PO (08:28)
[2025-06-03] MEDS: APIXABAN 5 MG TABLET PO ×2 (08:28→20:34)
[2025-06-03] MEDS: PSYLLIUM POWDER PACKET 1 PACKET BY MOUTH (08:29)
[2025-06-03] MEDS: FUROSEMIDE 40 MG TABLET PO (08:29)
--- NOTE | 2025-06-03 13:43 | P.PNIM_ITS ---
Assessment and Plan Assessment and Plan (1) Acute bronchitis: Qualifiers: Bronchitis organism: unspecified organism Qualified Code(s): J20.9 - Acute bronchitis, unspecified Code(s): J20.9 - Acute bronchitis, unspecified Status: Acute (2) Acute hypoxic respiratory failure: Code(s): J96.01 - Acute respiratory failure with hypoxia Status: Acute (3) CKD stage 3b, GFR 30-44 ml/min: Code(s): N18.32 - Chronic kidney disease, stage 3b Status: Acute (4) Chronic diarrhea: Code(s): K52.9 - Noninfective gastroenteritis and colitis, unspecified Status: Acute Plan patient presented with cough, and chest x-ray showing most likely has residual airspace disease from 2 weeks prior and patient was treated with cefdinir and Zithromax which did improve her symptoms, but the cough is persisting patient is being treated with Cefepime and Zithromax, will monitor and plan. patient stats feeling much better comepared when she arrived, patient is working with PT/OT, patient wants more PT, patient will benefit going acute rehab. will monitor Given the patient does not have a white count and x-ray appears similar to prior x-ray from 2 weeks ago x-ray findings could be simply due to delayed appearance of resolution of pneumonia. Given the patient's normal white count and the fact that she is wheezing I lean more towards the fact that the patient likely has an acute on chronic exacerbation of bronchitis. The patient coughing has improved since admission the hospital and being started on Solu-Medrol in the ER and subsequently transition to prednisone this a.m.. Although she does not report much improvement in symptoms of shortness of breath her with nebulizer treatments her cough has certainly improved with nebulizer treatments. Repeat I suspected recurrence of pneumonia is less likely although patient has been started on cefepime and azithromycin in the ER. Will discontinue vancomycin since the patient's MRSA swab was negative. Will send urine for Legionella and pneumococcal antigen. Viral PCR was negative for COVID flu and RSV. Will continue supplemental oxygen will wean oxygen during daytime hours as needed and continue oxygen at night per patient's home regimen the patient is adamant that she remain on the same bowel regimen that she is on at home but we do not have the Metamucil tablets that she takes at home. I subsequently ordered FiberCon and Metamucil powder. Will continue home dicyclomine. Patient does have chronic kidney disease stage 3 but creatinine is stable. Will repeat electrolyte panel in a.m.. Repeat electrolyte panel was performed and returned prior to me finishing documentation and demonstrated acute mild hyperkalemia. Will stop the patient's home spironolactone but continue home Lasix. Will also continue Eliquis. Patient has had a Watchman procedure but she is still in the time frame where she needs to continue Eliquis until follow-up with Cardiovascular surgery. A patient's initial troponin was minimally elevated and troponin profile is been completely flat no evidence of acute cardiac injury or ischemia. Will transfer patient to medical floor without telemetry. . Patient has been admitted as observation status. Subjective Date/time seen: 06/03/25 13:43 Interval history: Cough for 1 month H&P-Narrative: 84-year-old female with a past medical history of chronic nocturnal hypoxia on 5 L O2 with sleep, chronic bronchitis, diastolic heart failure, atrial fibrillation status post Watchman procedure 05/04/2025, irritable bowel syndrome with diarrhea, GERD, urge urinary incontinence, chronic kidney disease stage 3 among other comorbidities who presented to the ER via EMS from [facility] due to persistent cough for 1 month. The patient was treated for bronchitis with green to brown sputum production demonstrated with 10 days of doxycycline 04/16/2025. Her symptoms improved after that visit. She then followed up for repeat symptoms 05/18/2025 and received antibiotics with cefdinir and azithromycin. She reported that initially her symptoms had improved but over the last couple weeks she has continued to have a intractable cough. She reports that the cough is just miserable despite taking often isn't She denies any known history of asthma or chronic bronchitis but according to her primary care provider's documentation patient does have chronic bronchitis.. The patient states that her sputum production is usually clear but she will occasionally have some brown sputum production. She was having some blood streak a sputum a few weeks ago but this is resolved since she took the antibiotics. She denies any chest pain. She reports that she has become progressively weaker and has had absolutely no energy as time has progressed. She denies any increased lower extremity swelling and denies any chest pain. Nursing staff reports that the patient has not urinated all high an on bladder scan this morning patient's bladder had approximately 340 mL of urine. Patient states that she is not ready to use the restroom yet. She denies any recent dysuria or symptoms of incomplete bladder emptying. patient presented with cough, and chest x-ray showing most likely has residual airspace disease from 2 weeks prior and patient was treated with cefdinir and Zithromax which did improve her symptoms, but the cough is persisting patient is being treated with Cefepime and Zithromax, will monitor and plan. patient stats feeling much better comepared when she arrived, patient is working with PT/OT, patient wants more PT, patient will benefit going acute rehab. will monitor Review of Systems Review of Systems: 12 systems were reviewed with pertinent positives and negatives per HPI. Except as documented in the HPI, all other systems were reviewed and are negative. 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 Exam Narrative: Morbidly obese Patient is comfortable, NAD HEENT: eyes are clear and none icteric LUNGS:CTA HEART: RR S1S2 ABD: BS+, Soft and nontender Lower extremities: no edema SKIN: nonjaundiced Neuro: grossly intact. Objective Data Vital Signs Vital Signs: Vital Signs - 24 hr 06/02/25 13:44 06/02/25 15:36 06/02/25 17:40 Temperature 36.7 C 36.5 C Pulse Rate 95 92 98 Respiratory Rate 20 22 H 18 Blood Pressure 98/49 L 111/86 Pulse Oximetry 98 94 Oxygen Delivery Oxygen Flow Rate 06/02/25 20:09 06/02/25 21:13 06/02/25 21:13 Temperature 36.5 C Pulse Rate 91 85 Respiratory Rate 18 18 Blood Pressure 127/58 L Pulse Oximetry 94 93 Oxygen Delivery Nasal Cannula Oxygen Flow Rate 2 06/02/25 21:20 06/02/25 21:38 06/03/25 02:02 Temperature Pulse Rate 87 88 Respiratory Rate 18 15 Blood Pressure Pulse Oximetry 93 Oxygen Delivery Nasal Cannula Oxygen Flow Rate 2 06/03/25 02:06 06/03/25 04:26 06/03/25 08:08 Temperature 36.6 C Pulse Rate 93 86 Respiratory Rate 15 18 Blood Pressure 105/54 L Pulse Oximetry 94 95 Oxygen Delivery Nasal Cannula Oxygen Flow Rate 5 06/03/25 08:08 06/03/25 08:15 06/03/25 08:27 Temperature Pulse Rate 95 78 78 Respiratory Rate 17 17 Blood Pressure Pulse Oximetry Oxygen Delivery Oxygen Flow Rate 06/03/25 09:46 06/03/25 13:25 06/03/25 13:32 Temperature Pulse Rate 102 H 99 Respiratory Rate 20 20 Blood Pressure Pulse Oximetry Oxygen Delivery Nasal Cannula Oxygen Flow Rate 5 Intake/Output Intake/Output: Intake & Output 05/31/25 06/01/25 06/02/25 06/03/25 23:59 23:59 23:59 23:59 Intake Total 300 1270 560 Output Total 700 Balance 300 570 560 Meds/Results Medications: Active Medications Generic Name Dose Route Start Last Admin Trade Name Freq PRN Reason Stop Dose Admin Acetaminophen 1,000 mg 06/01/25 19:00 06/03/25 12:42 Acetaminophen 500 Mg Tablet PO Not Given Q6H BAILEE Albuterol/Ipratropium 3 ml 06/01/25 20:00 06/03/25 13:25 Ipratropium 0.5 Mg/Albuterol Sulfate 2.5 Mg (Base) Ampul.Neb 3 Ml INHALATION 3 ml Q6HRT BAILEE Administration Albuterol/Ipratropium 3 ml 06/02/25 20:00 06/03/25 08:08 Ipratropium 0.5 Mg/Albuterol Sulfate 2.5 Mg (Base) Ampul.Neb 3 Ml INHALATION Not Given Q6HRT BAILEE Apixaban 5 mg 06/02/25 09:00 06/03/25 08:28 Apixaban 5 Mg Tablet PO 5 mg Q12HR BAILEE Administration Calcium Polycarbophil 1,250 mg 06/02/25 09:00 06/03/25 08:28 Calcium Polycarbophil 625 Mg Tablet PO 1,250 mg BID BAILEE Administration Cyanocobalamin 1,000 mcg 06/02/25 09:00 06/03/25 08:28 Cyanocobalamin 1,000 Mcg Tablet PO 1,000 mcg QAM BAILEE Administration Diclofenac Sodium 1 applic 06/02/25 09:00 06/03/25 12:42 Diclofenac Sodium 1% 100 Gm Gel (*Bkc) TOPICAL Not Given QID BAILEE Dicyclomine HCl 10 mg 06/02/25 06:12 Dicyclomine Hcl 10 Mg Capsule PO BID PRN abdominal pain Furosemide 40 mg 06/02/25 09:00 06/03/25 08:29 Furosemide 40 Mg Tablet PO 40 mg QAM BAILEE Administration Guaifenesin 600 mg 06/02/25 09:00 06/03/25 08:27 Guaifenesin 12 Hr 600 Mg Tabcr PO 600 mg Q12HR BAILEE Administration Cefepime HCl 2 gm/ Sodium 50 mls @ 100 mls/hr 06/02/25 06:00 06/03/25 06:20 Chloride IVPB Infused Q12H BAILEE Infusion Azithromycin 500 mg/ Sodium 250 mls @ 250 mls/hr 06/02/25 18:00 06/02/25 19:31 Chloride IVPB 06/05/25 18:59 Infused Q24H BAILEE Infusion Lisinopril 10 mg 06/02/25 09:00 06/03/25 08:28 Lisinopril 10 Mg Tablet PO 10 mg DAILY BAILEE Administration Loratadine 10 mg 06/02/25 09:00 06/03/25 08:28 Loratadine 10 Mg Tablet PO 10 mg DAILY BAILEE Administration Metoprolol Succinate 25 mg 06/02/25 09:00 06/03/25 08:27 Metoprolol Succinate Ext Rel 25 Mg Tabcr PO 25 mg DAILY BAILEE Administration Multivitamins/Calcium 1 tablet 06/02/25 09:00 06/03/25 08:27 Therapeutic Multivitamins/Minerals Tab (*Bkc) PO 1 tablet DAILY BAILEE Administration Oxybutynin Chloride 5 mg 06/02/25 09:00 06/03/25 08:27 Oxybutynin Chloride 5 Mg Tablet PO 5 mg DAILY BAILEE Administration Pantoprazole Sodium 40 mg 06/02/25 09:00 06/03/25 08:28 Pantoprazole 40 Mg Tablet PO 40 mg QAM BAILEE Administration Prednisone 40 mg 06/02/25 08:00 06/03/25 08:28 Prednisone 20 Mg Tablet PO 06/06/25 08:01 40 mg DAILY@0800 BAILEE Administration Psyllium Hydrophilic Mucilloid 1 packet 06/02/25 09:00 06/03/25 08:29 Psyllium Powder Packet BY MOUTH 1 packet DAILY BAILEE Administration Trazodone HCl 50 mg 06/02/25 06:12 06/02/25 21:45 Trazodone Hcl 50 Mg Tablet PO 50 mg QHS PRN Administration Insomnia Vitamin D 50 mcg 06/02/25 09:00 06/03/25 08:27 Cholecalciferol (Vitamin D3) 25 Mcg (1,000 Units) Tablet PO 50 mcg DAILY BAILEE Administration Radiology Results: ITS Impressions Chest X-Ray 06/01/25 13:57 IMPRESSION: 1. Mild bibasilar atelectasis and/or residual airspace disease from 2 weeks prior. Labs Labs: Laboratory Results - last 24 hr 06/03/25 05:02 WBC 10.1 H RBC 3.37 L Hgb 9.2 L Hct 31.5 L MCV 93.5 MCH 27.3 MCHC 29.2 L RDW 14.9 H Plt Count 297 MPV 9.5 Sodium 136 L Potassium 4.8 Chloride 104 Carbon Dioxide 29 Anion Gap 3 L BUN 38 H Creatinine 1.44 H Estim Creat Clear Calc 35 Estimated GFR 35 L Glucose 128 H Calcium 8.6 Quality VTE Prophylaxis VTE prophylaxis: pharmacologic ordered (Continue home Eliquis)
[2025-06-03] MEDS: AZITHROMYCIN IV 500 MG in SODIUM CHLORIDE 0.9% IV 250 ML IVPB (16:31)
[2025-06-03 19:42] LABS: Magnesium 2.1 mg/dL (1.6-2.3)
[2025-06-04] VITALS (15 sets, daily range): BP systolic 95–123; BP diastolic 51–83; PULSE 85–108; RESP 16–20; TEMP 35.9–36.2; O2SAT 93–97
--- NOTE | 2025-06-04 | ECHO_ITS ---
Patient Info Name: Cesia Das Age: 84 years : 1940 Gender: Female Ht: 64 in Wt: 302 lbs BSA: 2.57 m2 HR: 88 bpm BP: 95 / 59 mmHg Heart Rhythm: Atrial Fibrillation Technical Quality: Fair Exam Date: 06/04/2025 11:24 AM Patient Status: I Admit Date: 06/03/2025 Exam Type: CA echo dop color flow w con Complete two-dimensional, color flow and Doppler transthoracic echocardiogram is performed with contrast to opacify the left ventricle and to improve the deliniation of the left ventricle endocardial borders. Staff Referring Physician: Jessica Garcia Vice President [employer]: Sona Mendez Attending Provider: Yoan Xavier Contrast/Agitated Saline Contrast/Ag. Saline: Definity Amount: 2.00 ml Administered By: Sona Mendez Existing IV Access: Yes IV Access Condition: patent with no signs of infiltration Summary 1. Definity contrast administered improved wall motion interpretation. 2. Left ventricular chamber dimension is mildly enlarged. 3. Left ventricular systolic function is normal, estimated at 55-60. 4. The left ventricular diastolic function is abnormal. 5. E/e' 14 is mildly elevated. 6. Atrial fibrillation. 7. Left atrial chamber dimension is severely enlarged. 8. Right atrial chamber dimension is severely enlarged. 9. There is mild aortic valve sclerosis. 10. There is mild aortic valve regurgitation. 11. There is trace mitral valve regurgitation. 12. Mild pulmonary hypertension, estimated pulmonary arterial systolic pressure is 47 mmHg. 13. There is mild to moderate pulmonic regurgitation. 14. Dilated inferior vena cava with <50% collapse upon inspiration consistent with significantly elevated right atrial pressure, 15 mmHg. Left Ventricle Definity contrast administered improved wall motion interpretation. Left ventricular chamber dimension is mildly enlarged. Left ventricular systolic function is normal, estimated at 55-60. The left ventricular diastolic function is abnormal. E/e' 14 is mildly elevated. Atrial fibrillation. Right Ventricle Right ventricular chamber dimension is normal. Right ventricular systolic function is normal. Left Atria Left atrial chamber dimension is severely enlarged. Right Atria Right atrial chamber dimension is severely enlarged. Aortic Valve The aortic valve is trileaflet. There is mild aortic valve sclerosis. There is no aortic valve stenosis. There is mild aortic valve regurgitation. Pulmonic Valve There is mild to moderate pulmonic regurgitation. Mitral Valve There is no mitral valve stenosis. There is trace mitral valve regurgitation. Tricuspid Valve There is no tricuspid valve regurgitation. Mild pulmonary hypertension, estimated pulmonary arterial systolic pressure is 47 mmHg. Pericardium/Pleural There is no pericardial effusion. Inferior Vena Cava Dilated inferior vena cava with <50% collapse upon inspiration consistent with significantly elevated right atrial pressure, 15 mmHg. Aorta The aortic root size at the sinus of Valsalva is normal. Left Ventricular Outflow Tract Name Value Normal LVOT 2D LVOT Diameter 2.0 cm LVOT Doppler LVOT Peak Velocity 79 cm/s LVOT Peak Gradient 3 mmHg LVOT Mean Gradient 1 mmHg LVOT VTI 13 cm LVOT VTI/AV VTI Ratio 0.6 LVOT Stroke Volume 41 ml LVOT CO 3.8 l/min LVOT CI 1.5 l/min/m2 Pulmonic Valve Name Value Normal RVOT Doppler RVOT Peak Velocity 79 cm/s RVOT Peak Gradient 2 mmHg PV Doppler PV Peak Velocity 123 cm/s PV Peak Gradient 6 mmHg Mitral Valve Name Value Normal MV Diastolic Function MV E Peak Velocity 135 cm/s MV A Peak Velocity 2 cm/s MV E/A 60.2 MV Decel Time (PW) 228 ms MV Annular TDI MV E/e' (Septal) 15.0 MV E/e' (Lateral) 14.4 MV E/e' (Average) 14.7 Tricuspid Valve Name Value Normal TV Regurgitation Doppler TR Peak Velocity 283 cm/s TR Peak Gradient 32 mmHg Estimated PAP/RSVP RA Pressure 15 mmHg <=5 PA Systolic Pressure 47 mmHg <36 RV Systolic Pressure 47 mmHg <36 TV Annular TDI TV Lateral Brittany s' Velocity 10.7 cm/s >=9.5 Aorta Name Value Normal Ascending Aorta Ao Root Diameter (MM) 3.6 cm Ao Root Diam Index (MM) 1.4 cm/m2 Aortic Valve Name Value Normal AV Doppler AV Peak Velocity 140 cm/s AV Peak Gradient 8 mmHg AV Mean Gradient 4 mmHg AV VTI 24 cm AV Area (Cont Eq VTI) 1.7 cm2 >=3.0 AV Area (Cont Eq Facundo) 1.8 cm2 AV DI (Facundo) 0.57 AV Regurgitation 2D LVOT Area 3.2 cm2 Ventricles Name Value Normal LV Dimensions 2D/MM IVS Diastolic Thickness (2D) 0.9 cm 0.6-1.0 LVID Diastole (2D) 4.8 cm 3.8-5.2 LVIW Diastolic Thickness (2D) 0.9 cm 0.6-0.9 LVID Systole (2D) 3.2 cm 2.2-3.5 LVOT Diameter 2.0 cm LV Mass (2D Cubed) 149.37 g 67.00-162.00 LV Mass Index (2D Cubed) 58 g/m2 43-95 Relative Wall Thickness (2D) 0.39 <=0.42 LV Fractional Shortening/Ejection Fraction 2D/MM LV Fractional Shortening (2D) 34 % 27-45 LV EF (2D Teichholz) 63 % LV Diastolic Volume (4C MOD) 54 ml LV EF (4C MOD) 61 % LV Diastolic Volume (2C MOD) 73 ml LV EF (2C MOD) 63 % LV Diastolic Volume (BP MOD) 66 ml 46-106 LV Diastolic Volume Index (BP MOD) 26 ml/m2 29-61 LV Systolic Volume (BP MOD) 25 ml 14-42 LV Systolic Volume Index (BP MOD) 10 ml/m2 8-24 LV EF (BP MOD) 63 % 54-74 LV Diastolic Length (4C) 6.6 cm LV Systolic Length (4C) 5.8 cm LV Stroke Volume (4C MOD) 32 ml Atria Name Value Normal LA Dimensions LA Dimension (MM) 4.5 cm 2.7-3.8 LA Volume (4C A-L) 87 ml LA Volume (BP A-L) 79 ml RA Dimensions RA Area (4C) 31.3 cm2 <=18.0 Report Signatures
[2025-06-04] MEDS: IPRATROPIUM 0.5 MG/ALBUTEROL SULFATE 2.5 MG (BASE) AMPUL.NEB 3 ML INHALATION ×4 (01:16→20:12)
[2025-06-04 05:20] LABS: Hematocrit 31.0 % (37.0-47.0); Hemoglobin 9.0 g/dL (12.0-15.0); Mean Corpuscular HGB Conc 29.0 g/dl (32-36); Mean Corpuscular Hemoglobin 27.4 pg (26-34); Mean Corpuscular Volume 94.5 fl (80-100); Platelet Count Result 288 k/mm3 (150-375); Red Blood Count 3.28 M/mm3 (4.2-5.4); White Blood Count 9.0 K/mm3 (4.5-10.0)
[2025-06-04 05:40] LABS: Anion Gap 4 mmol/L (4-12); Blood Urea Nitrogen 42 mg/dL (7-17); Calcium 8.5 mg/dL (8.4-10.2); Carbon Dioxide 26 mmol/L (22-30); Chloride 104 mmol/L (98-107); Estimated CRCL calculation 36 ml/min; Estimated Glomerular Filt Rate 35; Glucose 111 mg/dL (65-110); Potassium 4.6 mmol/L (3.4-5.0); Sodium 134 mmol/L (137-145)
[2025-06-04] MEDS: CEFEPIME 2 GM in SODIUM CHLORIDE 0.9% IV 50 ML 100 ML IVPB ×2 (06:17→16:29)
[2025-06-04] MEDS: PANTOPRAZOLE 40 MG TABLET PO (09:50)
[2025-06-04] MEDS: CHOLECALCIFEROL (VITAMIN D3) 25 MCG (1,000 UNITS) TABLET 50 MCG PO (09:50)
[2025-06-04] MEDS: guaiFENesin 12 HR 600 MG TABCR PO ×2 (09:59→21:12)
[2025-06-04] MEDS: CYANOCOBALAMIN 1,000 MCG TABLET 1000 MCG PO (09:59)
[2025-06-04] MEDS: APIXABAN 5 MG TABLET PO ×2 (10:00→21:12)
[2025-06-04] MEDS: THERAPEUTIC MULTIVITAMINS/MINERALS TAB (*BKC) 1 TABLET PO (10:00)
[2025-06-04] MEDS: LORATADINE 10 MG TABLET PO (10:01)
--- NOTE | 2025-06-04 10:04 | P.PNIM_ITS ---
Assessment and Plan Assessment and Plan (1) Acute bronchitis: Qualifiers: Bronchitis organism: unspecified organism Qualified Code(s): J20.9 - Acute bronchitis, unspecified Code(s): J20.9 - Acute bronchitis, unspecified Status: Acute (2) Acute hypoxic respiratory failure: Code(s): J96.01 - Acute respiratory failure with hypoxia Status: Acute (3) CKD stage 3b, GFR 30-44 ml/min: Code(s): N18.32 - Chronic kidney disease, stage 3b Status: Acute (4) Chronic diarrhea: Code(s): K52.9 - Noninfective gastroenteritis and colitis, unspecified Status: Acute Plan This is a 84-year-old female who presented from [facility] due to persistent cough for 1 month. She was treated for bronchitis with green to brown sputum production with 10 days course of doxycycline and 04/16/2025. Patient had repeat symptoms 05/18/2025 and received antibiotic with cefdinir and azithromycin. Initially her symptoms improved however arm over the past couple of weeks he has continued to have intractable cough. She denied any history of asthma or chronic bronchitis per patient however documentation does report history of chronic bronchitis. She was also having some blood streak in the sputum a few weeks ago but has resolved since she has taken the antibiotics. No chest pain no fever chills. Progressive weakness. On evaluation her chest x-ray showed residual airspace disease from 2 weeks prior. Viral PCR was negative for COVID flu and RSV. Patient has been started on cefepime and azithromycin. Patient also received IV Solu-Medrol in the ER and has been transition to prednisone. BNP 2720. Nasal MRSA negative. Chest x-ray with finding of CHF superimposed probable right lower lobe pneumonia. Echo 05/18 was performed to rule out pericardial effusion which was negative. Will repeat echo. May need a CT chest to further evaluate this. Will check procalcitonin level. Suspect CHF exacerbation more than pneumonia as she has already received 2 rounds of antibiotics. Mild hypotension hold blood pressure medications. IV albumin Generalized weakness PT OT Elevated troponin flat trend no evidence of ACS Chronic mild anemia no signs of bleeding Chronic nocturnal hypoxia on 5 L oxygen with sleep Chronic bronchitis Diastolic heart failure Atrial fibrillation status post Watchman procedure 05/04/2025 Atrial bowel syndrome with diarrhea GERD Urge urinary incontinence CKD stage 3 DVT prophylaxis Eliquis Code status do not resuscitate Elevated IgE noted on labs 11/2024 Subjective Date/time seen: 06/04/25 10:04 Interval history: Patient continues to complain of cough and shortness of breath. Legs are swollen reports no increased swelling recently. No chest pain. Getting echocardiogram this a.m.. Review of Systems Review of Systems: All systems reviewed & are unremarkable except as noted in HPI and below Exam Narrative: Morbidly obese Patient is comfortable, NAD HEENT: eyes are clear and none icteric LUNGS:CTA HEART: RR S1S2 ABD: BS+, Soft and nontender Lower extremities: Bilateral lower extremity edema pitting 2+ SKIN: nonjaundiced Neuro: grossly intact. Alert and oriented x3 Objective Data Vital Signs Vital Signs: Vital Signs - 24 hr 06/03/25 13:25 06/03/25 13:32 06/03/25 14:00 Temperature 97.8 F Pulse Rate 102 H 99 96 Respiratory Rate 20 20 20 Blood Pressure 108/54 L Pulse Oximetry 93 Oxygen Delivery Oxygen Flow Rate 06/03/25 20:00 06/03/25 20:23 06/03/25 20:23 Temperature Pulse Rate 100 92 Respiratory Rate 16 20 Blood Pressure Pulse Oximetry 97 93 Oxygen Delivery Nasal Cannula Nasal Cannula Oxygen Flow Rate 2 5 06/03/25 20:28 06/03/25 20:28 06/04/25 01:19 Temperature 98.2 F Pulse Rate 100 93 87 Respiratory Rate 16 20 18 Blood Pressure 97/57 L Pulse Oximetry 97 Oxygen Delivery Oxygen Flow Rate 06/04/25 01:24 06/04/25 04:06 06/04/25 07:48 Temperature 97.2 F L Pulse Rate 89 90 85 Respiratory Rate 18 20 20 Blood Pressure 95/59 L Pulse Oximetry 95 Oxygen Delivery Oxygen Flow Rate 06/04/25 07:50 06/04/25 07:54 Temperature Pulse Rate 88 Respiratory Rate 20 Blood Pressure Pulse Oximetry 96 Oxygen Delivery Nasal Cannula Oxygen Flow Rate 5 Intake/Output Intake/Output: Intake & Output 06/01/25 06/02/25 06/03/25 06/04/25 23:59 23:59 23:59 23:59 Intake Total 300 1270 1100 550 Output Total 700 900 Balance 300 570 200 550 Meds/Results Medications: Active Medications Generic Name Dose Route Start Last Admin Trade Name Freq PRN Reason Stop Dose Admin Acetaminophen 1,000 mg 06/01/25 19:00 12/12/25 06:19 Acetaminophen 500 Mg Tablet PO Not Given Q6H BAILEE Albuterol/Ipratropium 3 ml 06/01/25 20:00 06/04/25 07:47 Ipratropium 0.5 Mg/Albuterol Sulfate 2.5 Mg (Base) Ampul.Neb 3 Ml INHALATION 3 ml Q6HRT BAILEE Administration Apixaban 5 mg 06/02/25 09:00 06/03/25 20:34 Apixaban 5 Mg Tablet PO 5 mg Q12HR BAILEE Administration Calcium Polycarbophil 1,250 mg 06/02/25 09:00 06/03/25 16:30 Calcium Polycarbophil 625 Mg Tablet PO 1,250 mg BID BAILEE Administration Cyanocobalamin 1,000 mcg 06/02/25 09:00 06/03/25 08:28 Cyanocobalamin 1,000 Mcg Tablet PO 1,000 mcg QAM BAILEE Administration Diclofenac Sodium 1 applic 06/02/25 09:00 06/03/25 20:41 Diclofenac Sodium 1% 100 Gm Gel (*Bkc) TOPICAL Not Given QID BAILEE Dicyclomine HCl 10 mg 06/02/25 06:12 Dicyclomine Hcl 10 Mg Capsule PO BID PRN abdominal pain Furosemide 40 mg 06/02/25 09:00 06/03/25 08:29 Furosemide 40 Mg Tablet PO 40 mg QAM BAILEE Administration Guaifenesin 600 mg 06/02/25 09:00 06/03/25 20:34 Guaifenesin 12 Hr 600 Mg Tabcr PO 600 mg Q12HR BAILEE Administration Cefepime HCl 2 gm/ Sodium 50 mls @ 100 mls/hr 06/02/25 06:00 06/04/25 06:17 Chloride IVPB 100 mls/hr Q12H BAILEE Administration Azithromycin 500 mg/ Sodium 250 mls @ 250 mls/hr 06/02/25 18:00 06/03/25 17:30 Chloride IVPB 06/05/25 18:59 Infused Q24H BAILEE Infusion Albumin Human 100 mls @ 60 mls/hr 06/04/25 12:00 Albutein IVPB 06/05/25 07:39 Q6HR BAILEE Lisinopril 10 mg 06/02/25 09:00 06/03/25 08:28 Lisinopril 10 Mg Tablet PO 10 mg On Hold: 06/04/25 09:00 DAILY BAILEE Administration Resume: 06/05/25 09:00 Comment: HOLD ON 06-04-25 ONLY Loratadine 10 mg 06/02/25 09:00 06/03/25 08:28 Loratadine 10 Mg Tablet PO 10 mg DAILY BAILEE Administration Metoprolol Succinate 25 mg 06/02/25 09:00 06/03/25 08:27 Metoprolol Succinate Ext Rel 25 Mg Tabcr PO 25 mg On Hold: 06/04/25 10:04 DAILY BAILEE Administration Multivitamins/Calcium 1 tablet 06/02/25 09:00 06/03/25 08:27 Therapeutic Multivitamins/Minerals Tab (*Bkc) PO 1 tablet DAILY BAILEE Administration Oxybutynin Chloride 5 mg 06/02/25 09:00 06/03/25 08:27 Oxybutynin Chloride 5 Mg Tablet PO 5 mg DAILY BAILEE Administration Pantoprazole Sodium 40 mg 06/02/25 09:00 06/03/25 08:28 Pantoprazole 40 Mg Tablet PO 40 mg QAM BAILEE Administration Prednisone 40 mg 06/02/25 08:00 06/03/25 08:28 Prednisone 20 Mg Tablet PO 06/06/25 08:01 40 mg DAILY@0800 BAILEE Administration Psyllium Hydrophilic Mucilloid 1 packet 06/02/25 09:00 06/03/25 08:29 Psyllium Powder Packet BY MOUTH 1 packet DAILY BAILEE Administration Trazodone HCl 50 mg 06/02/25 06:12 06/03/25 21:30 Trazodone Hcl 50 Mg Tablet PO 50 mg QHS PRN Administration Insomnia Vitamin D 50 mcg 06/02/25 09:00 06/03/25 08:27 Cholecalciferol (Vitamin D3) 25 Mcg (1,000 Units) Tablet PO 50 mcg DAILY BAILEE Administration Radiology Results: ITS Impressions Chest X-Ray 06/01/25 13:57 IMPRESSION: 1. Mild bibasilar atelectasis and/or residual airspace disease from 2 weeks prior. Labs Labs: Laboratory Results - last 24 hr 06/03/25 06/04/25 18:49 04:45 WBC 9.0 RBC 3.28 L Hgb 9.0 L Hct 31.0 L MCV 94.5 MCH 27.4 MCHC 29.0 L RDW 14.9 H Plt Count 288 MPV 9.8 Sodium 134 L Potassium 4.6 Chloride 104 Carbon Dioxide 26 Anion Gap 4 BUN 42 H Creatinine 1.42 H Estim Creat Clear Calc 36 Estimated GFR 35 L Glucose 111 H Calcium 8.5 Magnesium 2.1
[2025-06-04] MEDS: PSYLLIUM POWDER PACKET 1 PACKET BY MOUTH (10:10)
[2025-06-04] MEDS: ALBUMIN HUMAN 25% 25 GM/100 ML 100 ML IVPB ×3 (10:13→21:12)
[2025-06-04 11:05] LABS: Procalcitonin 0.1 ng/mL
[2025-06-04] MEDS: PERFLUTREN LIPID MICROSPHERES 1.5 ML VIAL DILUTED TO 10 ML TOTAL VOLUME IV PUSH (11:50)
--- NOTE | 2025-06-04 12:26 | IVDEFINITY ---
Prior to administration of IV Definity the patient was educated on the risks and benefits of the imaging enhancing agent including potential adverse side effects. The patient verbalized understanding. Allergies were verified. No exclusion criteria were identified and at least one of the following inclusion criteria were met: 1) physician request, 2) patient technically difficult to image (per the [place] [employer] guidelines of two or more segments not discernable within the apical view), or 3) questionable left ventricular function. ?
[2025-06-04 15:12] LABS: NT Pro B Type Natriuretic Pept 3530 pg/mL (19.9-100)
[2025-06-04] MEDS: AZITHROMYCIN 500 MG TABLET PO (16:24)
[2025-06-04 16:47] LABS: Magnesium 2.1 mg/dL (1.6-2.3)
[2025-06-05] VITALS (16 sets, daily range): BP systolic 108–117; BP diastolic 63–72; PULSE 85–107; RESP 20; TEMP 36.1–36.9; O2SAT 92–98
[2025-06-05] MEDS: IPRATROPIUM 0.5 MG/ALBUTEROL SULFATE 2.5 MG (BASE) AMPUL.NEB 3 ML INHALATION ×4 (02:00→20:17)
[2025-06-05] MEDS: ALBUMIN HUMAN 25% 25 GM/100 ML 100 ML IVPB (04:45)
[2025-06-05 05:23] LABS: Hematocrit 29.4 % (37.0-47.0); Hemoglobin 8.6 g/dL (12.0-15.0); Mean Corpuscular HGB Conc 29.3 g/dl (32-36); Mean Corpuscular Hemoglobin 27.2 pg (26-34); Mean Corpuscular Volume 93.0 fl (80-100); Platelet Count Result 250 k/mm3 (150-375); Red Blood Count 3.16 M/mm3 (4.2-5.4); White Blood Count 8.0 K/mm3 (4.5-10.0)
[2025-06-05 05:42] LABS: Anion Gap 2 mmol/L (4-12); Blood Urea Nitrogen 36 mg/dL (7-17); Calcium 8.7 mg/dL (8.4-10.2); Carbon Dioxide 29 mmol/L (22-30); Chloride 105 mmol/L (98-107); Estimated CRCL calculation 43 ml/min; Estimated Glomerular Filt Rate 44; Glucose 117 mg/dL (65-110); Potassium 4.6 mmol/L (3.4-5.0); Sodium 136 mmol/L (137-145)
[2025-06-05] MEDS: CEFEPIME 2 GM in SODIUM CHLORIDE 0.9% IV 50 ML 100 ML IVPB ×2 (06:15→17:06)
[2025-06-05] MEDS: CHOLECALCIFEROL (VITAMIN D3) 25 MCG (1,000 UNITS) TABLET 50 MCG PO (08:54)
[2025-06-05] MEDS: THERAPEUTIC MULTIVITAMINS/MINERALS TAB (*BKC) 1 TABLET PO (08:54)
[2025-06-05] MEDS: CYANOCOBALAMIN 1,000 MCG TABLET 1000 MCG PO (08:54)
[2025-06-05] MEDS: APIXABAN 5 MG TABLET PO ×2 (08:55→20:59)
[2025-06-05] MEDS: LORATADINE 10 MG TABLET PO (08:55)
[2025-06-05] MEDS: guaiFENesin 12 HR 600 MG TABCR PO ×2 (08:55→20:59)
[2025-06-05] MEDS: PANTOPRAZOLE 40 MG TABLET PO (08:55)
[2025-06-05] MEDS: PSYLLIUM POWDER PACKET 1 PACKET BY MOUTH (08:56)
--- NOTE | 2025-06-05 09:30 | PCPTNOTE ---
Pt requested to have PT in the afternoon due to just being up with nursing staff/being out of breath. Pt states that she does want to go on a walk, but cannot due it at this time. Will continue to follow.
--- NOTE | 2025-06-05 12:26 | PM.IMPN2 ---
Assessment and Plan Assessment and Plan (1) Acute bronchitis: Qualifiers: Bronchitis organism: unspecified organism Qualified Code(s): J20.9 - Acute bronchitis, unspecified Code(s): J20.9 - Acute bronchitis, unspecified Status: Acute (2) Acute hypoxic respiratory failure: Code(s): J96.01 - Acute respiratory failure with hypoxia Status: Acute (3) CKD stage 3b, GFR 30-44 ml/min: Code(s): N18.32 - Chronic kidney disease, stage 3b Status: Acute (4) Chronic diarrhea: Code(s): K52.9 - Noninfective gastroenteritis and colitis, unspecified Status: Acute Plan This is a 84-year-old female who presented from [facility] due to persistent cough for 1 month. She was treated for bronchitis with green to brown sputum production with 10 days course of doxycycline and 04/16/2025. Patient had repeat symptoms 05/18/2025 and received antibiotic with cefdinir and azithromycin. Initially her symptoms improved however arm over the past couple of weeks he has continued to have intractable cough. She denied any history of asthma or chronic bronchitis per patient however documentation does report history of chronic bronchitis. She was also having some blood streak in the sputum a few weeks ago but has resolved since she has taken the antibiotics. No chest pain no fever chills. Progressive weakness. On evaluation her chest x-ray showed residual airspace disease from 2 weeks prior. Viral PCR was negative for COVID flu and RSV. Patient has been started on cefepime and azithromycin. Patient also received IV Solu-Medrol in the ER and has been transition to prednisone. BNP 2720. Nasal MRSA negative. Chest x-ray with finding of CHF superimposed probable right lower lobe pneumonia. Echo 05/18 was performed to rule out pericardial effusion which was negative. Repeat echo 06/04/2025: EF 55-60% abnormal diastolic function mild pulmonary hypertension [id number] pulmonary regurgitation. CT chest with the right basilar subsegmental atelectatic changes with mild consolidative appearance which could represent small area of aspiration or pneumonia. 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 Procalcitonin level 0.1. Suspect CHF exacerbation more than pneumonia as she has already received 2 rounds of antibiotics. However CT chest suggest pneumonia. Will continue on cefepime and azithromycin. Unlike what she says yesterday she feels her cough and shortness of breath is improved with antibiotics and since treatment/admission. Mild hypotension hold blood pressure medications. IV albumin Generalized weakness PT OT Elevated troponin flat trend no evidence of ACS Chronic mild anemia no signs of bleeding Chronic nocturnal hypoxia on 5 L oxygen with sleep continue to wean oxygen down to daytime as she normally does not use oxygen during daytime. Chronic bronchitis Diastolic heart failure Atrial fibrillation status post Watchman procedure 05/04/2025 Atrial bowel syndrome with diarrhea GERD Urge urinary incontinence CKD stage 3 DVT prophylaxis Eliquis Code status do not resuscitate Elevated IgE noted on labs 11/2024 Subjective Date/time seen: 06/05/25 12:26 Interval history: No overnight events. States cough is much better. Still requiring oxygen. Review of Systems Review of Systems: All systems reviewed & are unremarkable except as noted in HPI and below Exam Narrative: Morbidly obese not in acute distress Patient is comfortable, NAD HEENT: eyes are clear and none icteric LUNGS: Diminished breath sounds bilaterally, no respiratory distress HEART: RR S1S2 ABD: BS+, Soft and nontender Lower extremities: Bilateral lower extremity edema pitting 2+ SKIN: nonjaundiced Neuro: grossly intact. Alert and oriented x3 Objective Data Vital Signs Vital Signs: Vital Signs - 24 hr 06/04/25 14:00 06/04/25 14:00 06/04/25 14:05 Temperature 96.7 F L Pulse Rate 102 H 104 H 108 H Respiratory Rate 20 16 20 Blood Pressure 99/51 L Pulse Oximetry 93 Oxygen Delivery Oxygen Flow Rate 06/04/25 20:00 06/04/25 20:12 06/04/25 20:17 Temperature Pulse Rate 104 H 96 96 Respiratory Rate 20 20 20 Blood Pressure Pulse Oximetry 93 Oxygen Delivery Nasal Cannula Oxygen Flow Rate 3 06/04/25 20:27 06/04/25 22:00 06/05/25 02:13 Temperature 97.1 F L Pulse Rate 104 H 98 Respiratory Rate 20 20 Blood Pressure 123/83 Pulse Oximetry 97 93 Oxygen Delivery Nasal Cannula Oxygen Flow Rate 3 06/05/25 02:21 06/05/25 06:00 06/05/25 08:24 Temperature 97 F L Pulse Rate 98 95 85 Respiratory Rate 20 20 20 Blood Pressure 117/70 Pulse Oximetry 97 Oxygen Delivery Oxygen Flow Rate 06/05/25 08:27 06/05/25 08:30 06/05/25 08:56 Temperature Pulse Rate 88 Respiratory Rate 20 20 Blood Pressure Pulse Oximetry 98 93 Oxygen Delivery Nasal Cannula Nasal Cannula Oxygen Flow Rate 5 3 06/05/25 09:00 Temperature Pulse Rate Respiratory Rate Blood Pressure Pulse Oximetry 93 Oxygen Delivery Nasal Cannula Oxygen Flow Rate 3 Intake/Output Intake/Output: Intake & Output 06/02/25 06/03/25 06/04/25 06/05/25 23:59 23:59 23:59 23:59 Intake Total 1270 1100 1310 490 Output Total 700 900 Balance 703 039 8760 490 Meds/Results Medications: Active Medications Generic Name Dose Route Start Last Admin Trade Name Freq PRN Reason Stop Dose Admin Acetaminophen 1,000 mg 06/01/25 19:00 06/05/25 12:24 Acetaminophen 500 Mg Tablet PO Not Given Q6H BAILEE Albuterol/Ipratropium 3 ml 06/01/25 20:00 06/05/25 08:24 Ipratropium 0.5 Mg/Albuterol Sulfate 2.5 Mg (Base) Ampul.Neb 3 Ml INHALATION 3 ml Q6HRT BAILEE Administration Apixaban 5 mg 06/02/25 09:00 06/05/25 08:55 Apixaban 5 Mg Tablet PO 5 mg Q12HR BAILEE Administration Azithromycin 500 mg 06/04/25 18:00 06/04/25 16:24 Azithromycin 500 Mg Tablet PO 06/05/25 18:01 500 mg DAILY@1800 BAILEE Administration Calcium Polycarbophil 1,250 mg 06/02/25 09:00 06/05/25 08:55 Calcium Polycarbophil 625 Mg Tablet PO 1,250 mg BID BAILEE Administration Cyanocobalamin 1,000 mcg 06/02/25 09:00 06/05/25 08:54 Cyanocobalamin 1,000 Mcg Tablet PO 1,000 mcg QAM BAILEE Administration Diclofenac Sodium 1 applic 06/02/25 09:00 06/05/25 12:24 Diclofenac Sodium 1% 100 Gm Gel (*Bkc) TOPICAL Not Given QID BAILEE Dicyclomine HCl 10 mg 06/02/25 06:12 Dicyclomine Hcl 10 Mg Capsule PO BID PRN abdominal pain Furosemide 40 mg 06/02/25 09:00 06/04/25 10:09 Furosemide 40 Mg Tablet PO Not Given On Hold: 06/04/25 10:04 QAM BAILEE Guaifenesin 600 mg 06/02/25 09:00 06/05/25 08:55 Guaifenesin 12 Hr 600 Mg Tabcr PO 600 mg Q12HR BAILEE Administration Cefepime HCl 2 gm/ Sodium 50 mls @ 100 mls/hr 06/02/25 06:00 06/05/25 06:45 Chloride IVPB Infused Q12H [facility] Infusion Lisinopril 10 mg 06/02/25 09:00 06/05/25 08:56 Lisinopril 10 Mg Tablet PO Not Given DAILY BAILEE Loratadine 10 mg 06/02/25 09:00 06/05/25 08:55 Loratadine 10 Mg Tablet PO 10 mg DAILY [facility] Administration Metoprolol Succinate 25 mg 06/02/25 09:00 06/04/25 09:57 Metoprolol Succinate Ext Rel 25 Mg Tabcr PO Not Given On Hold: 06/04/25 10:04 DAILY BAILEE Multivitamins/Calcium 1 tablet 06/02/25 09:00 06/05/25 08:54 Therapeutic Multivitamins/Minerals Tab (*Bkc) PO 1 tablet DAILY [facility] Administration Oxybutynin Chloride 5 mg 06/02/25 09:00 06/05/25 08:54 Oxybutynin Chloride 5 Mg Tablet PO 5 mg DAILY [facility] Administration Pantoprazole Sodium 40 mg 06/02/25 09:00 06/05/25 08:55 Pantoprazole 40 Mg Tablet PO 40 mg QAM [facility] Administration Prednisone 40 mg 06/02/25 08:00 06/05/25 08:54 Prednisone 20 Mg Tablet PO 06/06/25 08:01 40 mg DAILY@0800 [facility] Administration Psyllium Hydrophilic Mucilloid 1 packet 06/02/25 09:00 06/05/25 08:56 Psyllium Powder Packet BY MOUTH 1 packet DAILY [facility] Administration Trazodone HCl 50 mg 06/02/25 06:12 06/03/25 21:30 Trazodone Hcl 50 Mg Tablet PO 50 mg QHS PRN Administration Insomnia Vitamin D 50 mcg 06/02/25 09:00 06/05/25 08:54 Cholecalciferol (Vitamin D3) 25 Mcg (1,000 Units) Tablet PO 50 mcg DAILY BAILEE Administration Radiology Results: ITS Impressions Chest X-Ray 06/01/25 13:57 IMPRESSION: 1. Mild bibasilar atelectasis and/or residual airspace disease from [address] 06/04/25 13:29 IMPRESSION: 1. Right basilar subsegmental atelectatic changes with mild consolidative appearance which could represent small area of aspiration or pneumonia. 2. Other chronic appearing findings as above including mild aneurysmal dilatation of the ascending thoracic aorta and prominence main pulmonary artery which may represent pulmonary arterial hypertension. 3. Enlarged thyroid. Correlate with follow-up routine thyroid ultrasound. Labs Labs: Laboratory Results - last 24 hr 06/04/25 06/04/25 06/05/25 04:45 16:18 05:11 WBC 8.0 RBC 3.16 L Hgb 8.6 L Hct 29.4 L MCV 93.0 MCH 27.2 MCHC 29.3 L RDW 14.7 H Plt Count 250 MPV 9.4 Sodium 136 L Potassium 4.6 Chloride 105 Carbon Dioxide 29 Anion Gap 2 L BUN 36 H Creatinine 1.18 H Estim Creat Clear Calc 43 Estimated GFR 44 L Glucose 117 H Calcium 8.7 Magnesium 2.1 NT-Pro-B Natriuret Pep 3530 H
[2025-06-05] MEDS: AZITHROMYCIN 500 MG TABLET PO (17:07)
[2025-06-05 17:44] LABS: Magnesium 2.1 mg/dL (1.6-2.3)
[2025-06-06] VITALS (16 sets, daily range): BP systolic 109–146; BP diastolic 53–89; PULSE 87–134; RESP 18–20; TEMP 36.2–36.6; O2SAT 92–94
[2025-06-06] MEDS: IPRATROPIUM 0.5 MG/ALBUTEROL SULFATE 2.5 MG (BASE) AMPUL.NEB 3 ML INHALATION ×4 (02:02→20:50)
[2025-06-06 05:23] LABS: Hematocrit 30.4 % (37.0-47.0); Hemoglobin 9.0 g/dL (12.0-15.0); Mean Corpuscular HGB Conc 29.6 g/dl (32-36); Mean Corpuscular Hemoglobin 27.4 pg (26-34); Mean Corpuscular Volume 92.7 fl (80-100); Platelet Count Result 250 k/mm3 (150-375); Red Blood Count 3.28 M/mm3 (4.2-5.4); White Blood Count 7.9 K/mm3 (4.5-10.0)
[2025-06-06 05:43] LABS: Alanine Aminotransferase 49 U/L (6-35); Albumin Level 3.5 g/dL (3.5-5.1); Alkaline Phosphatase 66 U/L (38-126); Anion Gap 1 mmol/L (4-12); Aspartate Amino Transferase 37 U/L (14-36); Bilirubin,Total 0.8 mg/dL (0.2-1.3); Blood Urea Nitrogen 33 mg/dL (7-17); Calcium 9.1 mg/dL (8.4-10.2); Carbon Dioxide 30 mmol/L (22-30); Chloride 106 mmol/L (98-107); Estimated CRCL calculation 39 ml/min; Estimated Glomerular Filt Rate 39; Glucose 125 mg/dL (65-110); Magnesium 2.2 mg/dL (1.6-2.3); Potassium 4.6 mmol/L (3.4-5.0); Sodium 137 mmol/L (137-145); Total Protein 6.2 g/dL (6.3-8.2)
[2025-06-06] MEDS: CEFEPIME 2 GM in SODIUM CHLORIDE 0.9% IV 50 ML 100 ML IVPB ×2 (05:43→18:32)
[2025-06-06] MEDS: PSYLLIUM POWDER PACKET 1 PACKET BY MOUTH (08:54)
[2025-06-06] MEDS: LORATADINE 10 MG TABLET PO (08:55)
[2025-06-06] MEDS: PANTOPRAZOLE 40 MG TABLET PO (08:55)
[2025-06-06] MEDS: CHOLECALCIFEROL (VITAMIN D3) 25 MCG (1,000 UNITS) TABLET 50 MCG PO (08:55)
[2025-06-06] MEDS: CYANOCOBALAMIN 1,000 MCG TABLET 1000 MCG PO (08:55)
[2025-06-06] MEDS: APIXABAN 5 MG TABLET PO ×2 (08:56→20:47)
[2025-06-06] MEDS: guaiFENesin 12 HR 600 MG TABCR PO ×2 (08:56→20:47)
[2025-06-06] MEDS: THERAPEUTIC MULTIVITAMINS/MINERALS TAB (*BKC) 1 TABLET PO (08:56)
--- NOTE | 2025-06-06 11:28 | P.PNIM_ITS ---
Assessment and Plan Assessment and Plan (1) Acute bronchitis: Qualifiers: Bronchitis organism: unspecified organism Qualified Code(s): J20.9 - Acute bronchitis, unspecified Code(s): J20.9 - Acute bronchitis, unspecified Status: Acute (2) Acute hypoxic respiratory failure: Code(s): J96.01 - Acute respiratory failure with hypoxia Status: Acute (3) CKD stage 3b, GFR 30-44 ml/min: Code(s): N18.32 - Chronic kidney disease, stage 3b Status: Acute (4) Chronic diarrhea: Code(s): K52.9 - Noninfective gastroenteritis and colitis, unspecified Status: Acute Plan This is a 84-year-old female who presented from [facility] due to persistent cough for 1 month. She was treated for bronchitis with green to brown sputum production with 10 days course of doxycycline and 04/16/2025. Patient had repeat symptoms 05/18/2025 and received antibiotic with cefdinir and azithromycin. Initially her symptoms improved however arm over the past couple of weeks he has continued to have intractable cough. She denied any history of asthma or chronic bronchitis per patient however documentation does report history of chronic bronchitis. She was also having some blood streak in the sputum a few weeks ago but has resolved since she has taken the antibiotics. No chest pain no fever chills. Progressive weakness. On evaluation her chest x-ray showed residual airspace disease from 2 weeks prior. Viral PCR was negative for COVID flu and RSV. Respiratory pathogen panel is pending Patient has been started on cefepime and azithromycin. Patient also received IV Solu-Medrol in the ER and has been transition to prednisone. BNP 2720. Nasal MRSA negative. Chest x-ray with finding of CHF superimposed probable right lower lobe pneumonia. Echo 05/18 was performed to rule out pericardial effusion which was negative. Repeat echo 06/04/2025: EF 55-60% abnormal diastolic function mild pulmonary hypertension [id number] pulmonary regurgitation. CT chest with the right basilar subsegmental atelectatic changes with mild consolidative appearance which could represent small area of aspiration or pneumonia. 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 Procalcitonin level 0.1. Suspect CHF exacerbation more than pneumonia as she has already received 2 rounds of antibiotics. However CT chest suggest pneumonia. Continue on cefepime and azithromycin. Unlike what she says yesterday she feels her cough and shortness of breath is improved with antibiotics and since treatment/admission. Will resume her Lasix. Continue bronchodilators with DuoNeb scheduled every 6 hours Mild hypotension hold blood pressure medications. IV albumin. This has improved Generalized weakness PT OT Elevated troponin flat trend no evidence of ACS Chronic mild anemia no signs of bleeding Chronic nocturnal hypoxia on 5 L oxygen with sleep continue to wean oxygen down to daytime as she normally does not use oxygen during daytime. Chronic bronchitis Diastolic heart failure Atrial fibrillation status post Watchman procedure 05/04/2025 irritable bowel syndrome with diarrhea GERD Urge urinary incontinence CKD stage 3 DVT prophylaxis Eliquis Code status do not resuscitate Elevated IgE noted on labs 11/2024 Subjective Date/time seen: 06/06/25 11:28 Interval history: No overnight events. Patient is still coughing. Oxygen requirement stable. Feels weak. Review of Systems Review of Systems: All systems reviewed & are unremarkable except as noted in HPI and below Exam Narrative: Morbidly obese not in acute distress Patient is comfortable, NAD HEENT: eyes are clear and none icteric LUNGS: Diminished breath sounds bilaterally, end-expiratory wheezes noted, No respiratory distress HEART: RR S1S2 ABD: BS+, Soft and nontender Lower extremities: Bilateral lower extremity edema pitting 2+ SKIN: nonjaundiced Neuro: grossly intact. Alert and oriented x3 Objective Data Vital Signs Vital Signs: Vital Signs - 24 hr 06/05/25 13:30 06/05/25 13:35 06/05/25 14:00 Temperature 98.5 F Pulse Rate 88 92 102 H Respiratory Rate 20 20 20 Blood Pressure 112/72 Pulse Oximetry 98 Oxygen Delivery Oxygen Flow Rate 06/05/25 20:00 06/05/25 20:17 06/05/25 20:22 Temperature Pulse Rate 99 107 H Respiratory Rate 20 20 Blood Pressure Pulse Oximetry 94 94 Oxygen Delivery Nasal Cannula Nasal Cannula Oxygen Flow Rate 5 3 06/05/25 20:24 06/05/25 21:47 06/06/25 02:02 Temperature 97.1 F L Pulse Rate 99 105 H 91 Respiratory Rate 20 20 20 Blood Pressure 108/63 Pulse Oximetry 92 Oxygen Delivery Oxygen Flow Rate 06/06/25 02:11 06/06/25 05:35 06/06/25 08:00 Temperature 97.2 F L Pulse Rate 93 97 Respiratory Rate 20 20 Blood Pressure 113/85 Pulse Oximetry 93 93 Oxygen Delivery Nasal Cannula Oxygen Flow Rate 3 06/06/25 08:06 06/06/25 08:08 06/06/25 08:14 Temperature Pulse Rate 94 90 Respiratory Rate 20 20 Blood Pressure Pulse Oximetry 93 Oxygen Delivery Nasal Cannula Oxygen Flow Rate 3 Intake/Output Intake/Output: Intake & Output 06/03/25 06/04/25 06/05/25 06/06/25 23:59 23:59 23:59 23:59 Intake Total 1100 1310 2600 780 Output Total 900 Balance 200 1310 2600 780 Meds/Results Medications: Active Medications Generic Name Dose Route Start Last Admin Trade Name Freq PRN Reason Stop Dose Admin Albuterol/Ipratropium 3 ml 06/01/25 20:00 06/06/25 08:06 Ipratropium 0.5 Mg/Albuterol Sulfate 2.5 Mg (Base) Ampul.Neb 3 Ml INHALATION 3 ml Q6HRT BAILEE Administration Apixaban 5 mg 06/02/25 09:00 06/06/25 08:56 Apixaban 5 Mg Tablet PO 5 mg Q12HR BAILEE Administration Calcium Polycarbophil 1,250 mg 06/02/25 09:00 06/06/25 08:55 Calcium Polycarbophil 625 Mg Tablet PO 1,250 mg BID BAILEE Administration Cyanocobalamin 1,000 mcg 06/02/25 09:00 06/06/25 08:55 Cyanocobalamin 1,000 Mcg Tablet PO 1,000 mcg QAM BAILEE Administration Dicyclomine HCl 10 mg 06/02/25 06:12 Dicyclomine Hcl 10 Mg Capsule PO BID PRN abdominal pain Furosemide 40 mg 06/02/25 09:00 06/04/25 10:09 Furosemide 40 Mg Tablet PO Not Given On Hold: 06/04/25 10:04 QAM BAILEE Guaifenesin 600 mg 06/02/25 09:00 06/06/25 08:56 Guaifenesin 12 Hr 600 Mg Tabcr PO 600 mg Q12HR BAILEE Administration Cefepime HCl 2 gm/ Sodium 50 mls @ 100 mls/hr 06/02/25 06:00 06/06/25 06:13 Chloride IVPB Infused Q12H [facility] Infusion Lisinopril 10 mg 06/02/25 09:00 06/06/25 08:55 Lisinopril 10 Mg Tablet PO 10 mg DAILY BAILEE Administration Loratadine 10 mg 06/02/25 09:00 06/06/25 08:55 Loratadine 10 Mg Tablet PO 10 mg DAILY BAILEE Administration Metoprolol Succinate 25 mg 06/02/25 09:00 06/04/25 09:57 Metoprolol Succinate Ext Rel 25 Mg Tabcr PO Not Given On Hold: 06/04/25 10:04 DAILY BAILEE Multivitamins/Calcium 1 tablet 06/02/25 09:00 06/06/25 08:56 Therapeutic Multivitamins/Minerals Tab (*Bkc) PO 1 tablet DAILY BAILEE Administration Oxybutynin Chloride 5 mg 06/02/25 09:00 06/06/25 08:56 Oxybutynin Chloride 5 Mg Tablet PO 5 mg DAILY BAILEE Administration Pantoprazole Sodium 40 mg 06/02/25 09:00 06/06/25 08:55 Pantoprazole 40 Mg Tablet PO 40 mg QAM BAILEE Administration Psyllium Hydrophilic Mucilloid 1 packet 06/02/25 09:00 06/06/25 08:54 Psyllium Powder Packet BY MOUTH 1 packet DAILY BAILEE Administration Trazodone HCl 50 mg 06/02/25 06:12 06/03/25 21:30 Trazodone Hcl 50 Mg Tablet PO 50 mg QHS PRN Administration Insomnia Vitamin D 50 mcg 06/02/25 09:00 06/06/25 08:55 Cholecalciferol (Vitamin D3) 25 Mcg (1,000 Units) Tablet PO 50 mcg DAILY BAILEE Administration Radiology Results: ITS Impressions Chest X-Ray 06/01/25 13:57 IMPRESSION: 1. Mild bibasilar atelectasis and/or residual airspace disease from [address] 06/04/25 13:29 IMPRESSION: 1. Right basilar subsegmental atelectatic changes with mild consolidative appearance which could represent small area of aspiration or pneumonia. 2. Other chronic appearing findings as above including mild aneurysmal dilatation of the ascending thoracic aorta and prominence main pulmonary artery which may represent pulmonary arterial hypertension. 3. Enlarged thyroid. Correlate with follow-up routine thyroid ultrasound. Labs Labs: Laboratory Results - last 24 hr 06/05/25 06/06/25 17:24 05:14 WBC 7.9 RBC 3.28 L Hgb 9.0 L Hct 30.4 L MCV 92.7 MCH 27.4 MCHC 29.6 L RDW 14.7 H Plt Count 250 MPV 9.1 Sodium 137 Potassium 4.6 Chloride 106 Carbon Dioxide 30 Anion Gap 1 L BUN 33 H Creatinine 1.30 H Estim Creat Clear Calc 39 Estimated GFR 39 L Glucose 125 H Calcium 9.1 Magnesium 2.1 2.2 Total Bilirubin 0.8 AST 37 H ALT 49 H Alkaline Phosphatase 66 Total Protein 6.2 L Albumin 3.5
[2025-06-06] MEDS: FUROSEMIDE 40 MG TABLET PO (13:34)
--- NOTE | 2025-06-06 14:02 | ECG_ITS ---
Test Date: 2025-06-06 14:17:47 Measurements Intervals [place] Rate: 109 P: 0 HI: 0 QRS: -16 QRSD: 101 T: 34 QT: 326 QTc: 439 Interpretive Statements ATRIAL FIBRILLATION WITH RAPID VENTRICULAR RESPONSE DELAYED PRECORDIAL R/S TRANSITION ABNORMAL ECG Compared to ECG 06/01/2025 15:54:57 HEART RATE HAS INCREASED Electronically Signed On 06-06-2025 15:35:08 [employer] FELLOW by Adi Jeff D.O.
[2025-06-06] MEDS: METOPROLOL SUCCINATE EXT REL 25 MG TABCR PO (14:12)
[2025-06-06 18:00] LABS: Magnesium 2.1 mg/dL (1.6-2.3)
[2025-06-07] VITALS (15 sets, daily range): BP systolic 103–113; BP diastolic 63–70; PULSE 76–96; RESP 14–20; TEMP 36.1–36.5; O2SAT 93–96
[2025-06-07 05:05] LABS: Hematocrit 31.3 % (37.0-47.0); Hemoglobin 9.3 g/dL (12.0-15.0); Mean Corpuscular HGB Conc 29.7 g/dl (32-36); Mean Corpuscular Hemoglobin 27.4 pg (26-34); Mean Corpuscular Volume 92.3 fl (80-100); Platelet Count Result 273 k/mm3 (150-375); Red Blood Count 3.39 M/mm3 (4.2-5.4); White Blood Count 8.5 K/mm3 (4.5-10.0)
[2025-06-07] MEDS: CEFEPIME 2 GM in SODIUM CHLORIDE 0.9% IV 50 ML 100 ML IVPB (05:17)
[2025-06-07 05:53] LABS: Anion Gap 1 mmol/L (4-12); Blood Urea Nitrogen 37 mg/dL (7-17); Calcium 8.9 mg/dL (8.4-10.2); Carbon Dioxide 32 mmol/L (22-30); Chloride 103 mmol/L (98-107); Estimated CRCL calculation 34 ml/min; Estimated Glomerular Filt Rate 33; Glucose 109 mg/dL (65-110); Potassium 4.4 mmol/L (3.4-5.0); Sodium 136 mmol/L (137-145)
[2025-06-07] MEDS: IPRATROPIUM 0.5 MG/ALBUTEROL SULFATE 2.5 MG (BASE) AMPUL.NEB 3 ML INHALATION ×4 (07:40→19:29)
[2025-06-07] MEDS: FUROSEMIDE 40 MG TABLET PO (08:47)
[2025-06-07] MEDS: PANTOPRAZOLE 40 MG TABLET PO (08:48)
[2025-06-07] MEDS: THERAPEUTIC MULTIVITAMINS/MINERALS TAB (*BKC) 1 TABLET PO (08:48)
[2025-06-07] MEDS: APIXABAN 5 MG TABLET PO ×2 (08:48→20:50)
[2025-06-07] MEDS: METOPROLOL SUCCINATE EXT REL 25 MG TABCR PO (08:48)
[2025-06-07] MEDS: CYANOCOBALAMIN 1,000 MCG TABLET 1000 MCG PO (08:48)
[2025-06-07] MEDS: LORATADINE 10 MG TABLET PO (08:48)
[2025-06-07] MEDS: PSYLLIUM POWDER PACKET 1 PACKET BY MOUTH (08:52)
[2025-06-07] MEDS: guaiFENesin 12 HR 600 MG TABCR PO ×2 (08:52→20:50)
[2025-06-07] MEDS: CHOLECALCIFEROL (VITAMIN D3) 25 MCG (1,000 UNITS) TABLET 50 MCG PO (08:54)
--- NOTE | 2025-06-07 13:16 | P.PNIM_ITS ---
Assessment and Plan Assessment and Plan (1) Acute bronchitis: Qualifiers: Bronchitis organism: unspecified organism Qualified Code(s): J20.9 - Acute bronchitis, unspecified Code(s): J20.9 - Acute bronchitis, unspecified Status: Acute (2) Acute hypoxic respiratory failure: Code(s): J96.01 - Acute respiratory failure with hypoxia Status: Acute (3) CKD stage 3b, GFR 30-44 ml/min: Code(s): N18.32 - Chronic kidney disease, stage 3b Status: Acute (4) Chronic diarrhea: Code(s): K52.9 - Noninfective gastroenteritis and colitis, unspecified Status: Acute Plan This is a 84-year-old female who presented from [facility] due to persistent cough for 1 month. She was treated for bronchitis with green to brown sputum production with 10 days course of doxycycline and 04/16/2025. Patient had repeat symptoms 05/18/2025 and received antibiotic with cefdinir and azithromycin. Initially her symptoms improved however arm over the past couple of weeks he has continued to have intractable cough. She denied any history of asthma or chronic bronchitis per patient however documentation does report history of chronic bronchitis. She was also having some blood streak in the sputum a few weeks ago but has resolved since she has taken the antibiotics. No chest pain no fever chills. Progressive weakness. On evaluation her chest x-ray showed residual airspace disease from 2 weeks prior. Viral PCR was negative for COVID flu and RSV. Respiratory pathogen panel is pending Patient has been started on cefepime and azithromycin. Patient also received IV Solu-Medrol in the ER and has been transition to prednisone. BNP 2720. Nasal MRSA negative. Chest x-ray with finding of CHF superimposed probable right lower lobe pneumonia. Echo 05/18 was performed to rule out pericardial effusion which was negative. Repeat echo 06/04/2025: EF 55-60% abnormal diastolic function mild pulmonary hypertension [id number] pulmonary regurgitation. CT chest with the right basilar subsegmental atelectatic changes with mild consolidative appearance which could represent small area of aspiration or pneumonia. 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 Procalcitonin level 0.1. Suspect CHF exacerbation more than pneumonia as she has already received 2 rounds of antibiotics. However CT chest suggest pneumonia. Continue on cefepime and azithromycin. Unlike what she says yesterday she feels her cough and shortness of breath is improved with antibiotics and since treatment/admission. Will resume her Lasix. Continue bronchodilators with DuoNeb scheduled every 6 hours. Will switch antibiotics to oral finished course for atypical coverage. Respiratory pathogen panel is still pending. Mild hypotension hold blood pressure medications. IV albumin. This has improved Generalized weakness PT OT Elevated troponin flat trend no evidence of ACS Chronic mild anemia no signs of bleeding Chronic nocturnal hypoxia on 5 L oxygen with sleep continue to wean oxygen down to daytime as she normally does not use oxygen during daytime. Chronic bronchitis Diastolic heart failure Atrial fibrillation status post Watchman procedure 05/04/2025 on metoprolol apixaban irritable bowel syndrome with diarrhea GERD Urge urinary incontinence CKD stage 3 DVT prophylaxis Eliquis Code status do not resuscitate Elevated IgE noted on labs 11/2024 Subjective Date/time seen: 06/07/25 13:16 Interval history: No overnight events. Feels weak shortness of breath and cough has improved some. Discussed with speech therapy. Review of Systems Review of Systems: All systems reviewed & are unremarkable except as noted in HPI and below Exam Narrative: Morbidly obese not in acute distress Patient is comfortable, NAD HEENT: eyes are clear and none icteric LUNGS: Diminished breath sounds bilaterally, end-expiratory wheezes noted, No respiratory distress HEART: RR S1S2 ABD: BS+, Soft and nontender Lower extremities: Bilateral lower extremity edema pitting 2+ SKIN: nonjaundiced Neuro: grossly intact. Alert and oriented x3 Objective Data Vital Signs Vital Signs: Vital Signs - 24 hr 06/06/25 14:05 06/06/25 14:12 06/06/25 15:27 Temperature Pulse Rate 126 H 134 H 88 Respiratory Rate 18 20 Blood Pressure 146/89 H Pulse Oximetry 92 Oxygen Delivery Oxygen Flow Rate 06/06/25 15:32 06/06/25 20:00 06/06/25 20:52 Temperature Pulse Rate 92 87 Respiratory Rate 20 20 Blood Pressure Pulse Oximetry 94 93 Oxygen Delivery Nasal Cannula Nasal Cannula Oxygen Flow Rate 5 3 06/06/25 20:53 06/06/25 20:58 06/06/25 22:00 Temperature 97.9 F Pulse Rate 101 H 102 H 87 Respiratory Rate 20 20 20 Blood Pressure 109/53 L Pulse Oximetry 94 Oxygen Delivery Oxygen Flow Rate 06/07/25 02:50 06/07/25 02:55 06/07/25 06:00 Temperature 97.3 F L Pulse Rate 94 96 84 Respiratory Rate 20 20 20 Blood Pressure 103/68 Pulse Oximetry 96 Oxygen Delivery Oxygen Flow Rate 06/07/25 07:40 06/07/25 07:40 06/07/25 07:49 Temperature Pulse Rate 80 81 Respiratory Rate 18 18 Blood Pressure Pulse Oximetry 94 Oxygen Delivery Nasal Cannula Oxygen Flow Rate 3 06/07/25 08:00 06/07/25 11:21 Temperature Pulse Rate 87 Respiratory Rate 19 Blood Pressure Pulse Oximetry 93 94 Oxygen Delivery Nasal Cannula Nasal Cannula Oxygen Flow Rate 3 3 Intake/Output Intake/Output: Intake & Output 06/04/25 06/05/25 06/06/25 06/07/25 23:59 23:59 23:59 23:59 Intake Total 1310 2600 2890 760 Balance 1310 2600 2890 760 Meds/Results Medications: Active Medications Generic Name Dose Route Start Last Admin Trade Name Freq PRN Reason Stop Dose Admin Albuterol/Ipratropium 3 ml 06/01/25 20:00 06/07/25 13:14 Ipratropium 0.5 Mg/Albuterol Sulfate 2.5 Mg (Base) Ampul.Neb 3 Ml INHALATION 3 ml Q6HRT BAILEE Administration Apixaban 5 mg 06/02/25 09:00 06/07/25 08:48 Apixaban 5 Mg Tablet PO 5 mg Q12HR BAILEE Administration Calcium Polycarbophil 1,250 mg 06/02/25 09:00 06/07/25 08:52 Calcium Polycarbophil 625 Mg Tablet PO 1,250 mg BID BAILEE Administration Cyanocobalamin 1,000 mcg 06/02/25 09:00 06/07/25 08:48 Cyanocobalamin 1,000 Mcg Tablet PO 1,000 mcg QAM BAILEE Administration Dicyclomine HCl 10 mg 06/02/25 06:12 Dicyclomine Hcl 10 Mg Capsule PO BID PRN abdominal pain Furosemide 40 mg 06/02/25 09:00 06/07/25 08:47 Furosemide 40 Mg Tablet PO 40 mg QAM BAILEE Administration Guaifenesin 600 mg 06/02/25 09:00 06/07/25 08:52 Guaifenesin 12 Hr 600 Mg Tabcr PO 600 mg Q12HR BAILEE Administration Cefepime HCl 2 gm/ Sodium 50 mls @ 100 mls/hr 06/02/25 06:00 06/07/25 05:17 Chloride IVPB 100 mls/hr Q12H BAILEE Administration Lisinopril 10 mg 06/02/25 09:00 06/07/25 08:48 Lisinopril 10 Mg Tablet PO 10 mg DAILY BAILEE Administration Loratadine 10 mg 06/02/25 09:00 06/07/25 08:48 Loratadine 10 Mg Tablet PO 10 mg DAILY BAILEE Administration Metoprolol Succinate 25 mg 06/06/25 14:10 06/07/25 08:48 Metoprolol Succinate Ext Rel 25 Mg Tabcr PO 25 mg QAM BAILEE Administration Multivitamins/Calcium 1 tablet 06/02/25 09:00 06/07/25 08:48 Therapeutic Multivitamins/Minerals Tab (*Bkc) PO 1 tablet DAILY BAILEE Administration Oxybutynin Chloride 5 mg 06/02/25 09:00 06/07/25 08:48 Oxybutynin Chloride 5 Mg Tablet PO 5 mg DAILY BAILEE Administration Pantoprazole Sodium 40 mg 06/02/25 09:00 06/07/25 08:48 Pantoprazole 40 Mg Tablet PO 40 mg QAM BAILEE Administration Psyllium Hydrophilic Mucilloid 1 packet 06/02/25 09:00 06/07/25 08:52 Psyllium Powder Packet BY MOUTH 1 packet DAILY BAILEE Administration Trazodone HCl 50 mg 06/02/25 06:12 06/03/25 21:30 Trazodone Hcl 50 Mg Tablet PO 50 mg QHS PRN Administration Insomnia Vitamin D 50 mcg 06/02/25 09:00 06/07/25 08:54 Cholecalciferol (Vitamin D3) 25 Mcg (1,000 Units) Tablet PO 50 mcg DAILY BAILEE Administration Radiology Results: ITS Impressions Chest X-Ray 06/01/25 13:57 IMPRESSION: 1. Mild bibasilar atelectasis and/or residual airspace disease from [address] 06/04/25 13:29 IMPRESSION: 1. Right basilar subsegmental atelectatic changes with mild consolidative appearance which could represent small area of aspiration or pneumonia. 2. Other chronic appearing findings as above including mild aneurysmal dilatation of the ascending thoracic aorta and prominence main pulmonary artery which may represent pulmonary arterial hypertension. 3. Enlarged thyroid. Correlate with follow-up routine thyroid ultrasound. Labs Labs: Laboratory Results - last 24 hr 06/06/25 06/07/25 17:39 04:40 WBC 8.5 RBC 3.39 L Hgb 9.3 L Hct 31.3 L MCV 92.3 MCH 27.4 MCHC 29.7 L RDW 14.8 H Plt Count 273 MPV 9.6 Sodium 136 L Potassium 4.4 Chloride 103 Carbon Dioxide 32 H Anion Gap 1 L BUN 37 H Creatinine 1.49 H Estim Creat Clear Calc 34 Estimated GFR 33 L Glucose 109 Calcium 8.9 Magnesium 2.1
[2025-06-07 17:34] LABS: Magnesium 1.9 mg/dL (1.6-2.3)
[2025-06-07] MEDS: BUDESONIDE RESPULE NEB 0.5 MG/2 ML AMP INHALATION (19:32)
[2025-06-07] MEDS: PROMETHAZINE/CODEINE (*CRX) 5 ML SYRUP PO (23:20)
[2025-06-08] VITALS (13 sets, daily range): BP systolic 103–127; BP diastolic 58–79; PULSE 63–114; RESP 12–22; TEMP 36.1–37.1; O2SAT 90–97
[2025-06-08] MEDS: IPRATROPIUM 0.5 MG/ALBUTEROL SULFATE 2.5 MG (BASE) AMPUL.NEB 3 ML INHALATION ×4 (03:00→20:13)
[2025-06-08 05:08] LABS: Hematocrit 31.2 % (37.0-47.0); Hemoglobin 9.5 g/dL (12.0-15.0); Mean Corpuscular HGB Conc 30.4 g/dl (32-36); Mean Corpuscular Hemoglobin 28.1 pg (26-34); Mean Corpuscular Volume 92.3 fl (80-100); Platelet Count Result 300 k/mm3 (150-375); Red Blood Count 3.38 M/mm3 (4.2-5.4); White Blood Count 11.2 K/mm3 (4.5-10.0)
[2025-06-08 05:34] LABS: Anion Gap 4 mmol/L (4-12); Blood Urea Nitrogen 38 mg/dL (7-17); Calcium 8.8 mg/dL (8.4-10.2); Carbon Dioxide 28 mmol/L (22-30); Chloride 101 mmol/L (98-107); Estimated CRCL calculation 38 ml/min; Estimated Glomerular Filt Rate 38; Glucose 90 mg/dL (65-110); Potassium 3.8 mmol/L (3.4-5.0); Sodium 133 mmol/L (137-145)
[2025-06-08] MEDS: BUDESONIDE RESPULE NEB 0.5 MG/2 ML AMP INHALATION ×2 (07:29→20:14)
[2025-06-08] MEDS: CHOLECALCIFEROL (VITAMIN D3) 25 MCG (1,000 UNITS) TABLET 50 MCG PO (08:42)
[2025-06-08] MEDS: LORATADINE 10 MG TABLET PO (08:42)
[2025-06-08] MEDS: FUROSEMIDE 40 MG TABLET PO (08:42)
[2025-06-08] MEDS: APIXABAN 5 MG TABLET PO ×2 (08:42→21:21)
[2025-06-08] MEDS: THERAPEUTIC MULTIVITAMINS/MINERALS TAB (*BKC) 1 TABLET PO (08:42)
[2025-06-08] MEDS: PANTOPRAZOLE 40 MG TABLET PO ×2 (08:42→21:22)
[2025-06-08] MEDS: CYANOCOBALAMIN 1,000 MCG TABLET 1000 MCG PO (08:42)
[2025-06-08] MEDS: METOPROLOL SUCCINATE EXT REL 25 MG TABCR PO (08:43)
[2025-06-08] MEDS: guaiFENesin 12 HR 600 MG TABCR PO ×2 (08:43→21:21)
[2025-06-08] MEDS: PSYLLIUM POWDER PACKET 1 PACKET BY MOUTH (08:46)
--- NOTE | 2025-06-08 10:36 | PM.CNPUL ---
Assessment and Plan Assessment and plan (1) Chronic cough: Code(s): R05.3 - Chronic cough Status: Acute Assessment and Plan: Patient records chronic cough since the summer of 2024. She received doxycycline on 04/16/2025. She received cefdinir and azithromycin on 05/17/2025 with no benefit. Patient admitted 06/01/2025 with wheezing, CT scan on 06/04 with right basilar atelectasis with could mild consolidation. Rhinovirus positive on 06/08/2025. she has no history of allergic rhinitis and no sinus symptoms currently. She is on Protonix 40 once a day and has no GERD symptoms. She has no history of asthma or COPD. She is a never smoker but was exposed to secondhand smoke. CT scan with no interstitial lung disease, nodules or masses. modified barium swallow normal. Acute worsening of symptoms with dyspnea on exertion, hypoxia, focal infiltrate on her CT scan and worsening cough likely explained by current rhinoviral infection. Is unclear if patient has cough that began in the summer was initiated by a viral infection or not. Plan: There is no specific treatment for rhinoviral infection. Will continue to support patient. Goal saturation 90-94%. Wean oxygen as tolerated. Regarding her chronic cough since the summer: Etiology includes and post viral cough (denied URI in the summer), lisinopril induced cough, reactive airways disease, silent reflux, and cough hypersensitivity syndrome. Plan: Continue DuoNebs q.6 hours and nebulized budesonide q.12 hours for possible reactive airways disease. I will discontinue lisinopril. I will increase her Protonix to 40 mg p.o. b.i.d.. In an attempt to suppress the cough I will start benzonatate 200 mg p.o. t.i.d.. discussed with Dr. Mckeon, will follow with you. (2) Pneumonia: Code(s): J18.9 - Pneumonia, unspecified organism Status: Acute Assessment and Plan: Patient with possible pneumonia and has received treatment with 5 days of azithromycin ending on 06/05. Seven days of cefepime ending on 06/07 and currently on Augmentin. she is afebrile. White blood cell count 11.2, procalcitonin remains low, CRP less than 0.5. Plan: Would discontinue Augmentin 06/10/25 as this will be a total of 10 days antibiotics with minimal improvement. History of Present Illness History of Present Illness Consult date: 06/08/25 Chief complaint: bronchitis Narrative: 06/08/2025: This is a new pulmonary consult for pneumonia. 84-year-old with a history of persistent AFib, hypertension, CKD, nocturnal hypoxia, obesity Patient followed in the Pulmonary Clinic in last seen on 01/20/2025: Last visit 10/2024 to establish care Cesia is an 84yo F here for follow up regarding shortness of breath. She is here today with her friend, Milagro. Last visit she was here with her daughter Nelly, also has another daughter, Yumiko. PCP is MARYAM Davis. States she moved to [facility] about 6 weeks ago. Breathing feels stable, same as last visit. States she can't walk far with a walker. Using Mucinex 1-2x per day and states she's seen improvement in chest congestion and sputum since using this regularly. Denies wheezing. She is currently using 5L/min O2 at night with sleep nightly by our recommendation, see testing below. Last visit she was using 2L and completed a couple overnight oximetry studies detailed below. States she has not required oxygen during the day. HI staff check her vital signs but not daily. Hx from initial visit: She was hospitalized 09/04-09/08/24 at [facility] for shortness of breath and acute respiratory failure. She was treated with oxygen 2L/min and did not require daytime supplemental O2 at discharge. She aspirated a pill over 10 years ago. Was not hospitalized for this but had 2 procedures at [place] at that time trying to remove the pill. This is when she was started on 2L/min O2 with sleep only, which she's been using nightly for years. She does not use O2 during the day. She has swelling in her legs and feet. PCP note 10/14/24 seeing MARYAM Davis - patient weighed 301lb, had JENNIFER leg edema and weakness, Elizabeth adjusted diuretics, changed HCTZ to Lasix. Patient weighs 286lb 10/2024 visit. During her 09/29/24 6mw study, she walked for 3 min and test was terminated as her HR was in 150s. She didn't require daytime supplemental oxygen based on that 3 min testing. She was living with her daughter, Yumiko, in [place] since her 09/08/24 discharge now moved to [facility] assisted living. room air saturations were 93%. She had faint end expiratory wheezes bilaterally similar to last visit. Assessment and plan: Shortness of breath: PFTs normal, 6 minute walk study only completed 3 minutes then a flutter. I suspect cardiac arrhythmias, deconditioning morbid obesity contributing to her dyspnea on exertion. Bronchodilators were entertained as she had wheezes but with a resume E is held off on this. Steroids were entertained but held off. Mucinex 601 to twice a day p.r.n. Has improved her congestion and will continue. Regarding her 5 L nocturnal oxygen needs we discussed the possibility of untreated sleep apnea and she declined further evaluation. Patient tells me that she has had a dry cough this started in the summer of 2024. Prior to the summer she had no cough. Patient denies any history of asthma or COPD. Patient denies a history of allergic rhinitis. Patient states there was no change in the cough with positional maneuvers. Patient denied any cold, pneumonia, bronchitis episodes prior to the cough starting. The cough is persisted and gotten worse since this summer. The patient was treated for bronchitis on 04/16/2025 with 10 days of doxycycline. The patient tells me she took this medicine but there was no change in her cough. On 05/17 the patient was treated with cefdinir and azithromycin and the patient tells me there is no change in her cough with this. The patient had continued cough, sputum, some shortness of breath and swelling and was sent for an x-ray on 06/01/2025 by her PCP. The x-ray showed small right pleural effusion, perihilar congestion and she was told to come to the emergency room to be evaluated for pneumonia. Her blood pressure was 104/52, heart rate 95, respirations 20, room air saturations were 90%. She was placed on 2 L nasal cannula saturations 94%. She had bilateral wheezing. Her BNP was 2720. Her white blood cell count was 9.2 with eosinophils 3% equals 270 6 per micro L. Her creatinine was 1.44. She was started on Solu-Medrol, cefepime, azithromycin and vancomycin. Her MRSA swab was negative. Her COVID influenza RSV RT PCR assay were negative. 06/04/2025: Patient had a CT scan of the chest that showed right basilar atelectasis with mild consolidation. Cough and shortness of breath persisted. Cough got slowly better until 06/07/2025 and her cough was worse. 06/08/2025: Patient states that her cough is better than yesterday and the same as admission. She does cough frequently during the interview and expectorates green phlegm. She denies fever, chills or rigors. She has no rest shortness of breath but some dyspnea on exertion that is the same as when she presented. She does complain that she is very weak at this point. She is afebrile. White blood cell count 11.2, creatinine 1.32, BNP has improved from 3530 on 06/04/2020 5-2900 today. Her CRP is 0.5. Procalcitonin is unchanged from 06/04/2025 at 0.1 today. when I enter the room the patient was on 4 L nasal cannula saturations 96%. I decreased her to room air and after 4 minutes her saturations decreased to 89%. I placed her on 1 L nasal cannula her saturations were 93%. Later in the day respiratory pathogen panel returned positive for rhino virus. DATA: 06/04/25: Echo Summary 1. Definity contrast administered improved wall motion interpretation. 2. Left ventricular chamber dimension is mildly enlarged. 3. Left ventricular systolic function is normal, estimated at 55-60. 4. The left ventricular diastolic function is abnormal. 5. E/e' 14 is mildly elevated. 6. Atrial fibrillation. 7. Left atrial chamber dimension is severely enlarged. 8. Right atrial chamber dimension is severely enlarged. 9. There is mild aortic valve sclerosis. 10. There is mild aortic valve regurgitation. 11. There is trace mitral valve regurgitation. 12. Mild pulmonary hypertension, estimated pulmonary arterial systolic pressure is 47 mmHg. 13. There is mild to moderate pulmonic regurgitation. 14. Dilated inferior vena cava with <50% collapse upon inspiration consistent with significantly elevated right atrial pressure, 15 mmHg. Left Ventricle Definity contrast administered improved wall motion interpretation. Left ventricular chamber dimension is mildly enlarged. Left ventricular systolic function is normal, estimated at 55-60. The left ventricular diastolic function is abnormal. E/e' 14 is mildly elevated. Atrial fibrillation. Right Ventricle Right ventricular chamber dimension is normal. Right ventricular systolic function is normal. Left Atria Left atrial chamber dimension is severely enlarged. Right Atria Right atrial chamber dimension is severely enlarged. 06/04/25: EXAMINATION:CT diagnostic chest wo con DATE: 06/04/2025 13:26 INDICATION: Cough TECHNIQUE: Computed tomography (CT) of the chest was performed without intravenous contrast. The dose-length product (DLP) was 815.18 mGy-cm. COMPARISON: Chest x-ray from June 01 FINDINGS: Mild subsegmental atelectatic changes in the right lung base with air bronchograms and trace right-sided pleural effusion. Small infiltrate and/or aspiration could have a similar appearance. Mid and upper lung cali are clear. Central large airways are patent. Heart size slightly enlarged. Ascending thoracic aorta measures 4.1 cm Main pulmonary artery measures 3.8 cm. Distal aortic arch and descending aorta normal size. No significant pericardial effusion or bulky lymphadenopathy. Diffuse degenerative changes in the bones. Para no acute process seen in the visualized portions of the upper abdomen or extrathoracic soft tissues. Cholecystectomy clips. The thyroid is enlarged with portions of the inferior margin extending down behind the sternum. IMPRESSION: 1. Right basilar subsegmental atelectatic changes with mild consolidative appearance which could represent small area of aspiration or pneumonia. 2. Other chronic appearing findings as above including mild aneurysmal dilatation of the ascending thoracic aorta and prominence main pulmonary artery which may represent pulmonary arterial hypertension. 3. Enlarged thyroid. Correlate with follow-up routine thyroid ultrasound. 12/21/24 - Overnight oximetry on 4L - Total time spent at or below 88% saturation was 35.5 min out of 7h23m recording time. Lowest saturation 77%, Baseline SpO2 91%. Recommend 5L/min O2 with sleep. 11/24/24 - Overnight oximetry on 2L - Total time spent at or below 88% was 1h31m out of total recording time 8h25m. Lowest saturation was 78% and baseline SpO2 was 90%. Offered PSG and patient declines. Recommended 4L/min O2 with sleep and repeat overnight oximetry. 09/29/24 - PFT - The spirometry is normal without evidence of an obstructive abnormality. There is no significant improvement after inhaling a single dose of albuterol. The lung volumes are normal. The diffusing capacity is normal. 09/29/24 - 6mw - The testing was stopped after 3 minutes due to fluctuating heart rate from the low 100s up to 150s. On this walk test that lasted 3 minutes, the patient did not qualify for supplemental oxygen at rest or with ambulation. The patient's resting room air oxygen saturation measured by pulse oximetry was 94%, the heart rate was 98 bpm, Patient ambulated for 61 meters and oxygen saturation remained 92 to 94%. At the end of the study the heart rate was 151 bpm 09/04/24 - CTA chest - @ [facility] , indication elevated d-dimer, low oxygen saturation, and weakness - No evidence of PE. Mild dependent atelectasis. There is prominence of the main pulmonary artery suggesting elevated pulmonary arterial pressure. Mild mosaic attenuation in the lower lobes and lingula that is nonspecific but could reflect small airway disease or small vessel disease. Coronary artery calcifications. Right thyroid nodule 2.5cm. Review of Systems Constitutional: Constitutional: Reports no additional constitutional complaints Eyes: Eyes: Reports no additional eye complaints ENT: Reports system reviewed and no additional complaints, except as documented Cardiovascular: Cardiovascular: Reports no additional cardiovascular complaints Respiratory: Respiratory: Reports no additional respiratory complaints Gastrointestinal: Gastrointestinal: Reports no additional gastrointestinal complaints Musculoskeletal: Musculoskeletal: Reports no additional musculoskeletal complaints Neurologic: Reports system reviewed and no additional complaints, except as documented Psychiatric: Psychiatric: Reports no additional psychiatric complaints Endocrine: Endocrine: Reports no additional endocrine complaints Hematologic/Lymphatic: Hematologic/Lymphatic: Reports no additional hematologic/lymphatic complaints Allergic/Immunologic: Allergic/Immunologic: Reports no additional allergic/immunologic complaints [facility] Past Medical History Medical History (Updated 06/08/25 @ 14:00 by Sunny Martin MD) Mild pulmonary hypertension Vitamin B12 deficiency Obstructive sleep apnea 5 L nasal cannula oxygen Rosacea (HFpEF) heart failure with preserved ejection fraction Atrial fibrillation/flutter Chronic kidney disease Thyroid nodule Fecal incontinence Thyroid nodule greater than or equal to 1 cm in diameter incidentally noted on imaging study 2.5 cm right lobe, noted on CTA chest August 2024 Nocturnal hypoxia Lower extremity weakness Ambulates with cane Insomnia Screening for breast cancer Hearing loss Pre-diabetes Depressive disorder Vitamin D deficiency Hypertension Surgical History Surgical History (Updated 06/02/25 @ 08:40 by Tresa Trejo DO) History of cochlear implant (2019) History of replacement of both shoulder joints History of total right knee replacement Hx of cholecystectomy Family History Family History Father Heart disease Diabetes mellitus Mother Cancer Diabetes mellitus Social History Social History (Updated 06/02/25 @ 08:42 by Tresa Trejo DO) Social History: The patient lives at [facility]. Code status: DNR/DNI Surrogate decision maker: Gucci Reynoso (son) Smoking status: Never smoker Second hand tobacco smoke exposure: No Alcohol intake: never Substance use: never Lack of Transportation: No Lack of Food: Never True Current Housing: I Have Housing Concerned About Future Housing: No Difficulty Paying Gas/Electric Bills: No Difficulty Paying for Meds: No Currently Unemployed: No Education: Decline to Answer Difficulty w/ Childcare or Family Care: No Living arrangements: alone Occupation/Education: retired Spiritual care concerns: No Agree to blood products: Yes Meds Home Medications and Allergies Home Medications ?Medication ?Instructions ?Recorded ?Confirmed ?Type trazodone 50 mg tablet 50 mg PO QHS PRN insomnia #90 tabs 07/07/24 06/01/25 Rx cholecalciferol (vitamin D3) 50 50 mcg PO DAILY #90 caps 10/14/24 06/01/25 Rx mcg (2,000 unit) capsule loratadine 10 mg tablet (Claritin) 10 mg PO DAILY #90 tabs 10/14/24 06/01/25 Rx apixaban 5 mg tablet (Eliquis) 5 mg PO BID #60 tabs 11/17/24 06/01/25 Rx dicyclomine 10 mg capsule 10 mg PO BID PRN abdominal pain 11/17/24 06/01/25 Rx #180 caps lisinopril 10 mg tablet 10 mg PO DAILY #90 tabs 11/17/24 06/01/25 Rx metoprolol succinate 25 mg 25 mg PO DAILY #30 tabs 11/17/24 06/01/25 Rx tablet,extended release 24 hr mupirocin 2 % topical ointment 1 applic topical BID #15 grams 11/17/24 06/01/25 Rx (Centany) oxybutynin chloride 5 mg tablet 5 mg PO DAILY #90 tabs 11/17/24 06/01/25 Rx spironolactone 25 mg tablet 12.5 mg PO DAILY 12/10/24 06/01/25 History guaifenesin 600 mg tablet, 600 mg PO Q12H PRN congestion #60 12/28/24 06/01/25 Rx extended release 12 hr tabs mecobalamin (vitamin B12) 500 mcg 1,000 mcg (2 x 500 mcg) PO DAILY 02/05/25 06/01/25 Rx chewable tablet #180 tabs multivitamin with minerals-folic 1 tablet PO DAILY #90 tabs 02/05/25 06/01/25 Rx acid 0.4 mg tablet (One-A-Day Women's 50 Plus) Lactobacillus rhamnosus-Bifidobac. 1 cap PO DAILY 04/08/25 06/01/25 History animalis 3 billion cell capsule ([employer]) diclofenac sodium 1 % topical gel 2 g topical QID #50 grams 04/16/25 06/01/25 Rx (Arthritis Pain (diclofenac)) ketoconazole 2 % topical cream 1 applic topical BID #60 grams 04/16/25 06/01/25 Rx pantoprazole 40 mg tablet,delayed 40 mg PO QAM #90 tabs 05/13/25 06/01/25 Rx release acetaminophen 500 mg capsule 1,000 mg PO .Q8 PRN fever or pain 06/01/25 06/01/25 History furosemide 40 mg tablet 40 mg PO QAM 06/01/25 06/01/25 History psyllium husk 0.4 gram capsule 0.4 g PO .5xd 06/01/25 06/01/25 History (Reguloid (psyllium husk)) Allergies Allergy/AdvReac Type Severity Reaction Status Date / Time No Known Allergies Allergy Verified 06/01/25 20:21 Vital Signs Vital Signs - 24 hr 06/07/25 11:21 06/07/25 13:16 06/07/25 13:23 Temperature Pulse Rate 76 80 Respiratory Rate 18 18 Blood Pressure Pulse Oximetry 94 Oxygen Delivery Nasal Cannula Oxygen Flow Rate 3 06/07/25 14:00 06/07/25 18:30 06/07/25 19:31 Temperature 36.1 C L Pulse Rate 93 79 Respiratory Rate 14 18 Blood Pressure 113/70 Pulse Oximetry 95 95 Oxygen Delivery Nasal Cannula Oxygen Flow Rate 3 06/07/25 19:37 06/07/25 20:00 06/07/25 20:27 Temperature 36.5 C Pulse Rate 85 94 94 Respiratory Rate 18 20 20 Blood Pressure 110/63 Pulse Oximetry 94 94 Oxygen Delivery Nasal Cannula Oxygen Flow Rate 5 06/08/25 03:00 06/08/25 03:05 06/08/25 03:11 Temperature 36.1 C L Pulse Rate 87 90 101 H Respiratory Rate 19 19 20 Blood Pressure 127/66 Pulse Oximetry 97 Oxygen Delivery Oxygen Flow Rate 06/08/25 07:35 06/08/25 07:35 06/08/25 07:43 Temperature Pulse Rate 114 H 114 H 95 Respiratory Rate 22 H 22 H 18 Blood Pressure Pulse Oximetry 94 Oxygen Delivery Nasal Cannula Oxygen Flow Rate 5 Exam Const: General: cooperative, comfortable and no acute distress Orientation/consciousness: oriented to person, oriented to place and oriented to time HENMT: Head: normal to inspection Ears: hearing grossly normal bilaterally Eyes: General: appearance normal, both eyes and all related structures Neck: Neck: normal visual inspection Chest: Chest palpation & inspection: normal inspection of the chest Resp: Effort & Inspection: normal respiratory effort and able to speak in complete sentences Auscultation: no crackles, no rales, rhonchi, no wheezes and lung sounds not diminished Other: Course expiratory rhonchi heard throughout. Cardio: Jugular venous distension: no JVD GI: Inspection: normal to inspection GI Palp: No abdominal tenderness Skin: General skin exam: normal color Neuro: General: oriented to person, oriented to place and oriented to time Extrem: General: normal to inspection Psych: Appearance: grossly normal Results Laboratory Findings 06/08/25 04:51 06/08/25 04:51 ABG, PT/INR, D-dimer: PT/INR, D-dimer PT 16.7 Seconds (11.1-14.7) H 06/01/25 16:05 INR 1.4 06/01/25 16:05 Abnormal lab findings: Abnormal Labs 06/01/25 06/02/25 06/02/25 16:05 04:31 04:31 WBC RBC 3.63 L 3.53 L Hgb 10.1 L 9.8 L Hct 33.7 L 33.1 L MCHC 30.0 L 29.6 L RDW 14.7 H 15.0 H Immature Gran % (Auto) 0.7 H Neut % (Auto) 89.7 H Lymph % (Auto) 8.3 L [place] % (Auto) 8.8 H 1.2 L Baso % (Auto) 0.1 L Lymph # (Auto) 0.69 L [place] # (Auto) 0.8 H Abs Immat Gran (auto) 0.04 H 0.06 H Absolute Neuts (auto) 7.5 H PT 16.7 H Sodium 135 L 135 L Potassium 5.6 H Carbon Dioxide Anion Gap BUN 32 H 33 H Creatinine 1.44 H 1.40 H 1.37 H Estimated GFR 35 L 36 L Glucose 116 H AST ALT Troponin I 0.035 H* NT-Pro-B Natriuret Pep 2720 H Total Protein Albumin 3.4 L Random Vancomycin 06/02/25 06/02/25 06/03/25 04:31 11:51 05:02 WBC 10.1 H RBC 3.37 L Hgb 9.2 L Hct 31.5 L MCHC 29.2 L RDW 14.9 H Immature Gran % (Auto) Neut % (Auto) Lymph % (Auto) [place] % (Auto) Baso % (Auto) Lymph # (Auto) [place] # (Auto) Abs Immat Gran (auto) Absolute Neuts (auto) PT Sodium 136 L Potassium Carbon Dioxide Anion Gap 3 L BUN 38 H Creatinine 1.44 H Estimated GFR 37 L 35 L Glucose 217 H 128 H AST ALT Troponin I NT-Pro-B Natriuret Pep Total Protein Albumin Random Vancomycin 9.7 L 06/04/25 06/05/25 06/06/25 04:45 05:11 05:14 WBC RBC 3.28 L 3.16 L 3.28 L Hgb 9.0 L 8.6 L 9.0 L Hct 31.0 L 29.4 L 30.4 L MCHC 29.0 L 29.3 L 29.6 L RDW 14.9 H 14.7 H 14.7 H Immature Gran % (Auto) Neut % (Auto) Lymph % (Auto) [place] % (Auto) Baso % (Auto) Lymph # (Auto) [place] # (Auto) Abs Immat Gran (auto) Absolute Neuts (auto) PT Sodium 134 L 136 L Potassium Carbon Dioxide Anion Gap 2 L 1 L BUN 42 H 36 H 33 H Creatinine 1.42 H 1.18 H 1.30 H Estimated GFR 35 L 44 L 39 L Glucose 111 H 117 H 125 H AST 37 H ALT 49 H Troponin I NT-Pro-B Natriuret Pep 3530 H Total Protein 6.2 L Albumin Random Vancomycin 06/07/25 06/08/25 04:40 04:51 WBC 11.2 H RBC 3.39 L 3.38 L Hgb 9.3 L 9.5 L Hct 31.3 L 31.2 L MCHC 29.7 L 30.4 L RDW 14.8 H 14.8 H Immature Gran % (Auto) Neut % (Auto) Lymph % (Auto) [place] % (Auto) Baso % (Auto) Lymph # (Auto) [place] # (Auto) Abs Immat Gran (auto) Absolute Neuts (auto) PT Sodium 136 L 133 L Potassium Carbon Dioxide 32 H Anion Gap 1 L BUN 37 H 38 H Creatinine 1.49 H 1.32 H Estimated GFR 33 L 38 L Glucose AST ALT Troponin I NT-Pro-B Natriuret Pep Total Protein Albumin Random Vancomycin Diagnostic Findings Additional studies: ITS Impressions Chest X-Ray 06/01/25 13:57 IMPRESSION: 1. Mild bibasilar atelectasis and/or residual airspace disease from [address] 06/04/25 13:29 IMPRESSION: 1. Right basilar subsegmental atelectatic changes with mild consolidative appearance which could represent small area of aspiration or pneumonia. 2. Other chronic appearing findings as above including mild aneurysmal dilatation of the ascending thoracic aorta and prominence main pulmonary artery which may represent pulmonary arterial hypertension. 3. Enlarged thyroid. Correlate with follow-up routine thyroid ultrasound. Chest X-Ray 06/08/25 09:48 Impression: CHF Modified Barium Swallow 06/08/25 09:48 IMPRESSION: No aspiration observed. See speech therapist's note for complete evaluation.
[2025-06-08 11:00] LABS: CRP < 0.5 mg/dL (<1.0)
[2025-06-08 11:01] LABS: NT Pro B Type Natriuretic Pept 2900 pg/mL (19.9-100)
--- NOTE | 2025-06-08 11:13 | PCSTNOTE ---
Please refer to the Modified Barium Swallow Evaluation in the EMR. The above pt was seen for an MBS due to chest CT revealing possible aspiration. BSE was negative for overt s/s of aspiration. Missing teeth noted; oral mucosa normal and vocal quality clear. Pt was seated for a lateral view and was presented with 5 ml trials of thin liquid barium via a spoon, pudding consistency barium trials via a spoon, cracker coated with barium pudding trials via a spoon, and uncontrolled thin liquid barium. This was presented via a cup & straw. Oral preparatory and oral phase symptoms: none. Pharyngeal phase symptoms: within functional limits; trace and very shallow laryngeal penetration occurred which cleared with no aspiration risk. Esophageal stage symptoms: none. Overall, no aspiration occurred. Impressions: Normal swallow Ability Recommendations: regular (easy to chew) diet/level 7 and level 0 regular thin liquids. Sit upright with all oral intake. No further ST is warranted at this time.
--- NOTE | 2025-06-08 13:27 | P.PNIM_ITS ---
Assessment and Plan Assessment and Plan (1) Acute bronchitis: Qualifiers: Bronchitis organism: unspecified organism Qualified Code(s): J20.9 - Acute bronchitis, unspecified Code(s): J20.9 - Acute bronchitis, unspecified Status: Acute (2) Acute hypoxic respiratory failure: Code(s): J96.01 - Acute respiratory failure with hypoxia Status: Acute (3) CKD stage 3b, GFR 30-44 ml/min: Code(s): N18.32 - Chronic kidney disease, stage 3b Status: Acute (4) Chronic diarrhea: Code(s): K52.9 - Noninfective gastroenteritis and colitis, unspecified Status: Acute Plan This is a 84-year-old female who presented from [facility] due to persistent cough for 1 month. She was treated for bronchitis with green to brown sputum production with 10 days course of doxycycline and 04/16/2025. Patient had repeat symptoms 05/18/2025 and received antibiotic with cefdinir and azithromycin. Initially her symptoms improved however arm over the past couple of weeks he has continued to have intractable cough. She denied any history of asthma or chronic bronchitis per patient however documentation does report history of chronic bronchitis. She was also having some blood streak in the sputum a few weeks ago but has resolved since she has taken the antibiotics. No chest pain no fever chills. Progressive weakness. On evaluation her chest x-ray showed residual airspace disease from 2 weeks prior. Viral PCR was negative for COVID flu and RSV. Respiratory pathogen panel is pending Patient has been started on cefepime and azithromycin. Patient also received IV Solu-Medrol in the ER and has been transition to prednisone. BNP 2720. Nasal MRSA negative. Chest x-ray with finding of CHF superimposed probable right lower lobe pneumonia. Echo 05/18 was performed to rule out pericardial effusion which was negative. Repeat echo 06/04/2025: EF 55-60% abnormal diastolic function mild pulmonary hypertension [id number] pulmonary regurgitation. CT chest with the right basilar subsegmental atelectatic changes with mild consolidative appearance which could represent small area of aspiration or pneumonia. 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 Procalcitonin level 0.1. Suspect CHF exacerbation more than pneumonia as she has already received 2 rounds of antibiotics. However CT chest suggest pneumonia. Continue on cefepime and azithromycin. Unlike what she says yesterday she feels her cough and shortness of breath is improved with antibiotics and since treatment/admission. Will resume her Lasix. Continue bronchodilators with DuoNeb scheduled every 6 hours. Will switch antibiotics to oral finished course for atypical coverage. Respiratory pathogen panel comes back positive for echo/rhinovirus. Will stop neb steroid. MBS to rule out silent aspiration. With ongoing respiratory symptoms/failure to improve will consult Pulmonary. Repeat chest x-ray 06/08/2025 does come back with pulmonary vascular congestion. Will start IV diuresis to help with her respiratory symptoms. Mild hypotension hold blood pressure medications. IV albumin. This has improved Generalized weakness PT OT Elevated troponin flat trend no evidence of ACS Chronic mild anemia no signs of bleeding Chronic nocturnal hypoxia on 5 L oxygen with sleep continue to wean oxygen down to daytime as she normally does not use oxygen during daytime. Chronic bronchitis Diastolic heart failure Atrial fibrillation status post Watchman procedure 05/04/2025 on metoprolol apixaban irritable bowel syndrome with diarrhea GERD Urge urinary incontinence CKD stage 3 DVT prophylaxis Eliquis Code status do not resuscitate Elevated IgE noted on labs 11/2024 Subjective Date/time seen: 06/08/25 13:27 Interval history: No overnight events. Patient is still continues to feel short of breath and continues to have cough was unable to sleep last night due to ongoing cough. Patient feels we can afraid she will be able to go back to [facility]. Review of Systems Review of Systems: All systems reviewed & are unremarkable except as noted in HPI and below Exam Narrative: Morbidly obese not in acute distress Patient is comfortable, NAD HEENT: eyes are clear and none icteric LUNGS: Diminished breath sounds bilaterally, end-expiratory wheezes noted, No respiratory distress HEART: RR S1S2 ABD: BS+, Soft and nontender Lower extremities: Bilateral lower extremity edema pitting 2+ SKIN: nonjaundiced Neuro: grossly intact. Alert and oriented x3 Objective Data Vital Signs Vital Signs: Vital Signs - 24 hr 06/07/25 14:00 06/07/25 18:30 06/07/25 19:31 Temperature 96.9 F L Pulse Rate 93 79 Respiratory Rate 14 18 Blood Pressure 113/70 Pulse Oximetry 95 95 Oxygen Delivery Nasal Cannula Oxygen Flow Rate 3 06/07/25 19:37 06/07/25 20:00 06/07/25 20:27 Temperature 97.7 F Pulse Rate 85 94 94 Respiratory Rate 18 20 20 Blood Pressure 110/63 Pulse Oximetry 94 94 Oxygen Delivery Nasal Cannula Oxygen Flow Rate 5 06/08/25 03:00 06/08/25 03:05 06/08/25 03:11 Temperature 96.9 F L Pulse Rate 87 90 101 H Respiratory Rate 19 19 20 Blood Pressure 127/66 Pulse Oximetry 97 Oxygen Delivery Oxygen Flow Rate 06/08/25 07:35 06/08/25 07:35 06/08/25 07:43 Temperature Pulse Rate 114 H 114 H 95 Respiratory Rate 22 H 22 H 18 Blood Pressure Pulse Oximetry 94 Oxygen Delivery Nasal Cannula Oxygen Flow Rate 5 06/08/25 08:00 Temperature Pulse Rate Respiratory Rate Blood Pressure Pulse Oximetry 94 Oxygen Delivery Nasal Cannula Oxygen Flow Rate 2 Intake/Output Intake/Output: Intake & Output 06/05/25 06/06/25 06/07/25 06/08/25 23:59 23:59 23:59 23:59 Intake Total 2600 2890 1000 770 Balance 2600 2890 1000 770 Meds/Results Medications: Active Medications Generic Name Dose Route Start Last Admin Trade Name Freq PRN Reason Stop Dose Admin Albuterol/Ipratropium 3 ml 06/01/25 20:00 06/08/25 07:29 Ipratropium 0.5 Mg/Albuterol Sulfate 2.5 Mg (Base) Ampul.Neb 3 Ml INHALATION 3 ml Q6HRT BAILEE Administration Amoxicillin/Clavulanate Potassium 1 tablet 06/07/25 21:00 06/08/25 08:43 Amoxicillin/Clavulanate K 875-125 Mg Tab PO 06/12/25 20:59 1 tablet Q12HR BAILEE Administration Apixaban 5 mg 06/02/25 09:00 06/08/25 08:42 Apixaban 5 Mg Tablet PO 5 mg Q12HR BAILEE Administration Budesonide 0.5 mg 06/07/25 20:00 06/08/25 07:29 Budesonide Respule Neb 0.5 Mg/2 Ml Amp INHALATION 0.5 mg Q12HRT BAILEE Administration Calcium Polycarbophil 1,250 mg 06/02/25 09:00 06/08/25 08:42 Calcium Polycarbophil 625 Mg Tablet PO 1,250 mg BID BAILEE Administration Cyanocobalamin 1,000 mcg 06/02/25 09:00 06/08/25 08:42 Cyanocobalamin 1,000 Mcg Tablet PO 1,000 mcg QAM BAILEE Administration Dicyclomine HCl 10 mg 06/02/25 06:12 Dicyclomine Hcl 10 Mg Capsule PO BID PRN abdominal pain Furosemide 40 mg 06/02/25 09:00 06/08/25 08:42 Furosemide 40 Mg Tablet PO 40 mg QAM BAILEE Administration Guaifenesin 600 mg 06/02/25 09:00 06/08/25 08:43 Guaifenesin 12 Hr 600 Mg Tabcr PO 600 mg Q12HR BAILEE Administration Lisinopril 10 mg 06/02/25 09:00 06/08/25 08:43 Lisinopril 10 Mg Tablet PO 10 mg DAILY BAILEE Administration Loratadine 10 mg 06/02/25 09:00 06/08/25 08:42 Loratadine 10 Mg Tablet PO 10 mg DAILY BAILEE Administration Metoprolol Succinate 25 mg 06/06/25 14:10 06/08/25 08:43 Metoprolol Succinate Ext Rel 25 Mg Tabcr PO 25 mg QAM [facility] Administration Multivitamins/Calcium 1 tablet 06/02/25 09:00 06/08/25 08:42 Therapeutic Multivitamins/Minerals Tab (*Bkc) PO 1 tablet DAILY BAILEE Administration Oxybutynin Chloride 5 mg 06/02/25 09:00 06/08/25 08:42 Oxybutynin Chloride 5 Mg Tablet PO 5 mg DAILY BAILEE Administration Pantoprazole Sodium 40 mg 06/02/25 09:00 06/08/25 08:42 Pantoprazole 40 Mg Tablet PO 40 mg QAM [facility] Administration Psyllium Hydrophilic Mucilloid 1 packet 06/02/25 09:00 06/08/25 08:46 Psyllium Powder Packet BY MOUTH 1 packet DAILY BAILEE Administration Trazodone HCl 50 mg 06/02/25 06:12 06/03/25 21:30 Trazodone Hcl 50 Mg Tablet PO 50 mg QHS PRN Administration Insomnia Vitamin D 50 mcg 06/02/25 09:00 06/08/25 08:42 Cholecalciferol (Vitamin D3) 25 Mcg (1,000 Units) Tablet PO 50 mcg DAILY BAILEE Administration Radiology Results: ITS Impressions Chest CT 06/04/25 13:29 IMPRESSION: 1. Right basilar subsegmental atelectatic changes with mild consolidative appearance which could represent small area of aspiration or pneumonia. 2. Other chronic appearing findings as above including mild aneurysmal dilatation of the ascending thoracic aorta and prominence main pulmonary artery which may represent pulmonary arterial hypertension. 3. Enlarged thyroid. Correlate with follow-up routine thyroid ultrasound. Chest X-Ray 06/08/25 09:48 Impression: CHF Modified Barium Swallow 06/08/25 09:48 IMPRESSION: No aspiration observed. See speech therapist's note for complete evaluation. Labs Labs: Laboratory Results - last 24 hr 06/05/25 06/07/25 06/08/25 13:22 17:08 04:51 WBC 11.2 H RBC 3.38 L Hgb 9.5 L Hct 31.2 L MCV 92.3 MCH 28.1 MCHC 30.4 L RDW 14.8 H Plt Count 300 MPV 9.6 Sodium 133 L Potassium 3.8 Chloride 101 Carbon Dioxide 28 Anion Gap 4 BUN 38 H Creatinine 1.32 H Estim Creat Clear Calc 38 Estimated GFR 38 L Glucose 90 Calcium 8.8 Magnesium 1.9 C-Reactive Protein < 0.5 NT-Pro-B Natriuret Pep 2900 H Chlamy pneumoniae PCR Not detected Adenovirus (PCR) Not detected B. pertussis DNA (PCR) Not detected B.parapertussis DNA PCR Not detected Coronavirus OC43 (PCR) Not detected Coronavirus HKU1 (PCR) Not detected Coronavirus 229E (PCR) Not detected Coronavirus NL63 (PCR) Not detected Human Metapneumovir PCR Not detected Influenza A (H1) PCR Not detected Influ A (H1/09) PCR Not detected Influenza A (H3) PCR Not detected Influenza Type A (PCR) Not detected Influenza Type B (PCR) Not detected M. pneumoniae (PCR) Not detected Parainfluenza 1 (PCR) Not detected Parainfluenza 2 (PCR) Not detected Parainfluenza 3 (PCR) Not detected Parainfluenza 4 (PCR) Not detected RSV (PCR) Not detected Entero/Rhino (PCR) Detected A SARS-CoV-2 (PCR) Not detected
[2025-06-08 13:37] LABS: Procalcitonin 0.1 ng/mL
[2025-06-08] MEDS: BENZONATATE 100 MG CAPSULE 200 MG PO ×2 (14:02→17:45)
[2025-06-08] MEDS: FUROSEMIDE INJ 40 MG/4 ML VIAL IV PUSH (14:02)
[2025-06-08 17:39] LABS: Magnesium 1.5 mg/dL (1.6-2.3)
[2025-06-08] MEDS: MAGNESIUM SULF 2 GM/WATER 50ML 2 GM/50 ML BAG IVPB (18:29)
[2025-06-09] VITALS (9 sets, daily range): BP systolic 95–108; BP diastolic 62–74; PULSE 79–119; RESP 16–20; TEMP 36.4–36.5; O2SAT 83–92
[2025-06-09] MEDS: IPRATROPIUM 0.5 MG/ALBUTEROL SULFATE 2.5 MG (BASE) AMPUL.NEB 3 ML INHALATION ×2 (02:31→08:24)
[2025-06-09 05:38] LABS: Hematocrit 32.2 % (37.0-47.0); Hemoglobin 9.8 g/dL (12.0-15.0); Mean Corpuscular HGB Conc 30.4 g/dl (32-36); Mean Corpuscular Hemoglobin 27.4 pg (26-34); Mean Corpuscular Volume 89.9 fl (80-100); Platelet Count Result 302 k/mm3 (150-375); Red Blood Count 3.58 M/mm3 (4.2-5.4); White Blood Count 10.9 K/mm3 (4.5-10.0)
[2025-06-09 06:10] LABS: Anion Gap 5 mmol/L (4-12); Blood Urea Nitrogen 37 mg/dL (7-17); Calcium 8.6 mg/dL (8.4-10.2); Carbon Dioxide 31 mmol/L (22-30); Chloride 99 mmol/L (98-107); Estimated CRCL calculation 37 ml/min; Estimated Glomerular Filt Rate 37; Glucose 113 mg/dL (65-110); Potassium 3.9 mmol/L (3.4-5.0); Sodium 135 mmol/L (137-145)
--- NOTE | 2025-06-09 08:20 | P.PNIM_ITS ---
Assessment and Plan Assessment and Plan (1) Acute bronchitis: Qualifiers: Bronchitis organism: unspecified organism Qualified Code(s): J20.9 - Acute bronchitis, unspecified Code(s): J20.9 - Acute bronchitis, unspecified Status: Acute (2) Acute hypoxic respiratory failure: Code(s): J96.01 - Acute respiratory failure with hypoxia Status: Acute (3) CKD stage 3b, GFR 30-44 ml/min: Code(s): N18.32 - Chronic kidney disease, stage 3b Status: Acute (4) Chronic diarrhea: Code(s): K52.9 - Noninfective gastroenteritis and colitis, unspecified Status: Acute Plan This is a 84-year-old female who presented from [facility] due to persistent cough for 1 month. She was treated for bronchitis with green to brown sputum production with 10 days course of doxycycline and 04/16/2025. Patient had repeat symptoms 05/18/2025 and received antibiotic with cefdinir and azithromycin. Initially her symptoms improved however arm over the past couple of weeks he has continued to have intractable cough. She denied any history of asthma or chronic bronchitis per patient however documentation does report history of chronic bronchitis. She was also having some blood streak in the sputum a few weeks ago but has resolved since she has taken the antibiotics. No chest pain no fever chills. Progressive weakness. On evaluation her chest x-ray showed residual airspace disease from 2 weeks prior. Viral PCR was negative for COVID flu and RSV. Respiratory pathogen panel is pending Patient has been started on cefepime and azithromycin. Patient also received IV Solu-Medrol in the ER and has been transition to prednisone. BNP 2720. Nasal MRSA negative. Chest x-ray with finding of CHF superimposed probable right lower lobe pneumonia. Echo 05/18 was performed to rule out pericardial effusion which was negative. Repeat echo 06/04/2025: EF 55-60% abnormal diastolic function mild pulmonary hypertension [id number] pulmonary regurgitation. CT chest with the right basilar subsegmental atelectatic changes with mild consolidative appearance which could represent small area of aspiration or pneumonia. 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 Procalcitonin level 0.1. Suspect CHF exacerbation more than pneumonia as she has already received 2 rounds of antibiotics. However CT chest suggest pneumonia. Continue on cefepime and azithromycin. Unlike what she says yesterday she feels her cough and shortness of breath is improved with antibiotics and since treatment/admission. Will resume her Lasix. Continue bronchodilators with DuoNeb scheduled every 6 hours. Will switch antibiotics to oral finished course for atypical coverage. Respiratory pathogen panel comes back positive for echo/rhinovirus. MBS he came back negative for any silent aspiration. With ongoing respiratory symptoms/failure to improve will consult Pulmonary. Discussed with Pulmonary appreciate recommendations. Repeat chest x-ray 06/08/2025 does come back with pulmonary vascular congestion. Will start IV diuresis to help with her respiratory symptoms. 0 Lisinopril stopped due to chronic cough. Protonix increased to twice a day as well. Finish Augmentin course as ordered Mild hypotension hold blood pressure medications. IV albumin. This has improved Generalized weakness PT OT Elevated troponin flat trend no evidence of ACS Chronic mild anemia no signs of bleeding Chronic nocturnal hypoxia on 5 L oxygen with sleep continue to wean oxygen down to daytime as she normally does not use oxygen during daytime. Chronic bronchitis Diastolic heart failure Atrial fibrillation status post Watchman procedure 05/04/2025 on metoprolol apixaban irritable bowel syndrome with diarrhea GERD Urge urinary incontinence CKD stage 3 DVT prophylaxis Eliquis Code status do not resuscitate Elevated IgE noted on labs 11/2024 Disposition: Likely need SNF placement Subjective Date/time seen: 06/09/25 08:20 Interval history: No overnight events. Patient feels about the same. Cough and shortness of breath with exertion persist. Working with therapy. Respiratory panel positive for echovirus and on isolation now. Review of Systems Review of Systems: All systems reviewed & are unremarkable except as noted in HPI and below Exam Narrative: Morbidly obese not in acute distress Patient is comfortable, NAD HEENT: eyes are clear and none icteric LUNGS: Diminished breath sounds bilaterally, No respiratory distress HEART: RR S1S2 ABD: BS+, Soft and nontender Lower extremities: Bilateral lower extremity edema pitting 2+ SKIN: nonjaundiced Neuro: grossly intact. Alert and oriented x3 Objective Data Vital Signs Vital Signs: Vital Signs - 24 hr 06/08/25 14:00 06/08/25 15:09 06/08/25 15:09 Temperature 98.7 F Pulse Rate 87 94 94 Respiratory Rate 12 18 18 Blood Pressure 123/79 Pulse Oximetry 93 93 Oxygen Delivery Nasal Cannula Oxygen Flow Rate 2 06/08/25 15:13 06/08/25 19:55 06/08/25 20:00 Temperature 97.7 F Pulse Rate 78 63 90 Respiratory Rate 18 20 20 Blood Pressure 103/58 L Pulse Oximetry 90 93 Oxygen Delivery Nasal Cannula Oxygen Flow Rate 5 06/08/25 20:14 06/08/25 20:14 06/08/25 20:25 Temperature Pulse Rate 88 90 Respiratory Rate 20 20 Blood Pressure Pulse Oximetry 93 Oxygen Delivery Nasal Cannula Oxygen Flow Rate 2 06/09/25 02:31 06/09/25 02:36 06/09/25 03:35 Temperature 97.7 F Pulse Rate 87 80 119 H Respiratory Rate 16 16 20 Blood Pressure 105/64 Pulse Oximetry 90 Oxygen Delivery Oxygen Flow Rate Intake/Output Intake/Output: Intake & Output 06/06/25 06/07/25 06/08/25 06/09/25 23:59 23:59 23:59 23:59 Intake Total 2890 1000 890 340 Output Total 1600 800 Balance 2890 1000 710 -460 Meds/Results Medications: Active Medications Generic Name Dose Route Start Last Admin Trade Name Freq PRN Reason Stop Dose Admin Albuterol/Ipratropium 3 ml 06/01/25 20:00 06/09/25 02:31 Ipratropium 0.5 Mg/Albuterol Sulfate 2.5 Mg (Base) Ampul.Neb 3 Ml INHALATION 3 ml Q6HRT BAILEE Administration Amoxicillin/Clavulanate Potassium 1 tablet 06/07/25 21:00 06/08/25 21:21 Amoxicillin/Clavulanate K 875-125 Mg Tab PO 06/12/25 20:59 1 tablet Q12HR BAILEE Administration Apixaban 5 mg 06/02/25 09:00 06/08/25 21:21 Apixaban 5 Mg Tablet PO 5 mg Q12HR BAILEE Administration Benzonatate 200 mg 06/08/25 13:45 06/08/25 17:45 Benzonatate 100 Mg Capsule PO 200 mg TID BAILEE Administration Budesonide 0.5 mg 06/07/25 20:00 06/08/25 20:14 Budesonide Respule Neb 0.5 Mg/2 Ml Amp INHALATION 0.5 mg Q12HRT BAILEE Administration Calcium Polycarbophil 1,250 mg 06/02/25 09:00 06/08/25 17:46 Calcium Polycarbophil 625 Mg Tablet PO 1,250 mg BID BAILEE Administration Cyanocobalamin 1,000 mcg 06/02/25 09:00 06/08/25 08:42 Cyanocobalamin 1,000 Mcg Tablet PO 1,000 mcg QAM BAILEE Administration Dicyclomine HCl 10 mg 06/02/25 06:12 Dicyclomine Hcl 10 Mg Capsule PO BID PRN abdominal pain Furosemide 40 mg 06/09/25 09:00 Furosemide Inj 40 Mg/4 Ml Vial IV PUSH DAILY BAILEE Guaifenesin 1,200 mg 06/09/25 09:00 Guaifenesin 12 Hr 600 Mg Tabcr PO Q12HR BAILEE Loratadine 10 mg 06/02/25 09:00 06/08/25 08:42 Loratadine 10 Mg Tablet PO 10 mg DAILY BAILEE Administration Metoprolol Succinate 25 mg 06/06/25 14:10 06/08/25 08:43 Metoprolol Succinate Ext Rel 25 Mg Tabcr PO 25 mg QAM [facility] Administration Multivitamins/Calcium 1 tablet 06/02/25 09:00 06/08/25 08:42 Therapeutic Multivitamins/Minerals Tab (*Bkc) PO 1 tablet DAILY BAILEE Administration Oxybutynin Chloride 5 mg 06/02/25 09:00 06/08/25 08:42 Oxybutynin Chloride 5 Mg Tablet PO 5 mg DAILY BAILEE Administration Pantoprazole Sodium 40 mg 06/08/25 21:00 06/08/25 21:22 Pantoprazole 40 Mg Tablet PO 40 mg Q12HR BAILEE Administration Psyllium Hydrophilic Mucilloid 1 packet 06/02/25 09:00 06/08/25 08:46 Psyllium Powder Packet BY MOUTH 1 packet DAILY BAILEE Administration Trazodone HCl 50 mg 06/02/25 06:12 06/03/25 21:30 Trazodone Hcl 50 Mg Tablet PO 50 mg QHS PRN Administration Insomnia Vitamin D 50 mcg 06/02/25 09:00 06/08/25 08:42 Cholecalciferol (Vitamin D3) 25 Mcg (1,000 Units) Tablet PO 50 mcg DAILY BAILEE Administration Radiology Results: ITS Impressions Chest CT 06/04/25 13:29 IMPRESSION: 1. Right basilar subsegmental atelectatic changes with mild consolidative appearance which could represent small area of aspiration or pneumonia. 2. Other chronic appearing findings as above including mild aneurysmal dilatation of the ascending thoracic aorta and prominence main pulmonary artery which may represent pulmonary arterial hypertension. 3. Enlarged thyroid. Correlate with follow-up routine thyroid ultrasound. Chest X-Ray 06/08/25 09:48 Impression: CHF Modified Barium Swallow 06/08/25 09:48 IMPRESSION: No aspiration observed. See speech therapist's note for complete evaluation. Labs Labs: Laboratory Results - last 24 hr 06/05/25 06/08/25 06/08/25 13:22 04:51 17:22 WBC RBC Hgb Hct MCV MCH MCHC RDW Plt Count MPV Sodium Potassium Chloride Carbon Dioxide Anion Gap BUN Creatinine Estim Creat Clear Calc Estimated GFR Glucose Calcium Magnesium 1.5 L C-Reactive Protein < 0.5 NT-Pro-B Natriuret Pep 2900 H Procalcitonin 0.1 Chlamy pneumoniae PCR Not detected Adenovirus (PCR) Not detected B. pertussis DNA (PCR) Not detected B.parapertussis DNA PCR Not detected Coronavirus OC43 (PCR) Not detected Coronavirus HKU1 (PCR) Not detected Coronavirus 229E (PCR) Not detected Coronavirus NL63 (PCR) Not detected Human Metapneumovir PCR Not detected Influenza A (H1) PCR Not detected Influ A (H1/09) PCR Not detected Influenza A (H3) PCR Not detected Influenza Type A (PCR) Not detected Influenza Type B (PCR) Not detected M. pneumoniae (PCR) Not detected Parainfluenza 1 (PCR) Not detected Parainfluenza 2 (PCR) Not detected Parainfluenza 3 (PCR) Not detected Parainfluenza 4 (PCR) Not detected RSV (PCR) Not detected Entero/Rhino (PCR) Detected A SARS-CoV-2 (PCR) Not detected 06/09/25 05:19 WBC 10.9 H RBC 3.58 L Hgb 9.8 L Hct 32.2 L MCV 89.9 MCH 27.4 MCHC 30.4 L RDW 15.0 H Plt Count 302 MPV 9.6 Sodium 135 L Potassium 3.9 Chloride 99 Carbon Dioxide 31 H Anion Gap 5 BUN 37 H Creatinine 1.37 H Estim Creat Clear Calc 37 Estimated GFR 37 L Glucose 113 H Calcium 8.6 Magnesium C-Reactive Protein NT-Pro-B Natriuret Pep Procalcitonin Chlamy pneumoniae PCR Adenovirus (PCR) B. pertussis DNA (PCR) B.parapertussis DNA PCR Coronavirus OC43 (PCR) Coronavirus HKU1 (PCR) Coronavirus 229E (PCR) Coronavirus NL63 (PCR) Human Metapneumovir PCR Influenza A (H1) PCR Influ A (H1/09) PCR Influenza A (H3) PCR Influenza Type A (PCR) Influenza Type B (PCR) M. pneumoniae (PCR) Parainfluenza 1 (PCR) Parainfluenza 2 (PCR) Parainfluenza 3 (PCR) Parainfluenza 4 (PCR) RSV (PCR) Entero/Rhino (PCR) SARS-CoV-2 (PCR)
[2025-06-09] MEDS: BUDESONIDE RESPULE NEB 0.5 MG/2 ML AMP INHALATION (08:24)
--- NOTE | 2025-06-09 09:16 | PM.PNPUL ---
Progress Note: A&P Assessment and Plan (1) Rhinovirus infection: Code(s): B34.8 - Other viral infections of unspecified site Status: Acute Assessment and Plan: Patient with possible pneumonia and has received treatment with 5 days of azithromycin ending on 06/05. Seven days of cefepime ending on 06/07 and currently on Augmentin. she is afebrile. White blood cell count 11.2, procalcitonin remains low, CRP less than 0.5. 06/08/25: Plan: Would discontinue Augmentin 06/10/25 as this will be a total of 10 days antibiotics with minimal improvement. Later in the day respiratory pathogen panel returned positive for rhino virus. 06/09/2025: Overall the patient feels about the same. She has no rest shortness of breath. Walking to the bathroom she has weakness that is the main limitation as well as dyspnea on exertion. Tells me the cough is a little bit better this morning with phlegm production the same. Patient is on 1 L nasal cannula saturations 92%. White blood cell count 10.9, creatinine 1.37. Yesterday she was -700 mL with 40 of Lasix IV. Her weight today is 133.2. Plan: Suspect rhino viral infection is causing her acute symptoms of worsening oxygenation, worsening dyspnea on exertion, worsening cough. Treatment for rhino virus is supportive. Will continue Augmentin through 06/10/2025. I will discontinue DuoNebs and budesonide nebulizers and place the patient on trelegy 200. continue guaifenesin 1200 mg p.o. b.i.d.. Continue Lasix 40 IV q.day. patient chronically on 5 L nasal cannula at night and I will perform an overnight oximetry on 5 L tonight. Discussed with Dr. Mckeon, will follow with you. (2) Chronic cough: Code(s): R05.3 - Chronic cough Status: Acute Assessment and Plan: Patient records chronic cough since the summer. She received doxycycline on 04/16/2025. She received cefdinir and azithromycin on 05/17/2025 with no benefit. Patient admitted 06/01/2025 with wheezing, CT scan on 06/04 with right basilar atelectasis with could mild consolidation. Rhinovirus positive on 06/08/2025. she has no history of allergic rhinitis and no sinus symptoms currently. She is on Protonix 40 once a day and has no GERD symptoms. She has no history of asthma or COPD. She is a never smoker but was exposed to secondhand smoke. CT scan with no interstitial lung disease, nodules or masses. modified barium swallow normal. Acute worsening of symptoms with dyspnea on exertion, hypoxia, focal infiltrate on her CT scan and worsening cough likely explained by current rhinoviral infection. Is unclear if patient has cough that began in the summer was initiated by a viral infection or not. Plan: There is no specific treatment for rhinoviral infection. Will continue to support patient. Goal saturation 90-94%. Wean oxygen as tolerated. Regarding her chronic cough since the summer: Etiology includes and post viral cough (denied URI in the summer), lisinopril induced cough, reactive airways disease, silent reflux, and cough hypersensitivity syndrome. Plan: Continue DuoNebs q.6 hours and nebulized budesonide q.12 hours for possible reactive airways disease. I will discontinue lisinopril. I will increase her Protonix to 40 mg p.o. b.i.d.. In an attempt to suppress the cough I will start benzonatate 200 mg p.o. t.i.d.. 06/09/25: Tells me the cough is a little bit better this morning with phlegm production the same. Plan: Continue treatment for reactive airways disease with trelegy as above. Remains off of lisinopril. Continue treatment for GERD with Protonix 40 p.o. b.i.d.. Continue treatment for sinus disease with Claritin 10 mg p.o. q.day. Cough suppression with benzonatate 200 mg p.o. t.i.d., day 2. Subjective Date/time seen: 06/09/25 09:16 Interval history: 06/08/2025: This is a new pulmonary consult for pneumonia. 84-year-old with a history of persistent AFib, hypertension, CKD, nocturnal hypoxia, obesity Patient followed in the Pulmonary Clinic in last seen on 01/20/2025: Last visit 10/2024 to establish care Cesia is an 84yo F here for follow up regarding shortness of breath. She is here today with her friend, Milagro. Last visit she was here with her daughter Nelly, also has another daughter, Yumiko. PCP is MARYAM Davis. States she moved to [facility] about 6 weeks ago. Breathing feels stable, same as last visit. States she can't walk far with a walker. Using Mucinex 1-2x per day and states she's seen improvement in chest congestion and sputum since using this regularly. Denies wheezing. She is currently using 5L/min O2 at night with sleep nightly by our recommendation, see testing below. Last visit she was using 2L and completed a couple overnight oximetry studies detailed below. States she has not required oxygen during the day. OR staff check her vital signs but not daily. Hx from initial visit: She was hospitalized 09/04-09/08/24 at [facility] for shortness of breath and acute respiratory failure. She was treated with oxygen 2L/min and did not require daytime supplemental O2 at discharge. She aspirated a pill over 10 years ago. Was not hospitalized for this but had 2 procedures at [place] at that time trying to remove the pill. This is when she was started on 2L/min O2 with sleep only, which she's been using nightly for years. She does not use O2 during the day. She has swelling in her legs and feet. PCP note 10/14/24 seeing MARYAM Davis - patient weighed 301lb, had JENNIFER leg edema and weakness, Elizabeth adjusted diuretics, changed HCTZ to Lasix. Patient weighs 286lb 10/2024 visit. During her 09/29/24 6mw study, she walked for 3 min and test was terminated as her HR was in 150s. She didn't require daytime supplemental oxygen based on that 3 min testing. She was living with her daughter, Yumiko, in [place] since her 09/08/24 discharge now moved to [facility] assisted living. room air saturations were 93%. She had faint end expiratory wheezes bilaterally similar to last visit. Assessment and plan: Shortness of breath: PFTs normal, 6 minute walk study only completed 3 minutes then a flutter. I suspect cardiac arrhythmias, deconditioning morbid obesity contributing to her dyspnea on exertion. Bronchodilators were entertained as she had wheezes but with a resume E is held off on this. Steroids were entertained but held off. Mucinex 601 to twice a day p.r.n. Has improved her congestion and will continue. Regarding her 5 L nocturnal oxygen needs we discussed the possibility of untreated sleep apnea and she declined further evaluation. Patient tells me that she has had a dry cough this started in the summer of 2024. Prior to the summer she had no cough. Patient denies any history of asthma or COPD. Patient denies a history of allergic rhinitis. Patient states there was no change in the cough with positional maneuvers. Patient denied any cold, pneumonia, bronchitis episodes prior to the cough starting. The cough is persisted and gotten worse since this summer. The patient was treated for bronchitis on 04/16/2025 with 10 days of doxycycline. The patient tells me she took this medicine but there was no change in her cough. On 05/17 the patient was treated with cefdinir and azithromycin and the patient tells me there is no change in her cough with this. The patient had continued cough, sputum, some shortness of breath and swelling and was sent for an x-ray on 06/01/2025 by her PCP. The x-ray showed small right pleural effusion, perihilar congestion and she was told to come to the emergency room to be evaluated for pneumonia. Her blood pressure was 104/52, heart rate 95, respirations 20, room air saturations were 90%. She was placed on 2 L nasal cannula saturations 94%. She had bilateral wheezing. Her BNP was 2720. Her white blood cell count was 9.2 with eosinophils 3% equals 270 6 per micro L. Her creatinine was 1.44. She was started on Solu-Medrol, cefepime, azithromycin and vancomycin. Her MRSA swab was negative. Her COVID influenza RSV RT PCR assay were negative. 06/04/2025: Patient had a CT scan of the chest that showed right basilar atelectasis with mild consolidation. Cough and shortness of breath persisted. Cough got slowly better until 06/07/2025 and her cough was worse. 06/08/2025: Patient states that her cough is better than yesterday and the same as admission. She does cough frequently during the interview and expectorates green phlegm. She denies fever, chills or rigors. She has no rest shortness of breath but some dyspnea on exertion that is the same as when she presented. She does complain that she is very weak at this point. She is afebrile. White blood cell count 11.2, creatinine 1.32, BNP has improved from 3530 on 06/04/2020 5-2900 today. Her CRP is 0.5. Procalcitonin is unchanged from 06/04/2025 at 0.1 today. when I enter the room the patient was on 4 L nasal cannula saturations 96%. I decreased her to room air and after 4 minutes her saturations decreased to 89%. I placed her on 1 L nasal cannula her saturations were 93%. Later in the day respiratory pathogen panel returned positive for rhino virus. 06/09/2025: Overall the patient feels about the same. She has no rest shortness of breath. Walking to the bathroom she has weakness that is the main limitation as well as dyspnea on exertion. Tells me the cough is a little bit better this morning with phlegm production the same. Patient is on 1 L nasal cannula saturations 92%. White blood cell count 10.9, creatinine 1.37. Yesterday she was -700 mL with 40 of Lasix IV. Her weight today is 133.2. DATA: 06/04/25: Echo Summary 1. Definity contrast administered improved wall motion interpretation. 2. Left ventricular chamber dimension is mildly enlarged. 3. Left ventricular systolic function is normal, estimated at 55-60. 4. The left ventricular diastolic function is abnormal. 5. E/e' 14 is mildly elevated. 6. Atrial fibrillation. 7. Left atrial chamber dimension is severely enlarged. 8. Right atrial chamber dimension is severely enlarged. 9. There is mild aortic valve sclerosis. 10. There is mild aortic valve regurgitation. 11. There is trace mitral valve regurgitation. 12. Mild pulmonary hypertension, estimated pulmonary arterial systolic pressure is 47 mmHg. 13. There is mild to moderate pulmonic regurgitation. 14. Dilated inferior vena cava with <50% collapse upon inspiration consistent with significantly elevated right atrial pressure, 15 mmHg. Left Ventricle Definity contrast administered improved wall motion interpretation. Left ventricular chamber dimension is mildly enlarged. Left ventricular systolic function is normal, estimated at 55-60. The left ventricular diastolic function is abnormal. E/e' 14 is mildly elevated. Atrial fibrillation. Right Ventricle Right ventricular chamber dimension is normal. Right ventricular systolic function is normal. Left Atria Left atrial chamber dimension is severely enlarged. Right Atria Right atrial chamber dimension is severely enlarged. 06/04/25: EXAMINATION:CT diagnostic chest wo con INDICATION: Cough COMPARISON: Chest x-ray from June 01 FINDINGS: Mild subsegmental atelectatic changes in the right lung base with air bronchograms and trace right-sided pleural effusion. Small infiltrate and/or aspiration could have a similar appearance. Mid and upper lung cali are clear. Central large airways are patent. Heart size slightly enlarged. Ascending thoracic aorta measures 4.1 cm Main pulmonary artery measures 3.8 cm. Distal aortic arch and descending aorta normal size. No significant pericardial effusion or bulky lymphadenopathy. Diffuse degenerative changes in the bones. Para no acute process seen in the visualized portions of the upper abdomen or extrathoracic soft tissues. Cholecystectomy clips. The thyroid is enlarged with portions of the inferior margin extending down behind the sternum. IMPRESSION: 1. Right basilar subsegmental atelectatic changes with mild consolidative appearance which could represent small area of aspiration or pneumonia. 2. Other chronic appearing findings as above including mild aneurysmal dilatation of the ascending thoracic aorta and prominence main pulmonary artery which may represent pulmonary arterial hypertension. 3. Enlarged thyroid. Correlate with follow-up routine thyroid ultrasound. 12/21/24 - Overnight oximetry on 4L - Total time spent at or below 88% saturation was 35.5 min out of 7h23m recording time. Lowest saturation 77%, Baseline SpO2 91%. Recommend 5L/min O2 with sleep. 11/24/24 - Overnight oximetry on 2L - Total time spent at or below 88% was 1h31m out of total recording time 8h25m. Lowest saturation was 78% and baseline SpO2 was 90%. Offered PSG and patient declines. Recommended 4L/min O2 with sleep and repeat overnight oximetry. 09/29/24 - PFT - The spirometry is normal without evidence of an obstructive abnormality. There is no significant improvement after inhaling a single dose of albuterol. The lung volumes are normal. The diffusing capacity is normal. 09/29/24 - 6mw - The testing was stopped after 3 minutes due to fluctuating heart rate from the low 100s up to 150s. On this walk test that lasted 3 minutes, the patient did not qualify for supplemental oxygen at rest or with ambulation. The patient's resting room air oxygen saturation measured by pulse oximetry was 94%, the heart rate was 98 bpm, Patient ambulated for 61 meters and oxygen saturation remained 92 to 94%. At the end of the study the heart rate was 151 bpm 09/04/24 - CTA chest - @ [facility] , indication elevated d-dimer, low oxygen saturation, and weakness - No evidence of PE. Mild dependent atelectasis. There is prominence of the main pulmonary artery suggesting elevated pulmonary arterial pressure. Mild mosaic attenuation in the lower lobes and lingula that is nonspecific but could reflect small airway disease or small vessel disease. Coronary artery calcifications. Right thyroid nodule 2.5cm. Review of Systems Constitutional: Constitutional: Reports no additional constitutional complaints Eyes: Eyes: Reports no additional eye complaints ENT: Reports system reviewed and no additional complaints, except as documented Cardiovascular: Cardiovascular: Reports no additional cardiovascular complaints Respiratory: Respiratory: Reports no additional respiratory complaints Gastrointestinal: Gastrointestinal: Reports no additional gastrointestinal complaints Musculoskeletal: Musculoskeletal: Reports no additional musculoskeletal complaints Neurologic: Reports system reviewed and no additional complaints, except as documented Psychiatric: Psychiatric: Reports no additional psychiatric complaints Endocrine: Endocrine: Reports no additional endocrine complaints Hematologic/Lymphatic: Hematologic/Lymphatic: Reports no additional hematologic/lymphatic complaints Allergic/Immunologic: Allergic/Immunologic: Reports no additional allergic/immunologic complaints Exam Const: General: cooperative, comfortable and no acute distress Orientation/consciousness: oriented to person, oriented to place and oriented to time HENMT: Head: normal to inspection Ears: hearing grossly normal bilaterally Eyes: General: appearance normal, both eyes and all related structures Neck: Neck: normal visual inspection Chest: Chest palpation & inspection: normal inspection of the chest Resp: Effort & Inspection: normal respiratory effort and able to speak in complete sentences Auscultation: no crackles, no rales, rhonchi, no wheezes and lung sounds not diminished Other: Course expiratory rhonchi heard throughout. Cardio: Jugular venous distension: no JVD GI: Inspection: normal to inspection Skin: General skin exam: normal color Neuro: General: oriented to person, oriented to place and oriented to time Extrem: General: normal to inspection Psych: Appearance: grossly normal Objective Data Vital Signs Vital Signs: Vital Signs - 24 hr 06/08/25 14:00 06/08/25 15:09 06/08/25 15:09 Temperature 37.1 C Pulse Rate 87 94 94 Respiratory Rate 12 18 18 Blood Pressure 123/79 Pulse Oximetry 93 93 Oxygen Delivery Nasal Cannula Oxygen Flow Rate 2 06/08/25 15:13 06/08/25 19:55 06/08/25 20:00 Temperature 36.5 C Pulse Rate 78 63 90 Respiratory Rate 18 20 20 Blood Pressure 103/58 L Pulse Oximetry 90 93 Oxygen Delivery Nasal Cannula Oxygen Flow Rate 5 06/08/25 20:14 06/08/25 20:14 06/08/25 20:25 Temperature Pulse Rate 88 90 Respiratory Rate 20 20 Blood Pressure Pulse Oximetry 93 Oxygen Delivery Nasal Cannula Oxygen Flow Rate 2 06/09/25 02:31 06/09/25 02:36 06/09/25 03:35 Temperature 36.5 C Pulse Rate 87 80 119 H Respiratory Rate 16 16 20 Blood Pressure 105/64 Pulse Oximetry 90 Oxygen Delivery Oxygen Flow Rate Intake/Output Intake/Output: Intake & Output 06/06/25 06/07/25 06/08/25 06/09/25 23:59 23:59 23:59 23:59 Intake Total 2890 1000 890 340 Output Total 1600 800 Balance 2890 1000 -710 -460 Meds/Results Medications: Active Medications Generic Name Dose Route Start Last Admin Trade Name Freq PRN Reason Stop Dose Admin Albuterol/Ipratropium 3 ml 06/01/25 20:00 06/09/25 08:24 Ipratropium 0.5 Mg/Albuterol Sulfate 2.5 Mg (Base) Ampul.Neb 3 Ml INHALATION 3 ml Q6HRT BAILEE Administration Amoxicillin/Clavulanate Potassium 1 tablet 06/07/25 21:00 06/08/25 21:21 Amoxicillin/Clavulanate K 875-125 Mg Tab PO 06/12/25 20:59 1 tablet Q12HR BAILEE Administration Apixaban 5 mg 06/02/25 09:00 06/08/25 21:21 Apixaban 5 Mg Tablet PO 5 mg Q12HR BAILEE Administration Benzonatate 200 mg 06/08/25 13:45 06/08/25 17:45 Benzonatate 100 Mg Capsule PO 200 mg TID BAILEE Administration Budesonide 0.5 mg 06/07/25 20:00 06/09/25 08:24 Budesonide Respule Neb 0.5 Mg/2 Ml Amp INHALATION 0.5 mg Q12HRT BAILEE Administration Calcium Polycarbophil 1,250 mg 06/02/25 09:00 06/08/25 17:46 Calcium Polycarbophil 625 Mg Tablet PO 1,250 mg BID BAILEE Administration Cyanocobalamin 1,000 mcg 06/02/25 09:00 06/08/25 08:42 Cyanocobalamin 1,000 Mcg Tablet PO 1,000 mcg QAM [facility] Administration Dicyclomine HCl 10 mg 06/02/25 06:12 Dicyclomine Hcl 10 Mg Capsule PO BID PRN abdominal pain Furosemide 40 mg 06/09/25 09:00 Furosemide Inj 40 Mg/4 Ml Vial IV PUSH DAILY [facility] Guaifenesin 1,200 mg 06/09/25 09:00 Guaifenesin 12 Hr 600 Mg Tabcr PO Q12HR BAILEE Loratadine 10 mg 06/02/25 09:00 06/08/25 08:42 Loratadine 10 Mg Tablet PO 10 mg DAILY [facility] Administration Metoprolol Succinate 25 mg 06/06/25 14:10 06/08/25 08:43 Metoprolol Succinate Ext Rel 25 Mg Tabcr PO 25 mg QAM [facility] Administration Multivitamins/Calcium 1 tablet 06/02/25 09:00 06/08/25 08:42 Therapeutic Multivitamins/Minerals Tab (*Bkc) PO 1 tablet DAILY [facility] Administration Oxybutynin Chloride 5 mg 06/02/25 09:00 06/08/25 08:42 Oxybutynin Chloride 5 Mg Tablet PO 5 mg DAILY [facility] Administration Pantoprazole Sodium 40 mg 06/08/25 21:00 06/08/25 21:22 Pantoprazole 40 Mg Tablet PO 40 mg Q12HR [facility] Administration Psyllium Hydrophilic Mucilloid 1 packet 06/02/25 09:00 06/08/25 08:46 Psyllium Powder Packet BY MOUTH 1 packet DAILY [facility] Administration Trazodone HCl 50 mg 06/02/25 06:12 06/03/25 21:30 Trazodone Hcl 50 Mg Tablet PO 50 mg QHS PRN Administration Insomnia Vitamin D 50 mcg 06/02/25 09:00 06/08/25 08:42 Cholecalciferol (Vitamin D3) 25 Mcg (1,000 Units) Tablet PO 50 mcg DAILY BAILEE Administration Radiology Results: ITS Impressions Chest CT 06/04/25 13:29 IMPRESSION: 1. Right basilar subsegmental atelectatic changes with mild consolidative appearance which could represent small area of aspiration or pneumonia. 2. Other chronic appearing findings as above including mild aneurysmal dilatation of the ascending thoracic aorta and prominence main pulmonary artery which may represent pulmonary arterial hypertension. 3. Enlarged thyroid. Correlate with follow-up routine thyroid ultrasound. Chest X-Ray 06/08/25 09:48 Impression: CHF Modified Barium Swallow 06/08/25 09:48 IMPRESSION: No aspiration observed. See speech therapist's note for complete evaluation. Labs Labs: Laboratory Results - last 24 hr 06/05/25 06/08/25 06/08/25 13:22 04:51 17:22 WBC RBC Hgb Hct MCV MCH MCHC RDW Plt Count MPV Sodium Potassium Chloride Carbon Dioxide Anion Gap BUN Creatinine Estim Creat Clear Calc Estimated GFR Glucose Calcium Magnesium 1.5 L C-Reactive Protein < 0.5 NT-Pro-B Natriuret Pep 2900 H Procalcitonin 0.1 Chlamy pneumoniae PCR Not detected Adenovirus (PCR) Not detected B. pertussis DNA (PCR) Not detected B.parapertussis DNA PCR Not detected Coronavirus OC43 (PCR) Not detected Coronavirus HKU1 (PCR) Not detected Coronavirus 229E (PCR) Not detected Coronavirus NL63 (PCR) Not detected Human Metapneumovir PCR Not detected Influenza A (H1) PCR Not detected Influ A (H1/09) PCR Not detected Influenza A (H3) PCR Not detected Influenza Type A (PCR) Not detected Influenza Type B (PCR) Not detected M. pneumoniae (PCR) Not detected Parainfluenza 1 (PCR) Not detected Parainfluenza 2 (PCR) Not detected Parainfluenza 3 (PCR) Not detected Parainfluenza 4 (PCR) Not detected RSV (PCR) Not detected Entero/Rhino (PCR) Detected A SARS-CoV-2 (PCR) Not detected 06/09/25 05:19 WBC 10.9 H RBC 3.58 L Hgb 9.8 L Hct 32.2 L MCV 89.9 MCH 27.4 MCHC 30.4 L RDW 15.0 H Plt Count 302 MPV 9.6 Sodium 135 L Potassium 3.9 Chloride 99 Carbon Dioxide 31 H Anion Gap 5 BUN 37 H Creatinine 1.37 H Estim Creat Clear Calc 37 Estimated GFR 37 L Glucose 113 H Calcium 8.6 Magnesium C-Reactive Protein NT-Pro-B Natriuret Pep Procalcitonin Chlamy pneumoniae PCR Adenovirus (PCR) B. pertussis DNA (PCR) B.parapertussis DNA PCR Coronavirus OC43 (PCR) Coronavirus HKU1 (PCR) Coronavirus 229E (PCR) Coronavirus NL63 (PCR) Human Metapneumovir PCR Influenza A (H1) PCR Influ A (H1/09) PCR Influenza A (H3) PCR Influenza Type A (PCR) Influenza Type B (PCR) M. pneumoniae (PCR) Parainfluenza 1 (PCR) Parainfluenza 2 (PCR) Parainfluenza 3 (PCR) Parainfluenza 4 (PCR) RSV (PCR) Entero/Rhino (PCR) SARS-CoV-2 (PCR)
[2025-06-09] MEDS: BENZONATATE 100 MG CAPSULE 200 MG PO ×3 (09:20→17:59)
[2025-06-09] MEDS: FUROSEMIDE INJ 40 MG/4 ML VIAL IV PUSH (09:20)
[2025-06-09] MEDS: METOPROLOL SUCCINATE EXT REL 25 MG TABCR PO (09:20)
[2025-06-09] MEDS: PSYLLIUM POWDER PACKET 1 PACKET BY MOUTH (09:20)
--- NOTE | 2025-06-09 09:20 | P.CDI_ITS ---
CDI Query Clarification Request 1)Please specify acuity of heart failure if known. * Acute * Chronic * Acute on Chronic * Unknown 2) Patient with a BMI of 50.4 please provide a diagnosis to accompany this finding: * Overweight * Obesity * Morbid Obesity * Other/Unknown Plan This is a 84-year-old female who presented from [facility] due to persistent cough for 1 month. She was treated for bronchitis with green to brown sputum production with 10 days course of doxycycline and 04/16/2025. Patient had repeat symptoms 05/18/2025 and received antibiotic with cefdinir and azithromycin. Initially her symptoms improved however arm over the past couple of weeks he has continued to have intractable cough. She denied any history of asthma or chronic bronchitis per patient however documentation does report history of chronic bronchitis. She was also having some blood streak in the sputum a few weeks ago but has resolved since she has taken the antibiotics. No chest pain no fever chills. Progressive weakness. On evaluation her chest x-ray showed residual airspace disease from 2 weeks prior. Viral PCR was negative for COVID flu and RSV. Respiratory pathogen panel is pending Patient has been started on cefepime and azithromycin. Patient also received IV Solu-Medrol in the ER and has been transition to prednisone. BNP 2720. Nasal MRSA negative. Chest x-ray with finding of CHF superimposed probable right lower lobe pneumonia. Echo 05/18 was performed to rule out pericardial effusion which was negative. Repeat echo 06/04/2025: EF 55-60% abnormal diastolic function mild pulmonary hypertension [id number] pulmonary regurgitation. CT chest with the right basilar subsegmental atelectatic changes with mild consolidative appearance which could represent small area of aspiration or pneumonia. 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 Procalcitonin level 0.1. Suspect CHF exacerbation more than pneumonia as she has already received 2 rounds of antibiotics. However CT chest suggest pneumonia. Continue on cefepime and azithromycin. Unlike what she says yesterday she feels her cough and shortness of breath is improved with antibiotics and since treatment/admission. Will resume her Lasix. Continue bronchodilators with DuoNeb scheduled every 6 hours. Will switch antibiotics to oral finished course for atypical coverage. Respiratory pathogen panel comes back positive for echo/rhinovirus. Will stop neb steroid. MBS to rule out silent aspiration. With ongoing respiratory symptoms/failure to improve will consult Pulmonary. Repeat chest x-ray 06/08/2025 does come back with pulmonary vascular congestion. Will start IV diuresis to help with her respiratory symptoms. Mild hypotension hold blood pressure medications. IV albumin. This has improved Generalized weakness PT OT Elevated troponin flat trend no evidence of ACS Chronic mild anemia no signs of bleeding Chronic nocturnal hypoxia on 5 L oxygen with sleep continue to wean oxygen down to daytime as she normally does not use oxygen during daytime. Chronic bronchitis Diastolic heart failure Atrial fibrillation status post Watchman procedure 05/04/2025 on metoprolol apixaban irritable bowel syndrome with diarrhea GERD Urge urinary incontinence CKD stage 3 echo:Summary 1. Definity contrast administered improved wall motion interpretation. 2. Left ventricular chamber dimension is mildly enlarged. 3. Left ventricular systolic function is normal, estimated at 55-60. 4. The left ventricular diastolic function is abnormal. 5. E/e' 14 is mildly elevated. 6. Atrial fibrillation. 7. Left atrial chamber dimension is severely enlarged. 8. Right atrial chamber dimension is severely enlarged. 9. There is mild aortic valve sclerosis. 10. There is mild aortic valve regurgitation. 11. There is trace mitral valve regurgitation. 12. Mild pulmonary hypertension, estimated pulmonary arterial systolic pressure is 47 mmHg. 13. There is mild to moderate pulmonic regurgitation. 14. Dilated inferior vena cava with <50% collapse upon inspiration consistent with significantly elevated right atrial pressure, 15 mmHg. CXR 06/01:Impression: CHF. Superimposed probable right lower lobe pneumonia. CXR: 06/08:Impression: CHF IV lasix daily BNP 06/01: 2720 06/04: 3530 06/08 2900 <Lida Ross RN - Last Filed: 06/09/25 09:24> Provider Comments Acute on Chronic Morbid Obesity <Mandeep Mckeon MD - Last Filed: 06/12/25 18:18>
[2025-06-09] MEDS: PANTOPRAZOLE 40 MG TABLET PO ×2 (09:21→20:55)
[2025-06-09] MEDS: THERAPEUTIC MULTIVITAMINS/MINERALS TAB (*BKC) 1 TABLET PO (09:21)
[2025-06-09] MEDS: guaiFENesin 12 HR 600 MG TABCR 1200 MG PO ×2 (09:21→20:55)
[2025-06-09] MEDS: CHOLECALCIFEROL (VITAMIN D3) 25 MCG (1,000 UNITS) TABLET 50 MCG PO (09:21)
[2025-06-09] MEDS: APIXABAN 5 MG TABLET PO ×2 (09:21→20:56)
[2025-06-09] MEDS: CYANOCOBALAMIN 1,000 MCG TABLET 1000 MCG PO (09:22)
[2025-06-09] MEDS: LORATADINE 10 MG TABLET PO (09:22)
--- NOTE | 2025-06-09 11:13 | PCNWS ---
Weekly nutritional screen. Patient is tolerating current diet with adequate intake. No weight loss reported. No nutritional needs at this time.
[2025-06-09 19:51] LABS: Magnesium 1.8 mg/dL (1.6-2.3)
[2025-06-10] VITALS (7 sets, daily range): BP systolic 96–115; BP diastolic 58–65; PULSE 88–98; RESP 18–20; TEMP 36.3–36.8; O2SAT 93–99
[2025-06-10 05:26] LABS: Hematocrit 33.2 % (37.0-47.0); Hemoglobin 10.0 g/dL (12.0-15.0); Mean Corpuscular HGB Conc 30.1 g/dl (32-36); Mean Corpuscular Hemoglobin 27.4 pg (26-34); Mean Corpuscular Volume 91.0 fl (80-100); Platelet Count Result 284 k/mm3 (150-375); Red Blood Count 3.65 M/mm3 (4.2-5.4); White Blood Count 11.2 K/mm3 (4.5-10.0)
[2025-06-10 05:45] LABS: Anion Gap 3 mmol/L (4-12); Blood Urea Nitrogen 36 mg/dL (7-17); Calcium 8.4 mg/dL (8.4-10.2); Carbon Dioxide 34 mmol/L (22-30); Chloride 99 mmol/L (98-107); Estimated CRCL calculation 34 ml/min; Estimated Glomerular Filt Rate 35; Glucose 127 mg/dL (65-110); Potassium 4.1 mmol/L (3.4-5.0); Sodium 136 mmol/L (137-145)
[2025-06-10] MEDS: FLUTICASONE/UMECLIDIN/VILANTER 200-62.5-25 MCG ELLIPTA 1 PUFF INHALATION (07:40)
--- NOTE | 2025-06-10 08:03 | PM.IMPN2 ---
Assessment and Plan Assessment and Plan (1) Acute bronchitis: Qualifiers: Bronchitis organism: unspecified organism Qualified Code(s): J20.9 - Acute bronchitis, unspecified Code(s): J20.9 - Acute bronchitis, unspecified Status: Acute (2) Acute hypoxic respiratory failure: Code(s): J96.01 - Acute respiratory failure with hypoxia Status: Acute (3) CKD stage 3b, GFR 30-44 ml/min: Code(s): N18.32 - Chronic kidney disease, stage 3b Status: Acute (4) Chronic diarrhea: Code(s): K52.9 - Noninfective gastroenteritis and colitis, unspecified Status: Acute Plan This is a 84-year-old female who presented from [facility] due to persistent cough for 1 month. She was treated for bronchitis with green to brown sputum production with 10 days course of doxycycline and 04/16/2025. Patient had repeat symptoms 05/18/2025 and received antibiotic with cefdinir and azithromycin. Initially her symptoms improved however arm over the past couple of weeks he has continued to have intractable cough. She denied any history of asthma or chronic bronchitis per patient however documentation does report history of chronic bronchitis. She was also having some blood streak in the sputum a few weeks ago but has resolved since she has taken the antibiotics. No chest pain no fever chills. Progressive weakness. On evaluation her chest x-ray showed residual airspace disease from 2 weeks prior. Viral PCR was negative for COVID flu and RSV. Respiratory pathogen panel is pending Patient has been started on cefepime and azithromycin. Patient also received IV Solu-Medrol in the ER and has been transition to prednisone. BNP 2720. Nasal MRSA negative. Chest x-ray with finding of CHF superimposed probable right lower lobe pneumonia. Echo 05/18 was performed to rule out pericardial effusion which was negative. Repeat echo 06/04/2025: EF 55-60% abnormal diastolic function mild pulmonary hypertension [id number] pulmonary regurgitation. CT chest with the right basilar subsegmental atelectatic changes with mild consolidative appearance which could represent small area of aspiration or pneumonia. 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 Procalcitonin level 0.1. Suspect CHF exacerbation more than pneumonia as she has already received 2 rounds of antibiotics. However CT chest suggest pneumonia. Continue on cefepime and azithromycin. Unlike what she says yesterday she feels her cough and shortness of breath is improved with antibiotics and since treatment/admission. Will resume her Lasix. Continue bronchodilators with DuoNeb scheduled every 6 hours. Will switch antibiotics to oral finished course for atypical coverage. Respiratory pathogen panel comes back positive for echo/rhinovirus. MBS he came back negative for any silent aspiration. With ongoing respiratory symptoms/failure to improve will consult Pulmonary. Discussed with Pulmonary appreciate recommendations. Repeat chest x-ray 06/08/2025 does come back with pulmonary vascular congestion. Will start IV diuresis to help with her respiratory symptoms. 0 Lisinopril stopped due to chronic cough. Protonix increased to twice a day as well. Finish Augmentin course as ordered Mild hypotension hold blood pressure medications. IV albumin. This has improved Generalized weakness PT OT Elevated troponin flat trend no evidence of ACS Chronic mild anemia no signs of bleeding Chronic nocturnal hypoxia on 5 L oxygen with sleep continue to wean oxygen down to daytime as she normally does not use oxygen during daytime. Chronic bronchitis Diastolic heart failure Atrial fibrillation status post Watchman procedure 05/04/2025 on metoprolol apixaban irritable bowel syndrome with diarrhea GERD Urge urinary incontinence CKD stage 3 DVT prophylaxis Eliquis Code status do not resuscitate Elevated IgE noted on labs 11/2024 Disposition: Likely need SNF placement Subjective Date/time seen: 06/10/25 08:03 Interval history: Patient has history of chronic cough. Patient is diagnosed with rhinovirus. His cough has been exacerbated recently but currently getting better. Patient lisinopril has been discontinued. Patient is currently on Claritin, Protonix 40 b.i.d., Tessalon Perles, and guaifenesin 1200 mg p.o. b.i.d. Review of Systems Review of Systems: 12 systems were reviewed with pertinent positives and negatives per HPI. Except as documented in the HPI, all other systems were reviewed and are negative. 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 All systems reviewed & are unremarkable except as noted in HPI and below Exam Narrative: Morbidly obese not in acute distress Patient is comfortable, NAD HEENT: eyes are clear and none icteric LUNGS: Diminished breath sounds bilaterally, No respiratory distress HEART: RR S1S2 ABD: BS+, Soft and nontender Lower extremities: Bilateral lower extremity edema pitting 2+ SKIN: nonjaundiced Neuro: grossly intact. Alert and oriented x3 Const: Other: Mildly ill-appearing, obese HENMT: Other: Mucous membranes are tacky, crowded posterior oropharynx head is normocephalic atraumatic Eyes: Other: Positive conjunctival pallor, no scleral icterus, pupils are equal and reactive, bilateral lens implants noted Neck: Other: No JVD, large neck circumference Resp: Other: Mild tachypnea, end-expiratory wheezing anterior lung cali, no accessory muscle use Cardio: Other: Irregularly irregular, 2+ bilateral radial pedal pulses, no JVD, no murmur GI: Other: Obese, soft, nontender, normoactive bowel sounds Skin: Other: Generalized pallor, non jaundice Neuro: Other: Alert oriented, speech is clear, no facial asymmetry, hard of hearing Extrem: Other: Trace edema bilateral lower extremities, generalized weakness all extremities Psych: Other: Mildly anxious, otherwise pleasant and cooperative Objective Data Vital Signs Vital Signs: Vital Signs - 24 hr 06/09/25 08:24 06/09/25 08:24 06/09/25 08:40 Temperature Pulse Rate 92 83 95 Respiratory Rate 16 Blood Pressure Pulse Oximetry 83 L 92 Oxygen Delivery Room Air Nasal Cannula Oxygen Flow Rate 2 Fraction of Inspired Oxygen 21 06/09/25 08:40 06/09/25 09:20 06/09/25 14:00 Temperature 97.7 F Pulse Rate 95 100 100 Respiratory Rate 20 20 Blood Pressure 108/62 Pulse Oximetry 91 Oxygen Delivery Oxygen Flow Rate Fraction of Inspired Oxygen 06/09/25 19:35 06/09/25 20:00 06/09/25 22:22 Temperature 97.6 F Pulse Rate 79 Respiratory Rate 20 Blood Pressure 95/74 L Pulse Oximetry 91 91 Oxygen Delivery Nasal Cannula Nasal Cannula Oxygen Flow Rate 5 3 Fraction of Inspired Oxygen 06/10/25 03:29 06/10/25 07:40 Temperature 97.6 F Pulse Rate 91 Respiratory Rate 20 Blood Pressure 99/65 L Pulse Oximetry 99 93 Oxygen Delivery Nasal Cannula Oxygen Flow Rate 5 Fraction of Inspired Oxygen Intake/Output Intake/Output: Intake & Output 06/07/25 06/08/25 06/09/25 06/10/25 23:59 23:59 23:59 23:59 Intake Total 2309 496 7368 290 Output Total 1600 1400 400 Balance 1000 -710 -100 -110 Meds/Results Medications: Active Medications Generic Name Dose Route Start Last Admin Trade Name Freq PRN Reason Stop Dose Admin Amoxicillin/Clavulanate Potassium 1 tablet 06/07/25 21:00 06/09/25 20:55 Amoxicillin/Clavulanate K 875-125 Mg Tab PO 06/12/25 20:59 1 tablet Q12HR BAILEE Administration Apixaban 5 mg 06/02/25 09:00 06/09/25 20:56 Apixaban 5 Mg Tablet PO 5 mg Q12HR BAILEE Administration Benzonatate 200 mg 06/08/25 13:45 06/09/25 17:59 Benzonatate 100 Mg Capsule PO 200 mg TID BAILEE Administration Calcium Polycarbophil 1,250 mg 06/02/25 09:00 06/09/25 17:59 Calcium Polycarbophil 625 Mg Tablet PO 1,250 mg BID BAILEE Administration Cyanocobalamin 1,000 mcg 06/02/25 09:00 06/09/25 09:22 Cyanocobalamin 1,000 Mcg Tablet PO 1,000 mcg QAM [facility] Administration Dicyclomine HCl 10 mg 06/02/25 06:12 Dicyclomine Hcl 10 Mg Capsule PO BID PRN abdominal pain Fluticasone/Umeclidinium/Vilanterol 1 puff 06/09/25 09:25 06/10/25 07:40 Fluticasone/Umeclidin/Vilanter 200-62.5-25 Mcg Ellipta INHALATION 1 puff DAILYRT BAILEE Administration Furosemide 40 mg 06/09/25 09:00 06/09/25 09:20 Furosemide Inj 40 Mg/4 Ml Vial IV PUSH 40 mg DAILY BAILEE Administration Guaifenesin 1,200 mg 06/09/25 09:00 06/09/25 20:55 Guaifenesin 12 Hr 600 Mg Tabcr PO 1,200 mg Q12HR BAILEE Administration Loratadine 10 mg 06/02/25 09:00 06/09/25 09:22 Loratadine 10 Mg Tablet PO 10 mg DAILY BAILEE Administration Metoprolol Succinate 25 mg 06/06/25 14:10 06/09/25 09:20 Metoprolol Succinate Ext Rel 25 Mg Tabcr PO 25 mg QAM [facility] Administration Multivitamins/Calcium 1 tablet 06/02/25 09:00 06/09/25 09:21 Therapeutic Multivitamins/Minerals Tab (*Bkc) PO 1 tablet DAILY BAILEE Administration Oxybutynin Chloride 5 mg 06/02/25 09:00 06/09/25 09:22 Oxybutynin Chloride 5 Mg Tablet PO 5 mg DAILY BAILEE Administration Pantoprazole Sodium 40 mg 06/08/25 21:00 06/09/25 20:55 Pantoprazole 40 Mg Tablet PO 40 mg Q12HR BAILEE Administration Psyllium Hydrophilic Mucilloid 1 packet 06/02/25 09:00 06/09/25 09:20 Psyllium Powder Packet BY MOUTH 1 packet DAILY BAILEE Administration Trazodone HCl 50 mg 06/02/25 06:12 06/03/25 21:30 Trazodone Hcl 50 Mg Tablet PO 50 mg QHS PRN Administration Insomnia Vitamin D 50 mcg 06/02/25 09:00 06/09/25 09:21 Cholecalciferol (Vitamin D3) 25 Mcg (1,000 Units) Tablet PO 50 mcg DAILY BAILEE Administration Radiology Results: ITS Impressions Chest CT 06/04/25 13:29 IMPRESSION: 1. Right basilar subsegmental atelectatic changes with mild consolidative appearance which could represent small area of aspiration or pneumonia. 2. Other chronic appearing findings as above including mild aneurysmal dilatation of the ascending thoracic aorta and prominence main pulmonary artery which may represent pulmonary arterial hypertension. 3. Enlarged thyroid. Correlate with follow-up routine thyroid ultrasound. Chest X-Ray 06/08/25 09:48 Impression: CHF Modified Barium Swallow 06/08/25 09:48 IMPRESSION: No aspiration observed. See speech therapist's note for complete evaluation. Labs Labs: Laboratory Results - last 24 hr 06/09/25 06/10/25 06/10/25 19:32 05:19 05:20 WBC 11.2 H RBC 3.65 L Hgb 10.0 L Hct 33.2 L MCV 91.0 MCH 27.4 MCHC 30.1 L RDW 15.1 H Plt Count 284 MPV 9.3 Sodium 136 L Potassium 4.1 Chloride 99 Carbon Dioxide 34 H Anion Gap 3 L BUN 36 H Creatinine 1.44 H Estim Creat Clear Calc 34 Estimated GFR 35 L Glucose 127 H Calcium 8.4 Magnesium 1.8 Quality VTE Prophylaxis VTE prophylaxis: pharmacologic ordered (Continue home Eliquis) Hospitalist [facility] Advance Care Plan I have confirmed that the patient's Advanced Care Plan is present, code status is documented, or surrogate decision maker is listed in patient medical record.: Yes Medication Reconciliation I have utilized all available resources to obtain, update and review the patients current medications (includes all prescriptions, OTC, herbals, cannabis, and nutritional supplements).: Yes
[2025-06-10 08:08] LABS: NT Pro B Type Natriuretic Pept 1740 pg/mL (19.9-100)
--- NOTE | 2025-06-10 09:21 | P.PNPL_ITS ---
Progress Note: A&P Assessment and Plan (1) Rhinovirus infection: Code(s): B34.8 - Other viral infections of unspecified site Status: Acute Assessment and Plan: Patient with possible pneumonia and has received treatment with 5 days of azithromycin ending on 06/05. Seven days of cefepime ending on 06/07 and currently on Augmentin. she is afebrile. White blood cell count 11.2, procalcitonin remains low, CRP less than 0.5. 06/08/25: Plan: Would discontinue Augmentin 06/10/25 as this will be a total of 10 days antibiotics with minimal improvement. Later in the day respiratory pathogen panel returned positive for rhino virus. 06/09/2025: Overall the patient feels about the same. She has no rest shortness of breath. Walking to the bathroom she has weakness that is the main limitation as well as dyspnea on exertion. Tells me the cough is a little bit better this morning with phlegm production the same. Patient is on 1 L nasal cannula saturations 92%. White blood cell count 10.9, creatinine 1.37. Yesterday she was -700 mL with 40 of Lasix IV. Her weight today is 133.2. Plan: Suspect rhino viral infection is causing her acute symptoms of worsening oxygenation, worsening dyspnea on exertion, worsening cough. Treatment for rhino virus is supportive. Will continue Augmentin through 06/12/2025. I will discontinue DuoNebs and budesonide nebulizers and place the patient on trelegy 200. continue guaifenesin 1200 mg p.o. b.i.d.. Continue Lasix 40 IV q.day. patient chronically on 5 L nasal cannula at night and I will perform an overnight oximetry on 5 L tonight. 06/10/2025: Overall patient is improving. She said she slept well last night. She denies rest shortness of breath. cough has improved since admission and is now back to her baseline persistent chronic cough. She has some dyspnea on exertion and walk 60 ft with physical therapy yesterday. She denies fever, chills, rigors. She is afebrile. White blood cell count 11.2, creatinine 1.44, BNP has improved from 2900 on 06/08/2025 to 1740. she received 40 of IV Lasix yesterday. She was -100 mL. Her weight today is 129.5 kg. Patient had an overnight oximetry on 5 L nasal cannula with recording duration of 5 hours and 50 minutes. Average saturation 95%. Low saturation 90%. Time with saturation less than or equal to 88% was 0 minutes. Oxygen desaturation index 1.1. Plan:?? Supportive treatment for rhinoviral infection.? Continue Augmentin through 06/12/2025.?? BNP improving with Lasix 40 IV q.day. monitoring renal function.? Patient has no change in her breathing off of DuoNebs and budesonide and on trelegy 200,? will continue. 5 L oxygen at night provides per adequate oxygenation. ?From a pulmonary perspective patient is ready to be discharged on these pulmonary medications: Augmentin 875-1251 tablet p.o. b.i.d. last dose on 06/12/2025. Trelegy 200-62.5-25 at 2 puffs b.i.d. Rescue albuterol 2 puffs q.4 hours p.r.n. shortness of breath or wheezing Guaifenesin 1200 mg p.o. b.i.d. Claritin 10 mg p.o. q.day Protonix 40 mg p.o. b.i.d. Benzonatate 200 mg p.o. t.i.d. Diuretics per hospitalist team. Oxygen at rest and with activity per snf facility protocol.? If she is discharged to assisted living she will need a home O2 assessment prior to discharge.? When she naps or sleeps:? Oxygen 5 L by nasal cannula. Follow-up in the Pulmonary Clinic 3-4 weeks. I gave her my business card and informed our maintenance scheduler. Discussed with Dr. Chanel, will sign off, call with questions. (2) Chronic cough: Code(s): R05.3 - Chronic cough Status: Acute Assessment and Plan: Patient records chronic cough since the summer. She received doxycycline on 04/16/2025. She received cefdinir and azithromycin on 05/17/2025 with no benefit. Patient admitted 06/01/2025 with wheezing, CT scan on 06/04 with right basilar atelectasis with could mild consolidation. Rhinovirus positive on 06/08/2025. she has no history of allergic rhinitis and no sinus symptoms currently. She is on Protonix 40 once a day and has no GERD symptoms. She has no history of asthma or COPD. She is a never smoker but was exposed to secondhand smoke. CT scan with no interstitial lung disease, nodules or masses. modified barium swallow normal. PFTs on 09/29/2024 with a slow vital capacity 2.91 L and a forced vital capacity 2.46 L (101%). FEV1 1.83 L, 99% predicted. FEV1: FVC ratio 74%. Normal total lung capacity, functional residual capacity, residual volume and DLCO. This is consistent with small airways disease. Acute worsening of symptoms with dyspnea on exertion, hypoxia, focal infiltrate on her CT scan and worsening cough likely explained by current rhinoviral infection. Is unclear if patient has cough that began in the summer was initiated by a viral infection or not. Plan: There is no specific treatment for rhinoviral infection. Will continue to support patient. Goal saturation 90-94%. Wean oxygen as tolerated. Regarding her chronic cough since the summer: Etiology includes and post viral cough (denied URI in the summer), lisinopril induced cough, reactive airways disease, silent reflux, and cough hypersensitivity syndrome. Plan: Continue DuoNebs q.6 hours and nebulized budesonide q.12 hours for possible reactive airways disease. I will discontinue lisinopril. I will increase her Protonix to 40 mg p.o. b.i.d.. In an attempt to suppress the cough I will start benzonatate 200 mg p.o. t.i.d.. 06/09/25: Tells me the cough is a little bit better this morning with phlegm production the same. Plan: Continue treatment for reactive airways disease with trelegy as above. Remains off of lisinopril. Continue treatment for GERD with Protonix 40 p.o. b.i.d.. Continue treatment for sinus disease with Claritin 10 mg p.o. q.day. Cough suppression with benzonatate 200 mg p.o. t.i.d., day 2. 06/10/2025.? Patient tells me the cough is slowly improving from admission.? Currently she is back to her normal amount of coughing since the summer of 2024. Plan:? Will continue to treat aggressively for common causes of chronic cough.? Patient has small airways disease by PFTs.? I have discontinued lisinopril.? Treating for reactive airways disease with trelegy,? treating for sinus disease with Claritin 10, treating for GERD with Protonix 40 p.o. b.i.d..?? Using? guaifenesin 1200 mg p.o. b.i.d. to aid in expectoration.? Using Tessalon Perles 200 mg p.o. t.i.d. for cough suppression. Subjective Date/time seen: 06/10/25 09:21 Interval history: 06/08/2025: This is a new pulmonary consult for pneumonia. 84-year-old with a history of persistent AFib, hypertension, CKD, nocturnal hypoxia, obesity Patient followed in the Pulmonary Clinic in last seen on 01/20/2025: Last visit 10/2024 to establish care Cesia is an 84yo F here for follow up regarding shortness of breath. She is here today with her friend, Milagro. Last visit she was here with her daughter Nelly, also has another daughter, Yumiko. PCP is MARYAM Davis. States she moved to [facility] about 6 weeks ago. Breathing feels stable, same as last visit. States she can't walk far with a walker. Using Mucinex 1-2x per day and states she's seen improvement in chest congestion and sputum since using this regularly. Denies wheezing. She is currently using 5L/min O2 at night with sleep nightly by our recommendation, see testing below. Last visit she was using 2L and completed a couple overnight oximetry studies detailed below. States she has not required oxygen during the day. [place] staff check her vital signs but not daily. Hx from initial visit: * She was hospitalized 09/04-09/08/24 at [facility] for shortness of breath and acute respiratory failure. She was treated with oxygen 2L/min and did not require daytime supplemental O2 at discharge. * She aspirated a pill over 10 years ago. Was not hospitalized for this but had 2 procedures at [facility] at that time trying to remove the pill. This is when she was started on 2L/min O2 with sleep only, which she's been using nightly for years. She does not use O2 during the day. * She has swelling in her legs and feet. PCP note 10/14/24 seeing MARYAM Davis - patient weighed 301lb, had JENNIFER leg edema and weakness, Elizabeth adjusted diuretics, changed HCTZ to Lasix. Patient weighs 286lb 10/2024 visit. * During her 09/29/24 6mw study, she walked for 3 min and test was terminated as her HR was in 150s. She didn't require daytime supplemental oxygen based on that 3 min testing. * She was living with her daughter, Yumiko, in [place] since her 09/08/24 discharge now moved to [facility] assisted living. room air saturations were 93%. She had faint end expiratory wheezes bilaterally similar to last visit. Assessment and plan: Shortness of breath: PFTs normal, 6 minute walk study only completed 3 minutes then a flutter. I suspect cardiac arrhythmias, deconditioning morbid obesity contributing to her dyspnea on exertion. Bronchodilators were entertained as she had wheezes but with a resume E is held off on this. Steroids were entertained but held off. Mucinex 601 to twice a day p.r.n. Has improved her congestion and will continue. Regarding her 5 L nocturnal oxygen needs we discussed the possibility of untreated sleep apnea and she declined further evaluation. Patient tells me that she has had a dry cough this started in the summer of 2024. Prior to the summer she had no cough. Patient denies any history of asthma or COPD. Patient denies a history of allergic rhinitis. Patient states there was no change in the cough with positional maneuvers. Patient denied any cold, pneumonia, bronchitis episodes prior to the cough starting. The cough is persisted and gotten worse since this summer. The patient was treated for bronchitis on 04/16/2025 with 10 days of doxycycline. The patient tells me she took this medicine but there was no change in her cough. On 05/17 the patient was treated with cefdinir and azithromycin and the patient tells me there is no change in her cough with this. The patient had continued cough, sputum, some shortness of breath and swelling and was sent for an x-ray on 06/01/2025 by her PCP. The x-ray showed small right pleural effusion, perihilar congestion and she was told to come to the emergency room to be evaluated for pneumonia. Her blood pressure was 104/52, heart rate 95, respirations 20, room air saturations were 90%. She was placed on 2 L nasal cannula saturations 94%. She had bilateral wheezing. Her BNP was 2720. Her white blood cell count was 9.2 with eosinophils 3% equals 270 6 per micro L. Her creatinine was 1.44. She was started on Solu-Medrol, cefepime, azithromycin and vancomycin. Her MRSA swab was negative. Her COVID influenza RSV RT PCR assay were negative. 06/04/2025: Patient had a CT scan of the chest that showed right basilar atelectasis with mild consolidation. Cough and shortness of breath persisted. Cough got slowly better until 06/07/2025 and her cough was worse. 06/08/2025: Patient states that her cough is better than yesterday and the same as admission. She does cough frequently during the interview and expectorates green phlegm. She denies fever, chills or rigors. She has no rest shortness of breath but some dyspnea on exertion that is the same as when she presented. She does complain that she is very weak at this point. She is afebrile. White blood cell count 11.2, creatinine 1.32, BNP has improved from 3530 on 06/04/2020 5-2900 today. Her CRP is 0.5. Procalcitonin is unchanged from 06/04/2025 at 0.1 today. when I enter the room the patient was on 4 L nasal cannula saturations 96%. I decreased her to room air and after 4 minutes her saturations decreased to 89%. I placed her on 1 L nasal cannula her saturations were 93%. Later in the day respiratory pathogen panel returned positive for rhinovirus. 06/09/2025: Overall the patient feels about the same. She has no rest shortness of breath. Walking to the bathroom she has weakness that is the main limitation as well as dyspnea on exertion. Tells me the cough is a little bit better this morning with phlegm production the same. Patient is on 1 L nasal cannula saturations 92%. White blood cell count 10.9, creatinine 1.37. Yesterday she was -700 mL with 40 of Lasix IV. Her weight today is 133.2. 06/10/2025: Overall patient is improving. She said she slept well last night. She denies rest shortness of breath. cough has improved since admission and is now back to her baseline persistent chronic cough. She has some dyspnea on exertion and walk 60 ft with physical therapy yesterday. She denies fever, chills, rigors. She is afebrile. White blood cell count 11.2, creatinine 1.44, BNP has improved from 2900 on 06/08/2025 to 1740. she received 40 of IV Lasix yesterday. She was -100 mL. Her weight today is 129.5 kg. Patient had an overnight oximetry on 5 L nasal cannula with recording duration of 5 hours and 50 minutes. Average saturation 95%. Low saturation 90%. Time with saturation less than or equal to 88% was 0 minutes. Oxygen desaturation index 1.1. DATA: 06/04/25: Echo Summary 1. Definity contrast administered improved wall motion interpretation. 2. Left ventricular chamber dimension is mildly enlarged. 3. Left ventricular systolic function is normal, estimated at 55-60. 4. The left ventricular diastolic function is abnormal. 5. E/e' 14 is mildly elevated. 6. Atrial fibrillation. 7. Left atrial chamber dimension is severely enlarged. 8. Right atrial chamber dimension is severely enlarged. 9. There is mild aortic valve sclerosis. 10. There is mild aortic valve regurgitation. 11. There is trace mitral valve regurgitation. 12. Mild pulmonary hypertension, estimated pulmonary arterial systolic pressure is 47 mmHg. 13. There is mild to moderate pulmonic regurgitation. 14. Dilated inferior vena cava with <50% collapse upon inspiration consistent with significantly elevated right atrial pressure, 15 mmHg. Left Ventricle Definity contrast administered improved wall motion interpretation. Left ventricular chamber dimension is mildly enlarged. Left ventricular systolic function is normal, estimated at 55-60. The left ventricular diastolic function is abnormal. E/e' 14 is mildly elevated. Atrial fibrillation. Right Ventricle Right ventricular chamber dimension is normal. Right ventricular systolic function is normal. Left Atria Left atrial chamber dimension is severely enlarged. Right Atria Right atrial chamber dimension is severely enlarged. 06/04/25: EXAMINATION:CT diagnostic chest wo con INDICATION: Cough COMPARISON: Chest x-ray from June 01 FINDINGS: Mild subsegmental atelectatic changes in the right lung base with air bronchograms and trace right-sided pleural effusion. Small infiltrate and/or aspiration could have a similar appearance. Mid and upper lung cali are clear. Central large airways are patent. Heart size slightly enlarged. Ascending thoracic aorta measures 4.1 cm Main pulmonary artery measures 3.8 cm. Distal aortic arch and descending aorta normal size. No significant pericardial effusion or bulky lymphadenopathy. Diffuse degenerative changes in the bones. Para no acute process seen in the visualized portions of the upper abdomen or extrathoracic soft tissues. Cholecystectomy clips. The thyroid is enlarged with portions of the inferior margin extending down behind the sternum. IMPRESSION: 1. Right basilar subsegmental atelectatic changes with mild consolidative appearance which could represent small area of aspiration or pneumonia. 2. Other chronic appearing findings as above including mild aneurysmal dilatation of the ascending thoracic aorta and prominence main pulmonary artery which may represent pulmonary arterial hypertension. 3. Enlarged thyroid. Correlate with follow-up routine thyroid ultrasound. * 12/21/24 - Overnight oximetry on 4L - Total time spent at or below 88% saturation was 35.5 min out of 7h23m recording time. Lowest saturation 77%, Baseline SpO2 91%. Recommend 5L/min O2 with sleep. * 11/24/24 - Overnight oximetry on 2L - Total time spent at or below 88% was 1h31m out of total recording time 8h25m. Lowest saturation was 78% and baseline SpO2 was 90%. Offered PSG and patient declines. Recommended 4L/min O2 with sleep and repeat overnight oximetry. * 09/29/24 - PFT - This is a pulmonary function test with pre and post- bronchodilator spirometry, plethysmography and diffusing capacity. The test was performed and results interpreted in accordance with the 2019 and 2005 ATS/ERS Task Force guidelines respectively using the Global Lung Function Initiative-2012 reference equations. Patient demonstrated good effort and cooperation. Reproducibility criteria were met. The quality of the pre bronchodilator spirometry maneuver was Grade B and post bronchodilator spirometry maneuver was Grade B. Findings: Spirometry: The contour the inspiratory and expiratory flow tracing are normal. The pre bronchodilator FVC is 2.46 L, 101% predicted. The pre bronchodilator FEV1 is 1.83 L, 99% predicted. The pre bronchodilator FEV1: FVC ratio 74%. The post bronchodilator FVC is 2.30 L, representing a 7% decrease. The post bronchodilator FEV1 is 1.78 L, representing a 3% decrease. The post bronchodilator FEV1: FVC ratio 77%. Plethysmography: The total lung capacity is 4.62 L, 91% predicted. The functional residual capacity is 2.58 L, 88% predicted. The residual volume is 1.71 L, 69% predicted. The slow vital capacity is 2.91 L. Diffusing capacity: The diffusing capacity unadjusted for hemoglobin and carboxyhemoglobin is 13.6, 72% predicted. The diffusing capacity adjusted for alveolar volume is 4.11, 101% predicted. Impression: The spirometry is normal without evidence of an obstructive abnormality. There is no significant improvement after inhaling a single dose of albuterol. The lung volumes are normal. The diffusing capacity is normal. There are no prior studies for comparison. Overread 06/10/25: The slow vital capacity is greater than forced vital capacity with a normal expiratory tracing and a normal FEV1: FVC ratio with a normal FEV1. This is suggestive of possible small airways disease. There is no significant improvement after inhaling a single dose of albuterol. The lung volumes are normal. The diffusing capacity is normal. * 09/29/24 - 6mw - The testing was stopped after 3 minutes due to fluctuating heart rate from the low 100s up to 150s. On this walk test that lasted 3 minutes, the patient did not qualify for supplemental oxygen at rest or with ambulation. The patient's resting room air oxygen saturation measured by pulse oximetry was 94%, the heart rate was 98 bpm, Patient ambulated for 61 meters and oxygen saturation remained 92 to 94%. At the end of the study the heart rate was 151 bpm * 09/04/24 - CTA chest - @ [facility] , indication elevated d- dimer, low oxygen saturation, and weakness - No evidence of PE. Mild dependent atelectasis. There is prominence of the main pulmonary artery suggesting elevated pulmonary arterial pressure. Mild mosaic attenuation in the lower lobes and lingula that is nonspecific but could reflect small airway disease or small vessel disease. Coronary artery calcifications. Right thyroid nodule 2.5cm. Review of Systems Constitutional: Constitutional: Reports no additional constitutional complaints Eyes: Eyes: Reports no additional eye complaints ENT: Reports system reviewed and no additional complaints, except as documented Cardiovascular: Cardiovascular: Reports no additional cardiovascular complaints Respiratory: Respiratory: Reports no additional respiratory complaints Gastrointestinal: Gastrointestinal: Reports no additional gastrointestinal complaints Musculoskeletal: Musculoskeletal: Reports no additional musculoskeletal complaints Neurologic: Reports system reviewed and no additional complaints, except as documented Psychiatric: Psychiatric: Reports no additional psychiatric complaints Endocrine: Endocrine: Reports no additional endocrine complaints Hematologic/Lymphatic: Hematologic/Lymphatic: Reports no additional hematologic/lymphatic complaints Allergic/Immunologic: Allergic/Immunologic: Reports no additional allergic/immunologic complaints Exam Const: General: cooperative, comfortable and no acute distress Orientation/consciousness: oriented to person, oriented to place and oriented to time HENMT: Head: normal to inspection Ears: hearing grossly normal bilaterally Eyes: General: appearance normal, both eyes and all related structures Neck: Neck: normal visual inspection Chest: Chest palpation & inspection: normal inspection of the chest Resp: Effort & Inspection: normal respiratory effort and able to speak in complete sentences Auscultation: no crackles, no rales, rhonchi, no wheezes and lung sounds not diminished Other: Improved course expiratory rhonchi heard throughout. Cardio: Jugular venous distension: no JVD GI: Inspection: normal to inspection Skin: General skin exam: normal color Neuro: General: oriented to person, oriented to place and oriented to time Extrem: General: normal to inspection Psych: Appearance: grossly normal Objective Data Vital Signs Vital Signs: Vital Signs - 24 hr 06/09/25 14:00 06/09/25 19:35 06/09/25 20:00 Temperature 36.5 C 36.4 C Pulse Rate 100 79 Respiratory Rate 20 20 Blood Pressure 108/62 95/74 L Pulse Oximetry 91 91 Oxygen Delivery Nasal Cannula Oxygen Flow Rate 5 06/09/25 22:22 06/10/25 03:29 06/10/25 07:40 Temperature 36.4 C Pulse Rate 91 Respiratory Rate 20 Blood Pressure 99/65 L Pulse Oximetry 91 99 93 Oxygen Delivery Nasal Cannula Nasal Cannula Oxygen Flow Rate 3 5 Intake/Output Intake/Output: Intake & Output 06/07/25 06/08/25 06/09/2506/10/25 23:59 23:59 23:59 23:59 Intake Total 9884 817 0543 290 Output Total 1600 1400 400 Balance 1000 -710 -100 -110 Meds/Results Medications: Active Medications Generic Name Dose Route Start Last Admin Trade Name Freq PRN Reason Stop Dose Admin Amoxicillin/Clavulanate Potassium 1 tablet 06/07/25 21:00 06/09/25 20:55 Amoxicillin/Clavulanate K 875-125 Mg Tab PO 06/12/25 20:59 1 tablet Q12HR BAILEE Administration Apixaban 5 mg 06/02/25 09:00 06/09/25 20:56 Apixaban 5 Mg Tablet PO 5 mg Q12HR BAILEE Administration Benzonatate 200 mg 06/08/25 13:45 06/09/25 17:59 Benzonatate 100 Mg Capsule PO 200 mg TID BAILEE Administration Calcium Polycarbophil 1,250 mg 06/02/25 09:00 06/09/25 17:59 Calcium Polycarbophil 625 Mg Tablet PO 1,250 mg BID BAILEE Administration Cyanocobalamin 1,000 mcg 06/02/25 09:00 06/09/25 09:22 Cyanocobalamin 1,000 Mcg Tablet PO 1,000 mcg QAM BAILEE Administration Dicyclomine HCl 10 mg 06/02/25 06:12 Dicyclomine Hcl 10 Mg Capsule PO BID PRN abdominal pain Fluticasone/Umeclidinium/Vilanterol 1 puff 06/09/25 09:25 06/10/25 07:40 Fluticasone/Umeclidin/Vilanter 200-62.5-25 Mcg Ellipta INHALATION 1 puff DAILYRT BAILEE Administration Furosemide 40 mg 06/09/25 09:00 06/09/25 09:20 Furosemide Inj 40 Mg/4 Ml Vial IV PUSH 40 mg DAILY BAILEE Administration Guaifenesin 1,200 mg 06/09/25 09:00 06/09/25 20:55 Guaifenesin 12 Hr 600 Mg Tabcr PO 1,200 mg Q12HR BAILEE Administration Loratadine 10 mg 06/02/25 09:00 06/09/25 09:22 Loratadine 10 Mg Tablet PO 10 mg DAILY BAILEE Administration Metoprolol Succinate 25 mg 06/06/25 14:10 06/09/25 09:20 Metoprolol Succinate Ext Rel 25 Mg Tabcr PO 25 mg QAM BAILEE Administration Multivitamins/Calcium 1 tablet 06/02/25 09:00 06/09/25 09:21 Therapeutic Multivitamins/Minerals Tab (*Bkc) PO 1 tablet DAILY BAILEE Administration Oxybutynin Chloride 5 mg 06/02/25 09:00 06/09/25 09:22 Oxybutynin Chloride 5 Mg Tablet PO 5 mg DAILY BAILEE Administration Pantoprazole Sodium 40 mg 06/08/25 21:00 06/09/25 20:55 Pantoprazole 40 Mg Tablet PO 40 mg Q12HR BAILEE Administration Psyllium Hydrophilic Mucilloid 1 packet 06/02/25 09:00 06/09/25 09:20 Psyllium Powder Packet BY MOUTH 1 packet DAILY BAILEE Administration Trazodone HCl 50 mg 06/02/25 06:12 06/03/25 21:30 Trazodone Hcl 50 Mg Tablet PO 50 mg QHS PRN Administration Insomnia Vitamin D 50 mcg 06/02/25 09:00 06/09/25 09:21 Cholecalciferol (Vitamin D3) 25 Mcg (1,000 Units) Tablet PO 50 mcg DAILY BAILEE Administration Radiology Results: ITS Impressions Chest CT 06/04/25 13:29 IMPRESSION: 1. Right basilar subsegmental atelectatic changes with mild consolidative appearance which could represent small area of aspiration or pneumonia. 2. Other chronic appearing findings as above including mild aneurysmal dilatation of the ascending thoracic aorta and prominence main pulmonary artery which may represent pulmonary arterial hypertension. 3. Enlarged thyroid. Correlate with follow-up routine thyroid ultrasound. Chest X-Ray 06/08/25 09:48 Impression: CHF Modified Barium Swallow 06/08/25 09:48 IMPRESSION: No aspiration observed. See speech therapist's note for complete evaluation. Labs Labs: Laboratory Results - last 24 hr 06/09/25 06/10/25 06/10/25 19:32 05:19 05:20 WBC 11.2 H RBC 3.65 L Hgb 10.0 L Hct 33.2 L MCV 91.0 MCH 27.4 MCHC 30.1 L RDW 15.1 H Plt Count 284 MPV 9.3 Sodium 136 L Potassium 4.1 Chloride 99 Carbon Dioxide 34 H Anion Gap 3 L BUN 36 H Creatinine 1.44 H Estim Creat Clear Calc 34 Estimated GFR 35 L Glucose 127 H Calcium 8.4 Magnesium 1.8 NT-Pro-B Natriuret Pep 1740 H
[2025-06-10] MEDS: LORATADINE 10 MG TABLET PO (10:39)
[2025-06-10] MEDS: CYANOCOBALAMIN 1,000 MCG TABLET 1000 MCG PO (10:39)
[2025-06-10] MEDS: BENZONATATE 100 MG CAPSULE 200 MG PO ×2 (10:39→18:42)
[2025-06-10] MEDS: PANTOPRAZOLE 40 MG TABLET PO ×2 (10:40→21:42)
[2025-06-10] MEDS: METOPROLOL SUCCINATE EXT REL 25 MG TABCR PO (10:40)
[2025-06-10] MEDS: THERAPEUTIC MULTIVITAMINS/MINERALS TAB (*BKC) 1 TABLET PO (10:41)
[2025-06-10] MEDS: DICYCLOMINE HCL 10 MG CAPSULE PO ×2 (10:41→18:43)
[2025-06-10] MEDS: CHOLECALCIFEROL (VITAMIN D3) 25 MCG (1,000 UNITS) TABLET 50 MCG PO (10:41)
[2025-06-10] MEDS: guaiFENesin 12 HR 600 MG TABCR 1200 MG PO ×2 (10:41→21:45)
[2025-06-10] MEDS: APIXABAN 5 MG TABLET PO ×2 (10:41→21:42)
[2025-06-10] MEDS: PSYLLIUM POWDER PACKET 1 PACKET BY MOUTH (10:41)
[2025-06-10] MEDS: FUROSEMIDE INJ 40 MG/4 ML VIAL IV PUSH (14:58)
--- NOTE | 2025-06-10 14:58 | PC.NURSE ---
Lasix given late due to fluctuating BP.
[2025-06-10 18:01] LABS: Magnesium 1.7 mg/dL (1.6-2.3)
[2025-06-11] VITALS (7 sets, daily range): BP systolic 93–118; BP diastolic 54–75; PULSE 83–95; RESP 16–20; TEMP 36.1–36.3; O2SAT 90–95
[2025-06-11 05:37] LABS: Hematocrit 33.0 % (37.0-47.0); Hemoglobin 9.9 g/dL (12.0-15.0); Mean Corpuscular HGB Conc 30.0 g/dl (32-36); Mean Corpuscular Hemoglobin 27.7 pg (26-34); Mean Corpuscular Volume 92.2 fl (80-100); Platelet Count Result 290 k/mm3 (150-375); Red Blood Count 3.58 M/mm3 (4.2-5.4); White Blood Count 13.0 K/mm3 (4.5-10.0)
[2025-06-11 05:59] LABS: Alanine Aminotransferase 15 U/L (6-35); Albumin Level 3.3 g/dL (3.5-5.1); Alkaline Phosphatase 64 U/L (38-126); Anion Gap 4 mmol/L (4-12); Aspartate Amino Transferase 21 U/L (14-36); Bilirubin,Total 1.2 mg/dL (0.2-1.3); Blood Urea Nitrogen 38 mg/dL (7-17); Calcium 8.4 mg/dL (8.4-10.2); Carbon Dioxide 34 mmol/L (22-30); Chloride 99 mmol/L (98-107); Estimated CRCL calculation 35 ml/min; Estimated Glomerular Filt Rate 35; Glucose 129 mg/dL (65-110); Potassium 4.6 mmol/L (3.4-5.0); Sodium 137 mmol/L (137-145); Total Protein 6.2 g/dL (6.3-8.2)
--- NOTE | 2025-06-11 07:43 | P.PNIM_ITS ---
Assessment and Plan Assessment and Plan (1) Acute bronchitis: Qualifiers: Bronchitis organism: unspecified organism Qualified Code(s): J20.9 - Acute bronchitis, unspecified Code(s): J20.9 - Acute bronchitis, unspecified Status: Acute Assessment and Plan: CXR showed residual airspace disease from 2 weeks prior Respiratory pathogen positive for rhinovirus Patient is currently on Augmentin Continue Tessalon Perles, guaifenesin 1200 mg p.o. b.i.d., Trelegy, Claritin 10 mg p.o. b.i.d. Patient completed azithromycin, cefepime Completed Prednisone BNP 2720 Procalcitonin level 0.1 Chest x-ray with finding of CHF superimposed probable right lower lobe pneumonia. Echo 05/18 was performed to rule out pericardial effusion which was negative. Repeat echo 06/04/2025: EF 55-60% abnormal diastolic function mild pulmonary hypertension [id number] pulmonary regurgitation. CT chest with the right basilar subsegmental atelectatic changes with mild consolidative appearance which could represent small area of aspiration or pneumonia. 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 MBS came back negative for any silent aspiration chest x-ray 06/08/2025 does come back with pulmonary vascular congestion. Started IV Lasix 40mg BID (2) Acute hypoxic respiratory failure: Code(s): J96.01 - Acute respiratory failure with hypoxia Status: Acute Assessment and Plan: Same as above (3) CKD stage 3b, GFR 30-44 ml/min: Code(s): N18.32 - Chronic kidney disease, stage 3b Status: Acute Assessment and Plan: Monitor creatinine while diuresing. Baseline creatinine between 1.3-1.4 BNP decreased from to [id number] (4) Chronic diarrhea: Code(s): K52.9 - Noninfective gastroenteritis and colitis, unspecified Status: Acute Assessment and Plan: Resolved Plan This is a 84-year-old female who presented from [facility] due to persistent cough for 1 month. She was treated for bronchitis with green to brown sputum production with 10 days course of doxycycline and 04/16/2025. Patient had repeat symptoms 05/18/2025 and received antibiotic with cefdinir and azithromycin. Initially her symptoms improved however arm over the past couple of weeks he has continued to have intractable cough. She denied any history of asthma or chronic bronchitis per patient however documentation does report history of chronic bronchitis. She was also having some blood streak in the sputum a few weeks ago but has resolved since she has taken the antibiotics. No chest pain no fever chills. Progressive weakness. DVT prophylaxis Eliquis Code status do not resuscitate Elevated IgE noted on labs 11/2024 Disposition: Likely need SNF placement Subjective Date/time seen: 06/11/25 07:43 Interval history: 06/10:Patient has history of chronic cough. Patient is diagnosed with rhinovirus. Her chronic cough has been exacerbated recently but currently getting better. Patient lisinopril has been discontinued. Patient is currently on Claritin, Protonix 40 b.i.d., Tessalon Perles, and guaifenesin 1200 mg p.o. b.i.d. 06/11: Patient still has cough but she reports is better than her previous episodes. Possible discharge to SNF tomorrow. Review of Systems Review of Systems: 12 systems were reviewed with pertinent positives and negatives per HPI. Except as documented in the HPI, all other systems were reviewed and are negative. 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 All systems reviewed & are unremarkable except as noted in HPI and below Exam Narrative: Morbidly obese not in acute distress Patient is comfortable, NAD HEENT: eyes are clear and none icteric LUNGS: Diminished breath sounds bilaterally, No respiratory distress HEART: RR S1S2 ABD: BS+, Soft and nontender Lower extremities: Bilateral lower extremity edema pitting 2+ SKIN: nonjaundiced Neuro: grossly intact. Alert and oriented x3 Const: Other: Mildly ill-appearing, obese HENMT: Other: Mucous membranes are tacky, crowded posterior oropharynx head is normocephalic atraumatic Eyes: Other: Positive conjunctival pallor, no scleral icterus, pupils are equal and reactive, bilateral lens implants noted Neck: Other: No JVD, large neck circumference Resp: Other: Mild tachypnea, end-expiratory wheezing anterior lung cali, no accessory muscle use Cardio: Other: Irregularly irregular, 2+ bilateral radial pedal pulses, no JVD, no murmur GI: Other: Obese, soft, nontender, normoactive bowel sounds Skin: Other: Generalized pallor, non jaundice Neuro: Other: Alert oriented, speech is clear, no facial asymmetry, hard of hearing Extrem: Other: Trace edema bilateral lower extremities, generalized weakness all extremities Psych: Other: Mildly anxious, otherwise pleasant and cooperative Objective Data Vital Signs Vital Signs: Vital Signs - 24 hr 06/10/25 10:30 06/10/25 10:40 06/10/25 10:45 Temperature Pulse Rate 98 97 Respiratory Rate 18 Blood Pressure 103/58 L Pulse Oximetry 96 97 Oxygen Delivery Nasal Cannula Oxygen Flow Rate 2 Fraction of Inspired Oxygen 21 06/10/25 11:56 06/10/25 19:32 06/11/25 04:14 Temperature 98.2 F 97.3 F L 97.0 F L Pulse Rate 88 89 83 Respiratory Rate 20 20 20 Blood Pressure 115/60 96/60 L 93/75 L Pulse Oximetry 96 98 90 Oxygen Delivery Oxygen Flow Rate Fraction of Inspired Oxygen Intake/Output Intake/Output: Intake & Output 06/08/25 06/09/25 06/10/25 06/11/25 23:59 23:59 23:59 23:59 Intake Total 890 1300 1010 290 Output Total 1600 1400 1100 600 Balance -710 -100 -90 -310 Meds/Results Medications: Active Medications Generic Name Dose Route Start Last Admin Trade Name Freq PRN Reason Stop Dose Admin Amoxicillin/Clavulanate Potassium 1 tablet 06/07/25 21:00 06/10/25 21:42 Amoxicillin/Clavulanate K 875-125 Mg Tab PO 06/12/25 20:59 1 tablet Q12HR BAILEE Administration Apixaban 5 mg 06/02/25 09:00 06/10/25 21:42 Apixaban 5 Mg Tablet PO 5 mg Q12HR BAILEE Administration Benzonatate 200 mg 06/08/25 13:45 06/10/25 18:42 Benzonatate 100 Mg Capsule PO 200 mg TID BAILEE Administration Calcium Polycarbophil 1,250 mg 06/02/25 09:00 06/10/25 18:43 Calcium Polycarbophil 625 Mg Tablet PO 1,250 mg BID BAILEE Administration Cyanocobalamin 1,000 mcg 06/02/25 09:00 06/10/25 10:39 Cyanocobalamin 1,000 Mcg Tablet PO 1,000 mcg QAM BAILEE Administration Dicyclomine HCl 10 mg 06/02/25 06:12 06/10/25 18:43 Dicyclomine Hcl 10 Mg Capsule PO 10 mg BID PRN Administration abdominal pain Fluticasone/Umeclidinium/Vilanterol 1 puff 06/09/25 09:25 06/10/25 07:40 Fluticasone/Umeclidin/Vilanter 200-62.5-25 Mcg Ellipta INHALATION 1 puff DAILYRT BAILEE Administration Furosemide 40 mg 06/09/25 09:00 06/10/25 14:58 Furosemide Inj 40 Mg/4 Ml Vial IV PUSH 40 mg DAILY BAILEE Administration Guaifenesin 1,200 mg 06/09/25 09:00 06/10/25 21:45 Guaifenesin 12 Hr 600 Mg Tabcr PO 1,200 mg Q12HR BAILEE Administration Loratadine 10 mg 06/02/25 09:00 06/10/25 10:39 Loratadine 10 Mg Tablet PO 10 mg DAILY BAILEE Administration Metoprolol Succinate 25 mg 06/06/25 14:10 06/10/25 10:40 Metoprolol Succinate Ext Rel 25 Mg Tabcr PO 25 mg QAM BAILEE Administration Multivitamins/Calcium 1 tablet 06/02/25 09:00 06/10/25 10:41 Therapeutic Multivitamins/Minerals Tab (*Bkc) PO 1 tablet DAILY BAILEE Administration Oxybutynin Chloride 5 mg 06/02/25 09:00 06/10/25 10:41 Oxybutynin Chloride 5 Mg Tablet PO 5 mg DAILY BAILEE Administration Pantoprazole Sodium 40 mg 06/08/25 21:00 06/10/25 21:42 Pantoprazole 40 Mg Tablet PO 40 mg Q12HR BAILEE Administration Psyllium Hydrophilic Mucilloid 1 packet 06/02/25 09:00 06/10/25 10:41 Psyllium Powder Packet BY MOUTH 1 packet DAILY BAILEE Administration Trazodone HCl 50 mg 06/02/25 06:12 06/03/25 21:30 Trazodone Hcl 50 Mg Tablet PO 50 mg QHS PRN Administration Insomnia Vitamin D 50 mcg 06/02/25 09:00 06/10/25 10:41 Cholecalciferol (Vitamin D3) 25 Mcg (1,000 Units) Tablet PO 50 mcg DAILY BAILEE Administration Radiology Results: ITS Impressions Chest CT 06/04/25 13:29 IMPRESSION: 1. Right basilar subsegmental atelectatic changes with mild consolidative appearance which could represent small area of aspiration or pneumonia. 2. Other chronic appearing findings as above including mild aneurysmal dilatation of the ascending thoracic aorta and prominence main pulmonary artery which may represent pulmonary arterial hypertension. 3. Enlarged thyroid. Correlate with follow-up routine thyroid ultrasound. Chest X-Ray 06/08/25 09:48 Impression: CHF Modified Barium Swallow 06/08/25 09:48 IMPRESSION: No aspiration observed. See speech therapist's note for complete evaluation. Labs Labs: Laboratory Results - last 24 hr 06/10/25 06/10/25 06/11/25 05:19 17:40 05:24 WBC RBC Hgb Hct MCV MCH MCHC RDW Plt Count MPV Sodium 137 Potassium 4.6 Chloride 99 Carbon Dioxide 34 H Anion Gap 4 BUN 38 H Creatinine 1.44 H Estim Creat Clear Calc 35 Estimated GFR 35 L Glucose 129 H Calcium 8.4 Magnesium 1.7 Total Bilirubin 1.2 AST 21 ALT 15 Alkaline Phosphatase 64 NT-Pro-B Natriuret Pep 1740 H Total Protein 6.2 L Albumin 3.3 L 06/11/25 05:25 WBC 13.0 H RBC 3.58 L Hgb 9.9 L Hct 33.0 L MCV 92.2 MCH 27.7 MCHC 30.0 L RDW 15.3 H Plt Count 290 MPV 9.6 Sodium Potassium Chloride Carbon Dioxide Anion Gap BUN Creatinine Estim Creat Clear Calc Estimated GFR Glucose Calcium Magnesium Total Bilirubin AST ALT Alkaline Phosphatase NT-Pro-B Natriuret Pep Total Protein Albumin Quality VTE Prophylaxis VTE prophylaxis: pharmacologic ordered (Continue home Eliquis) Hospitalist MIPS Advance Care Plan I have confirmed that the patient's Advanced Care Plan is present, code status is documented, or surrogate decision maker is listed in patient medical record.: Yes Medication Reconciliation I have utilized all available resources to obtain, update and review the patients current medications (includes all prescriptions, OTC, herbals, cannab is, and nutritional supplements).: Yes
[2025-06-11] MEDS: FLUTICASONE/UMECLIDIN/VILANTER 200-62.5-25 MCG ELLIPTA 1 PUFF INHALATION (08:27)
[2025-06-11 08:37] LABS: NT Pro B Type Natriuretic Pept 2150 pg/mL (19.9-100)
[2025-06-11] MEDS: DICYCLOMINE HCL 10 MG CAPSULE PO ×2 (09:39→16:42)
[2025-06-11] MEDS: CHOLECALCIFEROL (VITAMIN D3) 25 MCG (1,000 UNITS) TABLET 50 MCG PO (09:39)
[2025-06-11] MEDS: THERAPEUTIC MULTIVITAMINS/MINERALS TAB (*BKC) 1 TABLET PO (09:39)
[2025-06-11] MEDS: PANTOPRAZOLE 40 MG TABLET PO ×2 (09:39→20:40)
[2025-06-11] MEDS: BENZONATATE 100 MG CAPSULE 200 MG PO ×3 (09:39→16:42)
[2025-06-11] MEDS: LORATADINE 10 MG TABLET PO (09:40)
[2025-06-11] MEDS: FUROSEMIDE INJ 40 MG/4 ML VIAL IV PUSH (09:40)
[2025-06-11] MEDS: CYANOCOBALAMIN 1,000 MCG TABLET 1000 MCG PO (09:40)
[2025-06-11] MEDS: PSYLLIUM POWDER PACKET 1 PACKET BY MOUTH (09:40)
[2025-06-11] MEDS: APIXABAN 5 MG TABLET PO ×2 (09:40→20:40)
[2025-06-11] MEDS: METOPROLOL SUCCINATE EXT REL 25 MG TABCR PO (09:40)
[2025-06-11] MEDS: guaiFENesin 12 HR 600 MG TABCR 1200 MG PO ×2 (09:40→20:40)
[2025-06-11 17:57] LABS: Magnesium 1.6 mg/dL (1.6-2.3)
[2025-06-12] VITALS (8 sets, daily range): BP systolic 99–104; BP diastolic 53–60; PULSE 74–93; RESP 12–20; TEMP 36.2–36.8; O2SAT 93–97
[2025-06-12 04:55] LABS: Hematocrit 31.3 % (37.0-47.0); Hemoglobin 9.4 g/dL (12.0-15.0); Mean Corpuscular HGB Conc 30.0 g/dl (32-36); Mean Corpuscular Hemoglobin 27.3 pg (26-34); Mean Corpuscular Volume 91.0 fl (80-100); Platelet Count Result 285 k/mm3 (150-375); Red Blood Count 3.44 M/mm3 (4.2-5.4); White Blood Count 9.9 K/mm3 (4.5-10.0)
[2025-06-12 05:09] LABS: Alanine Aminotransferase 12 U/L (6-35); Albumin Level 3.1 g/dL (3.5-5.1); Alkaline Phosphatase 59 U/L (38-126); Anion Gap 6 mmol/L (4-12); Aspartate Amino Transferase 16 U/L (14-36); Bilirubin,Total 1.0 mg/dL (0.2-1.3); Blood Urea Nitrogen 37 mg/dL (7-17); Calcium 8.1 mg/dL (8.4-10.2); Carbon Dioxide 31 mmol/L (22-30); Chloride 98 mmol/L (98-107); Estimated CRCL calculation 34 ml/min; Estimated Glomerular Filt Rate 34; Glucose 124 mg/dL (65-110); Potassium 3.8 mmol/L (3.4-5.0); Sodium 135 mmol/L (137-145); Total Protein 6.0 g/dL (6.3-8.2)
[2025-06-12] MEDS: FLUTICASONE/UMECLIDIN/VILANTER 200-62.5-25 MCG ELLIPTA 1 PUFF INHALATION (07:47)
[2025-06-12] MEDS: THERAPEUTIC MULTIVITAMINS/MINERALS TAB (*BKC) 1 TABLET PO (10:12)
[2025-06-12] MEDS: guaiFENesin 12 HR 600 MG TABCR 1200 MG PO ×2 (10:12→21:53)
[2025-06-12] MEDS: BENZONATATE 100 MG CAPSULE 200 MG PO ×3 (10:12→16:49)
[2025-06-12] MEDS: LORATADINE 10 MG TABLET PO (10:13)
[2025-06-12] MEDS: APIXABAN 5 MG TABLET PO ×2 (10:13→21:52)
[2025-06-12] MEDS: METOPROLOL SUCCINATE EXT REL 25 MG TABCR PO (10:13)
[2025-06-12] MEDS: PANTOPRAZOLE 40 MG TABLET PO ×2 (10:13→21:53)
[2025-06-12] MEDS: CHOLECALCIFEROL (VITAMIN D3) 25 MCG (1,000 UNITS) TABLET 50 MCG PO (10:13)
[2025-06-12] MEDS: CYANOCOBALAMIN 1,000 MCG TABLET 1000 MCG PO (10:13)
[2025-06-12] MEDS: PSYLLIUM POWDER PACKET 1 PACKET BY MOUTH (10:15)
--- NOTE | 2025-06-12 14:01 | PC.NURSE ---
RN spoke to MD Mckeon about patient's BP. Got the OK to hold Lasix.
--- NOTE | 2025-06-12 14:55 | P.PNIM_ITS ---
Assessment and Plan Assessment and Plan (1) Acute bronchitis: Qualifiers: Bronchitis organism: unspecified organism Qualified Code(s): J20.9 - Acute bronchitis, unspecified Code(s): J20.9 - Acute bronchitis, unspecified Status: Acute Assessment and Plan: CXR showed residual airspace disease from 2 weeks prior Respiratory pathogen positive for rhinovirus Patient is currently on Augmentin Continue Tessalon Perles, guaifenesin 1200 mg p.o. b.i.d., Trelegy, Claritin 10 mg p.o. b.i.d. Patient completed azithromycin, cefepime Completed Prednisone BNP 2720 Procalcitonin level 0.1 Chest x-ray with finding of CHF superimposed probable right lower lobe pneumonia. Echo 05/18 was performed to rule out pericardial effusion which was negative. Repeat echo 06/04/2025: EF 55-60% abnormal diastolic function mild pulmonary hypertension [id number] pulmonary regurgitation. CT chest with the right basilar subsegmental atelectatic changes with mild consolidative appearance which could represent small area of aspiration or pneumonia. 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 MBS came back negative for any silent aspiration chest x-ray 06/08/2025 does come back with pulmonary vascular congestion. Started IV Lasix 40mg daily will switch to oral in a.m. (2) Acute hypoxic respiratory failure: Code(s): J96.01 - Acute respiratory failure with hypoxia Status: Acute Assessment and Plan: Same as above Need oxygen test with exertion (3) CKD stage 3b, GFR 30-44 ml/min: Code(s): N18.32 - Chronic kidney disease, stage 3b Status: Acute Assessment and Plan: Monitor creatinine while diuresing. Baseline creatinine between 1.3-1.4 BNP decreased from to [id number] (4) Chronic diarrhea: Code(s): K52.9 - Noninfective gastroenteritis and colitis, unspecified Status: Acute Assessment and Plan: Resolved Plan This is a 84-year-old female who presented from [facility] due to persistent cough for 1 month. She was treated for bronchitis with green to brown sputum production with 10 days course of doxycycline and 04/16/2025. Patient had repeat symptoms 05/18/2025 and received antibiotic with cefdinir and azithromycin. Initially her symptoms improved however arm over the past couple of weeks he has continued to have intractable cough. She denied any history of asthma or chronic bronchitis per patient however documentation does report history of chronic bronchitis. She was also having some blood streak in the sputum a few weeks ago but has resolved since she has taken the antibiotics. No chest pain no fever chills. Progressive weakness. DVT prophylaxis Eliquis Code status do not resuscitate Elevated IgE noted on labs 11/2024 Disposition: Likely need SNF placement Subjective Date/time seen: 06/12/25 14:55 Interval history: 06/10:Patient has history of chronic cough. Patient is diagnosed with rhinovirus. Her chronic cough has been exacerbated recently but currently getting better. Patient lisinopril has been discontinued. Patient is currently on Claritin, Protonix 40 b.i.d., Tessalon Perles, and guaifenesin 1200 mg p.o. b.i.d. 06/11: Patient still has cough but she reports is better than her previous episodes. Possible discharge to SNF tomorrow. 06/12: No overnight events. Blood pressure borderline. Cough present shortness of breath with exertion Review of Systems Review of Systems: All systems reviewed & are unremarkable except as noted in HPI and below Exam Narrative: Morbidly obese not in acute distress Patient is comfortable, NAD HEENT: eyes are clear and none icteric LUNGS: Diminished breath sounds bilaterally, No respiratory distress HEART: RR S1S2 ABD: BS+, Soft and nontender Lower extremities: Bilateral lower extremity edema pitting 2+ SKIN: nonjaundiced Neuro: grossly intact. Alert and oriented x3 Const: Other: Mildly ill-appearing, obese HENMT: Other: Mucous membranes are tacky, crowded posterior oropharynx head is normocephalic atraumatic Eyes: Other: Positive conjunctival pallor, no scleral icterus, pupils are equal and reactive, bilateral lens implants noted Neck: Other: No JVD, large neck circumference Resp: Other: Mild tachypnea, end-expiratory wheezing anterior lung cali, no accessory m uscle use Cardio: Other: Irregularly irregular, 2+ bilateral radial pedal pulses, no JVD, no murmur GI: Other: Obese, soft, nontender, normoactive bowel sounds Skin: Other: Generalized pallor, non jaundice Neuro: Other: Alert oriented, speech is clear, no facial asymmetry, hard of hearing Extrem: Other: Trace edema bilateral lower extremities, generalized weakness all extremities Psych: Other: Mildly anxious, otherwise pleasant and cooperative Objective Data Vital Signs Vital Signs: Vital Signs - 24 hr 06/11/25 21:04 06/12/25 03:56 06/12/25 07:47 Temperature 97.4 F L 98.3 F Pulse Rate 85 88 Respiratory Rate 20 20 Blood Pressure 118/66 99/56 L Pulse Oximetry 94 95 94 Oxygen Delivery Nasal Cannula Oxygen Flow Rate 2 06/12/25 07:47 06/12/25 09:59 06/12/25 10:13 Temperature Pulse Rate 93 90 Respiratory Rate 20 Blood Pressure 103/54 L Pulse Oximetry Oxygen Delivery Oxygen Flow Rate 06/12/25 10:20 06/12/25 13:47 Temperature 98.2 F Pulse Rate 74 Respiratory Rate 18 Blood Pressure 104/60 Pulse Oximetry 97 95 Oxygen Delivery Nasal Cannula Oxygen Flow Rate 3 Intake/Output Intake/Output: Intake & Output 06/09/25 06/10/25 06/11/25 06/12/25 23:59 23:59 23:59 23:59 Intake Total 1300 1010 1010 788 Output Total 1400 1100 601 Balance -100 -90 409 788 Meds/Results Medications: Active Medications Generic Name Dose Route Start Last Admin Trade Name Freq PRN Reason Stop Dose Admin Amoxicillin/Clavulanate Potassium 1 tablet 06/07/25 21:00 06/12/25 10:12 Amoxicillin/Clavulanate K 875-125 Mg Tab PO 06/12/25 20:59 1 tablet Q12HR BAILEE Administration Apixaban 5 mg 06/02/25 09:00 06/12/25 10:13 Apixaban 5 Mg Tablet PO 5 mg Q12HR BAILEE Administration Benzonatate 200 mg 06/08/25 13:45 06/12/25 12:06 Benzonatate 100 Mg Capsule PO 200 mg TID BAILEE Administration Calcium Polycarbophil 1,250 mg 06/02/25 09:00 06/12/25 10:12 Calcium Polycarbophil 625 Mg Tablet PO 1,250 mg BID BAILEE Administration Cyanocobalamin 1,000 mcg 06/02/25 09:00 06/12/25 10:13 Cyanocobalamin 1,000 Mcg Tablet PO 1,000 mcg QAM BAILEE Administration Dicyclomine HCl 10 mg 06/02/25 06:12 06/11/25 16:42 Dicyclomine Hcl 10 Mg Capsule PO 10 mg BID PRN Administration abdominal pain Fluticasone/Umeclidinium/Vilanterol 1 puff 06/09/25 09:25 06/12/25 07:47 Fluticasone/Umeclidin/Vilanter 200-62.5-25 Mcg Ellipta INHALATION 1 puff DAILYRT BAILEE Administration Furosemide 40 mg 06/09/25 09:00 06/12/25 14:01 Furosemide Inj 40 Mg/4 Ml Vial IV PUSH Not Given DAILY BAILEE Guaifenesin 1,200 mg 06/09/25 09:00 06/12/25 10:12 Guaifenesin 12 Hr 600 Mg Tabcr PO 1,200 mg Q12HR BAILEE Administration Loratadine 10 mg 06/02/25 09:00 06/12/25 10:13 Loratadine 10 Mg Tablet PO 10 mg DAILY BAILEE Administration Metoprolol Succinate 25 mg 06/06/25 14:10 06/12/25 10:13 Metoprolol Succinate Ext Rel 25 Mg Tabcr PO 25 mg QAM BAILEE Administration Multivitamins/Calcium 1 tablet 06/02/25 09:00 06/12/25 10:12 Therapeutic Multivitamins/Minerals Tab (*Bkc) PO 1 tablet DAILY BAILEE Administration Oxybutynin Chloride 5 mg 06/02/25 09:00 06/12/25 10:13 Oxybutynin Chloride 5 Mg Tablet PO 5 mg DAILY BAILEE Administration Pantoprazole Sodium 40 mg 06/08/25 21:00 06/12/25 10:13 Pantoprazole 40 Mg Tablet PO 40 mg Q12HR BAILEE Administration Psyllium Hydrophilic Mucilloid 1 packet 06/02/25 09:00 06/12/25 10:15 Psyllium Powder Packet BY MOUTH 1 packet DAILY BAILEE Administration Trazodone HCl 50 mg 06/02/25 06:12 06/03/25 21:30 Trazodone Hcl 50 Mg Tablet PO 50 mg QHS PRN Administration Insomnia Vitamin D 50 mcg 06/02/25 09:00 06/12/25 10:13 Cholecalciferol (Vitamin D3) 25 Mcg (1,000 Units) Tablet PO 50 mcg DAILY BAILEE Administration Radiology Results: ITS Impressions Chest CT 06/04/25 13:29 IMPRESSION: 1. Right basilar subsegmental atelectatic changes with mild consolidative appearance which could represent small area of aspiration or pneumonia. 2. Other chronic appearing findings as above including mild aneurysmal dilatation of the ascending thoracic aorta and prominence main pulmonary artery which may represent pulmonary arterial hypertension. 3. Enlarged thyroid. Correlate with follow-up routine thyroid ultrasound. Chest X-Ray 06/08/25 09:48 Impression: CHF Modified Barium Swallow 06/08/25 09:48 IMPRESSION: No aspiration observed. See speech therapist's note for complete evaluation. Labs Labs: Laboratory Results - last 24 hr 06/11/25 06/12/25 17:40 04:29 WBC 9.9 RBC 3.44 L Hgb 9.4 L Hct 31.3 L MCV 91.0 MCH 27.3 MCHC 30.0 L RDW 15.4 H Plt Count 285 MPV 9.7 Sodium 135 L Potassium 3.8 Chloride 98 Carbon Dioxide 31 H Anion Gap 6 BUN 37 H Creatinine 1.48 H Estim Creat Clear Calc 34 Estimated GFR 34 L Glucose 124 H Calcium 8.1 L Magnesium 1.6 Total Bilirubin 1.0 AST 16 ALT 12 Alkaline Phosphatase 59 Total Protein 6.0 L Albumin 3.1 L Quality VTE Prophylaxis VTE prophylaxis: pharmacologic ordered (Continue home Eliquis) Hospitalist MIPS Advance Care Plan I have confirmed that the patient's Advanced Care Plan is present, code status is documented, or surrogate decision maker is listed in patient medical record.: Yes Medication Reconciliation I have utilized all available resources to obtain, update and review the patients current medications (includes all prescriptions, OTC, herbals, cannabis, and nutritional supplements).: Yes
[2025-06-12] MEDS: DICYCLOMINE HCL 10 MG CAPSULE PO (16:49)
[2025-06-13] VITALS (7 sets, daily range): BP systolic 100–118; BP diastolic 47–62; PULSE 80–94; RESP 16–22; TEMP 35.9–36.8; O2SAT 92–95
[2025-06-13 05:24] LABS: Hematocrit 30.2 % (37.0-47.0); Hemoglobin 9.2 g/dL (12.0-15.0); Immature Granulocyte Percent A 0.5 % (0-0.5); Lymphocytes Absolute Auto 1.70 K/mm3 (0.9-3.2); Mean Corpuscular HGB Conc 30.5 g/dl (32-36); Mean Corpuscular Hemoglobin 27.7 pg (26-34); Mean Corpuscular Volume 91.0 fl (80-100); Nucleated Red Blood Cells Absolute Auto 0.000 K/mm3 (0.0-0.012); Nucleated Red Blood Cells Perc 0.0 % (0.0-0.2); Platelet Count Result 281 k/mm3 (150-375); Red Blood Count 3.32 M/mm3 (4.2-5.4); White Blood Count 9.3 K/mm3 (4.5-10.0)
[2025-06-13 05:43] LABS: Alanine Aminotransferase 13 U/L (6-35); Albumin Level 3.0 g/dL (3.5-5.1); Alkaline Phosphatase 62 U/L (38-126); Anion Gap 2 mmol/L (4-12); Aspartate Amino Transferase 20 U/L (14-36); Bilirubin,Total 0.8 mg/dL (0.2-1.3); Blood Urea Nitrogen 38 mg/dL (7-17); Calcium 8.3 mg/dL (8.4-10.2); Carbon Dioxide 33 mmol/L (22-30); Chloride 99 mmol/L (98-107); Estimated CRCL calculation 33 ml/min; Estimated Glomerular Filt Rate 32; Glucose 120 mg/dL (65-110); Magnesium 1.7 mg/dL (1.6-2.3); Potassium 4.2 mmol/L (3.4-5.0); Sodium 134 mmol/L (137-145); Total Protein 5.9 g/dL (6.3-8.2)
[2025-06-13] MEDS: FLUTICASONE/UMECLIDIN/VILANTER 200-62.5-25 MCG ELLIPTA 1 PUFF INHALATION (08:21)
[2025-06-13] MEDS: BENZONATATE 100 MG CAPSULE 200 MG PO ×3 (09:04→18:02)
[2025-06-13] MEDS: LORATADINE 10 MG TABLET PO (09:04)
[2025-06-13] MEDS: DICYCLOMINE HCL 10 MG CAPSULE PO ×2 (09:04→18:02)
[2025-06-13] MEDS: CHOLECALCIFEROL (VITAMIN D3) 25 MCG (1,000 UNITS) TABLET 50 MCG PO (09:14)
[2025-06-13] MEDS: METOPROLOL SUCCINATE EXT REL 25 MG TABCR PO (09:14)
[2025-06-13] MEDS: THERAPEUTIC MULTIVITAMINS/MINERALS TAB (*BKC) 1 TABLET PO (09:14)
[2025-06-13] MEDS: CYANOCOBALAMIN 1,000 MCG TABLET 1000 MCG PO (09:14)
[2025-06-13] MEDS: PSYLLIUM POWDER PACKET 1 PACKET BY MOUTH (09:14)
[2025-06-13] MEDS: PANTOPRAZOLE 40 MG TABLET PO ×2 (09:14→20:12)
[2025-06-13] MEDS: guaiFENesin 12 HR 600 MG TABCR 1200 MG PO ×2 (09:14→20:12)
[2025-06-13] MEDS: FUROSEMIDE INJ 40 MG/4 ML VIAL IV PUSH (09:15)
[2025-06-13] MEDS: APIXABAN 5 MG TABLET PO ×2 (09:15→20:12)
--- NOTE | 2025-06-13 12:42 | PM.IMPN2 ---
Assessment and Plan Assessment and Plan (1) Acute bronchitis: Qualifiers: Bronchitis organism: unspecified organism Qualified Code(s): J20.9 - Acute bronchitis, unspecified Code(s): J20.9 - Acute bronchitis, unspecified Status: Acute Assessment and Plan: CXR showed residual airspace disease from 2 weeks prior Respiratory pathogen positive for rhinovirus Patient is currently on Augmentin Continue Tessalon Perles, guaifenesin 1200 mg p.o. b.i.d., Trelegy, Claritin 10 mg p.o. b.i.d. Patient completed azithromycin, cefepime Completed Prednisone BNP 2720 Procalcitonin level 0.1 Chest x-ray with finding of CHF superimposed probable right lower lobe pneumonia. Echo 05/18 was performed to rule out pericardial effusion which was negative. Repeat echo 06/04/2025: EF 55-60% abnormal diastolic function mild pulmonary hypertension [id number] pulmonary regurgitation. CT chest with the right basilar subsegmental atelectatic changes with mild consolidative appearance which could represent small area of aspiration or pneumonia. 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 MBS came back negative for any silent aspiration chest x-ray 06/08/2025 does come back with pulmonary vascular congestion. Patient was on IV Lasix 40mg daily, switched to oral today (2) Acute hypoxic respiratory failure: Code(s): J96.01 - Acute respiratory failure with hypoxia Status: Acute Assessment and Plan: Same as above Need oxygen test with exertion (3) CKD stage 3b, GFR 30-44 ml/min: Code(s): N18.32 - Chronic kidney disease, stage 3b Status: Acute Assessment and Plan: Monitor creatinine while diuresing. Baseline creatinine between 1.3-1.4 BNP decreased from to 9425-4472 (4) Chronic diarrhea: Code(s): K52.9 - Noninfective gastroenteritis and colitis, unspecified Status: Acute Assessment and Plan: Resolved Plan This is a 84-year-old female who presented from [facility] due to persistent cough for 1 month. She was treated for bronchitis with green to brown sputum production with 10 days course of doxycycline and 04/16/2025. Patient had repeat symptoms 05/18/2025 and received antibiotic with cefdinir and azithromycin. Initially her symptoms improved however arm over the past couple of weeks he has continued to have intractable cough. She denied any history of asthma or chronic bronchitis per patient however documentation does report history of chronic bronchitis. She was also having some blood streak in the sputum a few weeks ago but has resolved since she has taken the antibiotics. No chest pain no fever chills. Progressive weakness. DVT prophylaxis Eliquis Code status do not resuscitate Elevated IgE noted on labs 11/2024 Disposition: Likely need SNF placement Subjective Date/time seen: 06/13/25 12:42 Interval history: 06/10:Patient has history of chronic cough. Patient is diagnosed with rhinovirus. Her chronic cough has been exacerbated recently but currently getting better. Patient lisinopril has been discontinued. Patient is currently on Claritin, Protonix 40 b.i.d., Tessalon Perles, and guaifenesin 1200 mg p.o. b.i.d. 06/11: Patient still has cough but she reports is better than her previous episodes. Possible discharge to SNF tomorrow. 06/12: No overnight events. Blood pressure borderline. Cough present shortness of breath with exertion 06/13: Patient was seen during morning rounds today. Patient is feeling slightly better. Decreased shortness of breath. No chest pain. Review of Systems Review of Systems: 12 systems were reviewed with pertinent positives and negatives per HPI. Except as documented in the HPI, all other systems were reviewed and are negative. 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 All systems reviewed & are unremarkable except as noted in HPI and below Exam Narrative: Morbidly obese not in acute distress Patient is comfortable, NAD HEENT: eyes are clear and none icteric LUNGS: Diminished breath sounds bilaterally, No respiratory distress HEART: RR S1S2 ABD: BS+, Soft and nontender Lower extremities: Bilateral lower extremity edema pitting 2+ SKIN: nonjaundiced Neuro: grossly intact. Alert and oriented x3 Const: Other: Mildly ill-appearing, obese HENMT: Other: Mucous membranes are tacky, crowded posterior oropharynx head is normocephalic atraumatic Eyes: Other: Positive conjunctival pallor, no scleral icterus, pupils are equal and reactive, bilateral lens implants noted Neck: Other: No JVD, large neck circumference Resp: Other: Mild tachypnea, end-expiratory wheezing anterior lung cali, no accessory muscle use Cardio: Other: Irregularly irregular, 2+ bilateral radial pedal pulses, no JVD, no murmur GI: Other: Obese, soft, nontender, normoactive bowel sounds Skin: Other: Generalized pallor, non jaundice Neuro: Other: Alert oriented, speech is clear, no facial asymmetry, hard of hearing Extrem: Other: Trace edema bilateral lower extremities, generalized weakness all extremities Psych: Other: Mildly anxious, otherwise pleasant and cooperative Objective Data Vital Signs Vital Signs: Vital Signs - 24 hr 06/12/25 13:47 06/12/25 20:00 06/12/25 20:40 Temperature 36.8 C 36.2 C L Pulse Rate 74 88 Respiratory Rate 18 12 16 Blood Pressure 104/60 103/53 L Pulse Oximetry 95 95 93 Oxygen Delivery Nasal Cannula Oxygen Flow Rate 3 06/13/25 06:00 06/13/25 08:21 06/13/25 09:02 Temperature 36.3 C L 36.8 C Pulse Rate 80 93 Respiratory Rate 20 18 22 H Blood Pressure 105/62 118/47 L Pulse Oximetry 92 92 Oxygen Delivery Oxygen Flow Rate 06/13/25 09:14 Temperature Pulse Rate 94 Respiratory Rate Blood Pressure Pulse Oximetry Oxygen Delivery Oxygen Flow Rate Intake/Output Intake/Output: Intake & Output 06/10/25 06/11/25 06/12/25 06/13/25 23:59 23:59 23:59 23:59 Intake Total 1010 1010 1468 365 Output Total 1100 601 Balance -90 409 1468 365 Meds/Results Medications: Active Medications Generic Name Dose Route Start Last Admin Trade Name Osbaldoq PRN Reason Stop Dose Admin Apixaban 5 mg 06/02/25 09:00 06/13/25 09:15 Apixaban 5 Mg Tablet PO 5 mg Q12HR BAILEE Administration Benzonatate 200 mg 06/08/25 13:45 06/13/25 12:17 Benzonatate 100 Mg Capsule PO 200 mg TID BAILEE Administration Calcium Polycarbophil 1,250 mg 06/02/25 09:00 06/13/25 09:04 Calcium Polycarbophil 625 Mg Tablet PO 1,250 mg BID BAILEE Administration Cyanocobalamin 1,000 mcg 06/02/25 09:00 06/13/25 09:14 Cyanocobalamin 1,000 Mcg Tablet PO 1,000 mcg QAM BAILEE Administration Dicyclomine HCl 10 mg 06/02/25 06:12 06/13/25 09:04 Dicyclomine Hcl 10 Mg Capsule PO 10 mg BID PRN Administration abdominal pain Fluticasone/Umeclidinium/Vilanterol 1 puff 06/09/25 09:25 06/13/25 08:21 Fluticasone/Umeclidin/Vilanter 200-62.5-25 Mcg Ellipta INHALATION 1 puff DAILYRT BAILEE Administration Furosemide 40 mg 06/09/25 09:00 06/13/25 09:15 Furosemide Inj 40 Mg/4 Ml Vial IV PUSH 40 mg DAILY BAILEE Administration Guaifenesin 1,200 mg 06/09/25 09:00 06/13/25 09:14 Guaifenesin 12 Hr 600 Mg Tabcr PO 1,200 mg Q12HR BAILEE Administration Loratadine 10 mg 06/02/25 09:00 06/13/25 09:04 Loratadine 10 Mg Tablet PO 10 mg DAILY BAILEE Administration Metoprolol Succinate 25 mg 06/06/25 14:10 06/13/25 09:14 Metoprolol Succinate Ext Rel 25 Mg Tabcr PO 25 mg QAM BAILEE Administration Multivitamins/Calcium 1 tablet 06/02/25 09:00 06/13/25 09:14 Therapeutic Multivitamins/Minerals Tab (*Bkc) PO 1 tablet DAILY BAILEE Administration Oxybutynin Chloride 5 mg 06/02/25 09:00 06/13/25 09:15 Oxybutynin Chloride 5 Mg Tablet PO 5 mg DAILY BAILEE Administration Pantoprazole Sodium 40 mg 06/08/25 21:00 06/13/25 09:14 Pantoprazole 40 Mg Tablet PO 40 mg Q12HR BAILEE Administration Psyllium Hydrophilic Mucilloid 1 packet 06/02/25 09:00 06/13/25 09:14 Psyllium Powder Packet BY MOUTH 1 packet DAILY BAILEE Administration Trazodone HCl 50 mg 06/02/25 06:12 06/03/25 21:30 Trazodone Hcl 50 Mg Tablet PO 50 mg QHS PRN Administration Insomnia Vitamin D 50 mcg 06/02/25 09:00 06/13/25 09:14 Cholecalciferol (Vitamin D3) 25 Mcg (1,000 Units) Tablet PO 50 mcg DAILY BAILEE Administration Radiology Results: ITS Impressions Chest CT 06/04/25 13:29 IMPRESSION: 1. Right basilar subsegmental atelectatic changes with mild consolidative appearance which could represent small area of aspiration or pneumonia. 2. Other chronic appearing findings as above including mild aneurysmal dilatation of the ascending thoracic aorta and prominence main pulmonary artery which may represent pulmonary arterial hypertension. 3. Enlarged thyroid. Correlate with follow-up routine thyroid ultrasound. Chest X-Ray 06/08/25 09:48 Impression: CHF Modified Barium Swallow 06/08/25 09:48 IMPRESSION: No aspiration observed. See speech therapist's note for complete evaluation. Labs Labs: Laboratory Results - last 24 hr 06/13/25 04:43 WBC 9.3 RBC 3.32 L Hgb 9.2 L Hct 30.2 L MCV 91.0 MCH 27.7 MCHC 30.5 L RDW 15.4 H Plt Count 281 MPV 9.8 Immature Gran % (Auto) 0.5 Neut % (Auto) 68.3 Lymph % (Auto) 18.4 [place] % (Auto) 8.6 H Eos % (Auto) 3.3 Baso % (Auto) 0.9 Lymph # (Auto) 1.70 [place] # (Auto) 0.8 H Eos # (Auto) 0.3 Baso # (Auto) 0.1 Abs Immat Gran (auto) 0.05 H Absolute Neuts (auto) 6.3 Absolute Nucleated RBC 0.000 Nucleated RBC % 0.0 Sodium 134 L Potassium 4.2 Chloride 99 Carbon Dioxide 33 H Anion Gap 2 L BUN 38 H Creatinine 1.53 H Estim Creat Clear Calc 33 Estimated GFR 32 L Glucose 120 H Calcium 8.3 L Magnesium 1.7 Total Bilirubin 0.8 AST 20 ALT 13 Alkaline Phosphatase 62 Total Protein 5.9 L Albumin 3.0 L Quality VTE Prophylaxis VTE prophylaxis: pharmacologic ordered (Continue home Eliquis)
[2025-06-14] VITALS (7 sets, daily range): BP systolic 101–110; BP diastolic 54–61; PULSE 87–107; RESP 14–18; TEMP 36.7–37.2; O2SAT 92–96
[2025-06-14 05:57] LABS: Alanine Aminotransferase 13 U/L (6-35); Albumin Level 3.0 g/dL (3.5-5.1); Alkaline Phosphatase 62 U/L (38-126); Anion Gap 5 mmol/L (4-12); Aspartate Amino Transferase 17 U/L (14-36); Bilirubin,Total 0.6 mg/dL (0.2-1.3); Blood Urea Nitrogen 36 mg/dL (7-17); Calcium 8.4 mg/dL (8.4-10.2); Carbon Dioxide 32 mmol/L (22-30); Chloride 99 mmol/L (98-107); Estimated CRCL calculation 36 ml/min; Estimated Glomerular Filt Rate 36; Glucose 114 mg/dL (65-110); Potassium 3.7 mmol/L (3.4-5.0); Sodium 136 mmol/L (137-145); Total Protein 5.9 g/dL (6.3-8.2)
[2025-06-14] MEDS: FLUTICASONE/UMECLIDIN/VILANTER 200-62.5-25 MCG ELLIPTA 1 PUFF INHALATION (09:11)
[2025-06-14] MEDS: FUROSEMIDE 40 MG TABLET PO (09:52)
[2025-06-14] MEDS: METOPROLOL SUCCINATE EXT REL 25 MG TABCR PO (09:52)
[2025-06-14] MEDS: PSYLLIUM POWDER PACKET 1 PACKET BY MOUTH (09:52)
[2025-06-14] MEDS: LORATADINE 10 MG TABLET PO (09:52)
[2025-06-14] MEDS: BENZONATATE 100 MG CAPSULE 200 MG PO ×2 (09:54→13:01)
[2025-06-14] MEDS: CYANOCOBALAMIN 1,000 MCG TABLET 1000 MCG PO (09:54)
[2025-06-14] MEDS: APIXABAN 5 MG TABLET PO (09:54)
[2025-06-14] MEDS: CHOLECALCIFEROL (VITAMIN D3) 25 MCG (1,000 UNITS) TABLET 50 MCG PO (09:54)
[2025-06-14] MEDS: guaiFENesin 12 HR 600 MG TABCR 1200 MG PO (09:54)
[2025-06-14] MEDS: THERAPEUTIC MULTIVITAMINS/MINERALS TAB (*BKC) 1 TABLET PO (09:54)
[2025-06-14] MEDS: PANTOPRAZOLE 40 MG TABLET PO (09:54)
--- NOTE | 2025-06-14 11:55 | P.DS_ITS ---
DS: Admitting Diagnosis Discharge Date 06/12/2025 Admitting Diagnosis Acute bronchitis DS: Discharge Diagnosis Discharge Diagnosis (1) Acute bronchitis: Qualifiers: Bronchitis organism: unspecified organism Qualified Code(s): J20.9 - Acute bronchitis, unspecified Code(s): J20.9 - Acute bronchitis, unspecified Status: Acute Assessment and Plan: CXR showed residual airspace disease from 2 weeks prior Respiratory pathogen positive for rhinovirus Patient is currently on Augmentin Continue Tessalon Perles, guaifenesin 1200 mg p.o. b.i.d., Trelegy, Claritin 10 mg p.o. b.i.d. Patient completed azithromycin, cefepime Completed Prednisone BNP 2720 Procalcitonin level 0.1 Chest x-ray with finding of CHF superimposed probable right lower lobe pneumonia. Echo 05/18 was performed to rule out pericardial effusion which was negative. Repeat echo 06/04/2025: EF 55-60% abnormal diastolic function mild pulmonary hypertension [id number] pulmonary regurgitation. CT chest with the right basilar subsegmental atelectatic changes with mild con solidative appearance which could represent small area of aspiration or pneumonia. 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 MBS came back negative for any silent aspiration chest x-ray 06/08/2025 does come back with pulmonary vascular congestion. Patient was on IV Lasix 40mg daily, switched to oral today (2) Acute hypoxic respiratory failure: Code(s): J96.01 - Acute respiratory failure with hypoxia Status: Acute Assessment and Plan: Same as above Need oxygen test with exertion (3) CKD stage 3b, GFR 30-44 ml/min: Code(s): N18.32 - Chronic kidney disease, stage 3b Status: Acute Assessment and Plan: Monitor creatinine while diuresing. Baseline creatinine between 1.3-1.4 BNP decreased from to [id number] (4) Chronic diarrhea: Code(s): K52.9 - Noninfective gastroenteritis and colitis, unspecified Status: Acute Assessment and Plan: Resolved Plan This is a 84-year-old female who presented from [facility] due to persistent cough for 1 month. She was treated for bronchitis with green to brown sputum production with 10 days course of doxycycline and 04/16/2025. Patient had repeat symptoms 05/18/2025 and received antibiotic with cefdinir and azithromycin. Initially her symptoms improved however arm over the past couple of weeks he has continued to have intractable cough. She denied any history of asthma or chronic bronchitis per patient however documentation does report history of chronic bronchitis. She was also having some blood streak in the sputum a few weeks ago but has resolved since she has taken the antibiotics. No chest pain no fever chills. Progressive weakness. DVT prophylaxis Eliquis Code status do not resuscitate Elevated IgE noted on labs 11/2024 Disposition: Likely need SNF placement DS: Summary Hospital Course Reason for hospitalization: Acute bronchitis Hospital Course: 84 years old female was admitted for acute bronchitis. Patient tested positive for rhinovirus. Patient was continued on home medication was treated for bronchitis. Patient did not have any complicating stay in the hospital. Today patient is feeling better was discharged home stable condition. Follow-up scheduled. Status at Discharge Cognitive/behavioral status at discharge: stable Time Spent with Patient Time attestation: Total time spent providing and/or coordinating discharge services: 30 minutes Exam Narrative: Morbidly obese not in acute distress Patient is comfortable, NAD HEENT: eyes are clear and none icteric LUNGS: Diminished breath sounds bilaterally, No respiratory distress HEART: RR S1S2 ABD: BS+, Soft and nontender Lower extremities: Bilateral lower extremity edema pitting 2+ SKIN: nonjaundiced Neuro: grossly intact. Alert and oriented x3 Const: Other: Mildly ill-appearing, obese HENMT: Other: Mucous membranes are tacky, crowded posterior oropharynx head is normocephalic atraumatic Eyes: Other: Positive conjunctival pallor, no scleral icterus, pupils are equal and reactive, bilateral lens implants noted Neck: Other: No JVD, large neck circumference Resp: Other: Mild tachypnea, end-expiratory wheezing anterior lung cali, no accessory muscle use Cardio: Other: Irregularly irregular, 2+ bilateral radial pedal pulses, no JVD, no murmur GI: Other: Obese, soft, nontender, normoactive bowel sounds Skin: Other: Generalized pallor, non jaundice Neuro: Other: Alert oriented, speech is clear, no facial asymmetry, hard of hearing Extrem: Other: Trace edema bilateral lower extremities, generalized weakness all extremities Psych: Other: Mildly anxious, otherwise pleasant and cooperative DS: Data Data Completed and Pending Labs on day of discharge: Labs from last 24 hours 12/22/25 05:05 Sodium 136 L Potassium 3.7 Chloride 99 Carbon Dioxide 32 H Anion Gap 5 BUN 36 H Creatinine 1.40 H Estim Creat Clear Calc 36 Estimated GFR 36 L Glucose 114 H Calcium 8.4 Total Bilirubin 0.6 AST 17 ALT 13 Alkaline Phosphatase 62 Total Protein 5.9 L Albumin 3.0 L Discharge Plan Discharge Attending physician on discharge: Graham Duffy Consulting providers: Sunny Martin Discharging Clinician: Graham Duffy Patient Disposition: Home with Home Health Service Activity: as tolerated Diet: as tolerated Discharge Instructions: Per Care Coordination. Patient to have [facility] for RN/PT/OT eval and treat [phone]. RN please fax discharge instructions to [phone] Patient Instructions: Antibiotic Form, Apixaban (By mouth), Acute Bronchitis (GEN), Pneumonia (GEN) Patient Language: [place] Stand Alone Forms: General Discharge Information Follow-up/Referrals: Elizabeth Davis PA-C [Primary Care Provider, Family Practice] Sunny Martin MD [Physician, Pulmonology] Discharge Medications: New Trelegy Ellipta 200-62.5-25 mcg Blister With Device 1 inh inhalation DAILYRT Qty: 1 0RF Continued loratadine [Claritin] 10 mg tablet 10 mg PO DAILY Qty: 90 3RF cholecalciferol (vitamin D3) 50 mcg (2,000 unit) capsule 50 mcg PO DAILY Qty: 90 3RF ketoconazole 2 % cream 1 applic topical BID Qty: 60 1RF Rx Instructions: apply to the scaly skin of the face / eyebrows diclofenac sodium [Arthritis Pain (diclofenac)] 1 % gel 2 g topical QID Qty: 50 0RF Rx Instructions: apply to the right elbow and forearm psyllium husk [Reguloid (psyllium husk)] 0.4 gram capsule 0.4 g PO .5xd acetaminophen 500 mg capsule 1,000 mg PO .Q8 PRN (Reason: fever or pain) trazodone 50 mg tablet 50 mg PO QHS PRN (Reason: insomnia) Qty: 90 0RF mupirocin [Centany] 2 % ointment 1 applic topical BID Qty: 15 0RF lisinopril 10 mg tablet 10 mg PO DAILY Qty: 90 0RF dicyclomine 10 mg capsule 10 mg PO BID PRN (Reason: abdominal pain) Qty: 180 0RF Eliquis 5 mg tablet 5 mg PO BID Qty: 60 0RF metoprolol succinate 25 mg tablet extended release 24 hr 25 mg PO DAILY Qty: 30 0RF oxybutynin chloride 5 mg tablet 5 mg PO DAILY Qty: 90 0RF guaifenesin 600 mg tablet extended release 12hr 600 mg PO Q12H PRN (Reason: congestion) Qty: 60 5RF mecobalamin (vitamin B12) 500 mcg tablet,chewable 1,000 mcg PO DAILY Qty: 180 1RF multivit with min-folic acid [One-A-Day Women's 50 Plus] 0.4 mg tablet 1 tablet PO DAILY Qty: 90 1RF pantoprazole 40 mg tablet,delayed release (DR/EC) 40 mg PO QAM Qty: 90 1RF Rx Instructions: separate from other medication, 30 mins before eating breakfast My[employer] 3 billion cell capsule 1 cap PO DAILY Qty: 30 0RF furosemide 40 mg tablet 40 mg PO QAM Qty: 30 0RF Discontinued spironolactone 25 mg tablet 12.5 mg PO DAILY Patient Comments: Started November 2024 Rx Instructions: DONNA Date of admission: 06/03/25 13:23 Primary Care Provider: Elizabeth Davis I. Admitting Provider: Yoan Xavier Attending physician on admission: Yoan Xavier Condition: Stable Quality VTE Prophylaxis VTE prophylaxis: pharmacologic ordered (Continue home Eliquis)
== END 2025-06-14 15:45 | DRG 202 ==
LOC: ANHED 18:56 → ANHIMU 19:15 → ANH2MED 06-02 17:37
PROVIDERS: Family Medicine; General Practice; Internal Medicine; Physician Assistant; Student in an Organized Health Care Education/Training Program; Admitting Provider Internal Medicine; Emergency Provider Emergency Medicine; PCP Physician Assistant Medical; Visit Provider Internal Medicine
DX: J20.6 Acute bronchitis due to rhinovirus (principal); I50.33 Acute on chronic diastolic (congestive) heart failure; J96.01 Acute respiratory failure with hypoxia; J12.89 Other viral pneumonia; I48.92 Unspecified atrial flutter; I13.0 Hypertensive heart and chronic kidney disease with heart failure and stage 1 through stage 4 chronic kidney disease, or unspecified chronic kidney disease; Z68.43 Body mass index [BMI] 50.0-59.9, adult; I48.20 Chronic atrial fibrillation, unspecified; J42 Unspecified chronic bronchitis; K58.0 Irritable bowel syndrome with diarrhea; E87.5 Hyperkalemia; G47.30 Sleep apnea, unspecified; I27.21 Secondary pulmonary arterial hypertension; R32 Unspecified urinary incontinence; D64.9 Anemia, unspecified; E66.01 Morbid (severe) obesity due to excess calories; R73.03 Prediabetes; I95.9 Hypotension, unspecified; N18.32 Chronic kidney disease, stage 3b; I37.1 Nonrheumatic pulmonary valve insufficiency; K21.9 Gastro-esophageal reflux disease without esophagitis; Z20.822 Contact with and (suspected) exposure to COVID-19; Z66 Do not resuscitate; G47.00 Insomnia, unspecified; F32.A Depression, unspecified; E53.8 Deficiency of other specified B group vitamins; E55.9 Vitamin D deficiency, unspecified; H91.90 Unspecified hearing loss, unspecified ear; Z96.21 Cochlear implant status; Z96.612 Presence of left artificial shoulder joint; Z96.611 Presence of right artificial shoulder joint; Z77.22 Contact with and (suspected) exposure to environmental tobacco smoke (acute) (chronic); Z96.641 Presence of right artificial hip joint; Z99.81 Dependence on supplemental oxygen; Z79.01 Long term (current) use of anticoagulants; Z90.49 Acquired absence of other specified parts of digestive tract; B97.89 Other viral agents as the cause of diseases classified elsewhere
CPT/HCPCS: 0202U; 36415; 71045; 71046; 71250; 74230; 80048; 80053; 80202; 82565; 83605; 83735; 83880; 84145; 84484; 85025; 85027; 85610; 85730; 86140; 87040; 87070; 87205; 87449; 87637; 87641; 87899; 92610; 92611; 93005; 94640; 94762; 96365; 96367; 96375; 97110; 97116; 97161; 97166; 97530; 97535; 99285; A9270; C8929; G0378; J0456; J0692; J1938; J2919; J3373; J3475; J7050; J7512; P9047; Q9957